=== PATIENT | female | born 1980 | race Two or more races ===

== ENCOUNTER 2020-06-24 15:45 | Outpatient (REF) | payer MEDICAID, SELFPAY | END 2020-06-24 15:46 | disposition home or self-care (01) | LOC: HO.LAB 15:45 | PROVIDERS: PCP Internal Medicine Geriatric Medicine; Visit Provider Internal Medicine | DX: Z20.828 Contact with and (suspected) exposure to other viral communicable diseases (principal) | CPT/HCPCS: 36415; C9803; U0003 ==

== ENCOUNTER 2020-10-06 12:19 | Outpatient (REF) | payer MEDICAID, SELFPAY ==
[2020-10-06 12:55] LABS: COVID-19 Test Negative (Negative)
== END 2020-10-06 12:20 | disposition home or self-care (01) ==
LOC: HO.LAB 12:19
PROVIDERS: Visit Provider Internal Medicine
DX: Z20.822 Contact with and (suspected) exposure to COVID-19 (principal)
CPT/HCPCS: 36415; 87635; C9803

== ENCOUNTER 2021-01-15 15:30 | Outpatient (REF) | payer MEDICAID, SELFPAY ==
--- NOTE | ~2021-01-15 | XR_ITS ---
EXAMINATION: XR KNEE, LEFT CLINICAL INFORMATION: Left knee pain. COMPARISON: None TECHNIQUE: Four views of the left knee. FINDINGS: Alignment is anatomic. Joint spaces are well maintained. No joint effusion. No abnormal soft tissue calcification. XR/XR knee LT 4V IMPRESSION: No acute abnormality.
== END 2021-01-15 15:31 | disposition home or self-care (01) ==
LOC: HO.XRAY 15:30
PROVIDERS: PCP Internal Medicine Geriatric Medicine; Referring Provider Internal Medicine Geriatric Medicine; Visit Provider Emergency Medicine
DX: M25.562 Pain in left knee (principal)
CPT/HCPCS: 73564

== ENCOUNTER 2021-03-17 11:13 | Outpatient (REF) | payer MEDICAID, SELFPAY ==
--- NOTE | ~2021-03-17 | XR_ITS ---
EXAMINATION: LEFT WRIST AND LEFT FOREARM X-RAY CLINICAL INFORMATION: Pain post injury COMPARISON: None TECHNIQUE: 4 views of the left wrist and 2 views of the left forearm FINDINGS: Left wrist: Bone alignment is normal. No fracture or dislocation is seen. The joint spaces are normal. Soft tissues are normal. Left forearm: Bone alignment is normal. No fracture or dislocation is seen. The joint spaces are normal. Soft tissues are normal. XR/XR wrist LT 2V IMPRESSION: Unremarkable exam.
--- NOTE | ~2021-03-17 | XR_ITS ---
EXAMINATION: LEFT WRIST AND LEFT FOREARM X-RAY CLINICAL INFORMATION: Pain post injury COMPARISON: None TECHNIQUE: 4 views of the left wrist and 2 views of the left forearm FINDINGS: Left wrist: Bone alignment is normal. No fracture or dislocation is seen. The joint spaces are normal. Soft tissues are normal. Left forearm: Bone alignment is normal. No fracture or dislocation is seen. The joint spaces are normal. Soft tissues are normal. XR/XR forearm LT 2V IMPRESSION: Unremarkable exam.
== END 2021-03-17 11:14 | disposition home or self-care (01) ==
LOC: HO.XRAY 11:13
PROVIDERS: Absent Provider Internal Medicine Geriatric Medicine; PCP Internal Medicine Geriatric Medicine; Visit Provider Emergency Medicine
DX: S59.912A Unspecified injury of left forearm, initial encounter (principal); S69.92XA Unspecified injury of left wrist, hand and finger(s), initial encounter; X58.XXXA Exposure to other specified factors, initial encounter; Y93.9 Activity, unspecified; Y92.9 Unspecified place or not applicable; Y99.9 Unspecified external cause status
CPT/HCPCS: 73090; 73100

== ENCOUNTER 2022-02-04 12:19 | Outpatient (REF) | payer MEDICAID, SELFPAY ==
--- NOTE | ~2022-02-04 | MM_ITS ---
EXAMINATION: MM SCREENING DIGITAL BREAST TOMOSYNTHESIS, BILATERAL CLINICAL INFORMATION: Screening. Asymptomatic. The lifetime risk of breast cancer based on the Tyrer-Cuzick Model is 6%. COMPARISON: Mammography: 02/06/2019, 01/31/2019, 01/20/2018 (baseline) TECHNIQUE: Digital breast tomosynthesis is performed in both the craniocaudal and mediolateral oblique views along with computer-aided detection (CAD). Synthesized 2D images are generated from the tomosynthesis. FINDINGS: The breasts are heterogeneously dense, which may obscure small masses (ACR BI-RADS breast composition Category c). Breast tissue composition borders on average fibroglandular. Right breast shows no significant changes. Neither breast shows abnormal calcifications. The bilateral axilla and skin contours are unremarkable. There are bilateral nipple piercings. Left breast has new smooth oval mass retroareolar 5:00 position measuring approximately 1.0 x 0.7 x 0.8 cm, likely a cyst. Patient will be recalled for additional targeted ultrasound. MM/MM tomosynthesis screening BI IMPRESSION: Left: -New smooth oval mass retroareolar 5:00 position, 1.0 cm, likely a cyst. Right: -No mammographic evidence of malignancy. ASSESSMENT: BI-RADS 0: Incomplete - Need Additional Imaging Evaluation RECOMMENDATION: 1. Targeted ultrasound left breast. 2. Radiology department staff will contact the patient for additional imaging. This patient's information was entered into a reminder system with a target due date for their next mammogram.
== END 2022-02-04 12:20 | disposition home or self-care (01) ==
LOC: HO.MAMMO 12:19
PROVIDERS: PCP Internal Medicine Geriatric Medicine; Visit Provider Internal Medicine Geriatric Medicine
DX: Z12.31 Encounter for screening mammogram for malignant neoplasm of breast (principal)
CPT/HCPCS: 77063; 77067

== ENCOUNTER 2022-02-12 14:43 | Outpatient (REF) | payer MEDICAID, SELFPAY ==
--- NOTE | ~2022-02-12 | US_ITS ---
EXAMINATION: US BREAST, DIAGNOSTIC, LEFT CLINICAL INFORMATION: Left breast circumscribed oval density retroareolar position.. COMPARISON: Mammography of 02/04/2022 as well as studies dating back to 01/20/2018. TECHNIQUE: Ultrasound of the breast is performed with real-time serra scale imaging and color Doppler. FINDINGS: In the retroareolar region of the left breast approximately 3 o'clock 1 cm from the nipple there is an isoechoic circumscribed density which is wider than it is tall and has some peripheral vascularity measuring approximately 8 x 4 x 7 mm in size with no significant distal sound shadowing or enhancement. The density on mammography was not appreciated on the previous mammograms. This may represent a fibroadenoma however ultrasound-guided core biopsy is recommended. Results are discussed with the patient at time of visit. Breast center natural resources instructor called referring provider's office with the above recommendation. US/US breast LT limited IMPRESSION: Retroareolar circumscribed left breast solid lesion for which ultrasound-guided core biopsy is recommended. ASSESSMENT: BI-RADS 4: Suspicious (subcategory 4A: Low suspicion for malignancy) RECOMMENDATION: Ultrasound-guided core biopsy left breast.
== END 2022-02-12 14:44 | disposition home or self-care (01) ==
LOC: HO.MAMMO 14:43
PROVIDERS: PCP Internal Medicine Geriatric Medicine; Visit Provider Internal Medicine Geriatric Medicine
DX: R92.2 Inconclusive mammogram (principal)
CPT/HCPCS: 76642

== ENCOUNTER 2022-02-17 09:24 | Outpatient (REF) | payer MEDICAID, SELFPAY ==
--- NOTE | ~2022-02-17 | MM_ITS ---
PROCEDURE: US GUIDED BREAST BIOPSY, LEFT CLINICAL INFORMATION: Indeterminate circumscribed hypoechoic lesion retroareolar location. COMPARISON: February 12, 2022 and studies dating back to January 20, 2018 PROCEDURAL DETAILS: The details of the procedure, as well as the risks, benefits, and alternatives to the procedure were explained to the patient in detail and all of her questions were answered, after which written informed consent was obtained. Site and side were confirmed. Prior to the procedure, sonography revealed a well-circumscribed hypoechoic lesion 3:00 position 1 cm from the nipple. A time-out was performed, the lesion intended for biopsy was targeted, and the skin of the left breast was then prepped and draped in the usual sterile fashion. Using sonographic guidance, sterile technique, and 1% lidocaine without epinephrine for local anesthesia, multiple automated core biopsies were obtained through the targeted area with a 14G spring loaded Achieve core biopsy device. There was real-time confirmation of appropriate needle passage. Sampling was documented. At the completion of tissue sampling, a single butterfly-shaped metallic clip was deposited at the biopsy site. There was no evidence of immediate complication. SPECIMEN: An appropriate sample was obtained. DIGITAL POST-PROCEDURE MAMMOGRAPHY: Breast density: The tissue is extremely dense, which lowers the sensitivity of mammography. BI-RADS version 5, category D. There are no new mammographic findings demonstrated. The postprocedure 2-view direct digital mammogram reveals satisfactory positioning of the biopsy clip. The patient tolerated the procedure well and, after assuring adequate hemostasis, was discharged in good condition after reviewing postbiopsy breast care instructions. Final pathology results are pending. MM/MM diagnostic mammo unilat LT IMPRESSION: 1. No immediate complication from ultrasound-guided percutaneous biopsy left breast. 2. Ultrasound was used to localize and guide marker clip placement. 3. The 2-view direct digital postprocedure mammogram reveals satisfactory positioning of the biopsy clip. 4. Final pathology results are pending. A separate report with final recommendations will be issued once these results are made available. .
== END 2022-02-17 09:25 | disposition home or self-care (01) ==
LOC: HO.MAMMO 09:24
PROVIDERS: PCP Internal Medicine Geriatric Medicine; Visit Provider Internal Medicine Geriatric Medicine
DX: R92.8 Other abnormal and inconclusive findings on diagnostic imaging of breast (principal); N63.25 Unspecified lump in the left breast, overlapping quadrants
CPT/HCPCS: 19083; 77062; 77065; 88305; 99202

== ENCOUNTER 2023-02-23 15:57 | Outpatient (REF) | payer MEDICAID, SELFPAY ==
--- NOTE | ~2023-02-23 | XR_ITS ---
EXAMINATION: XR KNEE, LEFT CLINICAL INFORMATION: Pain COMPARISON: None available. TECHNIQUE: Three views of the left knee. FINDINGS: No fracture or joint effusion. Alignment is anatomic. Joint spaces are maintained. No abnormal soft tissue calcification. XR/XR knee LT 3V IMPRESSION: Normal left knee.
== END 2023-02-23 15:58 | disposition home or self-care (01) ==
LOC: HO.HHCX 15:57
PROVIDERS: Visit Provider Family Medicine
DX: M25.562 Pain in left knee (principal)
CPT/HCPCS: 73562

== ENCOUNTER 2023-03-14 09:51 | Outpatient (REF) | payer MEDICAID, SELFPAY ==
[2023-03-16 19:38] LABS: TS Negative Control Passed; TS Panel A 0; TS Panel B 0; TS Positive Control Passed; TSpotTB Negative (Negative)
== END 2023-03-14 09:52 | disposition home or self-care (01) ==
LOC: HO.HHCL 09:51
PROVIDERS: Visit Provider Internal Medicine Geriatric Medicine
DX: Z11.1 Encounter for screening for respiratory tuberculosis (principal)
CPT/HCPCS: 36415; 86481

== ENCOUNTER 2023-04-06 10:37 | Outpatient (REF) | payer MEDICAID, SELFPAY ==
[2023-04-06 11:04] LABS: MANUAL DIFF FLAG NO
[2023-04-06 11:26] LABS: Basophils Percent Auto 0.5 % (0-2); Eosinophils Absolute Auto 0.2 X10*3/uL (0.0-0.4); Eosinophils Percent Auto 2.3 % (0-4); Hematocrit 36.6 % (37.0-47.0); Hemoglobin 11.7 g/dl (12.0-16.0); Imm Gran Abs Auto 0.02 X10*3/uL (0.00-0.03); Imm Gran Pct Auto 0.3 % (0.0-0.4); Lymphocytes Absolute Auto 2.2 X10*3/uL (1.2-4.9); Lymphocytes Percent Auto 28.6 % (20-40); Mean Corpuscular Hemoglobin 29.9 pg (27.0-33.0); Mean Corpuscular Volume 93.6 fL (80.0-98.0); Mean Platelet Volume 11.6 fL (9.4-12.3); Monocytes Absolute Auto 0.5 X10*3/uL (0.1-1.2); Monocytes Percent Auto 6.1 % (2-11); Neutrophils Absolute Auto 4.9 x10*3/uL (2.0-8.3); Neutrophils Percent Auto 62.2 % (45-73); Platelet Count 252 X10*3/uL (160-400); Red Blood Count 3.91 X10*6/uL (4.20-5.50); Red Cell Distribution Width 14.3 % (11.0-16.0); White Blood Count 7.8 X10*3/uL (4.8-10.8)
[2023-04-06 12:12] LABS: Alanine Aminotransferase 12 U/L (0-31); Albumin Level 3.6 g/dL (3.5-5.0); Alkaline Phosphatase 45 U/L (39-117); Anion Gap 11 (12-20); Aspartate Amino Transferase 16 U/L (5-31); Bilirubin Total 0.2 mg/dL (0.0-1.0); Blood Urea Nitrogen 12 mg/dL (9-16); Carbon Dioxide 21 mmol/L (22-29); Chloride 111 mmol/L (96-108); Cholesterol 154 mg/dL (<200); Estimated Glomerular Filt Rate > 60; Glucose Random 80 mg/dL (60-115); HDL Cholesterol 42 mg/dL (>40); LDL Cholesterol Calculated 97 mg/dL (<100); Potassium 4.5 mmol/L (3.3-5.1); Sodium 138 mmol/L (135-145); Total Protein 6.6 g/dL (6.5-8.0); Triglycerides 79 mg/dL (<150)
== END 2023-04-06 10:38 | disposition home or self-care (01) ==
LOC: HO.HHCL 10:37
PROVIDERS: Visit Provider Internal Medicine Geriatric Medicine
DX: Z00.00 Encounter for general adult medical examination without abnormal findings (principal); M54.2 Cervicalgia; G89.29 Other chronic pain; Z13.1 Encounter for screening for diabetes mellitus; Z13.220 Encounter for screening for lipoid disorders; Z12.11 Encounter for screening for malignant neoplasm of colon; Z12.4 Encounter for screening for malignant neoplasm of cervix; Z72.0 Tobacco use
CPT/HCPCS: 36415; 80053; 80061; 85025

== ENCOUNTER → 2023-04-14 14:15 | Outpatient (BNV) | payer MEDICAID, SELFPAY | PROVIDERS: PCP Internal Medicine Geriatric Medicine; Visit Provider Radiology Diagnostic Radiology | DX: Z12.31 Encounter for screening mammogram for malignant neoplasm of breast (principal) | CPT/HCPCS: 77063; 77067 ==

== ENCOUNTER 2023-04-14 14:35 | Outpatient (REF) | payer MEDICAID, SELFPAY ==
--- NOTE | ~2023-04-14 | MM_ITS ---
EXAMINATION: MM SCREENING DIGITAL BREAST TOMOSYNTHESIS, BILATERAL CLINICAL INFORMATION: Screening. Asymptomatic. COMPARISON: Mammography: This study is compared with prior exams dating back to 2019. TECHNIQUE: Digital breast tomosynthesis is performed in both the craniocaudal and mediolateral oblique views along with computer-aided detection (CAD). Synthesized 2D images are generated from the tomosynthesis. FINDINGS: The breasts are heterogeneously dense, which may obscure small masses (ACR BI-RADS breast composition Category c). The patient has bilateral nipple rings. Patient has had a biopsy of a benign retroareolar left breast mass. There are no significant masses, abnormal calcifications, or other abnormalities. MM/MM tomosynthesis screening BI IMPRESSION: No mammographic evidence of malignancy. ASSESSMENT: BI-RADS BI-RADS 2 - Benign Findings RECOMMENDATION: Routine annual mammography screening. 1 year F/U This examination should not preclude the clinical evaluation of a suspicious palpable abnormality. This patient's information was entered into a reminder system with a target due date for their next mammogram.
== END 2023-04-14 14:36 | disposition home or self-care (01) ==
LOC: HO.MAMMO 14:35
PROVIDERS: PCP Internal Medicine Geriatric Medicine; Visit Provider Internal Medicine Geriatric Medicine
DX: Z12.31 Encounter for screening mammogram for malignant neoplasm of breast (principal)
CPT/HCPCS: 77063; 77067

== ENCOUNTER 2023-06-09 16:05 | Outpatient (REF) | payer MEDICAID, SELFPAY ==
[2023-06-16 22:08] LABS: C. trachomatis RNA TMA NOT DETECTED (NOT DETECTED); N. gonorrhoeae RNA TMA NOT DETECTED (NOT DETECTED); Trichomonas (NAAT) NOT DETECTED (NOT DETECTED)
== END 2023-06-09 16:06 | disposition home or self-care (01) ==
LOC: HO.HHCLNP 16:05
PROVIDERS: Visit Provider Advanced Practice Midwife
DX: Z12.4 Encounter for screening for malignant neoplasm of cervix (principal); Z11.51 Encounter for screening for human papillomavirus (HPV); N93.0 Postcoital and contact bleeding
CPT/HCPCS: 36415; 87491; 87591; 87624; 87661; 88142

== ENCOUNTER 2023-07-01 10:52 | Outpatient (REF) | payer MEDICAID, SELFPAY ==
--- NOTE | ~2023-07-01 | XR_ITS ---
STUDY: Bilateral hands INDICATION: Bilateral hand/wrist pain, worse in the morning with swelling. History of right hand/forearm dog bite. COMPARISON: 03/17/2021 left forearm and wrist TECHNIQUE: 3 views each hand FINDINGS: Right: No fracture, dislocation or erosive bony changes. No significant joint space narrowings. Alignment and articulations maintained. Left: No fracture, dislocation or bony erosions. No significant joint space narrowings. Alignment and articulations are maintained. XR/XR hand RT min 3V IMPRESSION: No acute bony pathology bilateral hands.
--- NOTE | ~2023-07-01 | XR_ITS ---
STUDY: Bilateral hands INDICATION: Bilateral hand/wrist pain, worse in the morning with swelling. History of right hand/forearm dog bite. COMPARISON: 03/17/2021 left forearm and wrist TECHNIQUE: 3 views each hand FINDINGS: Right: No fracture, dislocation or erosive bony changes. No significant joint space narrowings. Alignment and articulations maintained. Left: No fracture, dislocation or bony erosions. No significant joint space narrowings. Alignment and articulations are maintained. XR/XR hand LT min 3V IMPRESSION: No acute bony pathology bilateral hands.
[2023-07-01 12:34] LABS: Rheumatoid Factor < 13.0 IU/mL (<15.0)
[2023-07-01 12:42] LABS: Erythrocyte Sedimentation Rate 7 MM/HR (0-20)
[2023-07-01 12:53] LABS: TSH reflex Free T4 0.95 uIU/mL (0.32-4.0)
== END 2023-07-01 10:53 | disposition home or self-care (01) ==
LOC: HO.HHCL 10:52
PROVIDERS: Referring Provider Advanced Practice Midwife; Visit Provider Internal Medicine Geriatric Medicine
DX: M79.641 Pain in right hand (principal); M79.642 Pain in left hand; M79.89 Other specified soft tissue disorders; N92.6 Irregular menstruation, unspecified
CPT/HCPCS: 36415; 73130; 84443; 85652; 86431

== ENCOUNTER 2023-07-22 14:36 | Outpatient (AMB) | payer MEDICAID, SELFPAY ==
[2023-07-22 14:45] VITALS: BP 139/72; PULSE 64; BMI 33.3
--- NOTE | 2023-07-22 14:45 | A.OFFVIS_ITS ---
Intake Vital Signs 07/22/23 14:45 Height 5 ft 1 in Weight 176 lb 5.917 oz BMI 33.3 BP 139/72 Blood Pressure Location Rt brachial Position Sitting Pulse 64 Intake Visit Reasons: Colonoscopy Screening Intake Note: Patient presents to in office visit today as a new patient for colonoscopy screening. CC: Patient c/o constipation, abd pain, and rectal bleeding. She states she suffers from gastritis . Denies other GI symptoms today. Work Environment Safety Inspector Required: Yes Accompanied by: Self / Same As Patient Allergies No Known Allergies [No Known Allergies*] Allergy (Verified 07/22/23 14:48) HPI Colonoscopy Screening HPI Details 43 year old? female here today for pre c olonoscopy screening.? Patient was sent to us by her PCP.? This is her first colonoscopy screening.? Patient reports postprandial abdominal bloating, occasional rectal bleeding after bowel movements. Constipation, not using anything to help her move her bowels. Patient reports that she was told that she has a gastritis in the past. Postprandial epigastric discomfort. Occasional acid reflux and dyspepsia without dysphagia or odynophagia. Patient denies any nausea or vomiting. No family history of colorectal cancer. FORMERLY [facility] Medical History Eroded bladder suspension mesh Left breast mass Family History Mother No problems noted. Mother No problems noted. Father No problems noted. Social History Alcohol intake: current Alcohol intake frequency: holidays/special occasions only Tobacco use type: Cigarette Cigarettes Per Day: 4 Years Smoked: 10 Review of Systems Const Denies weight gain and Denies weight loss ENT Reports no additional complaints, Denies dysphagia and Denies odynophagia Card Reports no additional complaints Resp Reports no additional complaints GI Reports abdominal pain (Epigastric), Reports belching, Denies melena, Reports bloating, Reports constipation, Denies dysphagia, Denies excessive flatus, Reports dyspepsia, Reports heartburn, Denies diarrhea, Denies loose stools, Denies nausea, Denies odynophagia and Denies vomiting Reports no additional complaints Musc Reports no additional complaints Neuro Reports no additional complaints Psych Reports no additional complaints Endo Reports no additional complaints Physical Exam Vital Signs: Last Vital Signs Pulse 64 07/22/23 14:45 BP 139/72 07/22/23 14:45 BMI result Body Mass Index 33.3 Const General: healthy appearing, no acute distress and well developed Nutritional Appearance: obese Orientation/consciousness: patient oriented x3 Resp Effort & Inspection: normal respiratory effort, able to speak in complete sentences, no tracheal deviation and symmetric chest movement Auscultation: clear to auscultation bilaterally Cardio Rate: regular rate GI Inspection: Yes normal to inspection, No distended and Yes obesity Palpation (GI): Soft to palpation, not firm, nontender and No hepatosplenomegaly present Auscultation: normal bowel sounds General: Yes no CVA tenderness Back/Spine/Pelvis Back: no CVA tenderness Skin General skin exam: elasticity normal, turgor normal and dry skin Neuro General: patient oriented x3 Psych Appearance: grossly normal Assessment & Plan Assessment & Plan (1) Screen for colon cancer: Code(s): Z12.11 - Encounter for screening for malignant neoplasm of colon (2) Constipation: Code(s): K59.00 - Constipation, unspecified Qualifiers: Constipation type: slow transit constipation Qualified Code(s): K59.01 - Slow transit constipation (3) Abdominal pain: Code(s): R10.9 - Unspecified abdominal pain Qualifiers: Abdominal location: generalized Qualified Code(s): R10.84 - Generalized abdominal pain Plan Patient denies any cardiac or respiratory symptoms.? Denies any issues with ane sthesia in the past.? Denies any history of sleep apnea.? No history infectious diseases in the past or present.? Not on any anticoagulation therapy.? No family or personal history of colon cancer or polyps.? Will do H pylori testing and start patient on pantoprazole. Patient was encouraged to take MiraLax every morning and senna at nighttime to help her move her bowels. Sitz baths with Epsom salt for comfort. I will see patient in 5 weeks to discuss colonoscopy and possible upper endoscopy, sooner on as needed basis. Patient is agreeable to this plan and verbalizes understanding of instructions. She was given the opportunity to ask questions and all questions answered. Thank you for allowing me to participate in her care Orders: Orders H Pylori Breath Test 07/22/23 Medications: New polyethylene glycol 3350 (Miralax) 17 grams PO DAILY 510 grams 2RF sennosides (Natural Senna Laxative) 17.2 mg (2 x 8.6 mg) PO BEDTIME 60 tabs 3RF constipation K59.00 - Constipation, unspecified pantoprazole take one tablet half an hour before breakfast 40 mg PO DAILY 30 tabs 2RF K21.9 - Gastro-esophageal reflux disease without esophagitis Coding Level of Care Code New Pt Level 4 (67248) Diagnoses Screen for colon cancer Z12.11 Slow transit constipation K59.01 Constipation type: slow transit constipation Generalized abdominal pain R10.84 Abdominal location: generalized Time Spent (min) 45 Comment 40 minutes spent with patient and additional 15 minutes spent reviewing her records
== END 2023-07-22 15:30 | disposition home or self-care (01) ==
PROVIDERS: PCP Internal Medicine Geriatric Medicine; Visit Provider Nurse Practitioner Family
DX: Z12.11 Encounter for screening for malignant neoplasm of colon (principal); K59.01 Slow transit constipation; R10.84 Generalized abdominal pain; Z01.818 Encounter for other preprocedural examination
CPT/HCPCS: 99204

== ENCOUNTER 2023-07-22 14:36 | Outpatient (REF) | payer MEDICAID, SELFPAY ==
[2023-07-23 13:31] LABS: H Pylori Breath Test Negative (Negative)
== END 2023-07-22 14:37 | disposition home or self-care (01) ==
LOC: HO.LNP 14:36
PROVIDERS: PCP Internal Medicine Geriatric Medicine; Visit Provider Nurse Practitioner Family
DX: Z01.818 Encounter for other preprocedural examination (principal); R10.84 Generalized abdominal pain; K59.01 Slow transit constipation
CPT/HCPCS: 83013; 99212

== ENCOUNTER 2024-02-01 15:46 | Outpatient (REF) | payer MEDICAID, SELFPAY ==
[2024-02-02 05:19] LABS: HBS Num1 72.38 mIU/mL (0-7.99); HBsAGNum1 0.36 S/CO (0.00-0.99); HIV AB/AG Nonreactive (Nonreactive); HIV Num 1 0.05 S/CO (0.00-0.99); Hepatitis B Surface Antigen Negative (Negative); ~HepC Num1 0.18 S/CO (0.00-0.79); ~Hepatitis B Surface Antibody REACTIVE (Nonreactive); ~Hepatitis C Antibody Nonreactive (Nonreactive)
[2024-02-02 17:38] LABS: RPR Rapid Plasma Reagin NON-REACTIVE (NON-REACTIVE)
== END 2024-02-01 15:47 | disposition home or self-care (01) ==
LOC: HO.HHCL 15:46
PROVIDERS: Visit Provider Internal Medicine Geriatric Medicine
DX: N94.9 Unspecified condition associated with female genital organs and menstrual cycle (principal)
CPT/HCPCS: 36415; 86592; 86706; 86803; 87255; 87340; 87389

== ENCOUNTER 2024-02-21 10:18 | Outpatient (REF) | payer OTHER, SELFPAY ==
--- NOTE | 2024-02-21 10:21 | EMG_ITS ---
Bilateral median and ulnar motor and sensory studies were performed. Bilateral radial and median and lateral antecubital brachial sensory studies were performed and needle examination was performed. IMPRESSION: Mild to moderate bilateral median neuropathy across carpal tunnel. MD JEISON Rizo/KATHY / [id number]
== END 2024-02-21 10:19 | disposition home or self-care (01) ==
LOC: HO.NEURO 10:18
PROVIDERS: PCP Internal Medicine Geriatric Medicine; Visit Provider Internal Medicine Geriatric Medicine
DX: M79.641 Pain in right hand (principal); M79.642 Pain in left hand
CPT/HCPCS: 95886; 95913

== ENCOUNTER 2024-03-15 18:39 | Inpatient (IN) | payer OTHER, SELFPAY ==
--- NOTE | ~2024-03-15 | US_ITS ---
EXAMINATION: US breast RT limited CLINICAL INFORMATION: abscess COMPARISON: None. TECHNIQUE: Real-time linear transducer grayscale and color Doppler ultrasound exam of the right breast. FINDINGS/ US/US breast RT limited IMPRESSION: Diffuse subcutaneous edema is seen involving the entire right breast, though predominantly affecting the upper outer quadrant. There are phlegmonous changes without organized or drainable fluid collection in the right upper outer quadrant. BI-RADS Category 2. Electronically signed by: Eri Kohler DO 03/17/2024 12:18 PM EDT
[2024-03-15 18:42] VITALS: BP 136/51; PULSE 80; RESP 16; TEMP 36.5; O2SAT 98; BMI 31.6
[2024-03-15 19:38] LABS: MANUAL DIFF FLAG NO
[2024-03-15 19:40] LABS: Basophils Percent Auto 0.3 % (0-2); Eosinophils Absolute Auto 0.2 X10*3/uL (0.0-0.4); Eosinophils Percent Auto 1.6 % (0-4); Hematocrit 33.8 % (37.0-47.0); Hemoglobin 11.2 g/dl (12.0-16.0); Imm Gran Abs Auto 0.06 X10*3/uL (0.00-0.03); Imm Gran Pct Auto 0.5 % (0.0-0.4); Lymphocytes Absolute Auto 2.5 X10*3/uL (1.2-4.9); Lymphocytes Percent Auto 20.3 % (20-40); Mean Corpuscular HGB Conc 33.1 g/dl (31.0-35.0); Mean Corpuscular Hemoglobin 30.9 pg (27.0-33.0); Mean Corpuscular Volume 93.4 fL (80.0-98.0); Mean Platelet Volume 11.7 fL (9.4-12.3); Monocytes Percent Auto 8.1 % (2-11); Neutrophils Absolute Auto 8.5 x10*3/uL (2.0-8.3); Neutrophils Percent Auto 69.2 % (45-73); Platelet Count 265 X10*3/uL (160-400); Red Blood Count 3.62 X10*6/uL (4.20-5.50); Red Cell Distribution Width 13.9 % (11.0-16.0); White Blood Count 12.2 X10*3/uL (4.8-10.8)
[2024-03-15 19:51] LABS: Anion Gap 12 (12-20); Blood Urea Nitrogen 11 mg/dL (9-16); Calcium 9.2 mg/dL (8.4-10.2); Carbon Dioxide 24 mmol/L (22-29); Chloride 109 mmol/L (96-108); Creatinine Clr Calc Pharmacy 80.8; Estimated Glomerular Filt Rate > 60; Glucose Random 119 mg/dL (60-115); Potassium 4.1 mmol/L (3.3-5.1); Sodium 141 mmol/L (135-145)
[2024-03-15 21:51] VITALS: BP 120/43; PULSE 69; RESP 16; TEMP 36.6; O2SAT 100
--- NOTE | 2024-03-16 00:08 | ED.SKABFB ---
HPI - Skin/Abscess/Foreign Bdy General Chief complaint: Skin/Abscess/Foreign Body Stated complaint: worsening inf R breast, antibiotics didnt work Time Seen by Provider: 03/16/24 00:07 Source: patient Mode of arrival: ambulatory Limitations: no limitations History of Present Illness ED Provider: sunitha KEBEDE narrative: Patient with no significant past medical history noticed small swelling of the right breast 4 days ago started on Augmentin on 03/13 comes here as the pain is getting worse and swelling has increased in size no fever no chills no recent trauma no open wound no breast-feeding no open wound Related Data Home Medications ?Medication ?Instructions ?Recorded ?Confirmed aripiprazole 5 mg tablet 5 mg PO DAILY 02/17/22 02/24/22 baclofen 10 mg tablet 10 mg PO BID PRN muscle spasm 02/17/22 02/24/22 budesonide-formoterol HFA 160 2 puff inhalation 02/17/22 02/24/22 mcg-4.5 mcg/actuation aerosol inhaler (Symbicort) clonazepam 1 mg tablet 1 mg PO BID 02/17/22 02/24/22 fluticasone propionate 110 1 puff inhalation BID 02/17/22 02/24/22 mcg/actuation HFA aerosol inhaler (Flovent HFA) ketotifen fumarate 0.025 % (0.035 1 drp ophthalmic (eye) BID itch 02/17/22 02/24/22 %) eye drops metoprolol succinate 25 mg 25 mg PO DAILY 02/17/22 02/24/22 tablet,extended release 24 hr montelukast 10 mg tablet 10 mg PO QPM 02/17/22 02/24/22 oxybutynin chloride 15 mg 15 mg PO DAILY 02/17/22 02/24/22 tablet,extended release 24 hr trazodone 100 mg tablet 100 mg PO BEDTIME 02/17/22 02/24/22 bupropion HCl 300 mg 24 hr tablet, 300 mg PO DAILY 07/22/23 extended release Previous Rx's ?Medication ?Instructions ?Recorded polyethylene glycol 3350 17 17 g PO DAILY #510 grams 07/22/23 gram/dose oral powder (Miralax) sennosides 8.6 mg tablet (Natural 17.2 mg (2 x 8.6 mg) PO BEDTIME 11/17/23 Senna Laxative) constipation #60 tabs pantoprazole 40 mg tablet,delayed 40 mg PO DAILY #30 tabs 01/16/24 release Allergies Allergy/AdvReac Type Severity Reaction Status Date / Time No Known Allergies Allergy Verified 03/15/24 18:49 [No Known Allergies*] Review of Systems Review of Systems: Yes all other systems are reviewed and are negative [facility] Past Medical History Medical History Eroded bladder suspension mesh Left breast mass Family History Family History Mother No problems noted. Mother No problems noted. Father No problems noted. Social History Social History Alcohol intake: current Alcohol intake frequency: holidays/special occasions only Tobacco use type: Cigarette Cigarettes Per Day: 4 Years Smoked: 10 Advance Directives: No Advance Directives Information Provided: No Do you have a plan to hurt others: No Plan Physical Exam Vital Signs: Vital Signs: Last Vital Signs Temp 98.2 F 03/16/24 01:27 Pulse 69 03/16/24 01:27 Resp 16 03/16/24 01:27 BP 151/64 H 03/16/24 01:27 Pulse Ox 98 03/16/24 01:27 O2 Del Method Room Air 03/16/24 01:27 BMI result Body Mass Index 31.6 Appearance: Alert. Oriented X3. No acute distress. ENT: Pharynx normal. Oral Mucosa moist Neck: Normal inspection. Neck supple. CVS: Normal heart rate and rhythm. Pulses normal. Respiratory: No respiratory distress. Equal air entry bilateral, no wheezing/rales/rhonchi Abdomen: Soft and nontender. Bowel sounds are present, no mass palpable, Skin: Skin warm and dry. Normal skin color. Normal skin turgor. Extremities: No lower extremity edema. No calf tenderness Neuro: Oriented X 3. Skin: Full body images: 1. 10 x 10 cm abscess with erythema freely mobile no skin induration needle aspiration showed thick pus Medications Administered Generic Name Dose Route Start Last Admin Trade Name Freq PRN Reason Stop Dose Admin Vancomycin HCl 1,500 mg/ 500 mls @ 333.333 mls/hr 03/16/24 00:39 03/16/24 01:39 Sodium Chloride IV 03/16/24 02:08 333.33 mls/hr ONCE ONE Administration Discontinued Medications Generic Name Dose Route Start Last Admin Trade Name Francesca PRN Reason Stop Dose Admin Piperacillin Sod/Tazobactam 50 mls @ 100 mls/hr 03/16/24 00:39 03/16/24 01:19 Sod 3.375 gm/ Sodium Chloride IV 03/16/24 01:08 100 mls/hr ONCE ONE Administration Ketorolac Tromethamine 30 mg 03/16/24 01:05 03/16/24 01:16 Ketorolac Tromethamine 30 Mg/Ml Vial IVPUSH 03/16/24 01:06 30 mg ONCE ONE Administration Lidocaine HCl 10 ml 03/16/24 00:40 03/16/24 01:16 Lidocaine Hcl 1 % 10 Ml Vial INFILTRATI 03/16/24 00:41 10 ml ONCE ONE Administration Medical Decision Making Medical Decision Making MDM Narrative: Patient's right breast abscess needle aspiration done about 20 cc of pus drained. Patient felt better after running pus will admit patient for IV antibiotics and surgical evaluation further management Lab Data [facility] Lab Attestation statement: I reviewed the patient's lab results. 03/15/24 19:32 03/15/24 19:32 Labs: Lab Results 03/15/24 03/16/24 Range/Units 19:32 01:04 WBC 12.2 H (4.8-10.8) X10*3/uL RBC 3.62 L (4.20-5.50) X10*6/uL Hgb 11.2 L (12.0-16.0) g/dl Hct 33.8 L (37.0-47.0) % MCV 93.4 (80.0-98.0) fL MCH 30.9 (27.0-33.0) pg MCHC 33.1 (31.0-35.0) g/dl RDW 13.9 (11.0-16.0) % Plt Count 265 (160-400) X10*3/uL MPV 11.7 (9.4-12.3) fL Immature Gran % (Auto) 0.5 H (0.0-0.4) % Neut % (Auto) 69.2 (45-73) % Lymph % (Auto) 20.3 (20-40) % Pike % (Auto) 8.1 (2-11) % Eos % (Auto) 1.6 (0-4) % Baso % (Auto) 0.3 (0-2) % Lymph # (Auto) 2.5 (1.2-4.9) X10*3/uL Pike # (Auto) 1.0 (0.1-1.2) X10*3/uL Eos # (Auto) 0.2 (0.0-0.4) X10*3/uL Baso # (Auto) 0.0 (0.0-0.2) X10*3/uL Abs Immat Gran (auto) 0.06 H (0.00-0.03) X10*3/uL Absolute Neuts (auto) 8.5 H (2.0-8.3) x10*3/uL Absolute Nucleated RBC 0.000 (0.0-0.012) X10*3/uL Nucleated RBC % (auto) 0.0 (0.0-0.2) /100WBC Sodium 141 (135-145) mmol/L Potassium 4.1 (3.3-5.1) mmol/L Chloride 109 H (96-108) mmol/L Carbon Dioxide 24 (22-29) mmol/L Anion Gap 12 (12-20) BUN 11 (9-16) mg/dL Creatinine 0.82 (0.5-1.4) mg/dL Estim Creat Clear Calc 80.8 Estimated GFR > 60 Random Glucose 119 H (60-115) mg/dL Lactic Acid 0.7 (0.5-2.0) mmol/L Calcium 9.2 (8.4-10.2) mg/dL Procedures Abscess I/D Site: chest (Right breast) Side (if applicable): right Local Anesthetic: lidocaine 1% Amount of anesthesia used (mL): 10 Technique: needle aspiration Amount of fluid expressed (mL): 20 Sent for culture/gram staining?: Yes Irrigation: No Packing used?: none Discharge Plan Discharge Clinical Impression: Abscess of breast, right Patient Disposition: Admitted As Inpatient Print Language: Luxem[place]ish
[2024-03-16] MEDS: Lidocaine HCl 1 % 10 ML VIAL INFILTRATI (01:16)
[2024-03-16] MEDS: Ketorolac Tromethamine 30 MG/ML VIAL IVPUSH (01:16)
[2024-03-16] MEDS: Piperacillin Sodium/Tazobactam 3.375 GM in 0.9 % Sodium Chloride 50 ML IV (01:19)
[2024-03-16 01:25] LABS: Lactic Acid 0.7 mmol/L (0.5-2.0)
[2024-03-16 01:27] VITALS: BP 151/64; PULSE 69; RESP 16; TEMP 36.8; O2SAT 98
[2024-03-16] MEDS: vancomycin HCL 1,500 MG in 0.9 % Sodium Chloride 500 ML 333.33 MG IV (01:39)
--- NOTE | 2024-03-16 01:49 | P.HPHOSP_ITS ---
History of Present Illness Date of Service: 03/16/24 Chief Complaint: Breast infection This is a 43-year-old female with pertinent history of mood disorder, gastroesophageal reflux disease, hypertension who presents to the emergency department for concerns of right breast infection. Patient states she noticed a small swelling over the right breast 4 days ago. Patient was started on Augmentin 3 days ago. Patient states the swelling has progressed despite the antibiotics and is associated with surrounding erythema, warmth and pain. No similar history in the past. No fever, chills, chest pain, palpitations, shortness of breath, abdominal pain, changes in urinary or bowel habits. In the emergency department, white cell count 12 and about 20 cc pus drained Review of Systems 2 Constitutional: Constitutional: Reports no additional constitutional complaints Cardiovascular: Cardiovascular: Reports no additional cardiovascular complaints Respiratory: Respiratory: Reports no additional respiratory complaints Gastrointestinal: Gastrointestinal: Reports no additional gastrointestinal complaints Genitourinary: Genitourinary: Reports no additional female genitourinary complaints [facility] Medical History Eroded bladder suspension mesh Left breast mass Family History Mother No problems noted. Mother No problems noted. Father No problems noted. Social History Alcohol intake: current Alcohol intake frequency: holidays/special occasions only Tobacco use type: Cigarette Cigarettes Per Day: 4 Years Smoked: 10 Advance Directives: No Advance Directives Information Provided: No Do you have a plan to hurt others: No Plan Meds Allergies Allergy/AdvReac Type Severity Reaction Status Date / Time No Known Allergies Allergy Verified 03/15/24 18:49 [No Known Allergies*] Active Medications: Current Medications Vancomycin HCl 1,500 mg/ (Sodium Chloride) 500 mls @ 333.333 mls/hr IV ONCE ONE Stop: 03/16/24 02:08 Last Admin: 03/16/24 01:39 Dose: 333.33 mls/hr Home Medications ?Medication ?Instructions ?Recorded ?Confirmed ?Last Taken ?Type aripiprazole 5 mg tablet 5 mg PO DAILY 02/17/22 02/24/22 Unknown History baclofen 10 mg tablet 10 mg PO BID PRN muscle spasm 02/17/22 02/24/22 Unknown History budesonide-formoterol HFA 160 2 puff inhalation 02/17/22 02/24/22 Unknown History mcg-4.5 mcg/actuation aerosol inhaler (Symbicort) clonazepam 1 mg tablet 1 mg PO BID 02/17/22 02/24/22 Unknown History fluticasone propionate 110 1 puff inhalation BID 02/17/22 02/24/22 Unknown History mcg/actuation HFA aerosol inhaler (Flovent HFA) ketotifen fumarate 0.025 % (0.035 1 drp ophthalmic (eye) BID itch 02/17/22 02/24/22 Unknown History %) eye drops metoprolol succinate 25 mg 25 mg PO DAILY 02/17/22 02/24/22 Unknown History tablet,extended release 24 hr montelukast 10 mg tablet 10 mg PO QPM 02/17/22 02/24/22 Unknown History oxybutynin chloride 15 mg 15 mg PO DAILY 02/17/22 02/24/22 Unknown History tablet,extended release 24 hr trazodone 100 mg tablet 100 mg PO BEDTIME 02/17/22 02/24/22 Unknown History bupropion HCl 300 mg 24 hr tablet, 300 mg PO DAILY 07/22/23 Unknown History extended release Physical Exam 2 Vital Signs and Narrative: Vital Signs: Last Vital Signs Temp 98.2 F 03/16/24 01:27 Pulse 69 03/16/24 01:27 Resp 16 03/16/24 01:27 BP 151/64 H 03/16/24 01:27 Pulse Ox 98 03/16/24 01:27 O2 Del Method Room Air 03/16/24 01:27 BMI result Body Mass Index 31.6 Middle-aged female lying in bed in no distress Neck supple, no JVD Regular rate and rhythm, S1-S2 heard Regular breath sounds bilaterally, no wheezing or crackles appreciated Abdomen soft nontender, no guarding, no rigidity Patient is awake, alert and oriented to self, place, time and person ; no focal motor deficit Psych: Normal mood No pedal edema Right breast with area of fluctuance, erythema, warmth and tenderness (examination performed with female quality assurance monitor chassis) Results Labs 03/15/24 19:32 03/15/24 19:32 Labs: Laboratory Results - last 24 hr 03/15/24 03/16/24 19:32 01:04 MCV 93.4 MCH 30.9 MCHC 33.1 RDW 13.9 Plt Count 265 MPV 11.7 Immature Gran % (Auto) 0.5 H Neut % (Auto) 69.2 Lymph % (Auto) 20.3 [place] % (Auto) 8.1 Eos % (Auto) 1.6 Baso % (Auto) 0.3 Lymph # (Auto) 2.5 [place] # (Auto) 1.0 Eos # (Auto) 0.2 Baso # (Auto) 0.0 Abs Immat Gran (auto) 0.06 H Absolute Neuts (auto) 8.5 H Absolute Nucleated RBC 0.000 Nucleated RBC % (auto) 0.0 Anion Gap 12 Estim Creat Clear Calc 80.8 Estimated GFR > 60 Random Glucose 119 H Lactic Acid 0.7 Calcium 9.2 Assessment and Plan (1) Abscess of breast, right: Status: Acute Plan This is a 43-year-old female with pertinent history of mood disorder, gastroesophageal reflux disease, hypertension who presents to the emergency department for concerns of right breast infection. #. Right breast cellulitis with abscess: Failed outpatient p.o. antibiotics. Will admit patient with IV vancomycin. 20 cc pus drained in the ER. Consulting general surgery, appreciate assistance. #. Mood disorder: Continue home mood stabilizers #. Hypertension: On beta-beto #. Gastroesophageal reflux disease: On PPI Med rec pending DVT prophylaxis: Lovenox Full code Admit as inpatient and will require two night minimum hospital stay for IV antibiotics (as above), which is not possible in a lesser acute setting. General surgery consult pending Quality Stroke Does the patient have a stroke diagnosis?: No VTE Prior VTE?: No VTE Risk Level:: Medical - moderate - high VTE Device Contraindication: Treatment Not Indicated VTE Drug Contraindication: N/A - Med Ordered
[2024-03-16] MEDS: Enoxaparin Sodium 40 MG/0.4 ML SYRINGE SUBCUT (03:01)
[2024-03-16 04:19] VITALS: BP 99/55; PULSE 70; RESP 16; TEMP 36.7; O2SAT 98
[2024-03-16 05:09] LABS: MANUAL DIFF FLAG NO
[2024-03-16 05:11] LABS: Basophils Percent Auto 0.3 % (0-2); Eosinophils Absolute Auto 0.2 X10*3/uL (0.0-0.4); Eosinophils Percent Auto 1.5 % (0-4); Hematocrit 31.5 % (37.0-47.0); Hemoglobin 10.4 g/dl (12.0-16.0); Imm Gran Abs Auto 0.04 X10*3/uL (0.00-0.03); Imm Gran Pct Auto 0.4 % (0.0-0.4); Lymphocytes Absolute Auto 2.4 X10*3/uL (1.2-4.9); Lymphocytes Percent Auto 21.5 % (20-40); Mean Corpuscular Hemoglobin 30.5 pg (27.0-33.0); Mean Corpuscular Volume 92.4 fL (80.0-98.0); Mean Platelet Volume 11.2 fL (9.4-12.3); Monocytes Absolute Auto 0.8 X10*3/uL (0.1-1.2); Monocytes Percent Auto 7.4 % (2-11); Neutrophils Absolute Auto 7.7 x10*3/uL (2.0-8.3); Neutrophils Percent Auto 68.9 % (45-73); Platelet Count 233 X10*3/uL (160-400); Red Blood Count 3.41 X10*6/uL (4.20-5.50); Red Cell Distribution Width 13.9 % (11.0-16.0); White Blood Count 11.1 X10*3/uL (4.8-10.8)
[2024-03-16 05:30] LABS: Anion Gap 10 (12-20); Blood Urea Nitrogen 10 mg/dL (9-16); Calcium 8.2 mg/dL (8.4-10.2); Carbon Dioxide 21 mmol/L (22-29); Chloride 114 mmol/L (96-108); Creatinine Clr Calc Pharmacy 81.7; Estimated Glomerular Filt Rate > 60; Glucose Random 99 mg/dL (60-115); Potassium 3.6 mmol/L (3.3-5.1); Sodium 141 mmol/L (135-145)
--- NOTE | 2024-03-16 06:43 | PHA.PROG ---
Admission Date/Time: March 16, 2024 01:47 Indication: skin Weight in k.9 kg Adjusted body weight in Kg: [place] body weight in Kg: Obesity Dosing Indication % IBW: Serum Creatinine - Last 168 Hours 03/15/24 03/16/24 19:32 05:02 Creatinine 0.82 0.81 Estimated CrCl and GFR - Last 168 Hours 03/15/24 03/16/24 19:32 05:02 Estim Creat Clear Calc 80.8 81.7 Estimated GFR > 60 > 60 Vancomycin Loading Dose: 1500mg x 1 Current Vancomycin Dosing Regimen: 1000mg Q12H Vancomycin Monitoring using AUC goal of 400 - 600 range with trough as surrogate marker: 492 mg/L Date and Time for next Vancomycin Level to be drawn: 03/17/24 @0900 Pharmacist Comments on Vancomycin Plan: Predicted trough of 15.2 mg/L Vancomycin dosing will take advantage of [employer] as a clinical decision support tool that uses Bayesian modeling to calculate individual patient's pharmacokinetic parameters and forecast the patient's drug concentration time course with the target goal AUC 24 range of 400 - 600 mg/L/hr.
--- NOTE | 2024-03-16 07:40 | PM.CNGS ---
History of Present Illness Consult details Consult date: 03/16/24 Requesting physician: Praneeth Wells Narrative: 43 year old female patient presenting with a four day history of right breast pain and progressive redness and swelling. She was started on oral antibiotics (Augmentin) for the last three days without any improvement of her symptoms. She presented to the ED for further management. In the ED she was noted to have a 10 x 10 cm abscess in the right breast. Labs revealed a WBC of 12.2, glucose of 119, and normal lactate. Needle aspiration performed by the ED physician produced 20 mls of thick pus. Patient reports feeling improved after the aspiration and is being admitted to the hospitalist service for IV antibiotics. She denies a previous history of breast abscess. She has a positive tobacco history. Menarche age 8; first child at 14, , negative family history for breast cancer. Review of Systems Review of Systems: Yes all other systems are reviewed and are negative Integumentary/Breasts: Skin/Breast: Reports breast swelling and Reports breast pain PMFSH Past Medical History Medical History Eroded bladder suspension mesh Left breast mass Family History Family History Mother No problems noted. Mother No problems noted. Father No problems noted. Social History Social History Alcohol intake: current Alcohol intake frequency: holidays/special occasions only Tobacco use type: Cigarette Cigarettes Per Day: 4 Years Smoked: 10 Advance Directives: No Advance Directives Information Provided: No Do you have a plan to hurt others: No Plan Meds Allergies Allergy/AdvReac Type Severity Reaction Status Date / Time No Known Allergies Allergy Verified 03/15/24 18:49 [No Known Allergies*] Active Medications: Current Medications Acetaminophen (Acetaminophen 325 Mg Tablet) 650 mg PO Q6H PRN PRN Reason: Pain, Mild (Pain Scale 1-3), fever or headache Calcium Carbonate (Calcium Carbonate 750 Mg Tab.Chew) 750 mg PO Q4H PRN PRN Reason: Heartburn Enoxaparin Sodium (Enoxaparin Sodium 40 Mg/0.4 Ml Syringe) 40 mg SUBCUT Q24H COUNT INCLUDES THE [facility] Last Admin: 03/16/24 03:01 Dose: 40 mg Vancomycin HCl 1,000 mg/ (Sodium Chloride) 270 mls @ 270 mls/hr IV Q12H COUNT INCLUDES THE [facility] Magnesium Hydroxide (Milk Of Magnesia 30 Ml Oral.Susp) 30 ml PO DAILY PRN PRN Reason: Constipation Melatonin (Melatonin 3 Mg Tablet) 6 mg PO BEDTIME PRN PRN Reason: Insomnia Ondansetron HCl (Ondansetron Hcl 4 Mg/2 Ml Vial) 4 mg IVPUSH Q8H PRN PRN Reason: Nausea and Vomiting Pharmacy Consult (Consult Rx Vancomycin Dosing) 1 each MISCELLANE DAILY PRN PRN Reason: Consult order Sodium Chloride (0.9 % Sodium Chloride Flush 3 Ml Syringe) 3 ml IVFLUSH QSHIFT COUNT INCLUDES THE [facility] Home Medications ?Medication ?Instructions ?Recorded ?Confirmed ?Last Taken ?Type budesonide-formoterol HFA 160 2 puff inhalation 02/17/22 02/24/22 Unknown History mcg-4.5 mcg/actuation aerosol inhaler (Symbicort) clonazepam 1 mg tablet 1 mg PO BID 02/17/22 02/24/22 Unknown History fluticasone propionate 110 1 puff inhalation BID 02/17/22 02/24/22 Unknown History mcg/actuation HFA aerosol inhaler (Flovent HFA) ketotifen fumarate 0.025 % (0.035 1 drp ophthalmic (eye) BID itch 02/17/22 02/24/22 Unknown History %) eye drops metoprolol succinate 25 mg 25 mg PO DAILY 02/17/22 02/24/22 Unknown History tablet,extended release 24 hr montelukast 10 mg tablet 10 mg PO QPM 02/17/22 02/24/22 Unknown History oxybutynin chloride 15 mg 15 mg PO DAILY 02/17/22 02/24/22 Unknown History tablet,extended release 24 hr trazodone 100 mg tablet 100 mg PO BEDTIME 02/17/22 02/24/22 Unknown History amoxicillin 875 mg-potassium 1 tab PO BID 03/16/24 03/16/24 Unknown History clavulanate 125 mg tablet aripiprazole 15 mg tablet 15 mg PO DAILY 03/16/24 Unknown History divalproex 500 mg tablet,delayed 500 mg PO 03/16/24 03/16/24 Unknown History release doxepin 25 mg capsule 25 mg PO BEDTIME 03/16/24 Unknown History escitalopram oxalate 10 mg tablet 10 mg PO DAILY 03/16/24 Unknown History multivitamin 1 tab PO DAILY 03/16/24 Unknown History Physical Exam Vital Signs: Vital Signs: Last Vital Signs Temp 98.1 F 03/16/24 04:19 Pulse 70 03/16/24 04:19 Resp 16 03/16/24 04:19 BP 99/55 L 03/16/24 04:19 Pulse Ox 98 03/16/24 04:19 O2 Del Method Room Air 03/16/24 04:19 BMI result Body Mass Index 31.6 Const: General: comfortable Nutritional Appearance: well nourished Chest: Other: Right breast with a large indurated area involving the upper outer quadrant. Bilateral nipple piercings noted. Mild erythema noted in the right upper quadrant skin. Site is tender to palpation. Chest/axillae images: 1. Area of induration upper outer quadrant right breast Resp: Effort & Inspection: normal respiratory effort, no audible wheezes, no cough and no respiratory distress Skin: Other: warm, dry Extrem: General: Yes normal to inspection Results Labs 03/16/24 05:02 03/16/24 05:02 Labs: Abnormal lab results 03/15/24 03/16/24 Range/Units 19:32 05:02 WBC 12.2 H 11.1 H (4.8-10.8) X10*3/uL RBC 3.62 L 3.41 L (4.20-5.50) X10*6/uL Hgb 11.2 L 10.4 L (12.0-16.0) g/dl Hct 33.8 L 31.5 L (37.0-47.0) % Immature Gran % (Auto) 0.5 H (0.0-0.4) % Abs Immat Gran (auto) 0.06 H 0.04 H (0.00-0.03) X10*3/uL Absolute Neuts (auto) 8.5 H (2.0-8.3) x10*3/uL Chloride 109 H 114 H (96-108) mmol/L Carbon Dioxide 21 L (22-29) mmol/L Anion Gap 10 L (12-20) Random Glucose 119 H (60-115) mg/dL Calcium 8.2 L D (8.4-10.2) mg/dL Short CBC 03/15/24 03/16/24 Range/Units 19:32 05:02 WBC 12.2 H 11.1 H (4.8-10.8) X10*3/uL Hgb 11.2 L 10.4 L (12.0-16.0) g/dl Hct 33.8 L 31.5 L (37.0-47.0) % Plt Count 265 233 (160-400) X10*3/uL BMP 03/15/24 03/16/24 19:32 05:02 Sodium 141 141 Potassium 4.1 3.6 Chloride 109 H 114 H Carbon Dioxide 24 21 L BUN 11 10 Creatinine 0.82 0.81 Calcium 9.2 8.2 L D All other labs normal. Assessment and Plan (1) Abscess of breast, right: Status: Acute Plan Agree with the current management of IV antibiotics following needle aspiration. Await the culture results. Recommend obtaining a baseline right breast ultrasound to assure complete aspiration of abscess and repeat in a week. Encouraged cessation to tobacco use which increases the risk of recurrent abscess. Will continue to monitor during this hospitalization and will follow up as outpatient. Will need bilateral mammogram once current infection resolves. Procedures Date of Service Date of Service: 03/16/24
--- NOTE | 2024-03-16 08:58 | P.EN_ITS ---
Event Note Date of Service: 03/16/24 Event Note: admitted this morning. Seen/examined with RN and head of loss prevention, comfortable. Vitals OK, BP on low side no symptoms exam: right breast mild erythema, no obvious abscess or drainage 43/F w/ mood disorder, HTN, GERD here with right breast cellulitis Right breast cellulitis, and abscess -seen by surgery, Dr. Lima advises US tor rule out drainable abscess, -continue Vanco and Zosyn - will need full rebecca mammogram on outpatient basis Mood disorder -resume meds when med rec done HTN, BP on low side -hold meds for now GERD -PPI per med rec DVT prophylaxis: Lovenox Full code time Time Spent With Patient Time: Total time managing care of this patient today _15___ minutes.
--- NOTE | 2024-03-16 09:16 | PHA.MEDREC ---
Addendum entered by Fer Quiles RPh 03/16/24 10:04: Reviewed by [facility] Original Note: Pharmacy Consult ? Medication Reconciliation Pharmacy has completed the medication reconciliation. Spoke to patient through spouter service (Christopher)to confirm med list. Patient was able to confirm med list. She no longer takes Ketotifen Fumarate 0.025% eye drops. She last too her medications yesterday.
[2024-03-16] MEDS: 0.9 % Sodium Chloride Flush 3 ML SYRINGE IVFLUSH ×3 (11:24→21:03)
[2024-03-16] MEDS: vancomycin HCL 1,000 MG in 0.9 % Sodium Chloride 250 ML 270 MG IV ×2 (11:24→23:15)
[2024-03-16 14:14] VITALS: BP 107/50; PULSE 71; RESP 18; TEMP 37.3; O2SAT 100
[2024-03-16] MEDS: Divalproex Sodium 500 MG TABLET.DR PO ×2 (14:40→21:01)
[2024-03-16] MEDS: Multivitamin TABLET 1 TAB PO (14:41)
[2024-03-16] MEDS: oxyBUTYnin chloride ER 5 MG TAB.ER.24 15 MG PO (14:41)
[2024-03-16] MEDS: Escitalopram Oxalate 10 MG TABLET PO (14:42)
--- NOTE | 2024-03-16 14:44 | PC.NURSE ---
medicated per aug, pharmacy to bring abilify to ED
--- NOTE | 2024-03-16 15:25 | PC.NURSE ---
Patient refusing to go upstairs until admitting provider comes to speak to her. Provider at bedside with sr. director product management explained to patient that ultrasound results are not yet back. Patient aware of risks of leaving ama, agreeable to go upstairs at this time
[2024-03-16 15:40] VITALS: BP 141/66; PULSE 61; RESP 14; TEMP 36.2; O2SAT 100
[2024-03-16] MEDS: ARIPiprazole 15 MG TABLET PO (17:02)
[2024-03-16] MEDS: oxyCODONE HCl Immed Release 5 MG TABLET PO (17:03)
[2024-03-16 19:34] VITALS: BP 166/79; PULSE 58; RESP 16; TEMP 36.4; O2SAT 98
[2024-03-16 19:45] VITALS: BMI 31.9
[2024-03-16] MEDS: traZODone HCL 100 MG TABLET PO (21:01)
[2024-03-16] MEDS: Montelukast Sodium 10 MG TABLET PO (21:01)
[2024-03-16] MEDS: Doxepin HCl 25 MG CAPSULE PO (21:01)
[2024-03-16] MEDS: Sennosides 8.6 MG TABLET 17.2 MG PO (21:01)
[2024-03-17 03:23] VITALS: BP 123/58; PULSE 60; RESP 16; TEMP 36.6; O2SAT 100
[2024-03-17] MEDS: oxyCODONE HCl Immed Release 5 MG TABLET PO (03:25)
[2024-03-17] MEDS: Pantoprazole Sodium 20 MG TABLET.DR 40 MG PO (05:48)
[2024-03-17 06:48] LABS: Vancomycin Random 14.5 mcg/mL (15-20)
[2024-03-17 06:58] LABS: Creatinine Clr Calc Pharmacy 96.8; Estimated Glomerular Filt Rate > 60
--- NOTE | 2024-03-17 07:02 | HE.PHANOTE ---
RE: VANCO DOSING Random came back as 14.5. Continue with dose of 1000 mg q12h. Next random is scheduled for 03/18/24 @0900.
[2024-03-17 07:59] VITALS: BP 108/53; PULSE 73; RESP 18; TEMP 36.9; O2SAT 98
--- NOTE | 2024-03-17 09:02 | P.PNGS_ITS ---
Subjective Subjective Date of Service: 03/17/24 Interval history: Hospital day 2 following drainage of right breast abscess with needle aspiration in the emergency department. Overall the patient feels much improved with decreased pain and swelling. Physical Exam 2 Vital Signs: Vital Signs: Last Vital Signs Temp 98.5 F 03/17/24 07:59 Pulse 73 03/17/24 07:59 Resp 18 03/17/24 07:59 BP 108/53 L 03/17/24 07:59 Pulse Ox 98 03/17/24 07:59 O2 Del Method Room Air 03/17/24 07:59 BMI result Body Mass Index 31.9 Const: General: comfortable Nutritional Appearance: well nourished O rientation/consciousness: patient oriented x3 Chest: Other: Minimal erythema and edema, much improved from yesterday. Skin: Other: Warm, dry, no rash Neuro: General: patient oriented x3 Objective Data Active Medications Acetaminophen (Acetaminophen 325 Mg Tablet) 650 mg PO Q6H PRN PRN Reason: Pain, Mild (Pain Scale 1-3), fever or headache Aripiprazole (Aripiprazole 15 Mg Tablet) 15 mg PO DAILY [facility] Last Admin: 03/16/24 17:02 Dose: 15 mg Documented By: MIKAYLA Comments: pt. was still in ED Calcium Carbonate (Calcium Carbonate 750 Mg Tab.Chew) 750 mg PO Q4H PRN PRN Reason: Heartburn Clonazepam (Clonazepam 1 Mg Tablet) 1 mg PO BID PRN PRN Reason: Anxiety Divalproex Sodium (Divalproex Sodium 500 Mg Tablet.Dr) 500 mg PO BID [facility] [place] Last Admin: 03/16/24 21:01 Dose: 500 mg Documented By: RICARDO Doxepin HCl (Doxepin Hcl 25 Mg Capsule) 25 mg PO BEDTIME [facility] Last Admin: 03/16/24 21:01 Dose: 25 mg Documented By: RICARDO Enoxaparin Sodium (Enoxaparin Sodium 40 Mg/0.4 Ml Syringe) 40 mg SUBCUT Q24H [facility] [place] Last Admin: 03/17/24 03:27 Dose: Not Given Documented By: RICARDO Non-Admin Reason: Pt refused, ambulates independently in room Escitalopram Oxalate (Escitalopram Oxalate 10 Mg Tablet) 10 mg PO DAILY [facility] Last Admin: 03/16/24 14:42 Dose: 10 mg Documented By: ANNALISE Fluticasone/Vilanterol (Fluticasone/Vilanterol 200/25 Blst.W.Dev) 1 puff INHALE RDAILY [facility] Vancomycin HCl 1,000 mg/ (Sodium Chloride) 270 mls @ 270 mls/hr IV Q12H [facility] [place] Last Infusion: 03/17/24 00:25 Dose: Infused Documented By: RICARDO Magnesium Hydroxide (Milk Of Magnesia 30 Ml Oral.Susp) 30 ml PO DAILY PRN PRN Reason: Constipation Melatonin (Melatonin 3 Mg Tablet) 6 mg PO BEDTIME PRN PRN Reason: Insomnia Metoprolol Succinate (Metoprolol Succinate Er 25 Mg Tab.Er.24h) 25 mg PO DAILY [facility]; Protocol Montelukast Sodium (Montelukast Sodium 10 Mg Tablet) 10 mg PO BEDTIME [facility] [place] Last Admin: 03/16/24 21:01 Dose: 10 mg Documented By: RICARDO Multivitamins/Vitamin C (Multivitamin Tablet) 1 tab PO DAILY [facility] [place] Last Admin: 03/16/24 14:41 Dose: 1 tab Documented By: ANNALISE Ondansetron HCl (Ondansetron Hcl 4 Mg/2 Ml Vial) 4 mg IVPUSH Q8H PRN PRN Reason: Nausea and Vomiting Oxybutynin Chloride (Oxybutynin Chloride Er 5 Mg Tab.Er.24) 15 mg PO DAILY [facility] [place] Last Admin: 03/16/24 14:41 Dose: 15 mg Documented By: ANNALISE Oxycodone HCl (Oxycodone Hcl Immed Release 5 Mg Tablet) 5 mg PO Q6H PRN PRN Reason: Pain, Severe (Pain Scale 7-10) Last Admin: 03/17/24 03:25 Dose: 5 mg Documented By: RICARDO Pantoprazole Sodium (Pantoprazole Sodium 20 Mg Tablet.Dr) 40 mg PO DAILY@0630 [facility] [place] Last Admin: 03/17/24 05:48 Dose: 40 mg Documented By: RICARDO Pharmacy Consult (Consult Rx Vancomycin Dosing) 1 each MISCELLANE DAILY PRN PRN Reason: Consult order Polyethylene Glycol (Polyethylene Glycol 3350 17 Gm Powd.Pack) 17 gm PO DAILY PRN PRN Reason: Constipation Senna (Sennosides 8.6 Mg Tablet) 17.2 mg PO BEDTIME [facility] [place] Last Admin: 03/16/24 21:01 Dose: 17.2 mg Documented By: RICARDO Sodium Chloride (0.9 % Sodium Chloride Flush 3 Ml Syringe) 3 ml IVFLUSH QSHIFT [facility] [place] Last Admin: 03/16/24 21:03 Dose: 3 ml Documented By: RICARDO Trazodone HCl (Trazodone Hcl 100 Mg Tablet) 100 mg PO BEDTIME [facility] [place] Last Admin: 03/16/24 21:01 Dose: 100 mg Documented By: RICARDO Labs 03/16/24 05:02 03/17/24 06:03 Labs: Laboratory Results - last 24 hr 03/17/24 06:03 Hold Purple Top SEE NOTE Estim Creat Clear Calc 96.8 Estimated GFR > 60 Hold Red Top See Note Random Vancomycin 14.5 L Microbiology Microbiology Results: Microbiology 03/16/24 01:19 Blood Culture - Preliminary Blood - Venous No growth after 24 hours. 03/16/24 01:04 Blood Culture - Preliminary Blood - Venous No growth after 24 hours. 03/16/24 00:44 Gram Stain - Final Breast Right Procedures Date of Service Date of Service: 03/17/24 Progress Note: A&P Assessment and plan (1) Abscess of breast, right: Status: Acute Plan 44-year-old female patient status post needle aspiration abscess of the right breast the emergency department yesterday. Overall the patient is improved and ultrasound revealed no residual abscess collection. No surgical intervention required at this time. Transitioned to oral antibiotics. Patient should follow up in the office in approximately 1 week after discharge. Recommend follow-up right breast ultrasound in 1 week. Time Spent With Patient Time: Total time managing care of this patient today ____ minutes. Quality Stroke Does the patient have a stroke diagnosis?: No VTE Prior VTE?: No VTE Risk Level:: Medical - moderate - high VTE Device Contraindication: Treatment Not Indicated VTE Drug Contraindication: N/A - Med Ordered
[2024-03-17] MEDS: Escitalopram Oxalate 10 MG TABLET PO (09:19)
[2024-03-17] MEDS: Multivitamin TABLET 1 TAB PO (09:19)
[2024-03-17] MEDS: Divalproex Sodium 500 MG TABLET.DR PO (09:20)
[2024-03-17] MEDS: oxyBUTYnin chloride ER 5 MG TAB.ER.24 15 MG PO (09:20)
[2024-03-17] MEDS: ARIPiprazole 15 MG TABLET PO (09:20)
[2024-03-17] MEDS: Metoprolol Succinate ER 25 MG TAB.ER.24H PO (09:20)
[2024-03-17] MEDS: 0.9 % Sodium Chloride Flush 3 ML SYRINGE IVFLUSH (09:22)
--- NOTE | 2024-03-17 09:41 | P.DS_ITS ---
DS: Providers Provider Date of Service: 03/17/24 Date of admission: 03/16/24 01:47 Primary care physician: Jose Baez MD Consults: 03/16/24 01:51 Consult to General Surgery Routine Consulting Provider: [facility] Surgeons Reason for consultation: right breast abscess 03/16/24 19:24 Consult to Wound Care Routine Reason for consultation: Right breast abscess DS: Diagnosis Discharge Diagnosis (1) Abscess of breast, right: Status: Acute DS: Summary Hospital Course Hospital Course: Admission hpi Chief Complaint: Breast infection This is a 43-year-old female with pertinent history of mood disorder, gastroesophageal reflux disease, hypertension who presents to the emergency department for concerns of right breast infection. Patient states she noticed a small swelling over the right breast 4 days ago. Patient was started on Augmentin 3 days ago. Patient states the swelling has progressed despite the antibiotics and is associated with surrounding erythema, warmth and pain. No similar history in the past. No fever, chills, chest pain, palpitations, shortness of breath, abdominal pain, changes in urinary or bowel habits. In the emergency department, white cell count 12 and about 20 cc pus drained Hospital course: The patient was admitted for IV antibiotics due to right breast cellulitis that was not improving. She received IV Vancomycin and Zosyn during her hospital stay. There was mild drainage, but both the gram stain and culture were negative. Surgery was consulted, and an ultrasound showed no abscess but did reveal soft tissue edema. Overall, the cellulitis is improving, and her pain has decreased. She will be transitioned to oral Doxycycline for one week and instructed to complete her previously prescribed Augmentin. Follow-up with Dr. Lima (Surgeon) is advised, and she has been instructed to ask her PCP to arrange for a bilateral mammogram on an outpatient basis. Final diagnoses: cellulitis of the right breast tobacco use disorder-- cessation advised Time Attestation Discharge Coordination Time (in mins): 35 Quality: Safe Use of Opioids Does Pt have an Active Cancer Diagnosis on the Problem List?: No Quality: Stroke Does the patient have a stroke diagnosis?: No Physical Exam Vital Signs: Vital Signs: Last Vital Signs Temp 98.5 F 03/17/24 07:59 Pulse 73 03/17/24 07:59 Resp 18 03/17/24 07:59 BP 108/53 L 03/17/24 07:59 Pulse Ox 98 09/28/24 07:59 O2 Del Method Room Air 03/17/24 07:59 BMI result Body Mass Index 31.9 DS: Data Data Completed and Pending Labs on day of discharge: Laboratory Results - last 24 hr 03/17/24 06:03 Hold Purple Top SEE NOTE Creatinine 0.68 Estim Creat Clear Calc 96.8 Estimated GFR > 60 Hold Red Top See Note Random Vancomycin 14.5 L Preliminary micro results at discharge 03/16/24 00:44 Routine Culture - Preliminary Breast Right No growth to date. 03/16/24 01:19 Blood Culture - Preliminary Blood - Venous No growth after 24 hours. 03/16/24 01:04 Blood Culture - Preliminary Blood - Venous No growth after 24 hours. Discharge Plan Discharge Anticipated Discharge Date/Time: 03/17/24 09:35 Patient Disposition: Home, Self-Care Discharge Diagnosis: Cellulititis of right breast Referrals: Neo Lima MD [Physician] - 1 Week Name,MD Jose [Primary Care Provider] - 1 Week Discharge Medications: New doxycycline monohydrate 100 mg Capsule 100 mg PO Q12H Qty: 14 0RF Continued sennosides [Natural Senna Laxative] 8.6 mg tablet 17.2 mg PO BEDTIME Qty: 60 3RF multivitamin Tablet 1 tab PO DAILY doxepin 25 mg capsule 25 mg PO BEDTIME divalproex 500 mg tablet,delayed release (DR/EC) 500 mg PO BID amoxicillin-pot clavulanate 875-125 mg tablet 1 tab PO BID Rx Instructions: End date 02/22/24 escitalopram oxalate 10 mg tablet 10 mg PO DAILY aripiprazole 15 mg tablet 15 mg PO DAILY pantoprazole 40 mg tablet,delayed release (DR/EC) 40 mg PO DAILY@0630 Rx Instructions: take one tablet half an hour before breakfast polyethylene glycol 3350 [Miralax] 17 gram/dose powder 17 g PO DAILY PRN (Reason: Constipation) budesonide-formoterol [Symbicort] 160-4.5 mcg/actuation HFA aerosol inhaler 2 puff inhalation BID metoprolol succinate 25 mg tablet extended release 24 hr 25 mg PO DAILY clonazepam 1 mg tablet 1 mg PO BID PRN (Reason: Anxiety) oxybutynin chloride 15 mg tablet extended release 24hr 15 mg PO DAILY trazodone 100 mg tablet 100 mg PO BEDTIME montelukast 10 mg tablet 10 mg PO BEDTIME Discharge Orders: Discharge Order (Routine); Ordered 03/17/24 Ordered By: Darwin Jorgensen Diet: Advance to usual diet Activity on Discharge: As tolerated Stand Alone Forms: Patient Portal Discharge page Print Language: Vincentian Care Plan Goals: recovery from right breast cellulitis Health Concerns: right breast cellulitis chronic tobacco use Plan of Treatment: finish the course of Augmentin previously prescribed take doxycycline as recommended follow-up with Dr. Lima in the office within 1 week follow-up with your primary care physician and asked to be arranged for an outpatient mammogram. Assessment: See above
--- NOTE | 2024-03-17 09:47 | MHC.CM.PN ---
pt dcd home self care
[2024-03-17] MEDS: Amoxicillin/Potassium Clav 875 MG TABLET PO (10:41)
[2024-03-17] MEDS: Doxycycline Monohydrate 100 MG CAPSULE PO (10:41)
== END 2024-03-17 10:48 | disposition home or self-care (01) | DRG 385 ==
LOC: HO.ED 03-16 01:13 → HO.EDOVER 03-16 01:51 → HO.S3 03-16 14:10
PROVIDERS: Emergency Medicine; Admitting Provider Student in an Organized Health Care Education/Training Program; Emergency Provider Internal Medicine; PCP Internal Medicine Geriatric Medicine; Visit Provider Internal Medicine
DX: N61.1 Abscess of the breast and nipple (principal); F17.210 Nicotine dependence, cigarettes, uncomplicated; Z71.6 Tobacco abuse counseling; I10 Essential (primary) hypertension; K21.9 Gastro-esophageal reflux disease without esophagitis; F39 Unspecified mood [affective] disorder; Z79.899 Other long term (current) drug therapy
CPT/HCPCS: 36415; 76642; 80048; 80202; 82565; 83605; 85025; 87040; 87070; 87205; 99221; 99285; J1650; J1885; J2543; J3370; J3371

== ENCOUNTER → 2024-03-16 01:47 | Outpatient (BNV) | payer OTHER, SELFPAY | PROVIDERS: Admitting Provider Student in an Organized Health Care Education/Training Program; Emergency Provider Internal Medicine; PCP Internal Medicine Geriatric Medicine; Visit Provider Student in an Organized Health Care Education/Training Program | DX: N61.1 Abscess of the breast and nipple (principal) | CPT/HCPCS: 99222; 99239; 99499 ==

== ENCOUNTER → 2024-03-16 01:47 | Outpatient (BNV) | payer OTHER, SELFPAY | PROVIDERS: Admitting Provider Student in an Organized Health Care Education/Training Program; Emergency Provider Internal Medicine; PCP Internal Medicine Geriatric Medicine; Visit Provider Surgery | DX: N61.1 Abscess of the breast and nipple (principal) | CPT/HCPCS: 99222; 99232 ==

== ENCOUNTER 2024-03-27 09:29 | Outpatient (AMB) | payer OTHER, SELFPAY ==
--- NOTE | 2024-03-27 09:49 | A.OFFVIS_ITS ---
Vital Signs 3 03/27/24 09:53 Height 5 ft 1 in Weight 165 lb 8 oz BMI 31.3 BP 142/65 H Blood Pressure Location Lt brachial Position Sitting Pulse 66 Intake Visit Reasons: breast infection, on antbx Intake Note: Patient is seen in office for ER follow up visit, following breast infection on antibiotics. Pt c/o: went to [facility] walk in due to breast pain, was send to ED and given antbx, admits to pain, redness, hot to the touch, no discharge, was I&D and pus came out, inpatient for 3 days ER:03/16/24 Small Offset Printer Required: Yes Small Offset Printer Language: Grain Operations Manager Services: Small Offset Printer Offered & Declined Small Offset Printer Name: Mattie FITZGERALD Forensic Toxicologist: Forensic Toxicologist Present Accompanied by: Self / Same As Patient Allergies No Known Allergies [No Known Allergies*] Allergy (Verified 03/27/24 09:51) Medication List - Last Reconciled 03/27/24 by Neo Lima MD aripiprazole 15 mg PO DAILY budesonide-formoterol 160-4.5 mcg/actuation (Symbicort) 2 puffs inhalation BID clonazepam 1 mg PO BID PRN divalproex 500 mg PO BID doxepin 25 mg PO BEDTIME escitalopram oxalate 10 mg PO DAILY metoprolol succinate ER 25 mg PO DAILY montelukast 10 mg PO BEDTIME multivitamin 1 tab PO DAILY oxybutynin chloride ER 15 mg PO DAILY pantoprazole 40 mg PO DAILY@0630 polyethylene glycol 3350 (Miralax) 17 grams PO DAILY PRN sennosides (Natural Senna Laxative) 17.2 mg (2 x 8.6 mg) PO BEDTIME trazodone 100 mg PO BEDTIME HPI Comments Details: 44-year-old female patient with a prior history of a right breast abscess status post needle aspiration in the emergency department. Patient was subsequently admitted to the hospital for several days for IV antibiotics. She returns now proximally 1 of the later feeling much improved with no further pain. She does feel some hardness in the right breast at the site of the previous infection but no pain associated with this hardness. She denies fever or chills. She completed the antibiotics as prescribed. [facility] Medical History Eroded bladder suspension mesh Left breast mass Family History Mother No problems noted. Mother No problems noted. Father No problems noted. Social History Household Members: Other Household Members Other:: self Housing: Apartment Do you presently have visiting nurse or other home services: No Alcohol intake: current Alcohol intake frequency: holidays/special occasions only Patient Tobacco Use Status: Current everyday Tobacco user Tobacco use type: Cigarette Cigarettes Per Day: 3 Years Smoked: 10 Second Hand Smoke Exposure: No Substance Use Type: Marijuana Review of Systems Const All systems reviewed & are unremarkable except as noted in HPI and below Physical Exam Vital Signs: Last Vital Signs Pulse 66 03/27/24 09:53 BP 142/65 H 03/27/24 09:53 BMI result Body Mass Index 31.3 Const General: comfortable and no acute distress Nutritional Appearance: well nourished Orientation/consciousness: patient oriented x3 Chest Other: Area of firmness in the upper inner quadrant right breast consistent with prior breast infection. No fluctuance is appreciated and no further discharge noted. Remainder of the breast is soft without suspicious changes. Chest/axillae images: 2 1. Area of inflammatory change Resp Effort & Inspection: normal respiratory effort Neuro General: patient oriented x3 Assessment & Plan Assessment & Plan (1) Abscess of breast, right: Code(s): N61.1 - Abscess of the breast and nipple Category: Medical Plan 44-year-old female patient with a recent breast infection of the right breast now resolving after a course of IV followed by oral antibiotics. Examination today reveals postinflammatory changes but no evidence of recurrent infection. I recommend the patient return approximately 2-3 months for repeat examination after which a diagnostic mammogram will be requested. She is welcome to call sooner for any new complaints. Coding Level of Care Code Est Pt Level 3 (91308) Diagnoses Abscess of breast, right N61.1
[2024-03-27 09:53] VITALS: BP 142/65; PULSE 66; BMI 31.3
== END 2024-03-27 10:10 | disposition home or self-care (01) ==
PROVIDERS: PCP Internal Medicine Geriatric Medicine; Visit Provider Surgery
DX: N61.1 Abscess of the breast and nipple (principal)
CPT/HCPCS: 99213

== ENCOUNTER → 2024-03-27 09:29 | Outpatient (BNVA) | payer OTHER, SELFPAY | PROVIDERS: PCP Internal Medicine Geriatric Medicine; Visit Provider Surgery | DX: T81.40XA Infection following a procedure, unspecified, initial encounter (principal); Z79.2 Long term (current) use of antibiotics | CPT/HCPCS: 99212 ==

== ENCOUNTER 2024-07-07 17:40 | Emergency (ER) | payer OTHER, SELFPAY ==
--- NOTE | ~2024-07-07 | US_ITS ---
CLINICAL HISTORY: redness, swelling concern for abscess - right breast Limited right breast ultrasound Indication abscess Comparison: 03/16/2024 Findings: At the 12 o'clock position, there is a complex fluid collection measuring 4.4 x 2.8 x 4.6 cm with septations and peripheral vascularity. Impression: Probable right breast abscess at 12:00 p.m.. Follow-up recommended to ensure resolution. This document has been electronically signed by: Alexy Kurtz MD on 07/07/2024 20:57:56
[2024-07-07 17:57] VITALS: BP 127/62; PULSE 78; RESP 19; TEMP 36.3; O2SAT 98; BMI 31.7
--- NOTE | 2024-07-07 18:01 | ED.SKABFB ---
HPI - Skin/Abscess/Foreign Bdy General Chief complaint: General Medical Stated complaint: Breast Pain Time Seen by Provider: 07/07/24 20:39 Source: patient Mode of arrival: ambulatory Limitations: no limitations History of Present Illness HPI narrative: 44 yo female with PMH of breast abscess on R side in past here today with c/o R sided breast swelling, redness, not feeling. She noticed just yesterday. No known trauma. She takes advil for pain. She notes no hx of breast cancer and normal mammogram. At this time basic labs, US of breast ordered. She came in quicker this time due to the pain. She notes she had aspiration last time and did well. MD complaint: abscess/boil Onset (ago): day(s) (1) Tetanus up to date: yes Location: chest Severity: moderate Quality: aching Pain Consistency: constant Relieving factors: none Exacerbating factors: palpation Context: other Associated symptoms: chills Treatments prior to arrival: none Related Data Home Medications ?Medication ?Instructions ?Recorded ?Confirmed budesonide-formoterol HFA 160 2 puff inhalation BID 02/17/22 03/27/24 mcg-4.5 mcg/actuation aerosol inhaler (Symbicort) clonazepam 1 mg tablet 1 mg PO BID PRN Anxiety 02/17/22 03/27/24 metoprolol succinate 25 mg 25 mg PO DAILY 02/17/22 03/27/24 tablet,extended release 24 hr montelukast 10 mg tablet 10 mg PO BEDTIME 02/17/22 03/27/24 oxybutynin chloride 15 mg 15 mg PO DAILY 02/17/22 03/27/24 tablet,extended release 24 hr trazodone 100 mg tablet 100 mg PO BEDTIME 02/17/22 03/27/24 aripiprazole 15 mg tablet 15 mg PO DAILY 03/16/24 03/27/24 divalproex 500 mg tablet,delayed 500 mg PO BID 03/16/24 03/27/24 release doxepin 25 mg capsule 25 mg PO BEDTIME 03/16/24 03/27/24 escitalopram oxalate 10 mg tablet 10 mg PO DAILY 03/16/24 03/27/24 multivitamin 1 tab PO DAILY 03/16/24 03/27/24 pantoprazole 40 mg tablet,delayed 40 mg PO DAILY@0630 03/16/24 03/27/24 release polyethylene glycol 3350 17 17 g PO DAILY PRN Constipation 03/16/24 03/27/24 gram/dose oral powder (Miralax) Previous Rx's ?Medication ?Instructions ?Recorded sennosides 8.6 mg tablet (Natural 17.2 mg (2 x 8.6 mg) PO BEDTIME 11/17/23 Senna Laxative) constipation #60 tabs doxycycline hyclate 100 mg capsule 100 mg PO BID #13 caps 07/07/24 Allergies Allergy/AdvReac Type Severity Reaction Status Date / Time No Known Allergies Allergy Verified 07/07/24 18:00 [No Known Allergies*] Review of Systems Review of Systems: Constitutional : No Fever, pos Chills ENT/Mouth : No sore throat, No Rhinorrhea Eyes: No Eye Pain, No Swelling, No Redness Cardiovascular : No Chest Pain, No SOB Respiratory : No Cough, No Sputum Gastrointestinal : No Nausea, No Vomiting, No Diarrhea, No abdominal Pain Genitourinary : No Dysuria, No Hematuria Musculoskeletal : No joint pain, No Myalgias, No Joint Swelling Skin : No Skin Lesions, positive skin rash Neuro : No Weakness, No Numbness, No Headache Psych : No Anxiety, No Depression Heme/Lymph: No Bruising, No Bleeding,No Lymphadenopathy Endocrine : No Polyuria, No Polydipsia All other systems reviewed and are negative [facility] Past Medical History Attestation statement: The following information was validated with the patient. Source: old records reviewed Medical History Eroded bladder suspension mesh Left breast mass Family History Family History Mother No problems noted. Mother No problems noted. Father No problems noted. Social History Social History Household Members: Other Household Members Other:: self Housing: Apartment Do you presently have visiting nurse or other home services: No Alcohol intake: current Alcohol intake frequency: holidays/special occasions only Patient Tobacco Use Status: Current everyday Tobacco user Tobacco use type: Cigarette Cigarettes Per Day: 3 Years Smoked: 10 Second Hand Smoke Exposure: No Substance Use Type: Marijuana Advance Directives: No Advance Directives Information Provided: Yes Do you have a plan to hurt others: No Plan Physical Exam Vital Signs: Vital Signs: Last Vital Signs Temp 97.8 F 07/07/24 23:13 Pulse 66 07/07/24 23:13 Resp 19 07/07/24 23:13 BP 128/74 07/07/24 23:13 Pulse Ox 98 07/07/24 23:13 O2 Del Method Room Air 07/07/24 23:13 BMI result Body Mass Index 31.7 Appearance: Alert. Oriented X3. No acute distress. Eyes: Pupils equal, round and reactive to light. ENT: Pharynx normal. Neck: Normal inspection. Neck supple. CVS: Normal heart rate and rhythm. Pulses normal. Breast: R breast large fluctuant area felt all around the areola with redness and warmth Respiratory: No respiratory distress. Breath sounds normal. Abdomen: Soft and nontender. Skin: Skin warm and dry. Normal skin color. Normal skin turgor. Extremities: No lower extremity edema. No calf ttp Neuro: Oriented X 3. No motor deficit. No sensory deficit. CN2-12 intact Course Course Course Narrative: 44 yo female with PMH of breast abscess on R side in past here today with c/o R sided breast swelling, redness, not feeling. She noticed just yesterday. No known trauma. She takes advil for pain. She notes no hx of breast cancer and normal mammogram. At this time basic labs, US of breast ordered this is a RAPID medical screening exam the rest of the history and physical exam is to be done by the main provider. Reevaluation(s) Reevaluation #1: Zoran Do PA-C have accepted care of the patient and signed out pending imaging and final disposition. Ultrasound breast:Findings: At the 12 o'clock position, there is a complex fluid collection measuring 4.4 x 2.8 x 4.6 cm with septations and peripheral vascularity. Impression: Probable right breast abscess at 12:00 p.m.. Follow-up recommended to ensure resolution. This document has been electronically signed by: Alexy Kurtz MD on 07/07/2024 20:57:56 will be reaching out to surgery for consult, she has been admitted before in the past.... Blood cultures and lactic acid already obtained, we will be starting antibiotics. I reviewed the Gram stain from the 1st time the patient had I and D of the breast, no organisms were identified, perhaps it is a cyst that becomes infected. We will just start doxycycline. Consultations Consultation #1: Dr. Alfaro ....... He recommends for me to I and D at bedside and the patient can follow up with Dr. Lima as an outpatient. Time: 21:37 Medications Administered Discontinued Medications Generic Name Dose Route Start Last Admin Trade Name Freq PRN Reason Stop Dose Admin Doxycycline Monohydrate 100 mg 07/07/24 21:45 07/07/24 22:36 Doxycycline Monohydrate 100 Mg Capsule PO 07/07/24 21:46 100 mg ONCE ONE Administration Vancomycin HCl 2,000 mg in 500 mls @ 250 mls/hr 07/07/24 22:00 07/07/24 22:38 Vancomycin/Ns IV 07/07/24 23:59 Infused ONCE ONE Infusion Lidocaine/Epinephrine 10 ml 07/07/24 21:45 07/07/24 22:36 Lidocaine Hcl 1%/Epi 1:100,000 10 Ml Vial INFILTRATI 07/07/24 21:46 10 ml ONCE ONE Administration Medical Decision Making Medical Decision Making [facility] Narrative: 44 yo female with PMH of breast abscess on R side in past here today with c/o R sided breast swelling, redness, not feeling well at this time will need labs, US and suspect aspiration of area vs I+D Differential Diagnosis Differential Diagnoses: The differential diagnosis associated with the presentation includes breast mass/fluid collection Admission/Observation Consideration of admission/observation: Escalation of care including admission/observation considered Lab Data [facility] Lab Attestation statement: I reviewed the patient's lab results. 07/07/24 18:23 07/07/24 18:23 Labs: Lab Results 07/07/24 Range/Units 18:23 WBC 8.8 (4.8-10.8) X10*3/uL RBC 4.23 D (4.20-5.50) X10*6/uL Hgb 12.9 D (12.0-16.0) g/dl Hct 39.1 D (37.0-47.0) % MCV 92.4 (80.0-98.0) fL MCH 30.5 (27.0-33.0) pg MCHC 33.0 (31.0-35.0) g/dl RDW 13.6 (11.0-16.0) % Plt Count 261 (160-400) X10*3/uL MPV 11.3 (9.4-12.3) fL Immature Gran % (Auto) 0.2 (0.0-0.4) % Neut % (Auto) 61.3 (45-73) % Lymph % (Auto) 31.9 (20-40) % [place] % (Auto) 4.9 (2-11) % Eos % (Auto) 1.4 (0-4) % Baso % (Auto) 0.3 (0-2) % Lymph # (Auto) 2.8 (1.2-4.9) X10*3/uL [place] # (Auto) 0.4 (0.1-1.2) X10*3/uL Eos # (Auto) 0.1 (0.0-0.4) X10*3/uL Baso # (Auto) 0.0 (0.0-0.2) X10*3/uL Abs Immat Gran (auto) 0.02 (0.00-0.03) X10*3/uL Absolute Neuts (auto) 5.4 (2.0-8.3) x10*3/uL Absolute Nucleated RBC 0.000 (0.0-0.012) X10*3/uL Nucleated RBC % (auto) 0.0 (0.0-0.2) /100WBC Sodium 140 (135-145) mmol/L Potassium 3.5 (3.3-5.1) mmol/L Chloride 109 H (96-108) mmol/L Carbon Dioxide 25 (22-29) mmol/L Anion Gap 10 L (12-20) BUN 5 L (9-16) mg/dL Creatinine 0.66 (0.5-1.4) mg/dL Estim Creat Clear Calc 99.5 Estimated GFR > 60 Random Glucose 67 (60-115) mg/dL Lactic Acid 1.0 (0.5-2.0) mmol/L Calcium 8.4 (8.4-10.2) mg/dL Magnesium 2.1 (1.6-2.6) mg/dL Total Bilirubin 0.2 (0.0-1.0) mg/dL Direct Bilirubin < 0.2 (0.0-0.5) mg/dL AST 23 (5-31) U/L ALT 14 (0-31) U/L Alkaline Phosphatase 53 (39-117) U/L Total Protein 7.3 (6.5-8.0) g/dL Albumin 3.7 (3.5-5.0) g/dL Independent Interpretation I performed an independent interpretation of an: Ultrasound External Record Review External record reviewed: Inpatient record and Outpatient record Procedures Abscess I/D Site: other (breast) Side (if applicable): right Sedation/analgesia: none Local Anesthetic: lidocaine 1% Amount of anesthesia used (mL): 5 Technique: needle aspiration Amount of fluid expressed (mL): 20 Sent for culture/gram staining?: No Irrigation: No Packing used?: none Discharge Plan Discharge Clinical Impression: Abscess of breast, right Patient Disposition: Home, Self-Care Additional Instructions: You had another abscess of the right breast. It was drained at bedside. Take the doxycycline as directed. Call Dr. Lima for a follow up appointment. Prescriptions: New doxycycline hyclate 100 mg capsule 100 mg PO BID Qty: 13 0RF No Action sennosides [Natural Senna Laxative] 8.6 mg tablet 17.2 mg PO BEDTIME Qty: 60 3RF multivitamin Tablet 1 tab PO DAILY doxepin 25 mg capsule 25 mg PO BEDTIME divalproex 500 mg tablet,delayed release (DR/EC) 500 mg PO BID escitalopram oxalate 10 mg tablet 10 mg PO DAILY aripiprazole 15 mg tablet 15 mg PO DAILY pantoprazole 40 mg tablet,delayed release (DR/EC) 40 mg PO DAILY@0630 Rx Instructions: take one tablet half an hour before breakfast polyethylene glycol 3350 [Miralax] 17 gram/dose powder 17 g PO DAILY PRN (Reason: Constipation) budesonide-formoterol [Symbicort] 160-4.5 mcg/actuation HFA aerosol inhaler 2 puff inhalation BID metoprolol succinate 25 mg tablet extended release 24 hr 25 mg PO DAILY clonazepam 1 mg tablet 1 mg PO BID PRN (Reason: Anxiety) oxybutynin chloride 15 mg tablet extended release 24hr 15 mg PO DAILY trazodone 100 mg tablet 100 mg PO BEDTIME montelukast 10 mg tablet 10 mg PO BEDTIME Referrals: Neo Lima MD [Physician] - (recurrence of right breast abscess) Stand Alone Forms: Work/School Release Print Language: [place]
[2024-07-07 18:30] LABS: MANUAL DIFF FLAG NO
[2024-07-07 18:42] LABS: Basophils Percent Auto 0.3 % (0-2); Eosinophils Absolute Auto 0.1 X10*3/uL (0.0-0.4); Eosinophils Percent Auto 1.4 % (0-4); Hematocrit 39.1 % (37.0-47.0); Hemoglobin 12.9 g/dl (12.0-16.0); Imm Gran Abs Auto 0.02 X10*3/uL (0.00-0.03); Imm Gran Pct Auto 0.2 % (0.0-0.4); Lymphocytes Absolute Auto 2.8 X10*3/uL (1.2-4.9); Lymphocytes Percent Auto 31.9 % (20-40); Mean Corpuscular Hemoglobin 30.5 pg (27.0-33.0); Mean Corpuscular Volume 92.4 fL (80.0-98.0); Mean Platelet Volume 11.3 fL (9.4-12.3); Monocytes Absolute Auto 0.4 X10*3/uL (0.1-1.2); Monocytes Percent Auto 4.9 % (2-11); Neutrophils Absolute Auto 5.4 x10*3/uL (2.0-8.3); Neutrophils Percent Auto 61.3 % (45-73); Platelet Count 261 X10*3/uL (160-400); Red Blood Count 4.23 X10*6/uL (4.20-5.50); Red Cell Distribution Width 13.6 % (11.0-16.0); White Blood Count 8.8 X10*3/uL (4.8-10.8)
[2024-07-07 18:46] LABS: Alanine Aminotransferase 14 U/L (0-31); Albumin Level 3.7 g/dL (3.5-5.0); Alkaline Phosphatase 53 U/L (39-117); Anion Gap 10 (12-20); Aspartate Amino Transferase 23 U/L (5-31); Bilirubin Direct < 0.2 mg/dL (0.0-0.5); Bilirubin Total 0.2 mg/dL (0.0-1.0); Blood Urea Nitrogen 5 mg/dL (9-16); Calcium 8.4 mg/dL (8.4-10.2); Carbon Dioxide 25 mmol/L (22-29); Chloride 109 mmol/L (96-108); Creatinine Clr Calc Pharmacy 99.5; Estimated Glomerular Filt Rate > 60; Glucose Random 67 mg/dL (60-115); Magnesium 2.1 mg/dL (1.6-2.6); Potassium 3.5 mmol/L (3.3-5.1); Sodium 140 mmol/L (135-145); Total Protein 7.3 g/dL (6.5-8.0)
[2024-07-07] MEDS: Lidocaine HCl 1%/Epi 1:100,000 10 ML VIAL INFILTRATI (22:36)
[2024-07-07] MEDS: vancomycin/NS 2,000 MG/500 ML PLAST..BAG 250 MG IV (22:36)
[2024-07-07] MEDS: Doxycycline Monohydrate 100 MG CAPSULE PO (22:36)
[2024-07-07 23:13] VITALS: BP 128/74; PULSE 66; RESP 19; TEMP 36.6; O2SAT 98
[2024-07-08] VITALS: BP 128/74; PULSE 66; RESP 19; TEMP 36.6; O2SAT 98
== END 2024-07-08 00:02 | disposition home or self-care (01) ==
PROVIDERS: Emergency Medicine; Emergency Provider Internal Medicine; PCP Internal Medicine Geriatric Medicine
DX: N61.1 Abscess of the breast and nipple (principal); N64.4 Mastodynia; F17.210 Nicotine dependence, cigarettes, uncomplicated; Z79.899 Other long term (current) drug therapy
CPT/HCPCS: 10060; 36415; 76642; 80048; 80076; 83605; 83735; 85025; 87040; 99283; 99284; J2004; J3370

== ENCOUNTER → 2024-07-07 18:03 | Outpatient (BNV) | payer OTHER, SELFPAY | PROVIDERS: Emergency Provider Internal Medicine; PCP Internal Medicine Geriatric Medicine; Visit Provider Radiology Vascular & Interventional Radiology | DX: N63.10 Unspecified lump in the right breast, unspecified quadrant (principal) | CPT/HCPCS: 76642 ==

== ENCOUNTER 2024-07-10 10:34 | Outpatient (REF) | payer OTHER, SELFPAY ==
--- OUTSIDE RECORDS SUMMARY | 2024-07-10 17:57 | XMS_ITS | Encounter Summary ---
Author Organization [employer] Address [address] 7[address] [place] [address] Care Team Providers Care Union Laborer Name Role Phone Name, Jose SAVAGE Primary Care Provider [phone] Nasir Buenrostro Unavailable Unavailable Encounter Details Date Type Department Care Team ([facility] st Contact Info) Description 07/10/2024 Telephone [facility] MEDICINE [address] [place], [place] [phone] Ingrid Lopez, GILBERT [address] [place], [place] [phone] Social History Tobacco Use Types Packs/Day Years [...] Description 09/12/2024 10:45 AM EDT Office Visit [facility] MEDICINE [address] [place] [address] Name, MD Jose [address] [place] [address] documented as of this encounter Visit Diagnoses Not on filedocumented in this encounter Additional Health Concerns Assessment Noted Time PHQ-9 Depression Total Score: 9 06/06/20 23 2:22 PM EST documented as of this encounter Care Teams Union Laborer Relationship Specialty Start Date End Date Name, MD Jose [address] [place] [address] PCP - General Family Medicine 11/11/15 Nasir Buenrostro FNP [address] [place] [address] Nurse Practitioner Family Medicine 05/24/23 [place] Thermal Cutter HelperLaydown Machine Operator 03/10/23 documented as of this encounter
--- OUTSIDE RECORDS SUMMARY | 2024-07-10 17:57 | XMS_ITS | Encounter Summary ---
Author Organization [employer] Address [address] [place] [address] Care Team Providers Care Field Evidence Technician Name Role Phone Name, Jose SAVAGE Primary Care Provider [phone] Nasir Buenrostro Unavailable Unavailable Encounter Details Date Type Department Care Team (Late st Contact Info) Description 07/03/2024 1:30 PM EST Office Visit [facility] [address] [place], [place] [phone] Jus, Nasrin, OD [address] [place] [address] Astigmatism of both eyes, unspecified type (Primary [...] Description 09/12/2024 10:45 AM EDT Office Visit [facility] MEDICINE [address] [place] [address] Name, MD Jose [address] [place] [address] documented as of this encounter Visit Diagnoses Diagnosis Astigmatism of both eyes, unspecified type- Primary Dry eyes, bilateral Dark area on retina Neoplasms of unspecified nature, retina and choroid documented in this encounter Additional Health Concerns Assessment Noted Time PHQ-9 Depression Total Score: 9 06/06/20 23 2:22 PM EST documented as of this encounter Care Teams Field Evidence Technician Relationship Specialty Start Date End Date Name, MD Jose [address] [place] [address] PCP - General Family Medicine 11/11/15 Nasir Buenrostro FNP [address] [place] [address] Nurse Practitioner Family Medicine 05/24/23 [place]ud[place] Beach Tank Car RepairerPhlebotomy Specialist 03/10/23 documented as of this encounter
--- OUTSIDE RECORDS SUMMARY | 2024-07-10 17:57 | XMS_ITS | Encounter Summary ---
Author Organization [facility] Address [address] [place] [address] 7t [place] [address] Care Team Providers Care Category Consultant Name Role Phone Name, Jose SAVAGE Primary Care Provider [phone] Nasir Buenrostro Unavailable Unavailable Reason for Referral * Imaging (Urgent) - Authorized Specialty Diagnoses / Procedures Referred By Contac t Referred To Contact Radiology Diagnoses Intermenstrual bleeding Procedures Us Pelvis complete Ingrid Lopez CNM [address] [place] [address] Phone: tel: fax: [address] Phone: tel: fax: Referral ID Status Reason Start Date Expiration Date V isits Requested Visits Authorized [id number] Authorized 07/10/2024 07/10/2025 1 1 * Imaging (Urgent) - Authorized Specialty Diagnoses / Procedures Referred By Contac t Referred To Contact Radiology Diagnoses Intermenstrual bleeding Procedures US Pelvis Transvaginal Ingrid Lopez CNM [address] [place] [address] Phone: tel: fax: [address] Phone: tel: fax: Referral ID Status Reason Start Date Expiration Date V isits Requested Visits Authorized [id number] Authorized 07/10/2024 07/10/2025 1 1 Reason for Visit * Reason Comments Gynecologic Exam Encounter Details Date Type Department Care Team (Latest Contact Info) Description 07/10/2024 10:15 AM EST Procedure Visit [facility] [address] [place] [address] Ingrid Lopez CNM [address] [place], [place] [phone] Screening examination for venereal disease (Primary Dx); Intermenstrual bleeding; Breast abscess Social History Tobacco Use Types Packs/Day Years [...] 10:19 AM EST documented in this encounter Progress Notes * Ingrid Lopez, JEREMI - 07/10/2024 10:15 AM EST Subjective Patient ID: Mi Harper is a 44 y.o. female who presents for [facility] visit Last visit with ca 05/2023. Pap NIL/HPV neg, Gonorrhea/Chlamydia/trichomonas neg from that visit. Referred to [facility] for further evaluation of bleeding after sex, but she doesn't think she ever had appointment. Right breast cellulitis 02/2024, admitted and given vancomycin and Zosyn. Seen again 07/07/2024 in ERfor recurrence, had I&D, started on doxycycline. Reports mass has decreased in size. She will followup with [facility]. Needs screening mammogram once resolved. Ultrasound showed 4.6 cm mass. Post coital bleeding resolved, never had appt with outside [facility]. No longer with previous partner, would like STI testing today. Notes spotting a few days before or after menses. Otherwise monthly menses. LMP 06/20 x 6 d. Has tubal ligation. Review of Systems Genitourinary: Positive for vaginal bleeding. Negative for dyspareunia, dysuria, frequency, genitalsores, hematuria, menstrual problem, pelvic pain, urgency, vaginal discharge and vaginal pain. No abnormal pap, no abnormal bleeding, no nipple discharge Objective BP (!) 143/84 (BP Location: Left arm, Patient Position: Sitting, BP Cuff Size: Large adult) Pulse64 Temp 97 ??F (36.1 ??C) (Temporal) Resp 20 Ht 5' 1 (1.549 m) Wt 166 lb (75.3 kg) LMP 06/20/2024 (Approximate) SpO2 98% BMI 31.37 kg/m?? Physical Exam Chest: Breasts: Right: Mass and tenderness present. No swelling, bleeding, inverted nipple, nipple discharge or skin change. Left: No swelling, bleeding, inverted nipple, mass, nipple discharge, skin change or tenderness. Comments: Bilateral nipple piercings 4cm fluctuant mass central right breast Genitourinary: General: Normal vulva. Labia: Right: No rash, tenderness, lesion or injury. Left: No rash, tenderness, lesion or injury. Vagina: Normal. No signs of injury and foreign body. No vaginal discharge, erythema, tenderness, bleeding, lesions or prolapsed vaginal marcelino. Cervix: Normal. No cervical motion tenderness, discharge, friability, lesion, erythema, cervical bleeding or eversion. Uterus: Normal. Not enlarged and not tender. Adnexa: Right adnexa normal and left adnexa normal. Right: No mass, tenderness or fullness. Left: No mass, tenderness or fullness. Lymphadenopathy: Upper Body: Right upper body: No supraclavicular or axillary adenopathy. Left upper body: No supraclavicular or axillary adenopathy. Assessment/Plan Diagnoses and all orders for this visit: Screening examination for venereal disease - Bacterial Vaginosis; Future - Chlamydia/N. Gonorrhoeae RNA, TMA, Vagina - HIV-1/2 Antigen and Antibodies, Fourth Generation, with Reflexes; Future - Syphilis Screen; Future Vaginal and serum STI tests ordered. Will contact with results. Intermenstrual bleeding - US Pelvis Transvaginal; Future - Us Pelvis complete; Future Vaginal STI and ultrasound ordered. Will contact with results. Will refer to [facility] if indicated by ultrasound or if all testing negative. Breast Abscess She plans to followup with [facility]. Continue antibiotics. Seek care urgently if symptoms worsen. documented in this encounter Plan of Treatment Upcoming Encounters Date Type Department Care Team (Late st Contact Info) Description 09/12/2024 10:45 AM EDT Office Visit [facility] [address] [place] [address] Name, MD Jose [address] [place] [address] Scheduled Orders Name Type Priority Associated Diagnoses Orde r Schedule Bacterial Vaginosis Microbiology Routine Screening examination for venereal disease Expected: 07/10/2024 (Approximate), Expires: 07/10/2025 US Pelvis Transvaginal Imaging Urgent Intermenstrual bleeding Expected: 07/10/2024, Expires: 07/10/2025 Us Pelvis complete Imaging Urgent Intermenstrual bleeding Expected: 07/10/2024, Expires: 07/10/2025 documented as of this encounter Procedures Procedure Name Priority Date/Time Associated Diagnosis Comments SYPHILIS SCREEN Routine 07/10/2024 10:51 AM EST Screening examination for venereal disease CHLAMYDIA/N. GONORRHOEAE RNA, TMA, UROGENITAL Routine 07/10/2024 10:51 AM EST Screening examination for venereal disease HIV 1/2 ANTIGEN/ANTIBODY, FOURTH GENERATION W/RFL Routine 07/10/2024 10:51 AM EST Screening examination for venereal disease documented in this encounter Results * Syphilis Screen (07/10/2024 10:51 AM EST) Syphilis Screen Nonreactive Nonreactive [facility] Blood Venous blood specimen / Unknown 07/10/2024 10:51 AM EST 07/10/2024 11:27 AM EST us Ingrid Lopez CNM LAB BLOOD ORDERABLES Zandra l Result [facility] [address] [place] [address] [phone] * HIV-1/2 Antigen and Antibodies, Fourth Generation, with Reflexes (07/10/2024 10:51 AM EST) HIV AB/AG Nonreactive Nonreactive [facility] Comment:HIV-1 p24 Ag and/or HIV-1/HIV-2 Ab not detected.A test result that is nonreactive does not exclude thepossibility of exposure to or infection with HIV-1 and/orHIV-2. Nonreactive results in this assay for individualswith prior exposure to HIV-1 and/or HIV-2 may be due toantigen and antibody levels that are below the limit ofdetection of this assay.The [employer] HIV Ag/Ab Combo assay result andsupplemental assay results should be interpreted inconjunction with the patient's clinical presentation,history and other laboratory results. If the results areinconsistent with clinical evidence, additional testing issuggested to confirm the result. Blood Venous blood specimen / Unknown 07/10/2024 10:51 AM EST 07/10/2024 11:17 AM EST Ingrid Lopez [facility] LAB BLOOD ORDERABLES Zandra l Result Performing Organization Address [facility] Co de Phone Number [facility] [address] [place] [address] [phone] * Chlamydia/N. Gonorrhoeae RNA, TMA, Vagina (07/10/2024 10:51 AM EST) CT PCR NOT DETECTED Not Detect. [facility] Comment:A not detected test result does not exclude the possibilityof infection because test results can be affected byimproper specimen collection, concurrent antibiotic therapy,or the number of organisms in the specimen which may bebelow the sensitivity of the test. As with many diagnostictests, results from the Xpert CT/NG assay should beinterpreted in conjunction with other laboratory andclinical data available to the clinician.Xpert CT/NG performance has not been evaluated in patientsless than 14 years of age. The assay should not be used forthe evaluationof suspected sexual abuse or for other medico-legalindications. Additional testing is recommended in anycircumstance when false positive or false negative resultscould lead to adverse medical, social or psychologicalconsequences. NG PCR NOT DETECTED Not Detect. [facility] Comment:A not detected test result does not exclude the possibilityof infection because test results can be affected byimproper specimen collection, concurrent antibiotic therapy,or the number of organisms in the specimen which may bebelow the sensitivity of the test. As with many diagnostictests, results from the Xpert CT/NG assay should beinterpreted in conjunction with other laboratory andclinical data available to the clinician.Xpert CT/NG performance has not been evaluated in patientsless than 14 years of age. The assay should not be used forthe evaluationof suspected sexual abuse or for other medico-legalindications. Additional testing is recommended in anycircumstance when false positive or false negative resultscould lead to adverse medical, social or psychologicalconsequences. Swab Vaginal structure / Unknown 07/10/2024 10:51 AM EST 07/10/2024 1:19 PM EST Narrative [facility] - 07/10/2024 2:58 PM EST Urine us Ingrid Lopez CNM LAB MICROBIOLOGY - GENERA L ORDERABLES Final Result [facility] [address] [place] [address] [phone] documented in this encounter Visit Diagnoses Diagnosis Screening examination for venereal disease- Primary Intermenstrual bleeding Metrorrhagia Breast abscess Inflammatory disease of breast documented in this encounter Additional Health Concerns Assessment Noted Time PHQ-9 Depression Total Score: 9 06/06/20 23 2:22 PM EST documented as of this encounter Care Teams Category Consultant Relationship Specialty Start Date End Date Name, MD Jose [address] [place] [address] PCP - General Family Medicine 11/11/15 Nasir Buenrostro FNP [address] [place] [address] Nurse Practitioner Family Medicine 05/24/23 [place] Software TesterSnowboard Instructor 03/10/23 documented as of this encounter
--- OUTSIDE RECORDS SUMMARY | 2024-07-10 17:57 | XMS_ITS | Encounter Summary ---
Author Organization [employer] Address [address] 7t [place] [address] Care Team Providers Care Volunteer Fire Fighter Name Role Phone Name, Jose SAVAGE Primary Care Provider [phone] Nasir Buenrostro Unavailable Unavailable Encounter Details Date [...] 10:45 AM EDT Office Visit [facility] [address] [place] [phone] Name, MD Jose [address] [place] [address] documented as of this encounter Visit Diagnoses Not on filedocumented in this encounter Additional Health Concerns Assessment Noted Time PHQ-9 Depression Total Score: 9 06/06/20 23 2:22 PM EST documented as of this encounter Care Teams Volunteer Fire Fighter Relationship Specialty Start Date End Date Name, MD Jose [address] [place] [address] PCP - General Family Medicine 11/11/15 Nasir Buenrostro FNP [address] [place] [address] Nurse Practitioner Family Medicine 05/24/23 Gudelia Beach Line AnalystSewage Treatment Plant Operator 03/10/23 documented as of this encounter
--- OUTSIDE RECORDS SUMMARY | 2024-07-10 17:57 | XMS_ITS | Encounter Summary ---
Author Organization [employer] [facility] Address [address] [place] [address] 7t [place] [address] Care Team Providers Care Central Supply Aide Name Role Phone Name, Jose SAVAGE Primary Care Provider [phone] Nasir Buenrostro Unavailable Unavailable Reason for Visit * Reason Comments Med Refill Encounter Details Date Type Department Care Team ([facility] st Contact Info) Description 03/14/2023 Refill [facility] [address] [place] [address] [phone] Nasir Buenrostro FNP Mood disorder (CMS/HCC) Social [...] Upcoming Encounters Date Type Department Care Team ([facility] Contact Info) Description 09/12/2024 10:45 AM EDT Office Visit [facility] [address] [place], [place] [phone] Name, MD Jose [address] [place] [address] documented as of this encounter Visit Diagnoses Diagnosis Mood disorder (CMS/HCC) Unspecified episodic mood disorder documented in this encounter Additional Health Concerns Assessment Noted Time PHQ-9 Depression Total Score: 7 02/09/20 23 1:43 PM EDT documented as of this encounter Care Teams Central Supply Aide Relationship Specialty Start Date End Date Name, MD Jose [address] [place] [address] PCP - General Family Medicine 11/11/15 Nasir Buenrostro FNP [address] [place] [address] Nurse Practitioner Family Medicine 05/24/23 Gudelia Beach Cash Surrender CalculatorCement Storage Worker 03/10/23 documented as of this encounter
--- OUTSIDE RECORDS SUMMARY | 2024-07-10 17:57 | XMS_ITS | Encounter Summary ---
Author Organization [employer] Address [address] [place] [address] Care Team Providers Care Needle Felt Making Machine Operator Name Role Phone Name, Jose SAVAGE Primary Care Provider [phone] Nasir Buenrostro Unavailable Unavailable Encounter Details Date Type Department Care Team ([facility] st Contact Info) Description 07/07/2024 Orders Only [...] Description 09/12/2024 10:45 AM EDT Office Visit [facility] [address] [place] [address] Name, MD Jose [address] [place] [address] Pending Results Name Type Priority Associated Diagnoses [...] EST Narrative 07/07/2024 8:59 PM EST ? [facility] ?[address] ?[place] [address] ? Ultrasound Report ? Signed ? Patient: Mi Neville ?MR#: M ?? [id number] ? : 1980 ?Acct:[id number] ? Age/Sex: 44 / F ?ADM Date: 07/07/24 ? Loc: HO.ED ? Attending Dr: ? Ordering Physician: June Esposito DO ?? Date of Service: 07/07/24 ?? Procedure(s): US breast RT limited ?? Accession Number(s): [id number] ? cc: June Esposito DO; NameJose MD [...] ? DD/ 56 ? TD/TT: 07/07/242056 ? Truck Engine Assembler: ? Procedure Note Donnathanter, Image - 07/07/2024 [place] [address] Ultrasound Report Signed Patient: Mi Neville BMR#: [id number] : 1980Acct:[id number] Age/Sex: 44 / FADM Date: 07/07/24 Loc: HO.ED Attending Dr: Ordering Physician: June Esposito DO Date of Service: 07/07/24 Procedure(s): US breast RT limited Accession Number(s): [id number] cc: June Esposito DO; Name,Jose SAVAGE CLINICAL [...] in OV> 07/07/242058 DD/ 56 TD/TT: 07/07/242056 Truck Engine Assembler: us [facility] External Provider IMG US PROCEDURES Edited Result - Final * CBC auto differential (07/07/2024 6:23 PM EST) White Blood Count 8.8 4.8 - 10.8 X10*3/uL [facility] Red Blood Count 4.23 4.20 - 5.50 X10*6/uL [facility] Hemoglobin 12.9 12.0 - 16.0 g/dl [facility] Hematocrit 39.1 37.0 - 47.0 % [facility] Mean Corpuscular Volume 92.4 80.0 - 98.0 fL [facility] Mean Corpuscular Hemoglobin 30.5 27.0 - 33.0 pg [facility] Mean Corpuscular HGB Conc 33.0 31.0 - 35.0 g/dl [facility] Red Cell Distribution Width 13.6 11.0 - 16.0 % [facility] Platelet Count 261 160 - 400 X10*3/uL [facility] Mean Platelet Volume 11.3 9.4 - 12.3 fL [facility] Neutrophils Percent Auto 61.3 45 - 73 % [facility] Imm Gran Pct Auto 0.2 0.0 - 0.4 % [facility] Lymphocytes Percent Auto 31.9 20 - 40 % [facility] Monocytes Percent Auto 4.9 2 - 11 % [facility] Eosinophils Percent Auto 1.4 0 - 4 % [facility] Basophils Percent Auto 0.3 0 - 2 % [facility] NRBC Pct Auto 0.0 0.0 - 0.2 /100WBC [facility] Neutrophils Absolute Auto 5.4 2.0 - 8.3 x10*3/uL [facility] Imm Gran Abs Auto 0.02 0.00 - 0.03 X10*3/uL [facility] Lymphocytes Absolute Auto 2.8 1.2 - 4.9 X10*3/uL [facility] Monocytes Absolute Auto 0.4 0.1 - 1.2 X10*3/uL [facility] Eosinophils Absolute Auto 0.1 0.0 - 0.4 X10*3/uL [facility] Basophils Absolute Auto 0.0 0.0 - 0.2 X10*3/uL [facility] NRBC Abs Auto 0.000 0.0 - 0.012 X10*3/uL [facility] 07/07/2024 6:23 PM EST 07/07/2024 6:28 PM EST us Generic External Data Provider LAB BLOOD ORDERAB LES Final Result Performing Organization [facility]/ZIP Co de Phone Number [facility] [address] [place] [address] [phone] * Lactic Acid (07/07/2024 6:23 PM EST) [facility] Lactic Acid 1.0 0.5 - 2.0 mmol/L [facility] 07/07/2024 6:23 PM EST 07/07/2024 6:28 PM EST Generic External Data Provider LAB BLOOD ORDERAB LES Final Result Performing Organization Address [facility]/ZIP Co de Phone Number [facility] [address] [place] [phone] * Magnesium (07/07/2024 6:23 PM EST) [facility] Magnesium 2.1 1.6 - 2.6 mg/dL [facility] 07/07/2024 6:23 PM EST 07/07/2024 6:28 PM EST Generic External Data Provider LAB BLOOD ORDERAB LES Final Result Performing Organization Address [facility] Co de Phone Number [facility] [address] [place] [phone] * (ABNORMAL) Basic Metabolic Panel (07/07/2024 6:23 PM EST) [facility] Sodium 140 135 - 145 mmol/L [facility] Potassium 3.5 3.3 - 5.1 mmol/L [facility] Chloride 109(H) 96 - 108 mmol/L [facility] Carbon Dioxide 25 22 - 29 mmol/L [facility] Anion Gap 10(L) 12 - 20 [facility] Urea Nitrogen (BUN) 5(L) 9 - 16 mg/dL [facility] Creatinine, Serum 0.66 0.5 - 1.4 mg/dL [facility] Creatinine Clr Calc Pharmacy 99.5 [facility] Comment:Provided height and weight: 154.94 cm,76.2 kg.eGFR (calculated from the MDRD study equation) and eCrCl(calculated from the Cockcroft-Gault equation) are based ondifferent parameters and may not yield comparable results.If eCrCl result is absurd, please check patient'sheight/weight. Estimated Glomerular Filt Rate >60 [facility] Comment:Chronic Kidney Disea se: Estimated GFR < 60 mL/min/1.83h8Medraj Kidney Disease: Estimated GFR < 15 mL/min/1.73m2 Glucose 67 60 - 115 mg/dL [facility] Calcium 8.4 8.4 - 10.2 mg/dL [facility] 07/07/2024 6:23 PM EST 07/07/2024 6:28 PM EST us Generic External Data Provider LAB BLOOD ORDERAB LES Final Result Performing Organization Address [facility]/ZIP Co de Phone Number [facility] [address] [place] [phone] * Hepatic Function Panel (07/07/2024 6:23 PM EST) Bilirubin, Total 0.2 0.0 - 1.0 mg/dL [facility] Bilirubin, Direct <0.2 0.0 - 0.5 mg/dL [facility] Aspartate Amino Transferase 23 5 - 31 U/L [facility] Alanine Aminotransferase 14 0 - 31 U/L [facility] Total Protein 7.3 6.5 - 8.0 g/dL [facility] Albumin Level 3.7 3.5 - 5.0 g/dL [facility] Alkaline Phosphatase 53 39 - 117 U/L [facility] 07/07/2024 6:23 PM EST 07/07/2024 6:28 PM EST us Generic External Data Provider LAB BLOOD ORDERAB LES Final Result Performing Organization Address [facility]/ZIP Co de Phone Number [facility] [address] [place] [phone] documented in this encounter Visit Diagnoses Not on filedocumented in this encounter Additional Health Concerns Assessment Noted Time PHQ-9 Depression Total Score: 9 06/06/20 23 2:22 PM EST documented as of this encounter Care Teams Needle Felt Making Machine Operator Relationship Specialty Start Date End Date Name, MD Jose [address] [place] [address] PCP - General Family Medicine 11/11/15 Nasir Buenrostro FNP [address] [place] [address] Nurse Practitioner Family Medicine 05/24/23 Gudelia Beach Strategic Marketing AssociateFurnace Firer 03/10/23 documented as of this encounter
--- OUTSIDE RECORDS SUMMARY | 2024-07-10 17:57 | XMS_ITS | Encounter Summary ---
Author Organization [employer] Address [address] [place] [address] Care Team Providers Care Heavy Equipment Service Manager Name Role Phone Name, Jose SAVAGE Primary Care Provider [phone] Nasir Buenrostro Unavailable Unavailable Reason for Visit * Reason Comments Med Refill Encounter Details Date Type Department Care Team ([facility] Contact Info) Description 11/02/[address] [facility] [address] [place] [address] Nasir Buenrostro FNP Mood disorder (CMS/HCC) Social [...] Description 09/12/2024 10:45 AM EDT Office Visit [facility] [address] [place] [address] Name, MD Jose [address] [place] [phone] documented as of this encounter Visit Diagnoses Diagnosis Mood disorder (CMS/HCC) Unspecified episodic mood disorder documented in this encounter Additional Health Concerns Assessment Noted Time PHQ-9 Depression Total Score: 9 06/06/20 23 2:22 PM EST documented as of this encounter Care Teams Heavy Equipment Service Manager Relationship Specialty Start Date End Date Name, MD Jose [address] [place] [phone] PCP - General Family Medicine 11/11/15 Nasir Buenrostro FNP [address] [place] [address] Nurse Practitioner Family Medicine 05/24/23 Gudelia Beach Machine Maintenance MechanicSupersonic Engineer 03/10/23 documented as of this encounter
--- OUTSIDE RECORDS SUMMARY | 2024-07-10 17:57 | XMS_ITS | Encounter Summary ---
Author Organization [employer] Address [address]t [place] [address] Care Team Providers Care Bindery Chief Name Role Phone Name, Jose SAVAGE Primary Care Provider [phone] Nasir Buenrostro Unavailable Unavailable Reason for Visit * Reason Comments Med Refill Encounter Details Date Type Department Care Team ([facility] Contact Info) Description 01/18/2024 Refill [facility] [address] [place], [place] [phone] Name, MD Jose [address] [place] [address] Asthma, unspecified asthma severity, unspecified whether complicated, [...] Description 09/12/2024 10:45 AM EDT Office Visit [facility] [address] [place] [address] Name, MD Jose [address] [place] [address] documented as of this encounter Visit Diagnoses Diagnosis Asthma, unspecified asthma severity, unspecified whether complicated, unspecified whether persistent documented in this encounter Additional Health Concerns Assessment Noted Time PHQ-9 Depression Total Score: 9 06/06/20 23 2:22 PM EST documented as of this encounter Care Teams Bindery Chief Relationship Specialty Start Date End Date Name, MD Jose [address] [place] [address] PCP - General Family Medicine 11/11/15 Nasir Buenrostro FNP [address] [place] [address] Nurse Practitioner Family Medicine 05/24/23 Gudelia Beach Trade AnalystEarly Childhood Specialist 03/10/23 documented as of this encounter
--- OUTSIDE RECORDS SUMMARY | 2024-07-10 17:57 | XMS_ITS | Encounter Summary ---
Author Organization [employer] Address [address] [facility] 7t [place] [address] Care Team Providers Care Remote Mortgage Underwriter Name Role Phone Name, Jose SAVAGE Primary Care Provider [phone] Nasir Buenrostro Unavailable Unavailable Reason for Visit * Reason Onset Date Comments Call Back Request 08/05/2023 Encounter Details Date Type Department Care Team ([facility] Contact Info) Description 08/05/2023 Telephone [facility] [address] [place], [place] [phone] Name, MD Jose [address] [place] [address] Call Back Request Social History Tobacco Use [...] - 08/15/2023 10:23 AM EST TC to [facility] where referral was originally faxed. Referral for [...] to do. Thanks! * Telephone Encounter - Ingrdi Lopez CNM - 08/13/2023 10:08 AM EST Could you please look into this? I referred patient to [facility] for postcoital bleeding, not to [facility]. Thanks! * Telephone Encounter - Aline Miller RN - 08/09/2023 11:37 AM EST T/c made to Yani at [facility]. Yani said that pt referral is incorrect and center is specifically for IVF treatment. Will reroute to provider for more info. * Telephone Encounter - Ingrid Lopez CNM - 08/05/2023 1:53 PM EST Referred to [facility] for postcoital bleeding. Please see my referral note. If unable to be seen at [facility], please coordinate with referrals to see where she can be seen. * Telephone Encounter - Ranjith Vasquez - 08/05/2023 11:37 AM EST Tc from Yani Brooke from [facility] requesting a call back for clarification on why the patient was referred to them and to notify the PCP that they do not accept Medicaid insurance please call Yani at [phone] documented in this encounter Plan of Treatment Upcoming Encounters Date Type Department Care Team (Late st Contact Info) Description 09/12/2024 10:45 AM EDT Office Visit [facility] [address] [place] [phone] Name, MD Jose [address] [place] [phone] documented as of this encounter Visit Diagnoses Not on filedocumented in this encounter Additional Health Concerns Assessment Noted Time PHQ-9 Depression Total Score: 9 06/06/20 23 2:22 PM EST documented as of this encounter Care Teams Remote Mortgage Underwriter Relationship Specialty Start Date End Date Name, MD Jose [address] [place] [phone] PCP - General Family Medicine 11/11/15 Nasir Buenrostro FNP [address] [place] [phone] Nurse Practitioner Family Medicine 05/24/23 [place]ud[place] Commercial InsulatorSeafood Harvester 03/10/23 documented as of this encounter
--- OUTSIDE RECORDS SUMMARY | 2024-07-10 17:57 | XMS_ITS | Clinical Summary ---
Author Organization [employer] Address [address] [facility] 7t [place] [address] Care Team Providers Care Journeyman Pipefitter Name Role Phone Name, Jose SAVAGE Primary Care Provider [phone] Nasir Buenrostro Unavailable Unavailable Allergies No known [...] as directed, since she does not read Kazakh (and has no one to help her [...] 10 mg. Rx's will be sent to [facility] for home delivery. F/U with me [...] feeling quite alone as family is in [place]. Has started with counseling. Today 06/06/2023 provider [...] Plan (02/23/2023 4:12 PM EDT): Pt repots [facility] for years. No evidence of infection or effusion. -PT referral done and Xray ordered 02/23/2023. Dog bite of arm, right, subsequent encounter 04/04/2023 Assessment & Plan (10/07/2022 1:39 PM EDT): Hospitalized at [facility] for 3 days for IV antibiotics, discharged on Augmentin and Bactrim for total of 21 days of abx therapy Counseled to finish abx as prescribed Letter given for work at [employer] for no heavy lifting x 14 days Edema of lower extremity 12/27/2016 Encounters Date Type Department Care Team Description 07/10/2024 10:15 AM EST Procedure Visit [facility] MEDICINE [address] [place] [address] Ingrid Lopez CNM Screening examination for venereal disease (Primary Dx); Intermenstrual bleeding; Breast abscess 07/10/[address] [facility] MEDICINE [address] [place] [address] Ingrid Lopez CNM 07/10/2024 Travel 07/07/2024 Orders Only GENERIC EXTERNAL DATA DEPARTMENT Provider, Generic External Data 07/03/2024 1:30 PM EST Office Visit [facility] OPTOMETRY [address] [place] [address] Jus, Nasrin, OD Astigmatism of both eyes, unspecified type (Primary Dx); Dry eyes, bilateral; Dark area on retina 07/03/2024 Travel 06/28/[address] [facility] MEDICINE [address] [place] [phone] Mikki Contreras MA feb recalls 05/29/[address] [facility] MEDICINE [address] [place] [phone] Jose Baez MD Durable Medical Equipment 05/08/2024 1:15 PM EST Office Visit [address] [address] Jose Baez MD Breast abscess (Primary Dx); Carpal tunnel syndrome, unspecified laterality; Vaccination refused by patient 05/03/[address] [facility] MEDICINE [address] [place] [phone] Rosa Dasilva MA Chartprep 04/18/[address] [facility] MEDICINE [address] [place] [phone] Mikki Contreras MA BHS Cancelled Appt 04/17/2024 Patient Outreach [facility] CHC MED & PEDS [address] [place], [place] [phone] Jose Baez MD Pre-visit Planning (SDOH was completed on 10/14/2023) 04/10/[address] [facility] MEDICINE [address] [place] [phone] Jose aBez MD from Last 3 Months Immunizations Name [...] AM EDT Office Visit [facility] MEDICINE [address] [place] [address] Name, MD Jose [address] [place] [address] Health Maintenance Due Date Last Done Comments CT Colonography 1980 Colonoscopy 1978 Colorectal Cancer Screening 1980 Dental Prophylaxis 1978 FIT DNA/Cologuard 1978 FIT 1978 FOBT 1978 Sigmoidoscopy 1980 Depression Monitoring (PHQ-9) 12/06/2023 06/06/2023, 06/06/2023 COVID-19 Vaccine ( season) 2024 01/25/2022, 02/09/2021, 11/22/2020 Influenza Vaccine (#1) 2024 , 05/08/2020, 03/21/2019, Additional history exists Depression Screening 06/06/2024 06/06/2023, 06/06/20 23 Dental Oral Exam 08/04/2024 02/01/2024 SDOH Screening 10/13/2024 10/14/2023 Alcohol/Substance Use Screening 01/31/2025 02/01/2024 Dental X-Ray: Bitewings 02/01/2025 02/01/2024 Mammogram 07/07/2025 07/07/2024, 02/19, 04/14/2023, Additional history exists Family Planning (PISQ) 07/10/2025 07/10/2024 Tobacco Screening 07/10/2025 07/10/2024 Dental X-Ray: Full [...] 03/22/2016 Hepatitis B Vaccines Completed 06/06/2023, 05/03/20 Hepatitis C Screening Completed 02/01/2024 HIV Screening Completed 07/10/2024, 02/01/2024 HIB Vaccines Aged Out No longer [...] AM EST Screening examination for venereal disease BI US BREAST LIMITED RIGHT Routine 07/07/2024 8:57 PM EST CBC WITH AUTO DIFFERENTIAL Routine 07/07/2024 6:23 PM EST LACTIC ACID Routine 07/07/2024 6:23 PM EST MAGNESIUM Routine 07/07/2024 6:23 PM EST BASIC METABOLIC PANEL Routine 07/07/2024 6:23 PM EST HEPATIC FUNCTION PANEL Routine 6:23 PM EST BLOOD CULTURE (FIRST) Routine [...] Recently Relevant to Health Maintenance Results * Syphilis Screen (07/10/2024 10:51 AM EST) Syphilis Screen Nonreactive Nonreactive [facility] Blood Venous blood specimen / Unknown 07/10/2024 10:51 AM EST 07/10/2024 11:27 AM EST Ingrid Lopez [facility] BLOOD ORDERABLES Zandra corona Result [facility] [address] [place] [phone] * Chlamydia/N. Gonorrhoeae RNA, TMA, Vagina (07/10/2024 10:51 AM EST) [facility] CT PCR NOT DETECTED Not Detect. [facility] Comment:A not detected test result [...] psychologicalconsequences. NG PCR NOT DETECTED Not Detect. [facility] Comment:A not detected test result [...] AM EST 07/10/2024 1:19 PM EST Narrative [facility] - 07/10/2024 2:[address] [facility]grid[facility] MICROBIOLOGY - GENERA L ORDERABLES Final Result Performing Organization Address City/[facility]/ZIP Co de Phone Number [facility] [address] [place] [phone] * HIV-1/2 Antigen and Antibodies, Fourth Generation, with Reflexes (07/10/2024 10:51 AM EST) HIV AB/AG Nonreactive Nonreactive [facility] Comment:HIV-1 p24 Ag and/or HIV-1/HIV-2 Ab not detected.A test result that is nonreactive does not exclude thepossibility of exposure to or infection with HIV-1 and/orHIV-2. Nonreactive results in this assay for individualswith prior exposure to HIV-1 and/or HIV-2 may be due toantigen and antibody levels that are below the limit ofdetection of this assay.The [employer] HIV Ag/Ab Combo assay result andsupplemental assay results should be interpreted inconjunction with the patient's clinical presentation,history and other laboratory results. If the results areinconsistent with clinical evidence, additional testing issuggested to confirm the result. Blood Venous blood specimen / Unknown 07/10/2024 10:51 AM EST 07/10/2024 11:17 AM EST Ingrid Lopez [facility] BLOOD ORDERABLES Zandra l Result Performing Organization Address City/[facility]/ZIP Co de Phone Number [facility] [address] [place] [phone] * BI US Breast Limited Right (07/07/2024 8:57 PM EST) Anatomical Region Laterality Modality Breast Right Ultrasound 07/07/2024 8:57 PM EST Narrative 07/07/2024 8:59 PM EST ? [facility] ?[address] ?[place] [address] ? Ultrasound Report ? Signed ? Patient: Gilda Langleyos,Mi B ?MR#: M ?? [id number] ? : 1980 ?Acct:[id number] ? Age/Sex: 44 / F ?ADM Date: 07/07/24 ? Loc: HO.ED ? Attending Dr: ? Ordering Physician: June Esposito DO ?? Date of Service: 07/07/24 ?? Procedure(s): US breast RT limited ?? Accession Number(s): [id number] ? cc: June Esposito DO; Name,Jose SAVAGE [...] ? DD/ 56 ? TD/TT: 07/07/242056 ? Sales Donor Recruitment Representative: ? Procedure Note Kayla Serna - 07/07/[address] [address] Ultrasound Report Signed Patient: Mi Neville BMR#: [id number] : 1980Acct:[id number] Age/Sex: 44 / FADM Date: 07/07/24 Loc: HO.ED Attending Dr: Ordering Physician: June Esposito DO Date of Service: 07/07/24 Procedure(s): US breast RT limited Accession Number(s): [id number] cc: June Esposito DO; Name,Jose SAVAGE CLINICAL [...] in OV> 07/07/242058 DD/ 56 TD/TT: 07/07/242056 Sales Donor Recruitment Representative: us [facility] External Provider IMG US PROCEDURES Edited Result - Final * CBC auto differential (07/07/2024 6:23 PM EST) White Blood Count 8.8 4.8 - 10.8 X10*3/uL [facility] Red Blood Count 4.23 4.20 - 5.50 X10*6/uL [facility] Hemoglobin 12.9 12.0 - 16.0 g/dl [facility] Hematocrit 39.1 37.0 - 47.0 % [facility] Mean Corpuscular Volume 92.4 80.0 - 98.0 fL [facility] Mean Corpuscular Hemoglobin 30.5 27.0 - 33.0 pg [facility] Mean Corpuscular HGB Conc 33.0 31.0 - 35.0 g/dl [facility] Red Cell Distribution Width 13.6 11.0 - 16.0 % [facility] Platelet Count 261 160 - 400 X10*3/uL [facility] Mean Platelet Volume 11.3 9.4 - 12.3 fL [facility] Neutrophils Percent Auto 61.3 45 - 73 % [facility] Imm Gran Pct Auto 0.2 0.0 - 0.4 % [facility] Lymphocytes Percent Auto 31.9 20 - 40 % [facility] Monocytes Percent Auto 4.9 2 - 11 % [facility] Eosinophils Percent Auto 1.4 0 - 4 % [facility] Basophils Percent Auto 0.3 0 - 2 % [facility] NRBC Pct Auto 0.0 0.0 - 0.2 /100WBC [facility] Neutrophils Absolute Auto 5.4 2.0 - 8.3 x10*3/uL [facility] Imm Gran Abs Auto 0.02 0.00 - 0.03 X10*3/uL [facility] Lymphocytes Absolute Auto 2.8 1.2 - 4.9 X10*3/uL [facility] Monocytes Absolute Auto 0.4 0.1 - 1.2 X10*3/uL [facility] Eosinophils Absolute Auto 0.1 0.0 - 0.4 X10*3/uL [facility] Basophils Absolute Auto 0.0 0.0 - 0.2 X10*3/uL [facility] NRBC Abs Auto 0.000 0.0 - 0.012 X10*3/uL [facility] 07/07/2024 6:23 PM EST 07/07/2024 6:28 PM EST us Generic External Data Provider LAB BLOOD ORDERAB LES Final Result Performing Organization Address [facility]/ZIP Co de Phone Number [facility] [address] [place] [address] [phone] * Magnesium (07/07/2024 6:23 PM EST) Magnesium 2.1 1.6 - 2.6 mg/dL [facility] 07/07/2024 6:23 PM EST 07/07/2024 6:28 PM EST Generic External Data Provider LAB BLOOD ORDERAB LES Final Result Performing Organization Address [facility]/ZIP Co de Phone Number [facility] [address] [place] [phone] [phone] * Lactic Acid (07/07/2024 6:23 PM EST) Pathologist [facility] Lactic Acid 1.0 0.5 - 2.0 mmol/L [facility] 07/07/2024 6:23 PM EST 07/07/2024 6:28 PM EST Generic External Data Provider LAB BLOOD ORDERAB LES Final Result Performing Organization Address [facility] Co de Phone Number [facility] [address] [place] [phone] * Hepatic Function Panel (07/07/2024 6:23 PM EST) [facility] Bilirubin, Total 0.2 0.0 - 1.0 mg/dL [facility] Bilirubin, Direct <0.2 0.0 - 0.5 mg/dL [facility] Aspartate Amino Transferase 23 5 - 31 U/L [facility] Alanine Aminotransferase 14 0 - 31 U/L [facility] Total Protein 7.3 6.5 - 8.0 g/dL [facility] Albumin Level 3.7 3.5 - 5.0 g/dL [facility] Alkaline Phosphatase 53 39 - 117 U/L [facility] 07/07/2024 6:23 PM EST 07/07/2024 6:28 PM EST Generic External Data Provider LAB BLOOD ORDERAB LES Final Result Performing Organization Address [facility] Co de Phone Number [facility] [address] [place] [phone] * (ABNORMAL) Basic Metabolic Panel (07/07/2024 6:23 PM EST) Pathologist [facility] Sodium 140 135 - 145 mmol/L [facility] Potassium 3.5 3.3 - 5.1 mmol/L [facility] Chloride 109(H) 96 - 108 mmol/L [facility] Carbon Dioxide 25 22 - 29 mmol/L [facility] Anion Gap 10(L) 12 - 20 [facility] Urea Nitrogen (BUN) 5(L) 9 - 16 mg/dL [facility] Creatinine, Serum 0.66 0.5 - 1.4 mg/dL [facility] Creatinine Clr Calc Pharmacy 99.5 [facility] Comment:Provided height and weight: 154.94 cm,76.2 kg.eGFR (calculated from the MDRD study equation) and eCrCl(calculated from the Cockcroft-Gault equation) are based ondifferent parameters and may not yield comparable results.If eCrCl result is absurd, please check patient'sheight/weight. Estimated Glomerular Filt Rate >60 [facility] Comment:Chronic Kidney Disea se: Estimated GFR < 60 mL/min/1.52m3Bysgrx Kidney Disease: Estimated GFR < 15 mL/min/1.73m2 Glucose 67 60 - 115 mg/dL [facility] Calcium 8.4 8.4 - 10.2 mg/dL [facility] 07/07/2024 6:23 PM EST 07/07/2024 6:28 PM EST us Generic External Data Provider LAB BLOOD ORDERAB LES Final Result Performing Organization Address [facility]/ZIP Co de Phone Number [facility] [address] [place] [phone] * Hepatitis C Antibody with Reflex to HCV, RNA, Quantitative, Real-Time PCR (02/01/2024 3:49 PM EDT) Hepatitis C Antibody Nonreactive Nonreactive [facility] Comment:Antibodies to HCV no t detected; does not exclude early acuteHCV infection. Blood Venous blood specimen / Unknown 02/01/2024 3:49 PM EDT 02/01/2024 4:09 PM EDT us Jose Baez MD LAB BLOOD ORDERABLES Final Resul t Performing Organization Address City/[facility]/ZIP Co de Phone Number [facility] [address] [place] [phone] * Image-Guided Pap with Age-Based Screening??with CT/NG,??Trichomonas (06/09/2023 2:00 PM EST) Pathologist [facility] Trichomonas (NAAT) NOT DETECTED NOT DETECTED [facility] Comment:The analytical perfo rmance characteristics of thisassay have been determined by [employer]. Themodifications have not been cleared or approved bythe FDA. This assay has been validated pursuant to theIA regulations and is used for clinical purposes.For additional information, please refer tohttp://education.[employer]/faq/Trichomonastma(This link is being provided for information/educational purposes only.)THIS TEST WAS PERFORMED AT:[employer] [place] [phone] CALIX MD CTNG Ref Lab NOT DETECTED NOT DETECTED [facility] NG Ref Lab NOT DETECTED NOT DETECTED [facility] Cervix 06/09/2023 2:00 PM EST 06/10/2023 8:30 AM EST us Ingrid Lopez [facility] CYTOLOGY ORDERABLES F inal Result [facility] [address] [place] [phone] * HPV mRNA E6/E7 w/Reflex to HPV Genotypes 16, 18/45 (06/09/2023 2:00 PM EST) [facility] HPV nRNA E6/E7 SEE NOTE [facility] Comment:HPV mRNA E6/E7: Not Detected Reference range: Not DetectedMethodology: Managed Care Liaison-Mediated AmplificationThis assay detects E6/E7 viral messenger RNA (mRNA) from 14high-risk HPV types(16,18,31,33,35,39,45,51,52,56,58,59,66,68).Cervical sources are required for HPV testing.If a vaginal source from a patient who has had atotal hysterectomy with removal of cervix wassubmitted, please contact the testing laboratoryfor alternative testing options.For additional information, please refer tohttp://education.[employer]/faq/GTD693g5(This link if provided for information/educational purposes only.)Site Information[facility]- [facility] [place] [phone] Laboratory Director: Aury Calix M.D. HPV mRNA E6/E7 TNP [facility] HPV 16 RNA TNP [facility] HPV 18/45 RNA TNP [facility] 06/09/2023 2:00 PM EST 06/10/2023 8:30 AM EST us Ingrid [place] LAB CYTOLOGY ORDERABLES F inal Result [facility] [address] [place] [phone] [phone] * Lipid Panel, Standard (04/06/2023 10:44 AM EDT) Triglycerides 79 <150 mg/dL [facility] Comment:Desirable Triglyceri de: less than 150 mg/dLBorderline High Triglyceride 150-199 mg/dLHigh Triglyceride: 200-499 mg/dLVery High Triglyceride: greater than or equal to 5OO mg/dL Cholesterol 154 <200 mg/dL [facility] Comment:Desirable Cholestero l: less than 200 mg/dLBorderline High Cholesterol: 200-239 mg/dLHigh Cholesterol: greater than 239 mg/dL LDL Cholesterol Calculated 97 <100 mg/dL [facility] Comment:Desirable LDL: less than 100 mg/dLNear Optimal/Above Optimal LDL: 110- 129 mg/dLBorderline High LDL: 130-159 mg/dLHigh LDL: 160-189 mg/dLVery High LDL: greater than or equal to 190 mg/dL HDL Cholesterol 42 >40 mg/dL [facility] Comment:Desirable HDL: great er than 40 mg/dL Note: This HDL assay may give artificially low results in patients with liver disease. Blood Venous blood specimen / Unknown 04/06/2023 10:44 AM EDT 04/06/2023 11:01 AM EDT us Jose Baez MD LAB BLOOD ORDERABLES Final Resul t [facility] [address] [place] [phone] from Last 3 Months or Most Recently Relevant to Health Maintenance Insurance HSN PARTIAL [facility] - HSN PARTIAL (MEDICAID) Care Teams Journeyman Pipefitter Relationship Specialty Start Date End Date Name, MD Jose [address] [place] [address] PCP - General Family Medicine 11/11/15 Nasir Buenrostro FNP [address] [place] [address] Nurse Practitioner Family Medicine 05/24/23 [place] Friction Paint Machine TenderSustainment Logistics Analyst 03/10/23
--- OUTSIDE RECORDS SUMMARY | 2024-07-10 17:57 | XMS_ITS | Encounter Summary ---
Author Organization [employer] Address [address] [place] [address] Care Team Providers Care Branch Services Manager Name Role Phone Name, Jose SAVAGE Primary Care Provider [phone] Nasir Buenrostro Unavailable Unavailable Reason for Visit * Reason Onset Date Comments jul recalls 06/28/2024 Encounter Details Date Type Department Care Team (Late st Contact Info) Description 06/28/2024 Telephone [facility] MEDICINE [address] [place] [address] Mikki Contreras [place] jul recalls Social History Tobacco Use Types [...] Description 09/12/2024 10:45 AM EDT Office Visit [facility] [address] [place] [phone] Name, MD Jose [address] [place] [phone] documented as of this encounter Visit Diagnoses Not on filedocumented in this encounter Additional Health Concerns Assessment Noted Time PHQ-9 Depression Total Score: 9 06/06/20 23 2:22 PM EST documented as of this encounter Care Teams Branch Services Manager Relationship Specialty Start Date End Date NameJose MD [address] [place] [phone] PCP - General Family Medicine 11/11/15 Nasir Buenrostro FNP [address] [place] [address] Nurse Practitioner Family Medicine 05/24/23 Gudelia [place] Patient Care AssistantHosiery Mater 03/10/23 documented as of this encounter
--- OUTSIDE RECORDS SUMMARY | 2024-07-10 17:57 | XMS_ITS | Encounter Summary ---
Author Organization [employer] Address [address] [facility] 7t [place] [address] Care Team Providers Care Roving Court Reporter Name Role Phone Name, Jose SAVAGE Primary Care Provider [phone] Nasir Buenrostro Unavailable Unavailable Reason for Visit * Reason Onset Date Comments Hospital Follow-up 03/22/2024 Encounter Details Date Type Department Care Team ([facility] st Contact Info) Description 03/22/[address] [facility] MEDICINE [address] [place], [place] [phone] Name, MD Jose [address] [place] [address] Hospital Follow-up Social History Tobacco Use Types [...] from pt requesting a HDF appt. Hospital: [facility] Date of admission: 03/13/24 Discharge date: 03/17/24 Diagnosed: Breast lump Contact pt at [phone] (khmer) documented in this encounter Plan of Treatment Upcoming Encounters Date Type Department Care Team (Late st Contact Info) Description 09/12/2024 10:45 AM EDT Office Visit [facility] MEDICINE [address] [place] [address] Name, MD Jose [address] [place] [address] documented as of this encounter Visit Diagnoses Not on filedocumented in this encounter Additional Health Concerns Assessment Noted Time PHQ-9 Depression Total Score: 9 06/06/20 23 2:22 PM EST documented as of this encounter Care Teams Roving Court Reporter Relationship Specialty Start Date End Date NameJose MD [address] [place] [address] PCP - General Family Medicine 11/11/15 Nasir Buenrostro FNP [address] [place] [address] Nurse Practitioner Family Medicine 05/24/23 [place] Prune WasherSecurity Checker 03/10/23 documented as of this encounter
--- OUTSIDE RECORDS SUMMARY | 2024-07-10 17:57 | XMS_ITS | Encounter Summary ---
Author Organization [employer] Address [address] 7t [place] [address] Care Team Providers Care Endoscopy Tech Name Role Phone Name, Jose SAVAGE Primary Care Provider [phone] Nasir Buenrostro Unavailable Unavailable Encounter Details Date [...] 09/12/2024 10:45 AM EDT Office Visit [facility] [address] [place] [address] Name, MD Jsoe [address] [place] [phone] documented as of this encounter Visit Diagnoses Not on filedocumented in this encounter Additional Health Concerns Assessment Noted Time PHQ-9 Depression Total Score: 9 06/06/20 23 2:22 PM EST documented as of this encounter Care Teams Endoscopy Tech Relationship Specialty Start Date End Date Name, MD Jose [address] [place] [address] PCP - General Family Medicine 11/11/15 Nasir Buenrostro FNP [address] [place] [address] Nurse Practitioner Family Medicine 05/24/23 [place] Hide BufferTitle Vehicle Service Attendant 03/10/23 documented as of this encounter
--- OUTSIDE RECORDS SUMMARY | 2024-07-10 17:57 | XMS_ITS | Encounter Summary ---
Author Organization [facility] [facility] Address [address] [place] [address] 7t [place] [address] Care Team Providers Care Balloon Dipper Name Role Phone Name, Jose SAVAGE Primary Care Provider [phone] Nasir Buenrostro Unavailable Unavailable Reason for Visit * Reason Comments Med Refill Encounter Details Date Type Department Care Team (Late st Contact Info) Description 01/04/2023 Refill [facility] [address] [place] [address] [phone] Nasir Buenrostro FNP Mood disorder (CMS/HCC) Social [...] Description 09/12/2024 10:45 AM EDT Office Visit [facility] [address] [place], [place] [phone] Name, MD Jose [address] [place] [address] documented as of this encounter Visit Diagnoses Diagnosis Mood disorder (CMS/HCC) Unspecified episodic mood disorder documented in this encounter Additional Health Concerns Assessment Noted Time PHQ-9 Depression Total Score: 8 12/28/19 23 2:59 PM EDT documented as of this encounter Care Teams Balloon Dipper Relationship Specialty Start Date End Date Name, MD Jose [address] [place] [address] PCP - General Family Medicine 11/11/15 Nasir Buenrostro FNP [address] [place] [address] Nurse Practitioner Family Medicine 05/24/23 [place] Design DrafterScrip Clerk 03/10/23 documented as of this encounter
--- OUTSIDE RECORDS SUMMARY | 2024-07-10 17:58 | XMS_ITS | Encounter Summary ---
Author Organization [facility] Address [address] [place] [address] 7t [place] [address] Care Team Providers Care Unit Controller Name Role Phone Name, Jose SAVAGE Primary Care Provider [phone] Nasir Buenrostro Unavailable Unavailable Encounter Details Date Type Department Care Team ([facility] Contact Info) Description 10/05/2022 Abstract [facility] [address] [place] [address] Name, MD Jose [address] [place] [address] [phone] Social History Tobacco Use Types Packs/Day Years [...] Upcoming Encounters Date Type Department Care Team ([facility] Contact Info) Description 09/12/2024 10:45 AM EDT Office Visit [facility] [address] [place] [address] Name, MD Jose [address] [place] [address] documented as of this encounter Procedures Procedure Name Priority Date/Time Associated Diagnosis Comments PAP SMEAR Routine 12/29/2017 12:00 AM EDT documented in this encounter Results * Pap Smear (12/29/2017 12:00 AM EDT) Swab us Historical Provider LAB CYTOLOGY ORDERABLES F inal Result [facility] [address], [place] [address] documented in this encounter Visit Diagnoses Not on filedocumented in this encounter Additional Health Concerns Assessment Noted Time PHQ-9 Depression Total Score: 5 08/24/19 23 2:37 PM EST documented as of this encounter Care Teams Unit Controller Relationship Specialty Start Date End Date Name, MD Jose [address] [place] [address] PCP - General Family Medicine 11/11/15 Nasir Buenrostro FNP [address] [place] [address] Nurse Practitioner Family Medicine 05/24/23 [place] Livestock Sales RepresentativeManager Diabetes 03/10/23 documented as of this encounter
--- OUTSIDE RECORDS SUMMARY | 2024-07-10 17:58 | XMS_ITS | Encounter Summary ---
Author Organization [employer] [facility] Address [address] [facility] 7t [place] [address] Care Team Providers Care Temporary Office Assistant Name Role Phone Name, Jose SAVAGE Primary Care Provider [phone] Nasir Buenrostro Unavailable Unavailable Encounter Details Date Type Department Care Team ([facility] Contact Info) Description 08/20/2022 Abstract [facility] [address] [place], [place] [phone] Elizabeth Condon DDS [address] [place] [address] Social History Tobacco Use Types Packs/Day Years [...] Upcoming Encounters Date Type Department Care Team ([facility] Contact Info) Description 09/12/2024 10:45 AM EDT Office Visit [facility] [address] [place] [address] Name, MD Jose [address] [place] [address] documented as of this encounter Visit Diagnoses Not on filedocumented in this encounter Care Teams Temporary Office Assistant Relationship Specialty Start Date End Date Name, MD Jose [address] [place] [id number] PCP - General Family Medicine 11/11/15 Nasir Buenrostro FNP [address] [place] [address] Nurse Practitioner Family Medicine 05/24/23 [place]ud[place] Rivet Hole Machine OperatorTelemarketing Fundraiser 03/10/23 documented as of this encounter
--- OUTSIDE RECORDS SUMMARY | 2024-07-10 17:58 | XMS_ITS | Encounter Summary ---
Author Organization [employer] [facility] Address [address] [place] [address] [address]t [address] Floor [address] Care Team Providers Care Tag Marker Name Role Phone Name, Jose SAVAGE Primary Care Provider [phone] Nasir Buenrostro Unavailable Unavailable Encounter Details Date Type Department Care Team (Latest Contact Info) Description 11/04/2020 Abstract [facility] CONVERSIONS Dental, Provider, DDS Social History Tobacco [...] 09/12/2024 10:45 AM EDT Office Visit [facility] [address] [place] [address] Jose Baez MD [address] [place] [address] documented as of this encounter Visit Diagnoses Not on filedocumented in this encounter Care Teams Tag Marker Relationship Specialty Start Date End Date Jose Baez MD [address] [place] [address] PCP - General Family Medicine 11/11/15 Nasir Buenrostro FNP [address] [place] [address] Nurse Practitioner Family Medicine 05/24/23 [place] Stress EngineerOptical Fabrication Technician 03/10/23 documented as of this encounter
--- OUTSIDE RECORDS SUMMARY | 2024-07-10 17:58 | XMS_ITS | Encounter Summary ---
Author Organization [employer] [facility] Address [address] [facility] 7t [place] [address] Care Team Providers Care Pharmacy Technician Inpatient Name Role Phone Name, Jose SAVAGE Primary Care Provider [phone] Nasir Buenrostro Unavailable Unavailable Reason for Visit * Reason Onset Date Comments shade/tryin or finish 09/10/2022 case not ready 09/10/2022 Encounter Details Date Type Department Care Team ([facility] st Contact Info) Description 09/10/2022 Telephone [facility] [address] [place] [address] Elizabeth Condon DDS [address] [place], [place] [phone] shade/tryin or finish; case not ready Social [...] Sheyla Choi - 09/13/2022 3:49 PM EDT Nelli called in stating that case for Mi [...] - 09/10/2022 2:17 PM EDT Nelli from [employer] called stating they need a shade and to find out if its a wax try in or to finish . documented in this encounter Plan of Treatment Upcoming Encounters Date Type Department Care Team (Late st Contact Info) Description 09/12/2024 10:45 AM EDT Office Visit [facility] [address] [place] [address] Name, MD Jose [address] [place] [address] documented as of this encounter Visit Diagnoses Not on filedocumented in this encounter Additional Health Concerns Assessment Noted Time PHQ-9 Depression Total Score: 5 08/24/19 23 2:37 PM EST documented as of this encounter Care Teams Pharmacy Technician Inpatient Relationship Specialty Start Date End Date Name, MD Jose [address] [place] [address] PCP - General Family Medicine 11/11/15 Nasir Buenrostro FNP [address] [place] [address] Nurse Practitioner Family Medicine 05/24/23 [place] Track Service PersonPlaner Chain Offbearer 03/10/23 documented as of this encounter
[2024-07-11 03:15] LABS: CT PCR NOT DETECTED (Not Detect.); NG PCR NOT DETECTED (Not Detect.)
[2024-07-11 13:45] LABS: Bacterial Vaginosis PCR POSITIVE (Negative); Candida Group PCR NOT DETECTED (Not Detect); Candida glab krusei PCR NOT DETECTED (Not Detect); Trichomonas vaginalis PCR NOT DETECTED (Not Detect)
== END 2024-07-10 10:35 | disposition home or self-care (01) ==
LOC: HO.LNP 10:34
PROVIDERS: Internal Medicine Geriatric Medicine; Visit Provider Advanced Practice Midwife
DX: N94.9 Unspecified condition associated with female genital organs and menstrual cycle (principal); Z11.3 Encounter for screening for infections with a predominantly sexual mode of transmission
CPT/HCPCS: 81515; 87491; 87591

== ENCOUNTER 2024-07-10 10:48 | Outpatient (REF) | payer OTHER, SELFPAY ==
--- OUTSIDE RECORDS SUMMARY | 2024-07-10 12:20 | XMS_ITS | Encounter Summary ---
Author Organization [employer] Address [address] [place] [address] Care Team Providers Care Work And Family Life Consultant Name Role Phone Name, Jose SAVAGE Primary Care Provider [phone] Nasir Buenrostro Unavailable Unavailable Encounter Details Date Type Department Care Team ([facility] st Contact Info) Description 07/07/2024 Orders Only GENERIC EXTERNAL DATA DEPARTMENT Provider, Generic External Data Social History Tobacco Use Types Packs/Day Years Used Date Smoking Tobacco: Every Day Cigarettes Passive Smoke Exposure: Never Smokeless Tobacco: Never Alcohol Use Standard Drinks/Week Comments Yes 0 (1 standard drink = 0.6 oz pur e alcohol) socially Alcohol Answer Date Recorded Frequency of Alcohol Consumption Not on file 02/01/2024 Average Number of Drinks Not on file 024 Frequency of Binge Drinking Not on file 01/18 Score 0 02/01/2024 Depression Answer Date Recorded Patient Health Questionnaire-9 Score 9 06/06/2023 Patient Health Questionnaire-9 Score 9 06/06/2023 Last PHQ-9: Questionnaire Data Not on file 1 08/07/2022 Housing Stability Answer Date Recorded What is your housing situation today? I have dominga lebron 10/14/[address] you li ve. Do you have problems with any of the following? None of the above 10/14/2023 Food Insecurity Answer Date Recorded Within the past 12 months, y ou worried that your food would run out before you got money to buy more: Never True 10/14/2023 Within the past 12 months,th e food you bought just didn't last and you didn't have enough money to get more: Never True Transportation Answer Date Recorded In the past 12 months, has l ack of transportation kept you from medical appts, meetings, work or from getting things needed for daily living? No 10/14/2023 Utilities Answer Date Recorded In the past 12 months, has t he electric, gas, oil or water company threatened to shut off services in your home? No 10/14/2023 Depression Answer Date Recorded Patient Health Questionnaire-2 Score 2 06/06/2023 Comments No Sex and Gender Information Value Date Recorded Sex Assigned at Female 04/19/2022 10:29 AM EDT Legal Sex Female 10:29 AM EDT Gender Identity Female 04/19/2022 10:29 AM EDT Sexual Orientation Straight 04/19/2022 10 :29 AM EDT documented as of this encounter Progress Notes * Olinda Traore RN - 07/07/2024 6:46 PM EST Obtained last ER visit note from 07/07/24. ER document scanned into pt chart and paper copy placed in provider folder for review. documented in this encounter Plan of Treatment Upcoming Encounters Date Type Department Care Team (Late st Contact Info) Description 09/12/2024 10:45 AM EDT Office Visit [facility] MEDICINE [address] [place] [phone] Name, MD Jose [address] [place] [address] Pending Results Name Type Priority Associated Diagnoses Date /Time Blood Culture (Second) Microbiology Routine 07/07/2024 6:23 PM EST Blood Culture (First) Microbiology Routine 07/07/2024 6:23 PM EST documented as of this encounter Procedures Procedure Name Priority Date/Time Associated Diagnosis Comments BI US BREAST LIMITED RIGHT Routine 07/07/2024 8:57 PM EST BLOOD CULTURE (FIRST) Routine 07/07/2024 6:23 PM EST BLOOD CULTURE (SECOND) Routine 07/07/2024 6:23 PM EST CBC WITH AUTO DIFFERENTIAL Routine 07/07/2024 6:23 PM EST MAGNESIUM Routine 07/07/2024 6:23 PM EST LACTIC ACID Routine 07/07/2024 6:23 PM EST HEPATIC FUNCTION PANEL Routine 07/07/2024 6:23 PM EST BASIC METABOLIC PANEL Routine 07/07/2024 6:23 PM EST documented in this encounter Results * BI US Breast Limited Right (07/07/2024 8:57 PM EST) Anatomical Region Laterality Modality Breast Right Ultrasound 07/07/2024 8:57 PM EST Narrative 07/07/2024 8:59 PM EST ? [facility] ?[address] ?[place] [address] ? Ultrasound Report ? Signed ? Patient: Mi Neville ?MR#: M ?? [id number] ? : 1980 ?Acct:[id number] ? Age/Sex: 44 / F ?ADM Date: 07/07/24 ? Loc: HO.ED ? Attending Dr: ? Ordering Physician: June Esposito DO ?? Date of Service: 07/07/24 ?? Procedure(s): US breast RT limited ?? Accession Number(s): [id number] ? cc: June Esposito DO; NameJose MD ? CLINICAL HISTORY: redness, swelling concern for abscess - right breast ? Limited right breast ultrasound ? Indication abscess ? Comparison: 03/16/2024 ? Findings: ? At the 12 o'clock position, there is a complex fluid collection measuring ?? 4.4 x 2.8 x 4.6 cm with septations and peripheral vascularity. ? Impression: ? Probable right breast abscess at 12:00 p.m.. Follow-up recommended to ?? ensure resolution. ? This document has been electronically signed by: Alexy Kurtz MD on ?? 07/07/2024 20:57:56 ? Dictated By: ?Alexy Kurtz MD ? Signed By: ?<Electronically signed by Alexy Kurtz MD in OV> ? 07/07/242058 ? DD/ 56 ? TD/TT: 07/07/242056 ? Account Director: ? Procedure Note Donnathanter, Image - 07/07/2024 [place] [address] Ultrasound Report Signed Patient: Mi Neville BMR#: M [id number] : 1980Acct:[id number] Age/Sex: 44 / FADM Date: 07/07/24 Loc: HO.ED Attending Dr: Ordering Physician: June Esposito DO Date of Service: 07/07/24 Procedure(s): US breast RT limited Accession Number(s): [id number] cc: June Esposito DO; Name,Jose SAVAGE CLINICAL HISTORY: redness, swelling concern for abscess - right breast Limited right breast ultrasound Indication abscess Comparison: 03/16/2024 Findings: At the 12 o'clock position, there is a complex fluid collection measuring 4.4 x 2.8 x 4.6 cm with septations and peripheral vascularity. Impression: Probable right breast abscess at 12:00 p.m.. Follow-up recommended to ensure resolution. This document has been electronically signed by: Alexy Kurtz MD on 07/07/2024 20:57:56 Dictated By: Alexy Kurtz MD Signed By: <Electronically signed by Alexy Kurtz MD in OV> 07/07/242058 DD/ 56 TD/TT: 07/07/242056 Account Director: us [facility] External Provider IMG US PROCEDURES Edited Result - Final * CBC auto differential (07/07/2024 6:23 PM EST) White Blood Count 8.8 4.8 - 10.8 X10*3/uL [facility] Red Blood Count 4.23 4.20 - 5.50 X10*6/uL [facility] Hemoglobin 12.9 12.0 - 16.0 g/dl [facility] Hematocrit 39.1 37.0 - 47.0 % [facility] Mean Corpuscular Volume 92.4 80.0 - 98.0 fL [facility] Mean Corpuscular Hemoglobin 30.5 27.0 - 33.0 pg [facility] Mean Corpuscular HGB Conc 33.0 31.0 - 35.0 g/dl [facility] Red Cell Distribution Width 13.6 11.0 - 16.0 % [facility] Platelet Count 261 160 - 400 X10*3/uL [facility] Mean Platelet Volume 11.3 9.4 - 12.3 fL [facility] Neutrophils Percent Auto 61.3 45 - 73 % [facility] Imm Gran Pct Auto 0.2 0.0 - 0.4 % [facility] Lymphocytes Percent Auto 31.9 20 - 40 % [facility] Monocytes Percent Auto 4.9 2 - 11 % [facility] Eosinophils Percent Auto 1.4 0 - 4 % [facility] Basophils Percent Auto 0.3 0 - 2 % [facility] NRBC Pct Auto 0.0 0.0 - 0.2 /100WBC [facility] Neutrophils Absolute Auto 5.4 2.0 - 8.3 x10*3/uL [facility] Imm Gran Abs Auto 0.02 0.00 - 0.03 X10*3/uL [facility] Lymphocytes Absolute Auto 2.8 1.2 - 4.9 X10*3/uL [facility] Monocytes Absolute Auto 0.4 0.1 - 1.2 X10*3/uL [facility] Eosinophils Absolute Auto 0.1 0.0 - 0.4 X10*3/uL [facility] Basophils Absolute Auto 0.0 0.0 - 0.2 X10*3/uL [facility] NRBC Abs Auto 0.000 0.0 - 0.012 X10*3/uL [facility] 07/07/2024 6:23 PM EST 07/07/2024 6:28 PM EST us Generic External Data Provider LAB BLOOD ORDERAB LES Final Result Performing Organization [facility]/ZIP Co de Phone Number [facility] [address] [place] [phone] * Lactic Acid (07/07/2024 6:23 PM EST) [facility] Lactic Acid 1.0 0.5 - 2.0 mmol/L [facility] 07/07/2024 6:23 PM EST 07/07/2024 6:28 PM EST Generic External Data Provider LAB BLOOD ORDERAB LES Final Result Performing Organization Address [facility]/ZIP Co de Phone Number [facility] [address] [place] [phone] * Magnesium (07/07/2024 6:23 PM EST) [facility] Magnesium 2.1 1.6 - 2.6 mg/dL [facility] 07/07/2024 6:23 PM EST 07/07/2024 6:28 PM EST Generic External Data Provider LAB BLOOD ORDERAB LES Final Result Performing Organization Address [facility] Co de Phone Number [facility] [address] [place] [phone] * (ABNORMAL) Basic Metabolic Panel (07/07/2024 6:23 PM EST) [facility] Sodium 140 135 - 145 mmol/L [facility] Potassium 3.5 3.3 - 5.1 mmol/L [facility] Chloride 109(H) 96 - 108 mmol/L [facility] Carbon Dioxide 25 22 - 29 mmol/L [facility] Anion Gap 10(L) 12 - 20 [facility] Urea Nitrogen (BUN) 5(L) 9 - 16 mg/dL [facility] Creatinine, Serum 0.66 0.5 - 1.4 mg/dL [facility] Creatinine Clr Calc Pharmacy 99.5 [facility] Comment:Provided height and weight: 154.94 cm,76.2 kg.eGFR (calculated from the MDRD study equation) and eCrCl(calculated from the Cockcroft-Gault equation) are based ondifferent parameters and may not yield comparable results.If eCrCl result is absurd, please check patient'sheight/weight. Estimated Glomerular Filt Rate >60 [facility] Comment:Chronic Kidney Disea se: Estimated GFR < 60 mL/min/1.33w2Qudgae Kidney Disease: Estimated GFR < 15 mL/min/1.73m2 Glucose 67 60 - 115 mg/dL [facility] Calcium 8.4 8.4 - 10.2 mg/dL [facility] 07/07/2024 6:23 PM EST 07/07/2024 6:28 PM EST us Generic External Data Provider LAB BLOOD ORDERAB LES Final Result Performing Organization Address [facility]/ZIP Co de Phone Number [facility] [address] [place] [phone] * Hepatic Function Panel (07/07/2024 6:23 PM EST) Bilirubin, Total 0.2 0.0 - 1.0 mg/dL [facility] Bilirubin, Direct <0.2 0.0 - 0.5 mg/dL [facility] Aspartate Amino Transferase 23 5 - 31 U/L [facility] Alanine Aminotransferase 14 0 - 31 U/L [facility] Total Protein 7.3 6.5 - 8.0 g/dL [facility] Albumin Level 3.7 3.5 - 5.0 g/dL [facility] Alkaline Phosphatase 53 39 - 117 U/L [facility] 07/07/2024 6:23 PM EST 07/07/2024 6:28 PM EST us Generic External Data Provider LAB BLOOD ORDERAB LES Final Result Performing Organization Address [facility]/ZIP Co de Phone Number [facility] [address] [place] [phone] documented in this encounter Visit Diagnoses Not on filedocumented in this encounter Additional Health Concerns Assessment Noted Time PHQ-9 Depression Total Score: 9 06/06/20 23 2:22 PM EST documented as of this encounter Care Teams Work And Family Life Consultant Relationship Specialty Start Date End Date Name, MD Jose [address] [place] [phone] PCP - General Family Medicine 11/11/15 Nasir Buenrostro FNP [address] [place] [address] Nurse Practitioner Family Medicine 05/24/23 [place] Pen TesterSatellite Project Site Monitor 03/10/23 documented as of this encounter
--- OUTSIDE RECORDS SUMMARY | 2024-07-10 12:20 | XMS_ITS | Encounter Summary ---
Author Organization [employer] Address [address] [place] [address] Care Team Providers Care Short Order Fry Cook Name Role Phone Name, Jose SAVAGE Primary Care Provider [phone] Nasir Buenrostro Unavailable Unavailable Encounter Details Date Type Department Care Team (Latest Contact Info) Description 07/10/2024 Travel Social History Tobacco Use Types Packs/Day Years Used Date Smoking Tobacco: Every Day Cigarettes Passive Smoke Exposure: Never Smokeless Tobacco: Never Alcohol Use Standard Drinks/Week Comments Not Currently 0 (1 standard drink = 0.6 oz [...] AM EDT documented as of this encounter Plan of Treatment Upcoming Encounters Date Type Department Care Team (Late st Contact Info) Description 09/12/2024 10:45 AM EDT Office Visit [facility] MEDICINE [address] [place] [phone] Name, MD Jose [address] [place] [phone] documented as of this encounter Visit Diagnoses Not on filedocumented in this encounter Additional Health Concerns Assessment Noted Time PHQ-9 Depression Total Score: 9 06/06/20 23 2:22 PM EST documented as of this encounter Care Teams Short Order Fry Cook Relationship Specialty Start Date End Date Name, MD Jose [address] [place] [phone] PCP - General Family Medicine 11/11/15 Nasir Buenrostro FNP [address] [place] [phone] Nurse Practitioner Family Medicine 05/24/23 Gudelia [place] Overlock OperatorButter Fat Tester 03/10/23 documented as of this encounter
--- OUTSIDE RECORDS SUMMARY | 2024-07-10 12:20 | XMS_ITS | Clinical Summary ---
Author Organization [employer] Address [address] [place] [address] Care Team Providers Care Software Support Engineer Name Role Phone Name, Jose SAVAGE Primary Care Provider [phone] Nasir Buenrostro Unavailable Unavailable Allergies No known active allergies Medications albuterol (ProAir HFA) 108 (90 Base) MCG/ACT inhaler inhale 2 puff by inhalation route every 4 - 6 hours as needed 2 Active ibuprofen 600 MG tablet Take 1 tab po daily q8 hours prn pain 30 tablet 3 Active divalproex (Depakote) 500 MG EC tabletIndicatio ns:Mood disorder (CMS/HCC) Take 1 tablet (500 mg) by mouth 2 times daily. 180 tablet 1 3 Active melatonin 5 MG tabletIndicatio ns:Mood disorder (CMS/HCC) Take 1-2 tablets (5-10 mg) by mouth if needed at bedtime (sleep). 180 tablet 1 3 Active traZODone (Desyrel) 100 MG tabletIndicatio ns:Mood disorder (CMS/HCC) Take 1 tablet (100 mg) by mouth at bedtime. 90 tablet 1 3 Active Blood Pressure kit Use once a day 1 kit 3 Active Diclofenac Sodium 1 % gel Apply once a day to the hands 100 g 1 3 Active Multiple Vitamin (Multivitamin) tablet TAKE 1 TABLET BY MOUTH EVERY MORNING 90 tablet 3 4 Active albuterol (2.5 MG/3ML) 0.083% nebulizer solution Take 3 mL (2.5 mg) by nebulization every 6 (six) hours if needed for wheezing. 75 mL 11 4 10/14/19 25 Active Fluticasone-Melchor meterol (Advair Diskus) 250-50 MCG/ACT aerosol powder Inhale 1 Inhalation 2 times daily. 60 each 11 4 01/11/20 25 Active ARIPiprazole (Abilify) 15 MG tablet Take 1 tablet (15 mg) by mouth at bedtime. 30 tablet 2 4 Active oxybutynin XL (Ditropan-XL) 15 MG 24 hr tablet Take 1 tablet (15 mg) by mouth in the evening. 30 tablet 3 4 Active clonazePAM (KlonoPIN) 1 MG tabletIndicatio ns:Mood disorder (CMS/HCC) TAKE 1 TABLET BY MOUTH EVERY TWELVE HOURS NEEDED FOR ANXIETY 30 tablet 4 Active metoprolol succinate XL (Toprol-XL) 25 MG 24 hr tablet TAKE 1 TABLET BY MOUTH EVERY EVENING 90 tablet 1 4 Active doxepin (SINEquan) 25 MG capsule Take 1 capsule by mouth at bedtime. 4 Active escitalopram (Lexapro) 10 MG tablet Take 1 tablet by mouth in the morning. 4 Active pantoprazole (ProtoNix) 40 MG EC tablet Take 1 tablet by mouth before breakfast. 4 Active senna (Senokot) 8.6 MG tablet Take 2 tablets by mouth 2 times daily. For constipation 4 Active Active Problems Problem Noted Date Diagnosed Date Mass overlapping multiple quadrants of right jaime ast 03/12/2024 Assessment & Plan (03/12/2024 12:23 PM EDT): Ro abscess vs malignancy? It could be benign like previous one on left side Rx Augmentin and tylenol x 7d, apply Ice compresses Order right dx mammo and breast US FU with PCP in 2-3w Advised to quit smoking Abnormal uterine bleeding 02/01/2024 Perimenopause 02/01/2024 Periodontal disease 11/16/2023 History of tubal ligation 04/04/2023 Class 1 obesity 04/01/2023 04/01/2023 Constipation 04/01/2023 04/01/2023 Low back pain 04/01/2023 04/01/2023 Incontinence 10/05/2022 Migraine headache 10/05/2022 Seasonal allergies 11/28/2018 04/01/2023 Ear pain 10/24/2018 Decreased hearing 10/24/2018 04/01/2023 Depressive disorder 10/20/2017 Assessment & Plan (03/22/2023 1:57 PM EDT): Mood swings, anxiety, auditory and visual hallucinations. Not taking medications as directed, since she does not read Armenian (and has no one to help her translate). Although we did review all meds previously, she once again has a pile of pill bottles and is confused. I called the pharmacy and requested expedited intake to [facility], and will have a F/U televisit soon with patient to again review instructions. No change at this time. Continue resume Abilify 10 mg, daily, Trazodone 100 mg at bedtime, Depakote ER 500 mg BID, Clonazepam 1 mg BID, Melatonin 10 mg. She has also been referred for counseling. She agrees with the plan. Assessment & Plan (02/08/2023 3:27 PM EDT): Improved, but still not at goal, with mood swings, auditory and visual hallucinations. Has multiple medications and frequently misses doses. Will be referred to [facility] program. Reviewed all meds with the patient today and clarified instructions. No change at this time. Continue resume Abilify 10 mg, daily, Trazodone 100 mg at bedtime, Depakote ER 500 mg BID, Clonazepam 1 mg BID, Melatonin 10 mg. F/U with me in 6 weeks. Also referring for counseling. She agrees with the plan. Assessment & Plan (12/27/2022 4:28 PM EDT): Not doing well, with mood swings, anxiety, disturbed sleep. Has been off her medications. Will resume Abilify 10 mg, daily, Trazodone 100 mg at bedtime, Depakote ER 500 mg but at lower dose of 1 tab BID, Clonazepam 1 mg BID, Melatonin 10 mg. Rx's will be sent to [facility] for home delivery. F/U with me in Approx. 1 month. She agrees with the plan. Assessment & Plan (08/23/2022 3:18 PM EST): Not doing as well, with increased depression, crying, but no real mood swings. At this time will increase to Abilify 10 mg. Continue Trazodone 100 mg at bedtime, Depakote ER 500 mg 2 tabs BID, Clonazepam 1 mg BID, Melatonin 10 mg. Urged to call to schedule F/U with therapist. F/U with me in 1 month. She agrees with the plan. Recurrent major depressive episodes, moderate Assessment & Plan (06/06/2023 2:58 PM EST): Presented with mood swings, anxiety, auditory and visual hallucinations, which had been controlled but are now occasionally bothering again. Appears to be a seasonal affective component, also feeling quite alone as family is in [place]. Has started with counseling. Today 06/06/2023 provider informed the patient that I would be retiring in approx 1/2 year and suggest she speak with therapist about possibility of referral to agency psychiatrist. At this time will increase to Abilify 15 mg, daily. Continue Trazodone 100 mg at bedtime, Depakote ER 500 mg BID, Clonazepam 1 mg BID prn anxiety, Melatonin 10 mg. F/U with me in 2 months. She agrees with the plan. Assessment & Plan (04/11/2023 2:18 PM EDT): Presented with mood swings, anxiety, auditory and visual hallucinations. Now doing muc better, taking medications as directed packaged in [facility]. Will continue Abilify 10 mg, daily, Trazodone 100 mg at bedtime, Depakote ER 500 mg BID, Clonazepam 1 mg BID prn anxiety, Melatonin 10 mg. She has also been referred for counseling. F/U with me in 2 months. She agrees with the plan. Assessment & Plan (10/07/2022 1:39 PM EDT): Continue Abilify and Depakote Reassurance provided that she can take this with her antibiotics Insomnia 03/24/2017 04/01/2023 Hypertension 12/27/2016 Assessment & Plan (10/07/2022 1:37 PM EDT): Take Metoprolol 25mg daily Reviewed med list with pt and assurance provided that she can take this with antibiotics Asthma 07/14/2015 04/01/2023 Resolved Problems Problem Noted Date Diagnosed Date Resolved Date Left knee pain 02/23/2023 04/04/2023 Assessment & Plan (02/23/2023 4:12 PM EDT): Pt repots [facility] for years. No evidence of infection or effusion. -PT referral done and Xray ordered 02/23/2023. Dog bite of arm, right, subsequent encounter 04/04/2023 Assessment & Plan (10/07/2022 1:39 PM EDT): Hospitalized at [facility] for 3 days for IV antibiotics, discharged on Augmentin and Bactrim for total of 21 days of abx therapy Counseled to finish abx as prescribed Letter given for work at [employer] for no heavy lifting x 14 days Edema of lower extremity 12/27/2016 Encounters Date Type Department Care Team Description 07/10/2024 10:15 AM EST Procedure Visit [facility] [address] [place] [address] Ingrid Lopez CNM Screening examination for venereal disease (Primary Dx); Intermenstrual bleeding 07/10/2024 Telephone [facility] [address] [place] [address] Ingrid Lopez CNM 07/10/2024 Travel 07/07/2024 Orders Only GENERIC EXTERNAL DATA DEPARTMENT Provider, Generic External Data 07/03/2024 1:30 PM EST Office Visit [facility] [address] [place] [address] Jus, Nasrin, OD Astigmatism of both eyes, unspecified type (Primary Dx); Dry eyes, bilateral; Dark area on retina 07/03/2024 Travel 06/28/2024 Telephone [facility] [address] [place] [address] Mikki Contreras MA feb recalls 05/29/2024 Telephone [facility] [address] [place] [phone] Jose Baez MD Durable Medical Equipment 05/08/2024 1:15 PM EST Office Visit [address] [address] Jose Baez MD Breast abscess (Primary Dx); Carpal tunnel syndrome, unspecified laterality; Vaccination refused by patient 05/03/2024 Telephone [facility] [address] [place] [phone] Rosa Dasilva MA [employer] 04/18/[address] [address] Mikki Contreras MA BHS Cancelled Appt 04/17/2024 Patient Outreach [facility] [address] [place], [place] [phone] Jose Baez MD Pre-visit Planning (SDOH was completed on 10/14/2023) 04/10/[address] [address] Jose Baez MD from Last 3 Months Immunizations Name Administration Dates Next Due HepB-CpG 06/06/2023,05/03/2023 Influenza injectable quadriv alent IIV4 with preservative 03/22/2016,07/14/2015 Influenza injectable quadriv alent preservative free 04/04/2023,05/08/2020,03/21/2019,08/29,03/24/2017 Pfizer Covid-19 Vaccine 12+ 02/09/2021, Pneumococcal Conjugate PCV 20 04/05/2023 Pneumococcal Polysaccharide PPSV23 03/22/2016 Td (adult), 5 Lf tetanus tox oid, preservative free, adsorbed 12/27/2015 Tdap 12/02/2021,09/21/2016 Family History Medical History Relation Name Comments Kidney disease Son Relation Name Status Comments Son Social History Tobacco Use Types Packs/Day Years [...] Orientation Straight 04/19/2022 10 :29 AM EDT Last Filed Vital Signs Vital Sign Reading Time Taken Comments Blood Pressure 143/84 07/10/2024 10:19 AM EST Pulse 64 07/10/2024 10:19 AM EST Temperature 36.1 ??C (97 ??F) 07/10/2024 10:19 AM EST Respiratory Rate 20 07/10/2024 10:19 AM EST Oxygen Saturation 98% 07/10/2024 10:19 AM EST Inhaled Oxygen Concentration - - Weight 75.3 kg (166 lb) 07/10/2024 10:19 AM EST Height 154.9 cm (5' 1 ) 07/10/2024 10:19 AM EST Body Mass Index 31.37 07/10/2024 10:19 AM EST Plan of Treatment Upcoming Encounters Date Type Department Care Team (Late st Contact Info) Description 09/12/2024 10:45 AM EDT Office Visit [facility] [address] [place] [address] Name, MD Jose [address] [place] [address] Health Maintenance Due Date Last Done Comments CT Colonography 1980 Colonoscopy 1978 Colorectal Cancer Screening 1980 Dental Prophylaxis 1978 FIT DNA/Cologuard 1978 FIT 1980 FOBT 1980 Sigmoidoscopy 1980 Family Planning (PISQ) 1993 Depression Monitoring (PHQ-9) 12/06/2023 06/06/2023, 06/06/2023 COVID-19 Vaccine ( season) 2024 01/25/2022, 02/09/2021, 11/22/2020 Influenza Vaccine (#1) 2024 , 05/08/2020, 03/21/2019, Additional history exists Depression Screening 06/06/2024 06/06/2023, 06/06/20 23 Dental Oral Exam 08/04/2024 02/01/2024 SDOH Screening 10/13/2024 10/14/2023 Alcohol/Substance Use Screening 01/31/2025 02/01/2024 Dental X-Ray: Bitewings 02/01/2025 02/01/2024 Mammogram 07/07/2025 07/07/2024, 02/19, 04/14/2023, Additional history exists Tobacco Screening 07/10/2025 07/10/2024 Dental X-Ray: Full Mouth 02/01/2027 02/01/2024 Zoster Vaccines (1 of 2) 2028 Lipid Panel 04/06/2028 04/06/2023, 12/19, 05/08/2020 Cervical Cancer Screening 06/09/2028 HPV/Cotest 06/09/2028 06/09/2023, 12/29/2017 Pap Smear 06/09/2028 06/09/2023, 05/21, 12/29/2017 DTaP/Tdap/Td Vaccines (3 - Td or Tdap) 12/03/2031 12/02/2021, 09/21/2016, 12/27/2015 RSV Patients and Patients Aged 60 years or older (1 - 1-dose 75+ series) 2053 Pneumococcal Vaccine: Pediatrics (0 to 5 Years) and At-Risk Patients (6 to 64 Years) Completed 04/05/2023, 03/22/2016 Hepatitis B Vaccines Completed 06/06/2023, 05/03/20 HIV Screening Completed 02/01/2024 Hepatitis C Screening Completed 02/01/2024 HIB Vaccines Aged Out No longer eligi ble based on patient's age to complete this topic HPV Vaccines Aged Out No longer eligi ble based on patient's age to complete this topic Hepatitis A Vaccines Aged Out No long er eligible based on patient's age to complete this topic IPV Vaccines Aged Out No longer eligi ble based on patient's age to complete this topic Meningococcal Vaccine Aged Out No isabel mona eligible based on patient's age to complete this topic RSV under 20 months Aged Out No longe r eligible based on patient's age to complete this topic Rotavirus Vaccines Aged Out No longer eligible based on patient's age to complete this topic Procedures Procedure Name Priority Date/Time Associated Diagnosis Comments BI US BREAST LIMITED RIGHT Routine 07/07/2024 8:57 PM EST CBC WITH AUTO DIFFERENTIAL Routine 07/07/2024 6:23 PM EST LACTIC ACID Routine 07/07/2024 6:23 PM EST MAGNESIUM Routine 07/07/2024 6:23 PM EST BASIC METABOLIC PANEL Routine 07/07/2024 6:23 PM EST HEPATIC FUNCTION PANEL Routine 5 6:23 PM EST BLOOD CULTURE (FIRST) Routine 07/07/2024 6:23 PM EST BLOOD CULTURE (SECOND) Routine 6:23 PM EST HEPATITIS C AB W/REFL TO HCV RNA, QN, PCR Routine 02/01/2024 3:49 PM EDT Genital lesion, female HIV 1/2 ANTIGEN/ANTIBODY, FOURTH GENERATION W/RFL Routine 02/01/2024 3:49 PM EDT Genital lesion, female DIAGNOSTIC - DIAGNOSTIC IMAGING - INTRAORAL - COMPREHENSIVE SERIES OF RADIOGRAPHIC IMAGES Routine 02/01/2024 1:30 PM EDT Encounter for dental examination Periodontal disease Dental calculus PERIODIC ORAL EVALUATION - ESTABLISHED PATIENT Routine 02/01/2024 1:30 PM EDT Encounter for dental examination Periodontal disease Dental calculus HPV MRNA E6/E7 REFLEX TO HPV 16, 18/45 Routine 06/09/2023 2:00 PM EST IMAGE-GUIDED PAP W/AGE BASED SCR,W/CT/NG/TRICH Routine 06/09/2023 2:00 PM EST Cervical cancer screening PCB (post coital bleeding) LIPID PANEL, STANDARD Routine 04/06/2023 10:44 AM EDT PE (physical exam), annual Tobacco use Chronic neck pain Screening for diabetes mellitus Screening for cholesterol level Screen for colon cancer Screening for cervical cancer from Last 3 Months or Most Recently Relevant to Health Maintenance Results * BI US Breast Limited Right (07/07/2024 8:57 PM EST) Anatomical Region Laterality Modality Breast Right Ultrasound 07/07/2024 8:57 PM EST Narrative 07/07/2024 8:59 PM EST ? [facility] ?[address] ?[place] [address] ? Ultrasound Report ? Signed ? Patient: Gilda Harper,Mi B ?MR#: M ?? [id number] ? : 1980 ?Acct:[id number] ? Age/Sex: 44 / F ?ADM Date: 01/18/25 ? Loc: HO.ED ? Attending Dr: ? Ordering Physician: June Esposito DO ?? Date of Service: 07/07/24 ?? Procedure(s): US breast RT limited ?? Accession Number(s): [id number] ? cc: June Esposito DO; Name,Jose SAVAGE ? CLINICAL HISTORY: redness, swelling concern for [...] ? DD/ 56 ? TD/TT: 07/07/242056 ? Rolled Ham Lacer: ? Procedure Note Kayla Serna - 07/07/2024 [place] [address] Ultrasound Report Signed Patient: Mi Neville BMR#: M [id number] : 1980Acct:[id number] Age/Sex: 44 / FADM Date: 07/07/24 Loc: HO.ED Attending Dr: Ordering Physician: June Esposito DO Date of Service: 07/07/24 Procedure(s): US breast RT limited Accession Number(s): [id number] cc: June Esposito DO; Name,Jose SAVAGE CLINICAL [...] in OV> 07/07/242058 DD/ 56 TD/TT: 07/07/242056 Rolled Ham Lacer: us [facility] External Provider IMG US PROCEDURES Edited Result - Final * CBC auto differential (07/07/2024 6:23 PM EST) White Blood Count 8.8 4.8 - 10.8 X10*3/uL [facility] Red Blood Count 4.23 4.20 - 5.50 X10*6/uL [facility] Hemoglobin 12.9 12.0 - 16.0 g/dl [facility] Hematocrit 39.1 37.0 - 47.0 % [facility] Mean Corpuscular Volume 92.4 80.0 - 98.0 fL [facility] Mean Corpuscular Hemoglobin 30.5 27.0 - 33.0 pg [facility] Mean Corpuscular HGB Conc 33.0 31.0 - 35.0 g/dl [facility] Red Cell Distribution Width 13.6 11.0 - 16.0 % [facility] Platelet Count 261 160 - 400 X10*3/uL [facility] Mean Platelet Volume 11.3 9.4 - 12.3 fL [facility] Neutrophils Percent Auto 61.3 45 - 73 % [facility] Imm Gran Pct Auto 0.2 0.0 - 0.4 % [facility] Lymphocytes Percent Auto 31.9 20 - 40 % [facility] Monocytes Percent Auto 4.9 2 - 11 % [facility] Eosinophils Percent Auto 1.4 0 - 4 % [facility] Basophils Percent Auto 0.3 0 - 2 % [facility] NRBC Pct Auto 0.0 0.0 - 0.2 /100WBC [facility] Neutrophils Absolute Auto 5.4 2.0 - 8.3 x10*3/uL [facility] Imm Gran Abs Auto 0.02 0.00 - 0.03 X10*3/uL [facility] Lymphocytes Absolute Auto 2.8 1.2 - 4.9 X10*3/uL [facility] Monocytes Absolute Auto 0.4 0.1 - 1.2 X10*3/uL [facility] Eosinophils Absolute Auto 0.1 0.0 - 0.4 X10*3/uL [facility] Basophils Absolute Auto 0.0 0.0 - 0.2 X10*3/uL [facility] NRBC Abs Auto 0.000 0.0 - 0.012 X10*3/uL [facility] 07/07/2024 6:23 PM EST 07/07/2024 6:28 PM EST Generic External Data Provider LAB BLOOD ORDERAB LES Final Result Performing Organization Address City/[facility]/ZIP Co de Phone Number [facility] [address] [place] [phone] * Magnesium (07/07/2024 6:23 PM EST) Magnesium 2.1 1.6 - 2.6 mg/dL [facility] 07/07/2024 6:23 PM EST 07/07/2024 6:28 PM EST Generic External Data Provider LAB BLOOD ORDERAB LES Final Result Performing Organization Address City/[facility]/ZIP Co de Phone Number [facility] [address] [place] [phone] * Lactic Acid (07/07/2024 6:23 PM EST) Lactic Acid 1.0 0.5 - 2.0 mmol/L [facility] 07/07/2024 6:23 PM EST 07/07/2024 6:28 PM EST Generic External Data Provider LAB BLOOD ORDERAB LES Final Result Performing Organization Address [facility] Co de Phone Number [facility] [address] [place] [phone] * Hepatic Function Panel (07/07/2024 6:23 PM EST) Bilirubin, Total 0.2 0.0 - 1.0 mg/dL [facility] Bilirubin, Direct <0.2 0.0 - 0.5 mg/dL [facility] Aspartate Amino Transferase 23 5 - 31 U/L [facility] Alanine Aminotransferase 14 0 - 31 U/L [facility] Total Protein 7.3 6.5 - 8.0 g/dL [facility] Albumin Level 3.7 3.5 - 5.0 g/dL [facility] Alkaline Phosphatase 53 39 - 117 U/L [facility] 07/07/2024 6:23 PM EST 07/07/2024 6:28 PM EST Generic External Data Provider LAB BLOOD ORDERAB LES Final Result Performing Organization Address [facility] de Phone Number [facility] [address] [place] [phone] * (ABNORMAL) Basic Metabolic Panel (07/07/2024 6:23 PM EST) Sodium 140 135 - 145 mmol/L [facility] Potassium 3.5 3.3 - 5.1 mmol/L [facility] Chloride 109(H) 96 - 108 mmol/L [facility] Carbon Dioxide 25 22 - 29 mmol/L [facility] Anion Gap 10(L) 12 - 20 [facility] Urea Nitrogen (BUN) 5(L) 9 - 16 mg/dL [facility] Creatinine, Serum 0.66 0.5 - 1.4 mg/dL [facility] Creatinine Clr Calc Pharmacy 99.5 [facility] Comment:Provided height and weight: 154.94 cm,76.2 kg.eGFR (calculated from the MDRD study equation) and eCrCl(calculated from the Cockcroft-Gault equation) are based ondifferent parameters and may not yield comparable results.If eCrCl result is absurd, please check patient'sheight/weight. Estimated Glomerular Filt Rate >60 [facility] Comment:Chronic Kidney Disea se: Estimated GFR < 60 mL/min/1.19s5Kxabap Kidney Disease: Estimated GFR < 15 mL/min/1.73m2 Glucose 67 60 - 115 mg/dL [facility] Calcium 8.4 8.4 - 10.2 mg/dL [facility] 07/07/2024 6:23 PM EST 07/07/2024 6:28 PM EST us Generic External Data Provider LAB BLOOD ORDERAB LES Final Result Performing Organization Address [facility]/ZIP Co de Phone Number [facility] [address] [place] [phone] * Hepatitis C Antibody with Reflex to HCV, RNA, Quantitative, Real-Time PCR (02/01/2024 3:49 PM EDT) Hepatitis C Antibody Nonreactive Nonreactive [facility] Comment:Antibodies to HCV no t detected; does not exclude early acuteHCV infection. Blood Venous blood specimen / Unknown 02/01/2024 3:49 PM EDT 02/01/2024 4:09 PM EDT us Jose Baez MD LAB BLOOD ORDERABLES Final Resul t Performing Organization Address [facility]/ZIP Co de Phone Number [facility] [address] [place] [phone] * HIV-1/2 Antigen and Antibodies, Fourth Generation, with Reflexes (02/01/2024 3:49 PM EDT) HIV AB/AG Nonreactive Nonreactive [facility] Comment:HIV-1 p24 Ag and/or HIV-1/HIV-2 Ab not detected.A test result that is nonreactive does not exclude thepossibility of exposure to or infection with HIV-1 and/orHIV-2. Nonreactive results in this assay for individualswith prior exposure to HIV-1 and/or HIV-2 may be due toantigen and antibody levels that are below the limit ofdetection of this assay.The [employer] HIV Ag/Ab Combo assay result andsupplemental assay results should be interpreted inconjunction with the patient's clinical presentation,history and other laboratory results. If the results areinconsistent with clinical evidence, additional testing issuggested to confirm the result. Blood Venous blood specimen / Unknown 02/01/2024 3:49 PM EDT 02/01/2024 4:09 PM EDT us Jose Baez MD LAB BLOOD ORDERABLES Final Resul t [facility] [address] [place] [phone] * Image-Guided Pap with Age-Based Screening??with CT/NG,??Trichomonas (06/09/2023 2:00 PM EST) Pathologist Michael Trichomonas (NAAT) NOT DETECTED NOT DETECTED [facility] Comment:The analytical perfo rmance characteristics of thisassay have been determined by [employer] Themodifications have not been cleared or approved bythe FDA. This assay has been validated pursuant to theIA regulations and is used for clinical purposes.For additional information, please refer tohttp://education.[employer]/faq/Trichomonastma(This link is being provided for information/educational purposes only.)THIS TEST WAS PERFORMED AT:[facility] [place] [phone] CALIX MD CTNG Ref Lab NOT DETECTED NOT DETECTED [facility] NG Ref Lab NOT DETECTED NOT DETECTED [facility] Cervix 06/09/2023 2:00 PM EST 06/10/2023 8:30 AM EST Inrgid Lopez [facility] CYTOLOGY ORDERABLES F inal Result Performing Organization Address City/[facility]/ZIP Co de Phone Number [facility] [address] [place] [address] [phone] * HPV mRNA E6/E7 w/Reflex to HPV Genotypes 16, 18/45 (06/09/2023 2:00 PM EST) Pathologist [facility] HPV nRNA E6/E7 SEE NOTE [facility] Comment:HPV mRNA E6/E7: Not Detected Reference range: Not DetectedMethodology: Relaster-Mediated AmplificationThis assay detects E6/E7 viral messenger RNA (mRNA) from 14high-risk HPV types(16,18,31,33,35,39,45,51,52,56,58,59,66,68).Cervical sources are required for HPV testing.If a vaginal source from a patient who has had atotal hysterectomy with removal of cervix wassubmitted, please contact the testing laboratoryfor alternative testing options.For additional information, please refer tohttp://education.[employer]/faq/MNI425t1(This link if provided for information/educational purposes only.)Site [email or web address]- [employer] [address] [phone] Laboratory Director: Aury Calix M.D. HPV mRNA E6/E7 [facility] HPV 16 RNA [facility] HPV 18/45 RNA [facility] 06/09/2023 2:00 PM EST 06/10/2023 8:30 AM EST Ingrid John [facility] CYTOLOGY ORDERABLES F inal Result Performing Organization Address [facility]/ZIP Co de Phone Number [facility] [address] [place] [phone] * Lipid Panel, Standard (04/06/2023 10:44 AM EDT) Pathologist [facility] Triglycerides 79 <150 mg/dL [facility] Comment:Desirable Triglyceri de: less than 150 mg/dLBorderline High Triglyceride 150-199 mg/dLHigh Triglyceride: 200-499 mg/dLVery High Triglyceride: greater than or equal to 5OO mg/dL Cholesterol 154 <200 mg/dL [facility] Comment:Desirable Cholestero l: less than 200 mg/dLBorderline High Cholesterol: 200-239 mg/dLHigh Cholesterol: greater than 239 mg/dL LDL Cholesterol Calculated 97 <100 mg/dL [facility] Comment:Desirable LDL: less than 100 mg/dLNear Optimal/Above Optimal LDL: 110- 129 mg/dLBorderline High LDL: 130-159 mg/dLHigh LDL: 160-189 mg/dLVery High LDL: greater than or equal to 190 mg/dL HDL Cholesterol 42 >40 mg/dL [facility] Comment:Desirable HDL: great er than 40 mg/dL Note: This HDL assay may give artificially low results in patients with liver disease. Blood Venous blood specimen / Unknown 04/06/2023 10:44 AM EDT 04/06/2023 11:01 AM EDT us Jose Name LAB BLOOD ORDERABLES Final Resul t [facility] [address] [place] [address] [phone] from Last 3 Months or Most Recently Relevant to Health Maintenance Insurance HSN PARTIAL [facility] PLAN DENTAL - HSN PARTIAL (MEDICAID) Care Teams Software Support Engineer Relationship Specialty Start Date End Date Name, MD Jose [address] [place] [address] PCP - General Family Medicine 11/11/15 Nasir Buenrostro FNP [address] [place] [address] Nurse Practitioner Family Medicine 05/24/23 Gudelia Beach Ex Assistant/Program DirectorSide Panel Hanger 03/10/23
--- OUTSIDE RECORDS SUMMARY | 2024-07-10 12:20 | XMS_ITS | Encounter Summary ---
Author Organization [employer] Address [address] [facility] [address] 7t [place] [address] Care Team Providers Care Commander Internal Affairs Name Role Phone Name, Jose SAVAGE Primary Care Provider [phone] Nasir Buenrostro Unavailable Unavailable Encounter Details Date Type Department Care Team (Latest Contact Info) Description 07/03/2024 Travel Social History Tobacco Use Types Packs/Day [...] Description 09/12/2024 10:45 AM EDT Office Visit [facility] [address] [place] [address] Name, MD Jose [address] [place] [address] documented as of this encounter Visit Diagnoses Not on filedocumented in this encounter Additional Health Concerns Assessment Noted Time PHQ-9 Depression Total Score: 9 06/06/20 23 2:22 PM EST documented as of this encounter Care Teams Commander Internal Affairs Relationship Specialty Start Date End Date Name, MD Jose [address] [place] [address] PCP - General Family Medicine 11/11/15 Nasir Buenrostro FNP [address] [place] [address] Nurse Practitioner Family Medicine 05/24/23 Gudelia Beach Crane Ladle PersonGarden Center Manager 03/10/23 documented as of this encounter
--- OUTSIDE RECORDS SUMMARY | 2024-07-10 12:20 | XMS_ITS | Encounter Summary ---
Author Organization [employer] Address [address] [facility] [address] 7t [place] [address] Care Team Providers Care Canal Boat Captain Name Role Phone Name, Jose SAVAGE Primary Care Provider [phone] Nasir Buenrostro Unavailable Unavailable Encounter Details Date Type Department Care Team (Late st Contact Info) Description 07/03/2024 1:30 PM EST Office Visit [facility] [address] [place], [place] [phone] Jus, Nasrin, OD [address] [place] [address] Astigmatism of both eyes, unspecified type (Primary Dx); Dry eyes, bilateral; Dark area on retina Social History Tobacco Use Types Packs/Day Years [...] Description 09/12/2024 10:45 AM EDT Office Visit [facility] [address] [place] [address] Name, MD Jose [address] [place] [address] documented as of this encounter Visit Diagnoses Diagnosis Astigmatism of both eyes, unspecified type- Primary Dry eyes, bilateral Dark area on retina Neoplasms of unspecified nature, retina and choroid documented in this encounter Additional Health Concerns Assessment Noted Time PHQ-9 Depression Total Score: 9 06/06/20 23 2:22 PM EST documented as of this encounter Care Teams Canal Boat Captain Relationship Specialty Start Date End Date Name, MD Jose [address] [place] [address] PCP - General Family Medicine 11/11/15 Nasir Buenrostro FNP [address] [place] [address] Nurse Practitioner Family Medicine 05/24/23 Gudelia Beach Clean Rice Grader And Reel TenderSignwriter 03/10/23 documented as of this encounter
--- OUTSIDE RECORDS SUMMARY | 2024-07-10 12:20 | XMS_ITS | Encounter Summary ---
Author Organization [employer] Address [address] [facility] 7[address] [place] [address] Care Team Providers Care Duplex Trimmer Name Role Phone Name, Jose SAVAGE Primary Care Provider [phone] Nasir Buenrostro Unavailable Unavailable Encounter Details Date Type Department Care Team ([facility] st Contact Info) Description 07/10/2024 Telephone [facility] [address] [place], [place] [phone] Ingrid Lopez, GILBERT [address] [place], [place] [phone] Social History Tobacco Use Types Packs/Day Years [...] Description 09/12/2024 10:45 AM EDT Office Visit [facility] [address] [place] [address] Name, MD Jose [address] [place] [address] documented as of this encounter Visit Diagnoses Not on filedocumented in this encounter Additional Health Concerns Assessment Noted Time PHQ-9 Depression Total Score: 9 06/06/20 23 2:22 PM EST documented as of this encounter Care Teams Duplex Trimmer Relationship Specialty Start Date End Date Name, MD Jose [address] [place] [address] PCP - General Family Medicine 11/11/15 Nasir Buenrostro FNP [address] [place] [address] Nurse Practitioner Family Medicine 05/24/23 Gudelia Beach Truck Driver TeamsterGuitar Instructor 03/10/23 documented as of this encounter
--- OUTSIDE RECORDS SUMMARY | 2024-07-10 12:20 | XMS_ITS | Encounter Summary ---
Author Organization Info [facility] Address [address] [place] [address] 7t [place] [address] Care Team Providers Care Freelance Photographer Name Role Phone Name, Jose SAVAGE Primary Care Provider [phone] Nasir Buenrostro Unavailable Unavailable Reason for Referral * Imaging (Urgent) - Authorized Specialty Diagnoses / Procedures Referred By Contac t Referred To Contact Radiology Diagnoses Intermenstrual bleeding Procedures Us Pelvis complete Ingrid Lopez CNM [address] [place] [address] Phone: tel: fax: [address] Phone: tel: fax: Referral ID Status Reason Start Date Expiration Date V isits Requested Visits Authorized [id number] Authorized 07/10/2024 07/10/2025 1 1 * Imaging (Urgent) - Authorized Specialty Diagnoses / Procedures Referred By Contac t Referred To Contact Radiology Diagnoses Intermenstrual bleeding Procedures US Pelvis Transvaginal Ingrid Lopez CNM [address] [place] [address] Phone: tel: fax: [address] Phone: tel: fax: Referral ID Status Reason Start Date Expiration Date V isits Requested Visits Authorized [id number] Authorized 07/10/2024 07/10/2025 1 1 Reason for Visit * Reason Comments Gynecologic Exam Encounter Details Date Type Department Care Team (Latest Contact Info) Description 07/10/2024 10:15 AM EST Procedure Visit [facility] [address] [place] [address] Ingrid Lopez CNM [address] [place], [place] [phone] Screening examination for venereal disease (Primary Dx); Intermenstrual bleeding Social History Tobacco Use Types Packs/Day Years [...] AM EDT documented as of this encounter Last Filed Vital Signs Vital Sign Reading [...] Mass Index 31.37 07/10/2024 10:19 AM EST documented in this encounter Plan of Treatment Upcoming Encounters Date Type Department Care Team (Late st Contact Info) Description 09/12/2024 10:45 AM EDT Office Visit [facility] [address] [place] [address] Name, MD Jose [address] [place] [address] Scheduled Orders Name Type Priority Associated Diagnoses Orde r Schedule Bacterial Vaginosis Microbiology Routine Screening examination for venereal disease Expected: 07/10/2024 (Approximate), Expires: 07/10/2025 Chlamydia/N. Gonorrhoeae RNA, TMA, Vagina Microbiology Routine Screening examination for venereal disease Ordered: 07/10/2024 HIV-1/2 Antigen and Antibodies, Fourth Generation, with Reflexes Lab Routine Screening examination for venereal disease Expected: 07/10/2024 (Approximate), Expires: 07/10/2025 Syphilis Screen Lab Routine Screening examination for venereal disease Expected: 07/10/2024 (Approximate), Expires: 07/10/2025 US Pelvis Transvaginal Imaging Urgent Intermenstrual bleeding Expected: 07/10/2024, Expires: 07/10/2025 Us Pelvis complete Imaging Urgent Intermenstrual bleeding Expected: 07/10/2024, Expires: 07/10/2025 documented as of this encounter Visit Diagnoses Diagnosis Screening examination for venereal disease- Primary Intermenstrual bleeding Metrorrhagia documented in this encounter Additional Health Concerns Assessment Noted Time PHQ-9 Depression Total Score: 9 06/06/20 23 2:22 PM EST documented as of this encounter Care Teams Freelance Photographer Relationship Specialty Start Date End Date Name, MD Jose [address] [place] [address] PCP - General Family Medicine 11/11/15 Nasir Buenrostro FNP [address] [place] [address] Nurse Practitioner Family Medicine 05/24/23 Gudelia Beach Fire Alarm DispatcherField Hockey And Lacrosse Coach 03/10/23 documented as of this encounter
--- OUTSIDE RECORDS SUMMARY | 2024-07-10 12:21 | XMS_ITS | Encounter Summary ---
Author Organization [employer] Address [address] [facility] 7t [place] [address] Care Team Providers Care Pharmacy Services Representative Name Role Phone Name, Jose SAVAGE Primary Care Provider [phone] Nasir Buenrostro Unavailable Unavailable Reason for Visit * Reason Onset Date Comments Hospital Follow-up 03/22/2024 Encounter Details Date Type Department Care Team ([facility] st Contact Info) Description 03/22/2024 Telephone [facility] [address] [place], [place] [phone] Name, MD Jose [address] [place] [address] Hospital Follow-up Social History Tobacco Use Types Packs/Day Years [...] AM EDT documented as of this encounter Miscellaneous Notes * Telephone Encounter - Gwen Zhang - 03/22/2024 11:23 AM EDT Tc from pt requesting a HDF appt. Hospital: [facility] Date of admission: 03/13/24 Discharge date: 03/17/24 Diagnosed: Breast lump Contact pt at [phone] (pashto) documented in this encounter Plan of Treatment Upcoming Encounters Date Type Department Care Team (Late st Contact Info) Description 09/12/2024 10:45 AM EDT Office Visit [facility] [address] [place] [address] Name, MD Jose [address] [place] [address] documented as of this encounter Visit Diagnoses Not on filedocumented in this encounter Additional Health Concerns Assessment Noted Time PHQ-9 Depression Total Score: 9 06/06/20 23 2:22 PM EST documented as of this encounter Care Teams Pharmacy Services Representative Relationship Specialty Start Date End Date NameJose MD [address] [place] [address] PCP - General Family Medicine 11/11/15 Nasir Buenrostro FNP [address] [place] [address] Nurse Practitioner Family Medicine 05/24/23 Gudelia Beach Sports Team ManagerAttorney Lawyer 03/10/23 documented as of this encounter
--- OUTSIDE RECORDS SUMMARY | 2024-07-10 12:21 | XMS_ITS | Encounter Summary ---
Author Organization [employer] Address [address] [facility] [address] 7t [place] [address] Care Team Providers Care Washing Machine Loader And Puller Name Role Phone Name, Jose SAVAGE Primary Care Provider [phone] Nasir Buenrostro Unavailable Unavailable Reason for Visit * Reason Comments Med Refill Encounter Details Date Type Department Care Team ([facility] Contact Info) Description 11/02/2023 Refill [facility] [address] [place] [address] Nasir Buenrostro FNP Mood disorder (CMS/HCC) Social History Tobacco Use Types Packs/Day Years Used Date Smoking Tobacco: Every Day Cigarettes Passive Smoke Exposure: Never Smokeless Tobacco: Never Alcohol Use Standard Drinks/Week Comments Yes 0 (1 standard drink = 0.6 oz pur e alcohol) socially Depression Answer Date Recorded Patient Health Questionnaire-9 [...] Patient Health Questionnaire-2 Score 2 06/06/2023 Comments Unknown Sex and Gender Information Value Date Recorded Sex Assigned at Female 04/19/2022 10:29 AM EDT Legal Sex Female 10:29 AM EDT Gender Identity Female 04/19/2022 10:29 AM EDT Sexual Orientation Straight 04/19/2022 10 :29 AM EDT documented as of this encounter Plan of Treatment Upcoming Encounters Date Type Department Care Team (Late st Contact Info) Description 09/12/2024 10:45 AM EDT Office Visit [facility] [address] [place] [address] Name, MD Jose [address] [place] [address] documented as of this encounter Visit Diagnoses Diagnosis Mood disorder (CMS/HCC) Unspecified episodic mood disorder documented in this encounter Additional Health Concerns Assessment Noted Time PHQ-9 Depression Total Score: 9 06/06/20 23 2:22 PM EST documented as of this encounter Care Teams Washing Machine Loader And Puller Relationship Specialty Start Date End Date Name, MD Jose [address] [place] [address] PCP - General Family Medicine 11/11/15 Nasir Buenrostro FNP [address] [place] [address] Nurse Practitioner Family Medicine 05/24/23 Gudelia Beach Water Softener InstallerOverhead Crane Operator 03/10/23 documented as of this encounter
--- OUTSIDE RECORDS SUMMARY | 2024-07-10 12:21 | XMS_ITS | Encounter Summary ---
Author Organization [facility] Address [address] [place] [address] 7t [place] [address] Care Team Providers Care Gripper Attacher Name Role Phone Name, Jose SAVAGE Primary Care Provider [phone] Nasir Buenrostro Unavailable Unavailable Encounter Details Date Type Department Care Team (Latest Contact Info) Description 11/04/2020 Abstract [facility] CONVERSIONS Dental, Provider, DDS Social History Tobacco Use Types Packs/Day Years Used Date Smoking Tobacco: Never Assessed Comments Unknown Sex and Gender Information Value [...] Description 09/12/2024 10:45 AM EDT Office Visit [facility] MED[facility] [address] [place] [address] Jose Baez MD [address] [place] [address] documented as of this encounter Visit Diagnoses Not on filedocumented in this encounter Care Teams Gripper Attacher Relationship Specialty Start Date End Date Jose Baez MD [address] [place] [address] PCP - General Family Medicine 11/11/15 Nasir Buenrostro FNP [address] [place] [address] Nurse Practitioner Family Medicine 05/24/23 Gudelia Beach Director SalesLint Cleaner 03/10/23 documented as of this encounter
--- OUTSIDE RECORDS SUMMARY | 2024-07-10 12:21 | XMS_ITS | Encounter Summary ---
Author Organization [email or web address] Address [address] [facility] 7t [place] [address] Care Team Providers Care Clinical Research Tech Name Role Phone Name, Jose SAVAGE Primary Care Provider [phone] Nasir Buenrostro Unavailable Unavailable Reason for Visit * Reason Onset Date Comments Call Back Request 08/05/2023 Encounter Details Date Type Department Care Team ([facility] Contact Info) Description 08/05/2023 Telephone [facility] [address] [place], [place] [phone] Name, MD Jose [address] [place] [address] Call Back Request Social History Tobacco Use Types Packs/Day Years [...] housing situation today? I have dominga lebron 04/04/[address] you li ve. Do you have problems with any of the following? None of the above 04/04/2023 Food Insecurity Answer Date Recorded Within the past 12 months, y ou worried that your food would run out before you got money to buy more: Never True 04/04/2023 Within the past 12 months,th e food you bought just didn't last and you didn't have enough money to get more: Never True Transportation Answer Date Recorded In the past 12 months, has l ack of transportation kept you from medical appts, meetings, work or from getting things needed for daily living? Yes, it has kept me from medical appointments or getting medications. 03/29/2023 Utilities Answer Date Recorded In the past 12 months, has t he electric, gas, oil or water company threatened to shut off services in your home? No 04/04/2023 Depression Answer Date Recorded Patient Health Questionnaire-2 Score 2 06/06/2023 Comments Unknown Sex and Gender Information Value Date Recorded Sex Assigned at Female 04/19/2022 10:29 AM EDT Legal Sex Female 10:29 AM EDT Gender Identity Female 04/19/2022 10:29 AM EDT Sexual Orientation Straight 04/19/2022 10 :29 AM EDT documented as of this encounter Miscellaneous Notes * Telephone Encounter - Betsey Acosta - 08/15/2023 10:23 AM EST TC to [facility] where referral was originally faxed. Referral for patient not in file, was asked to fax referral Attn: Ana Maria. * Telephone Encounter - Ingrid Lopez CNM - 08/13/2023 10:09 AM EST This sounds like a referrals issue. I didn't refer patient for IVF. I will route to referrals to take care of. Let me know if there is anything else I need to do. Thanks! * Telephone Encounter - Ingrid Lopez CNM - 08/13/2023 10:08 AM EST Could you please look into this? I referred patient to [facility] for postcoital bleeding, not to [facility]center. Thanks! * Telephone Encounter - Aline Miller RN - 08/09/2023 11:37 AM EST T/c made to Yani at [facility]. Yani said that pt referral is incorrect and center is specifically for IVF treatment. Will reroute to provider for more info. * Telephone Encounter - Ingrid Lopez CNM - 08/05/2023 1:53 PM EST Referred to [facility] for postcoital bleeding. Please see my referral note. If unable to be seen at [facility], please coordinate with referrals to see where she can be seen. * Telephone Encounter - Ranjith Vasquez - 08/05/2023 11:37 AM EST Tc from Yani Brooke from [facility] requesting a call back for clarification on why the patient was referred to them and to notify the PCP that they do not accept Medicaid insurance please call Yani at [phone] documented in this encounter Plan of Treatment Upcoming Encounters Date Type Department Care Team (Late st Contact Info) Description 09/12/2024 10:45 AM EDT Office Visit [facility] [address] [place] [address] Name, MD Jose [address] [place] [address] documented as of this encounter Visit Diagnoses Not on filedocumented in this encounter Additional Health Concerns Assessment Noted Time PHQ-9 Depression Total Score: 9 06/06/20 23 2:22 PM EST documented as of this encounter Care Teams Clinical Research Tech Relationship Specialty Start Date End Date Name, MD Jose [address] [place] [address] PCP - General Family Medicine 11/11/15 Nasir Buenrostro FNP [address] [place] [address] Nurse Practitioner Family Medicine 05/24/23 Gudelia Beach Straw BossSupervisor Drying And Winding 03/10/23 documented as of this encounter
--- OUTSIDE RECORDS SUMMARY | 2024-07-10 12:21 | XMS_ITS | Encounter Summary ---
Author Organization [employer] Address [address] [facility] 7t [place] [address] Care Team Providers Care Vegetables Cook Name Role Phone Name, Jose SAVAGE Primary Care Provider Nasir Buenrostro Unavailable Unavailable Reason for Visit * Reason Comments Med Refill Encounter Details Date Type Department Care Team ([facility] Contact Info) Description 01/18/2024 Refill [facility] MED[facility]INE [address] [place], [place] [phone] Name, MD Jose [address] [place] [address] Asthma, unspecified asthma severity, unspecified whether complicated, unspecified whether persistent Social History Tobacco Use Types Packs/Day Years [...] Description 09/12/2024 10:45 AM EDT Office Visit [facility] MEDICINE [address] [place] [address] Name, MD Jose [address] [place] [address] documented as of this encounter Visit Diagnoses Diagnosis Asthma, unspecified asthma severity, unspecified whether complicated, unspecified whether persistent documented in this encounter Additional Health Concerns Assessment Noted Time PHQ-9 Depression Total Score: 9 06/06/20 23 2:22 PM EST documented as of this encounter Care Teams Vegetables Cook Relationship Specialty Start Date End Date Name, MD Jose [address] [place] [address] PCP - General Family Medicine 11/11/15 Nasir Buenrostro FNP [address] [place] [address] Nurse Practitioner Family Medicine 05/24/23 Gudelia Beach Nutrition Services AideRabbit Fancier 03/10/23 documented as of this encounter
--- OUTSIDE RECORDS SUMMARY | 2024-07-10 12:21 | XMS_ITS | Encounter Summary ---
Author Organization [employer] Address [address] [facility] [address] 7t [place] [address] Care Team Providers Care Beater Boss Name Role Phone Name, Jose SAVAGE Primary Care Provider [phone] Nasir Buenrostro Unavailable Unavailable Reason for Visit * Reason Onset Date Comments jul recalls 06/28/2024 Encounter Details Date Type Department Care Team (Late st Contact Info) Description 06/28/2024 Telephone [facility] [address] [place] [address] Mikki Contreras [place] jul recalls Social History Tobacco Use Types Packs/Day Years [...] encounter Miscellaneous Notes * Telephone Encounter - Mikki Contreras MA - 06/28/2024 3:43 PM EST T/C placed to pt. Scheduled recall. Pt agrees with plan. Reminder letter sent . documented in this encounter Plan of Treatment Upcoming Encounters Date Type Department Care Team (Late st Contact Info) Description 09/12/2024 10:45 AM EDT Office Visit [facility] [address] [place] [phone] Name, MD Jose [address] [place] [address] documented as of this encounter Visit Diagnoses Not on filedocumented in this encounter Additional Health Concerns Assessment Noted Time PHQ-9 Depression Total Score: 9 06/06/20 23 2:22 PM EST documented as of this encounter Care Teams Beater Boss Relationship Specialty Start Date End Date NameJose MD [address] [place] [address] PCP - General Family Medicine 11/11/15 Nasir Buenrostro FNP [address] [place] [address] Nurse Practitioner Family Medicine 05/24/23 Gudelia Beach Count Room ClerkSubstation Technician 03/10/23 documented as of this encounter
--- OUTSIDE RECORDS SUMMARY | 2024-07-10 12:21 | XMS_ITS | Encounter Summary ---
Author Organization [employer] [facility] Address [address] 7t [place] [address] Care Team Providers Care Elementary Ell Teacher Name Role Phone Name, Jose SAVAGE Primary Care Provider [phone] Nasir Buenrostro Unavailable Unavailable Encounter Details Date Type Department Care Team ([facility] Contact Info) Description 08/20/2022 Abstract [facility] ADULT DENTAL [address] [place], [place] [phone] Elizabeth Condon DDS [address] [place] [address] Social History Tobacco Use Types Packs/Day Years Used Date Smoking Tobacco: Every Day Cigarettes Smokeless Tobacco: Never PHQ-2 Answer Date Recorded Patient Health Questionnaire-2 Score 2 08/23/2022 Comments Unknown Sex and Gender Information Value Date Recorded Sex Assigned at Female 04/19/2022 10:29 AM EDT Legal Sex Female 10:29 AM EDT Gender Identity Female 04/19/2022 10:29 AM EDT Sexual Orientation Straight 04/19/2022 10 :29 AM EDT COVID-19 Exposure Response Date Recorded In the last 10 days, have yo u been in contact with someone who was confirmed or suspected to have Coronavirus/COVID-19? No / Unsure 08/13/2022 1:51 PM EST documented as of this encounter Plan of Treatment Upcoming Encounters Date Type Department Care Team ([facility] Contact Info) Description 09/12/2024 10:45 AM EDT Office Visit [facility] MEDICINE [address] [place] [address] Name, MD Jose [address] [place] [address] documented as of this encounter Visit Diagnoses Not on filedocumented in this encounter Care Teams Elementary Ell Teacher Relationship Specialty Start Date End Date Name, MD Jose [address] [place] [phone] PCP - General Family Medicine 11/11/15 Nasir Buenrostro FNP [address] [place] [address] Nurse Practitioner Family Medicine 05/24/23 [place] Java Sql DeveloperAnimal Cruelty Investigator 03/10/23 documented as of this encounter
--- OUTSIDE RECORDS SUMMARY | 2024-07-10 12:21 | XMS_ITS | Encounter Summary ---
Author Organization [employer] [facility] Address [address] 7t [place] [address] Care Team Providers Care Architectural Designer Name Role Phone Name, Jose SAVAGE Primary Care Provider [phone] Nasir Buenrostro Unavailable Unavailable Reason for Visit * Reason Onset Date Comments shade/tryin or finish 09/10/2022 case not ready 09/10/2022 Encounter Details Date Type Department Care Team ([facility] st Contact Info) Description 09/10/2022 Telephone [facility] ADULT DENTAL [address] [place] [address] Elizabeth Condon DDS [address] [place], [place] [phone] shade/tryin or finish; case not ready Social History Tobacco Use Types Packs/Day Years [...] suspected to have Coronavirus/COVID-19? No / Unsure 09/07/2022 3:24 PM EDT documented as of this encounter Miscellaneous Notes * Telephone Encounter - Elizabeth Condon DDS - 09/14/2022 8:52 AM EDT Thank you, Alysha notified the pt and she has been re-scheduled. * Telephone Encounter - Sheyla Choi - 09/13/2022 3:49 PM EDT eNlli called in stating that case for Mi Gutierrez will not be ready for tomorrow. They are thinking it will be here for Tuesday. * Telephone Encounter - Elizabeth Condon DDS - 09/10/2022 3:01 PM EDT Adalberto Carrion, Please inform Nelli that the color is A2 and is a finished [employer] for immediate insertion Thanks, Dr. Rainey * Telephone Encounter - Sheyla Choi - 09/10/2022 2:17 PM EDT Nelli from [employer] called stating they need a shade and to find out if its a wax try in or to finish . documented in this encounter Plan of Treatment Upcoming Encounters Date Type Department Care Team (Late st Contact Info) Description 09/12/2024 10:45 AM EDT Office Visit [facility] MEDICINE [address] [place] [address] Name, MD Jose [address] [place] [address] documented as of this encounter Visit Diagnoses Not on filedocumented in this encounter Additional Health Concerns Assessment Noted Time PHQ-9 Depression Total Score: 5 08/24/19 23 2:37 PM EST documented as of this encounter Care Teams Architectural Designer Relationship Specialty Start Date End Date Name, MD Jose [address] [place] [address] PCP - General Family Medicine 11/11/15 Nasir Buenrostro FNP [address] [place] [address] Nurse Practitioner Family Medicine 05/24/23 [place] Functional AnalystMeat Counter Worker 03/10/23 documented as of this encounter
--- OUTSIDE RECORDS SUMMARY | 2024-07-10 12:21 | XMS_ITS | Encounter Summary ---
Author Organization [employer] [facility] Address [address] [place] [address] 7t [place] [address] Care Team Providers Care Chief Design Drafter Name Role Phone Name, Jose SAVAGE Primary Care Provider [phone] Nasir Buenrostro Unavailable Unavailable Encounter Details Date Type Department Care Team ([facility] Contact Info) Description 10/05/[address] [facility] MEDICINE [address] [place] [address] Name, MD Jose [address] [place] [address] [phone] Social History Tobacco Use Types Packs/Day Years Used Date Smoking Tobacco: Every Day Cigarettes Passive Smoke Exposure: Never Smokeless Tobacco: Never PHQ-2 Answer Date Recorded Patient Health Questionnaire-2 Score 2 10/07/2022 Comments Unknown Sex and Gender Information Value [...] suspected to have Coronavirus/COVID-19? No / Unsure 10/07/2022 12:59 PM EDT documented as of this encounter Plan of Treatment Upcoming Encounters Date Type Department Care Team ([facility] Contact Info) Description 09/12/2024 10:45 AM EDT Office Visit [facility] MEDICINE [address] [place] [address] Name, MD Jose [address] [place] [address] documented as of this encounter Procedures Procedure Name Priority Date/Time Associated Diagnosis Comments PAP SMEAR Routine 12/29/2017 12:00 AM EDT documented in this encounter Results * Pap Smear (12/29/2017 12:00 AM EDT) Swab us Historical Provider LAB CYTOLOGY ORDERABLES F inal Result [facility] [address], [place] [address] documented in this encounter Visit Diagnoses Not on filedocumented in this encounter Additional Health Concerns Assessment Noted Time PHQ-9 Depression Total Score: 5 08/24/19 23 2:37 PM EST documented as of this encounter Care Teams Chief Design Drafter Relationship Specialty Start Date End Date Name, MD Jose [address] [place] [address] PCP - General Family Medicine 11/11/15 Nasir Buenrostro FNP [address] [place] [address] Nurse Practitioner Family Medicine 05/24/23 [place]ud[place] Storage Brine WorkerClinical Therapist 03/10/23 documented as of this encounter
--- OUTSIDE RECORDS SUMMARY | 2024-07-10 12:21 | XMS_ITS | Encounter Summary ---
Author Organization [employer] [facility] Address [address] [place] [address] 7t [place] [address] Care Team Providers Care Digital Ad Trafficker Name Role Phone Name, Jose SAVAGE Primary Care Provider [phone] Nasir Buenrostro Unavailable Unavailable Reason for Visit * Reason Comments Med Refill Encounter Details Date Type Department Care Team (Late st Contact Info) Description 01/04/2023 Refill [facility] MEDICINE [address] [place] [address] [phone] Nasir Buenrostro FNP Mood disorder (CMS/HCC) Social History Tobacco Use Types Packs/Day Years Used Date Smoking Tobacco: Every Day Cigarettes Passive Smoke Exposure: Never Smokeless Tobacco: Never Alcohol Use Standard Drinks/Week Comments Yes 0 (1 standard drink = 0.6 oz pur e alcohol) PHQ-2 Answer Date Recorded Patient Health Questionnaire-2 Score 2 12/27/2022 Comments Unknown Sex and Gender Information Value Date Recorded Sex Assigned at Female 04/19/2022 10:29 AM EDT Legal Sex Female 10:29 AM EDT Gender Identity Female 04/19/2022 10:29 AM EDT Sexual Orientation Straight 04/19/2022 10 :29 AM EDT documented as of this encounter Plan of Treatment Upcoming Encounters Date Type Department Care Team (Late Contact Info) Description 09/12/2024 10:45 AM EDT Office Visit [facility] MEDICINE [address] [place], [place] [phone] Name, MD Jose [address] [place] [address] documented as of this encounter Visit Diagnoses Diagnosis Mood disorder (CMS/HCC) Unspecified episodic mood disorder documented in this encounter Additional Health Concerns Assessment Noted Time PHQ-9 Depression Total Score: 8 12/28/19 23 2:59 PM EDT documented as of this encounter Care Teams Digital Ad Trafficker Relationship Specialty Start Date End Date Name, MD Jose [address] [place] [address] PCP - General Family Medicine 11/11/15 Nasir Buenrostro FNP [address] [place] [address] Nurse Practitioner Family Medicine 05/24/23 [place] Tank Car InspectorTherapeutic Specialist 03/10/23 documented as of this encounter
--- OUTSIDE RECORDS SUMMARY | 2024-07-10 12:21 | XMS_ITS | Encounter Summary ---
Author Organization [employer] [facility] Address [address] [place] [address] 7t [place] [address] Care Team Providers Care Supervisor Specialty Plant Name Role Phone Name, Jose SAVAGE Primary Care Provider [phone] Nasir Buenrostro Unavailable Unavailable Reason for Visit * Reason Comments Med Refill Encounter Details Date Type Department Care Team ([facility] st Contact Info) Description 03/14/2023 Refill [facility] MEDICINE [address] [place] [address] [phone] Nasir Buenrostro FNP Mood disorder (CMS/HCC) Social History Tobacco Use Types Packs/Day Years Used Date Smoking Tobacco: Every Day Cigarettes Passive Smoke Exposure: Never Smokeless Tobacco: Never Alcohol Use Standard Drinks/Week Comments Yes 0 (1 standard drink = 0.6 oz pur e alcohol) PHQ-2 Answer Date Recorded Patient Health Questionnaire-2 Score 2 02/08/2023 Comments Unknown Sex and Gender Information Value Date Recorded Sex Assigned at Female 04/19/2022 10:29 AM EDT Legal Sex Female 10:29 AM EDT Gender Identity Female 04/19/2022 10:29 AM EDT Sexual Orientation Straight 04/19/2022 10 :29 AM EDT documented as of this encounter Plan of Treatment Upcoming Encounters Date Type Department Care Team ([facility] Contact Info) Description 09/12/2024 10:45 AM EDT Office Visit [facility] MEDICINE [address] [place], [place] [phone] Name, MD Jose [address] [place] [address] documented as of this encounter Visit Diagnoses Diagnosis Mood disorder (CMS/HCC) Unspecified episodic mood disorder documented in this encounter Additional Health Concerns Assessment Noted Time PHQ-9 Depression Total Score: 7 02/09/20 23 1:43 PM EDT documented as of this encounter Care Teams Supervisor Specialty Plant Relationship Specialty Start Date End Date Name, MD Jose [address] [place] [address] PCP - General Family Medicine 11/11/15 Nasir Buenrostro FNP [address] [place] [address] Nurse Practitioner Family Medicine 05/24/23 [place] Collection Card ClerkSolutions Operator 03/10/23 documented as of this encounter
[2024-07-10 12:40] LABS: HIV AB/AG Nonreactive (Nonreactive); HIV Num 1 0.05 S/CO (0.00-0.99)
[2024-07-10 12:41] LABS: Syphilis Screen Nonreactive (Nonreactive)
[2024-07-10 14:57] LABS: CT PCR NOT DETECTED (Not Detect.); NG PCR NOT DETECTED (Not Detect.)
== END 2024-07-10 10:49 | disposition home or self-care (01) ==
LOC: HO.HHCL 10:48
PROVIDERS: Visit Provider Advanced Practice Midwife
DX: Z11.3 Encounter for screening for infections with a predominantly sexual mode of transmission (principal)
CPT/HCPCS: 86780; 87389; 87491; 87591

== ENCOUNTER 2024-07-20 08:54 | Outpatient (AMB) | payer OTHER, SELFPAY ==
--- NOTE | 2024-07-20 09:02 | A.OFFVIS_ITS ---
Vital Signs 3 07/20/24 09:07 Height 5 ft 1 in Weight 168 lb BMI 31.7 Intake Visit Reasons: right breast abscess Intake Note: Pt is seen in office for ER follow up visit, following right breast abscess. Pt c/o: completed course of doxycycline, reports no discharge or draining, reports no redness or hot to the touch sensation. B US/ED: 07/07/24 Gluing Crew Leader Required: Yes Gluing Crew Leader Language: Parts Coordinator Services: Gluing Crew Leader Present (Lissette) Accompanied by: Self / Same As Patient Allergies No Known Allergies [No Known Allergies*] Allergy (Verified 07/20/24 09:09) Medication List - Last Reconciled 07/20/24 by Neo Lima MD aripiprazole 15 mg PO DAILY budesonide-formoterol 160-4.5 mcg/actuation (Symbicort) 2 puffs inhalation BID clonazepam 1 mg PO BID PRN divalproex 500 mg PO BID doxepin 25 mg PO BEDTIME doxycycline hyclate 100 mg PO BID escitalopram oxalate 10 mg PO DAILY metoprolol succinate ER 25 mg PO DAILY montelukast 10 mg PO BEDTIME multivitamin 1 tab PO DAILY oxybutynin chloride ER 15 mg PO DAILY pantoprazole 40 mg PO DAILY@0630 polyethylene glycol 3350 (Miralax) 17 grams PO DAILY PRN sennosides (Natural Senna Laxative) 17.2 mg (2 x 8.6 mg) PO BEDTIME trazodone 100 mg PO BEDTIME HPI Comments Details: 44-year-old female patient returning to the office after recent recurrence of her right breast abscess. She was seen in the emergency department on 07/07/2024. An ultrasound of the right breast was performed which confirmed a multi-septated fluid collection in the right breast. Needle aspiration was performed and approximately 20 mL of fluid expressed. She was started on doxycycline and this morning reports improvement in her pain and in the breast redness. She continues to feel some swelling below the nipple but this is much improved. She continues to smoke approximately 3 cigarettes per day for the past 10 years. [facility] Medical History Eroded bladder suspension mesh Left breast mass Family History Mother No problems noted. Mother No problems noted. Father No problems noted. Social History Household Members: Other Household Members Other:: self Housing: Apartment Do you presently have visiting nurse or other home services: No Alcohol intake: current Alcohol intake frequency: holidays/special occasions only Patient Tobacco Use Status: Current everyday Tobacco user Tobacco use type: Cigarette Cigarettes Per Day: 3 Years Smoked: 10 Second Hand Smoke Exposure: No Substance Use Type: Marijuana Review of Systems Const All systems reviewed & are unremarkable except as noted in HPI and below Physical Exam Vital Signs: BMI result Body Mass Index 31.7 Const General: well developed Nutritional Appearance: well nourished Orientation/consciousness: patient oriented x3 Limitations: no limitations HEENT Head: Yes normocephalic and Yes atraumatic Chest Other: Right breast: Area of fullness noted below the nipple suggestive of an underlying phlegmon. No fluctuance is palpable at this time. No overlying cellulitis is appreciated. Nipple discharge could not be expressed. No other palpable mass appreciated. Left breast exam deferred Chest/axillae images: 2 1. Area of fullness below nipple areola Resp Effort & Inspection: normal respiratory effort GI Inspection: Yes normal to inspection Skin Other: Warm, dry, no rashes Neuro General: patient oriented x3 Extrem Other: No peripheral edema Assessment & Plan Assessment & Plan (1) Abscess of breast, right: Code(s): N61.1 - Abscess of the breast and nipple Category: Medical Plan Overall patient is improved following needle aspiration performed in the emergency department. Recommend continuing the antibiotics for another 2 weeks with follow-up in approximately 2 weeks for reassessment. Also recommended stopping tobacco use which may aggravate the infection. Patient expressed understanding and agrees with the plan. Medications: Refilled 2 doxycycline hyclate 100 mg PO BID 28 caps 0RF N61.1 - Abscess of the breast and nipple Coding Level of Care Code Est Pt Level 3 (12233) Diagnoses Abscess of breast, right N61.1
[2024-07-20 09:07] VITALS: BMI 31.7
== END 2024-07-20 09:19 | disposition home or self-care (01) ==
PROVIDERS: PCP Internal Medicine Geriatric Medicine; Visit Provider Surgery
DX: N61.1 Abscess of the breast and nipple (principal)
CPT/HCPCS: 99213

== ENCOUNTER → 2024-07-20 08:54 | Outpatient (BNVA) | payer OTHER, SELFPAY | PROVIDERS: PCP Internal Medicine Geriatric Medicine; Visit Provider Surgery | DX: N61.1 Abscess of the breast and nipple (principal) | CPT/HCPCS: 99212 ==

== ENCOUNTER 2024-08-14 13:50 | Outpatient (REF) | payer OTHER, SELFPAY ==
--- NOTE | ~2024-08-14 | US_ITS ---
EXAMINATION: US PELVIS TRANSABDOMINAL AND TRANSVAGINAL HISTORY: intermenstrual bleeding COMPARISON: Comparison is made with the prior examination dated 04/02/2019. TECHNIQUE: Transabdominal and endovaginal real-time 2D serra-scale ultrasound was performed. FINDINGS: Uterus: The uterus is normal in size, measuring 7.5 x 3.9 x 4.9 cm. Myometrium has a normal echotexture. No fibroids are identified. Endometrium: The endometrial stripe measures 6 mm in thickness. Right ovary: The right ovary measures 2.9 x 1.8 x 2.5 cm. The right ovary is normal in size and echotexture. Left ovary: The left ovary measures 4.1 x 2.1 x 2.3 cm. There is a 1.4 x 1.1 x 1.7 cm cyst containing a complex echogenic area measuring 1.5 x 1.1 x 1.3 cm which could represent hemorrhage or mass. Pelvic fluid: none. US/US pelvic and transvaginal IMPRESSION: Complex left ovarian cyst containing a 1.5 x 1.1 x 1.3 cm echogenic area which could represent hemorrhage or mass. A follow-up examination in 6 weeks, at a different time in the patient's initial cycle, is recommended to document resolution. Electronically signed by: Ryan Cason MD 08/14/2024 02:49 PM [facility]
--- OUTSIDE RECORDS SUMMARY | 2024-08-14 17:14 | XMS_ITS | Encounter Summary ---
Author Organization [facility] Address [address] [place] [address] 7t [place] [address] Care Team Providers Care Licensing Specialist Name Role Phone Name, Jose SAVAGE Primary Care Provider [phone] Nasir Buenrostro Unavailable Unavailable Encounter Details Date Type Department Care Team ([facility] Contact Info) Description 10/05/2022 Abstract [facility] [address] [place] [address] Name, MD Jose [address] [place] [address] [phone] Social History Tobacco Use Types Packs/Day Years [...] Upcoming Encounters Date Type Department Care Team ([facility] Contact Info) Description 09/12/2024 10:45 AM EDT Office Visit [facility] [address] [place] [address] Name, MD Jsoe [address] [place] [address] documented as of this encounter Procedures Procedure Name Priority Date/Time Associated Diagnosis Comments PAP SMEAR Routine 12/29/2017 12:00 AM EDT documented in this encounter Results * Pap Smear (12/29/2017 12:00 AM EDT) Swab us Historical Provider LAB CYTOLOGY ORDERABLES F inal Result [facility] [address] [place] [address] documented in this encounter Visit Diagnoses Not on filedocumented in this encounter Additional Health Concerns Assessment Noted Time PHQ-9 Depression Total Score: 5 08/24/19 23 2:37 PM EST documented as of this encounter Care Teams Licensing Specialist Relationship Specialty Start Date End Date Name, MD Jose [address] [place] [address] PCP - General Family Medicine 11/11/15 Nasir Buenrostro FNP [address] [place] [address] Nurse Practitioner Family Medicine 05/24/23 [place] Human IntelligencePattern Grader Supervisor 03/10/23 documented as of this encounter
--- OUTSIDE RECORDS SUMMARY | 2024-08-14 17:14 | XMS_ITS | Clinical Summary ---
Author Organization [employer] Address [address] [place] [address] Care Team Providers Care Aircraft Line Assembler Name Role Phone Name, Jose SAVAGE Primary Care Provider [phone] Nasir Buenrostro Unavailable Unavailable Allergies No known [...] as directed, since she does not read Japanese (and has no one to help her [...] 10 mg. Rx's will be sent to [facility] for home delivery. F/U with [...] quite alone as family is in [place]. Has started with counseling. Today 06/06/2023 provider [...] Plan (02/23/2023 4:12 PM EDT): Pt repots [facility] for years. No evidence of infection or effusion. -PT referral done and Xray ordered 02/23/2023. Dog bite of arm, right, subsequent encounter 04/04/2023 Assessment & Plan (10/07/2022 1:39 PM EDT): Hospitalized at [facility] for 3 days for IV antibiotics, discharged on Augmentin and Bactrim for total of 21 days of abx therapy Counseled to finish abx as prescribed Letter given for work at [employer] for no heavy lifting x 14 days Edema of lower extremity 12/27/2016 Encounters Date Type Department Care Team Description 08/14/2024 Telephone [facility] [place] [address] Shaista Sommers, RN Results 08/14/2024 Orders Only [facility] [address] Mai Metzger CNM Left ovarian cyst (Primary Dx) 07/11/2024 Telephone [facility] [address] [place] [address] Rubina Naqvi, JOEL 07/10/2024 10:15 AM EST Procedure Visit [facility] [address] Mai Metzger CNM Screening examination for venereal disease (Primary Dx); Intermenstrual bleeding; Breast abscess 07/10/2024 Orders Only [facility] [place] [address] Jose Baez MD 07/10/2024 Telephone [facility] [address] [place] [address] Mai Metzger CNM 07/10/2024 Travel 07/07/2024 Orders Only GENERIC EXTERNAL DATA DEPARTMENT Provider, Generic External Data 07/03/2024 1:30 PM EST Office Visit [facility] OPTOMETRY [address] [place] [address] Jus, Nasrin, OD Dry eyes, bilateral (Primary Dx); Early cataracts, bilateral; Subjective vision disturbance; Presbyopia of both eyes 07/03/2024 Travel 06/28/2024 Telephone [facility] [address] [place] [address] Mikki Contreras [place] feb recalls 05/29/2024 Telephone [facility] [address] [place] [address] Jose Baez MD Durable Medical Equipment from Last 3 Months Immunizations Name Administration [...] Description 09/12/2024 10:45 AM EDT Office Visit [facility] [address] [place] [address] Name, MD Jose [address] [facility] [place] [address] Health Maintenance Due Date Last Done Comments [...] Family Planning (PISQ) 07/10/2025 07/10/2024 Tobacco Screening 07/20/2025 07/20/2024 Dental X-Ray: Full Mouth 02/01/2027 02/01/2024 Zoster Vaccines (1 of 2) 2028 Lipid Panel 04/06/2028 04/06/2023, 12/19, 05/08/2020 Cervical Cancer Screening 06/09/2028 HPV/Cotest 06/09/2028 06/09/2023, 12/29/2017 Pap Smear 06/09/2028 06/09/2023, 12/06/2022, 12/29/2017 DTaP/Tdap/Td Vaccines (3 - Td or Tdap) 12/03/2031 12/02/2021, 09/21/2016, 12/27/2015 RSV Patients and Patients Aged 60 years or older (1 - 1-dose 75+ series) 2053 Pneumococcal Vaccine: Pediatrics (0 to 5 Years) and At-Risk Patients (6 to 49) Years) Completed 04/05/2023, 03/22/2016 Hepatitis B Vaccines [...] Procedure Name Priority Date/Time Associated Diagnosis Comments US PELVIS TRANSVAGINAL Urgent 08/14/2024 2:00 PM EST Intermenstrual bleeding SYPHILIS SCREEN Routine 07/10/2024 10:51 AM EST Screening examination for venereal disease HIV 1/2 ANTIGEN/ANTIBODY, FOURTH GENERATION W/RFL Routine 07/10/2024 10:51 AM EST Screening examination for venereal disease CHLAMYDIA/N. GONORRHOEAE RNA, TMA, UROGENITAL Routine 07/10/2024 10:51 AM EST Screening examination for venereal disease BACTERIAL VAGINOSIS PANEL Routine 07/10/2024 10:34 AM EST CHLAMYDIA/N. GONORRHOEAE RNA, TMA, UROGENITAL Routine 07/10/2024 10:34 AM EST Genital lesion, female BI US BREAST LIMITED RIGHT Routine 07/07/2024 8:57 PM EST CBC WITH AUTO DIFFERENTIAL Routine 07/07/2024 6:23 PM EST LACTIC ACID Routine 07/07/2024 6:23 PM EST MAGNESIUM Routine 07/07/2024 6:23 PM EST BASIC METABOLIC PANEL Routine 07/07/2024 6:23 PM EST HEPATIC FUNCTION PANEL Routine 07/07/2024 6:23 PM EST BLOOD CULTURE (FIRST) Routine 07/07/2024 6:23 PM EST BLOOD CULTURE (SECOND) Routine 07/07/2024 6:23 PM EST HEPATITIS C AB W/REFL TO HCV RNA, QN, PCR Routine 02/01/2024 3:49 PM EDT Genital lesion, female INTRAORAL - COMPLETE SERIES OF RADIOGRAPHIC IMAGES Routine 02/01/2024 1:30 [...] Recently Relevant to Health Maintenance Results * US Pelvis Transvaginal (08/14/2024 2:00 PM EST) Anatomical Region Laterality Modality Pelvis Ultrasound 08/14/2024 2:00 PM EST Narrative 08/14/2024 2:52 PM EST ? [facility] ?[address] ?[place] [address] ? Ultrasound Report ? Signed ? Patient: Mi Neville ?MR#: M ?? [id number] ? : 1980 ?Acct:[id number] ? Age/Sex: 44 / F ?ADM Date: 08/14/24 ? Loc: HO.US ? Attending Dr: Mia Metzger CNM ? Ordering Physician: MAI METZGER CNM ?? Date of Service: 08/14/24 ?? Procedure(s): US pelvic and transvaginal ?? Accession Number(s): [id number] ? cc: Jose Baez MD; MAI METZGER CNM ? EXAMINATION: ??US PELVIS TRANSABDOMINAL AND TRANSVAGINAL ? HISTORY: intermenstrual bleeding ? COMPARISON: Comparison is made with the prior examination dated ?? 04/02/2019. ? TECHNIQUE: ? Transabdominal and endovaginal real-time 2D serra-scale ultrasound was ?? performed. ? FINDINGS: ? Uterus: ??The uterus is normal in size, measuring 7.5 x 3.9 x 4.9 cm. ? Myometrium has a normal echotexture. ??No fibroids are identified. ? Endometrium: ??The endometrial stripe measures 6 mm in thickness. ? Right ovary: ??The right ovary measures 2.9 x 1.8 x 2.5 cm. ??The right ?? ovary is normal in size and echotexture. ? Left ovary: ?? The left ovary measures 4.1 x 2.1 x 2.3 cm. ??There is a ?? 1.4 x 1.1 x 1.7 cm cyst containing a complex echogenic area measuring ?? 1.5 x 1.1 x 1.3 cm which could represent hemorrhage or mass. ? Pelvic fluid: none. ? US/ pelvic and transvaginal ?? IMPRESSION: ?? Complex left ovarian cyst containing a 1.5 x 1.1 x 1.3 cm echogenic ?? area which could represent hemorrhage or mass. A follow-up examination ?? in 6 weeks, at a different time in the patient's initial cycle, is ?? recommended to document resolution. ? Electronically signed by: ??Ryan Cason MD ??08/14/2024 02:49 PM EST ? Dictated By: ?Ryan Cason MD ? Signed By: ?<Electronically signed by Ryan Cason MD in OV> ?08/14/24 1449 ? DD/ 1400 ? TD/TT: 08/14/24 1430 ? [employer]: ? Procedure Note Daphne, Image - 08/14/2024 [place] [address] Ultrasound Report Signed Patient: Mi Neville BMR#: M [id number] : 1980Acct:[id number] Age/Sex: 44 / FADM Date: 08/14/24 Loc: HO.US Attending Dr: Mai Metzger CNM Ordering Physician: MAI METZGER CNM Date of Service: 08/14/24 Procedure(s): US pelvic and transvaginal Accession Number(s): [id number] cc: Jose Baez MD; MAI METZGER CNM EXAMINATION: US PELVIS TRANSABDOMINAL AND TRANSVAGINAL HISTORY: intermenstrual bleeding COMPARISON: Comparison is made with the prior examination dated 04/02/2019. TECHNIQUE: Transabdominal and endovaginal real-time 2D serra-scale ultrasound was performed. FINDINGS: Uterus: The uterus is normal in size, measuring 7.5 x 3.9 x 4.9 cm. Myometrium has a normal echotexture. No fibroids are identified. Endometrium: The endometrial stripe measures 6 mm in thickness. Right ovary: The right ovary measures 2.9 x 1.8 x 2.5 cm. The right ovary is normal in size and echotexture. Left ovary: The left ovary measures 4.1 x 2.1 x 2.3 cm. There is a 1.4 x 1.1 x 1.7 cm cyst containing a complex echogenic area measuring 1.5 x 1.1 x 1.3 cm which could represent hemorrhage or mass. Pelvic fluid: none. US/US pelvic and transvaginal IMPRESSION: Complex left ovarian cyst containing a 1.5 x 1.1 x 1.3 cm echogenic area which could represent hemorrhage or mass. A follow-up examination in 6 weeks, at a different time in the patient's initial cycle, is recommended to document resolution. Electronically signed by: Ryan Cason MD 08/14/2024 02:49 PM EST Dictated By: Ryan Cason MD Signed By: <Electronically signed by Ryan Cason MD in OV> 08/14/24 1449 DD/ 1400 TD/TT: 08/14/24 1430 [employer]: Mai Metzger CNM IMG US PROCEDURES Final R esult * Syphilis Screen (07/10/2024 10:51 AM EST) Syphilis Screen Nonreactive Nonreactive [facility] Blood Venous blood specimen / Unknown 07/10/2024 10:51 AM EST 07/10/2024 11:27 AM EST Mai Metzger CNM LAB BLOOD ORDERABLES Zandra l Result [facility] [address] [place] [phone] * Chlamydia/N. Gonorrhoeae RNA, TMA, Vagina (07/10/2024 10:51 AM EST) Only the most recent of2 resultswithin the time period is included. CT PCR NOT DETECTED Not Detect. [facility] Comment:A not detected test result [...] psychologicalconsequences. NG PCR NOT DETECTED Not Detect. [facility] Comment:A not detected test result [...] AM EST 07/10/2024 1:19 PM EST Narrative [facility] - 07/10/2024 2:58 PM EST Urine us Mai HUNT LAB MICROBIOLOGY - GENERA L ORDERABLES Final Result [facility] [address] [place], [place] [phone] * HIV-1/2 Antigen and Antibodies, Fourth Generation, with Reflexes (07/10/2024 10:51 AM EST) HIV AB/AG Nonreactive Nonreactive [facility] Comment:HIV-1 p24 Ag and/or HIV-1/HIV-2 Ab not detected.A test result that is nonreactive does not exclude thepossibility of exposure to or infection with HIV-1 and/orHIV-2. Nonreactive results in this assay for individualswith prior exposure to HIV-1 and/or HIV-2 may be due toantigen and antibody levels that are below the limit ofdetection of this assay.The [employer] HIV Ag/Ab Combo assay result andsupplemental assay results should be interpreted inconjunction with the patient's clinical presentation,history and other laboratory results. If the results areinconsistent with clinical evidence, additional testing issuggested to confirm the result. Blood Venous blood specimen / Unknown 07/10/2024 10:51 AM EST 07/10/2024 11:17 AM EST us Mai Metzger [facility] LAB BLOOD ORDERABLES Zandra corona Result [facility] [address] [place] [phone] * (ABNORMAL) Bacterial Vaginosis (07/10/2024 10:34 AM EST) TRICHOMONAS VAGINALIS DETECTION BY PCR NOT DETECTED Not Detect [facility] BACTERIAL VAGINOSIS DETECTION BY PCR POSITIVE(A) Negative [facility] Comment:The BV organism targ ets of the Xpert Xpress MVP test can becommensal in women; Xpert Xpress MVP positive results forbacterial vaginosis should be considered in conjunction withother clinical and patient information to determine thedisease status. Organisms that are not detected by the XpertXpress MVP test have also been reported to be associatedwith BV and aerobic vaginitis.The Xpert Xpress MVP test performance has not been evaluatedin patients under the age of 14. [employer] DETECTION BY PCR NOT DETECTED Not Detect [facility] Aleta glab krusei PCR NOT DETECTED Not Detect [facility] 07/10/2024 10:3 4 AM EST 07/10/2024 4:38 PM EST us Jose Name MD LAB MICROBIOLOGY - GENERAL ORDER REG Final Result [facility] [address] [place] [address] [phone] * BI US Breast Limited Right (07/07/2024 8:57 PM EST) Anatomical Region Laterality Modality Breast Right Ultrasound 07/07/2024 8:57 PM EST Narrative 07/07/2024 8:59 PM EST ? [facility] ?[address] ?[place] [address] ? Ultrasound Report ? Signed ? Patient: Mi Neville ?MR#: M ?? [id number] ? : 1980 ?Acct:[id number] ? Age/Sex: 44 / F ?ADM Date: 07/07/24 ? Loc: HO.ED ? Attending Dr: ? Ordering Physician: June Esposito DO ?? Date of Service: 07/07/24 ?? Procedure(s): US breast RT limited ?? Accession Number(s): [id number] ? cc: June Esposito DO; Jose Baez MD ? CLINICAL HISTORY: redness, swelling concern [...] ? DD/ 56 ? TD/TT: 07/07/242056 ? [employer]: ? Procedure Note Donotuseinterpreter, Image - 07/07/[address] [address] Ultrasound Report Signed Patient: Mi Neville BMR#: M [id number] : 1980Acct:[id number] Age/Sex: 44 / FADM Date: 07/07/24 Loc: HO.ED Attending Dr: Ordering Physician: June Esposito DO Date of Service: 07/07/24 Procedure(s): US breast RT limited Accession Number(s): [id number] cc: June Esposito DO; Name,Jose SAVAGE CLINICAL [...] in OV> 07/07/242058 DD/ 56 TD/TT: 07/07/242056 [employer]: [employer] External Provider IMG US PROCEDURES Edited Result - Final * Blood Culture (First) (07/07/2024 6:23 PM EST) Blood Venous blood specimen / Unknown 07/07/2024 6:23 PM EST 07/07/2024 6:28 PM EST Comment:Blood Narrative [facility] - 07/12/2024 8:28 PM EST Blood Culture (First) No growth after 5 days. Specimen Source: Blood Generic External Data Provider LAB MICROBIOLOGY - GENERAL ORDERABLES Final Result [facility] [address] [place] [phone] [phone] * Blood Culture (Second) (07/07/2024 6:23 PM EST) Blood Venous blood specimen / Unknown 07/07/2024 6:23 PM EST 07/07/2024 6:28 PM EST Comment:Blood Narrative [facility] - 07/12/2024 8:28 PM EST Blood Culture (Second) No growth after 5 days. Specimen Source: Blood us Generic External Data Provider LAB MICROBIOLOGY - GENERAL ORDERABLES Final Result [facility] [address] [place] [address] [phone] * CBC auto differential (07/07/2024 6:23 PM EST) White Blood Count 8.8 4.8 - 10.8 X10*3/uL [facility] Red Blood Count 4.23 4.20 - 5.50 X10*6/uL [facility] Hemoglobin 12.9 12.0 - 16.0 g/dl [facility] Hematocrit 39.1 37.0 - 47.0 % [facility] Mean Corpuscular Volume 92.4 80.0 - 98.0 fL [facility] Mean Corpuscular Hemoglobin 30.5 27.0 - 33.0 pg [facility] Mean Corpuscular HGB Conc 33.0 31.0 - 35.0 g/dl [facility] Red Cell Distribution Width 13.6 11.0 - 16.0 % [facility] Platelet Count 261 160 - 400 X10*3/uL [facility] Mean Platelet Volume 11.3 9.4 - 12.3 fL [facility] Neutrophils Percent Auto 61.3 45 - 73 % [facility] Imm Gran Pct Auto 0.2 0.0 - 0.4 % [facility] Lymphocytes Percent Auto 31.9 20 - 40 % [facility] Monocytes Percent Auto 4.9 2 - 11 % [facility] Eosinophils Percent Auto 1.4 0 - 4 % [facility] Basophils Percent Auto 0.3 0 - 2 % [facility] NRBC Pct Auto 0.0 0.0 - 0.2 /100WBC [facility] Neutrophils Absolute Auto 5.4 2.0 - 8.3 x10*3/uL [facility] Imm Gran Abs Auto 0.02 0.00 - 0.03 X10*3/uL [facility] Lymphocytes Absolute Auto 2.8 1.2 - 4.9 X10*3/uL [facility] Monocytes Absolute Auto 0.4 0.1 - 1.2 X10*3/uL [facility] Eosinophils Absolute Auto 0.1 0.0 - 0.4 X10*3/uL [facility] Basophils Absolute Auto 0.0 0.0 - 0.2 X10*3/uL [facility] NRBC Abs Auto 0.000 0.0 - 0.012 X10*3/uL [facility] 07/07/2024 6:23 PM EST 07/07/2024 6:28 PM EST Generic External Data Provider LAB BLOOD ORDERAB LES Final Result Performing Organization Address City/[facility]/ZIP Co de Phone Number [facility] [address] [place] [phone] * Magnesium (07/07/2024 6:23 PM EST) Pathologist [facility] Magnesium 2.1 1.6 - 2.6 mg/dL [facility] 07/07/2024 6:23 PM EST 07/07/2024 6:28 PM EST Generic External Data Provider LAB BLOOD ORDERAB LES Final Result Performing Organization Address [facility] de Phone Number [facility] [address] [place] [phone] * Lactic Acid (07/07/2024 6:23 PM EST) Pathologist [facility] Lactic Acid 1.0 0.5 - 2.0 mmol/L [facility] 07/07/2024 6:23 PM EST 07/07/2024 6:28 PM EST Generic External Data Provider LAB BLOOD ORDERAB LES Final Result Performing Organization Address [facility] Co de Phone Number [facility] [address] [place] [phone] * Hepatic Function Panel (07/07/2024 6:23 PM EST) [facility] Bilirubin, Total 0.2 0.0 - 1.0 mg/dL [facility] Bilirubin, Direct <0.2 0.0 - 0.5 mg/dL [facility] Aspartate Amino Transferase 23 5 - 31 U/L [facility] Alanine Aminotransferase 14 0 - 31 U/L [facility] Total Protein 7.3 6.5 - 8.0 g/dL [facility] Albumin Level 3.7 3.5 - 5.0 g/dL [facility] Alkaline Phosphatase 53 39 - 117 U/L [facility] 07/07/2024 6:23 PM EST 07/07/2024 6:28 PM EST [employer] External Data Provider LAB BLOOD ORDERAB LES Final Result Performing Organization Address [facility] de Phone Number [facility] [address] [place] [phone] * (ABNORMAL) Basic Metabolic Panel (07/07/2024 6:23 PM EST) Pathologist [facility] Sodium 140 135 - 145 mmol/L [facility] Potassium 3.5 3.3 - 5.1 mmol/L [facility] Chloride 109(H) 96 - 108 mmol/L [facility] Carbon Dioxide 25 22 - 29 mmol/L [facility] Anion Gap 10(L) 12 - 20 [facility] Urea Nitrogen (BUN) 5(L) 9 - 16 mg/dL [facility] Creatinine, Serum 0.66 0.5 - 1.4 mg/dL [facility] Creatinine Clr Calc Pharmacy 99.5 [facility] Comment:Provided height and weight: 154.94 cm,76.2 kg.eGFR (calculated from the MDRD study equation) and eCrCl(calculated from the Cockcroft-Gault equation) are based ondifferent parameters and may not yield comparable results.If eCrCl result is absurd, please check patient'sheight/weight. Estimated Glomerular Filt Rate >60 [facility] Comment:Chronic Kidney Disea se: Estimated GFR < 60 mL/min/1.06b1Zgnrtz Kidney Disease: Estimated GFR < 15 mL/min/1.73m2 Glucose 67 60 - 115 mg/dL [facility] Calcium 8.4 8.4 - 10.2 mg/dL [facility] 07/07/2024 6:23 PM EST 07/07/2024 6:28 PM EST us Generic External Data Provider LAB BLOOD ORDERAB LES Final Result Performing Organization Address City/[facility]/ZIP Co de Phone Number [facility] [address] [place] [phone] * Hepatitis C Antibody with Reflex to HCV, RNA, Quantitative, Real-Time PCR (02/01/2024 3:49 PM EDT) Hepatitis C Antibody Nonreactive Nonreactive [facility] Comment:Antibodies to HCV no t detected; does not exclude early acuteHCV infection. Blood Venous blood specimen / Unknown 02/01/2024 3:49 PM EDT 02/01/2024 4:09 PM EDT Jose Baez MD LAB BLOOD ORDERABLES Final Resul t Performing Organization Address City/[facility]/ZIP Co de Phone Number [facility] [address] [place] [phone] * Image-Guided Pap with Age-Based Screening??with CT/NG,??Trichomonas (06/09/2023 2:00 PM EST) Trichomonas (NAAT) NOT DETECTED NOT DETECTED [facility] Comment:The analytical perfo rmance characteristics of thisassay have been determined by [employer]. Themodifications have not been cleared or approved bythe FDA. This assay has been validated pursuant to theCLIA regulations and is used for clinical purposes.For additional information, please refer tohttp://[employer].StatSheet/faq/Trichomonastma(This link is being provided for information/educational purposes only.)THIS TEST WAS PERFORMED AT:[employer] [place] [phone] CALIX MD CTNG Ref Lab NOT DETECTED NOT DETECTED [facility] NG Ref Lab NOT DETECTED NOT DETECTED [facility] Cervix 06/09/2023 2:00 PM EST 06/10/2023 8:30 AM EST us Mai Metzger [facility] LAB CYTOLOGY ORDERABLES F inal Result [facility] [address] [place] [phone] * HPV mRNA E6/E7 w/Reflex to HPV Genotypes 16, 18/45 (06/09/2023 2:00 PM EST) HPV nRNA E6/E7 SEE NOTE [facility] Comment:HPV mRNA E6/E7: Not Detected Reference range: Not DetectedMethodology: Wheelchair Van Driver-Mediated AmplificationThis assay detects E6/E7 viral messenger RNA (mRNA) from 14high-risk HPV types(16,18,31,33,35,39,45,51,52,56,58,59,66,68).Cervical sources are required for HPV testing.If a vaginal source from a patient who has had atotal hysterectomy with removal of cervix wassubmitted, please contact the testing laboratoryfor alternative testing options.For additional information, please refer tohttp://education.StatSheet/faq/CGS398d9(This link if provided for information/educational purposes only.)Site [employer] [address] [phone] Laboratory Director: Aury Calix M.D. HPV mRNA E6/E7 [facility] HPV 16 RNA [facility] HPV 18/45 RNA [facility] 06/09/2023 2:00 PM EST 06/10/2023 8:30 AM EST us Mai Metzger [facility] LAB CYTOLOGY ORDERABLES F inal Result [facility] [address] [place] [phone] * Lipid Panel, Standard (04/06/2023 10:44 AM EDT) Triglycerides 79 <150 mg/dL [facility] Comment:Desirable Triglyceri de: less than 150 mg/dLBorderline High Triglyceride 150-199 mg/dLHigh Triglyceride: 200-499 mg/dLVery High Triglyceride: greater than or equal to 5OO mg/dL Cholesterol 154 <200 mg/dL [facility] Comment:Desirable Cholestero l: less than 200 mg/dLBorderline High Cholesterol: 200-239 mg/dLHigh Cholesterol: greater than 239 mg/dL LDL Cholesterol Calculated 97 <100 mg/dL [facility] Comment:Desirable LDL: less than 100 mg/dLNear Optimal/Above Optimal LDL: 110- 129 mg/dLBorderline High LDL: 130-159 mg/dLHigh LDL: 160-189 mg/dLVery High LDL: greater than or equal to 190 mg/dL HDL Cholesterol 42 >40 mg/dL [facility] Comment:Desirable HDL: great er than 40 mg/dL Note: This HDL assay may give artificially low results in patients with liver disease. Blood Venous blood specimen / Unknown 04/06/2023 10:44 AM EDT 04/06/2023 11:01 AM EDT us Jose Baez MD LAB BLOOD ORDERABLES Final Resul t [facility] [address] [place] [phone] from Last 3 Months or Most Recently Relevant to Health Maintenance Insurance [facility] - [facility] PARTIAL (MEDICAID) Care Teams Aircraft Line Assembler Relationship Specialty Start Date End Date Name, MD Jose [address] [place] [address] PCP - General Family Medicine 11/11/15 Nasir Buenrostro FNP [address] [place] [address] Nurse Practitioner Family Medicine 05/24/23 [place] Hoist WorkerHead Wood Grinder 03/10/23
--- OUTSIDE RECORDS SUMMARY | 2024-08-14 17:14 | XMS_ITS | Encounter Summary ---
Author Organization [employer] Address [address] [facility] 7t [place] [address] Care Team Providers Care Insulation Helper Name Role Phone Name, Jose [place] Primary Care Provider [phone] Nasir Buenrostro Unavailable Unavailable Reason for Visit * Reason Onset Date Comments Hospital Follow-up 03/22/2024 Encounter Details Date Type Department Care Team ([facility] st Contact Info) Description 03/22/2024 Telephone [facility] MEDICINE [address] [place], [place] [phone] Name, MD Jose [address] [place] [address] Hospital Follow-up Social History Tobacco Use Types [...] from pt requesting a HDF appt. Hospital: [facility] Date of admission: 03/13/24 Discharge date: 03/17/24 Diagnosed: Breast lump Contact pt at [phone] (comoran) documented in this encounter Plan of Treatment Upcoming Encounters Date Type Department Care Team (Late st Contact Info) Description 09/12/2024 10:45 AM EDT Office Visit [facility] MEDICINE [address] [place] [address] Name, MD Jose [address] [place] [address] documented as of this encounter Visit Diagnoses Not on filedocumented in this encounter Additional Health Concerns Assessment Noted Time PHQ-9 Depression Total Score: 9 06/06/20 23 2:22 PM EST documented as of this encounter Care Teams Insulation Helper Relationship Specialty Start Date End Date NameJose MD [address] [place] [address] PCP - General Family Medicine 11/11/15 Nasir Buenrostro FNP [address] [place] [address] Nurse Practitioner Family Medicine 05/24/23 Gudelia Beach Paste Up WorkerCommunity Relations Manager 03/10/23 documented as of this encounter
--- OUTSIDE RECORDS SUMMARY | 2024-08-14 17:14 | XMS_ITS | Encounter Summary ---
Author Organization [employer] Address [address] [facility] 7t [place] [address] Care Team Providers Care Rigger Helper Name Role Phone Name, Jose S[place] Primary Care Provider [phone] Nasir Buenrostro Unavailable Unavailable Reason for Visit * Reason Comments Med Refill Encounter Details Date Type Department Care Team ([facility] Contact Info) Description 01/18/2024 Refill [facility] MEDICINE 230 [place], [place] [phone] Name, MD Jose 230 [place] [address] Asthma, unspecified asthma severity, unspecified whether complicated, [...] 09/12/2024 10:45 AM EDT Office Visit [facility] MEDICINE [address] [place] [address] Name, MD Jose [address] [place] [address] documented as of this encounter Visit Diagnoses Diagnosis Asthma, unspecified asthma severity, unspecified whether complicated, unspecified whether persistent documented in this encounter Additional Health Concerns Assessment Noted Time PHQ-9 Depression Total Score: 9 06/06/20 23 2:22 PM EST documented as of this encounter Care Teams Rigger Helper Relationship Specialty Start Date End Date Name, MD Jose [address] [place] [address] PCP - General Family Medicine 11/11/15 Nasir Buenrostro FNP [address] [place] [address] Nurse Practitioner Family Medicine 05/24/[address] SuperintendentQuebracho Tanner 03/10/23 documented as of this encounter
--- OUTSIDE RECORDS SUMMARY | 2024-08-14 17:14 | XMS_ITS | Encounter Summary ---
Author Organization [employer] Address [address] [facility] [address] 7t [place] [address] Care Team Providers Care Demand Equipment Repairer Name Role Phone Name, Jose [place] Primary Care Provider [phone] Nasir Buenrostro Unavailable Unavailable Reason for Visit * Reason Onset Date Comments Results 08/14/2024 Encounter Details Date Type Department Care Team ([facility] st Contact Info) Description 08/14/2024 Telephone [facility] MEDICINE [address] [place] [address] Shaista Sommers RN Results Social History Tobacco Use Types Packs/Day Years [...] your housing situation today? I have dominga bernardino 10/14/[address] you li [...] encounter Miscellaneous Notes * Telephone Encounter - Ingrid Lopez CNM - 08/14/2024 3:24 PM EST Perfect, thanks. * Telephone Encounter - Shaista Sommers RN - 08/14/2024 2:59 PM EST TC placed to pt with S riveter helper Stuart #[id number] to inform of the results message below from Ingrid Lopez regarding pt pelvic US results. Pt informed of the findings showing a small left ovarian cyst and that a repeat US has been ordered to be done in six weeks time to check on the status of the cyst. Pt denies having any bleeding or spotting noted in between periods. Pt informed that Ingrid will be sent this message to inform of this information. ----- Message from Ingrid Lopez sent at 08/14/2024 2:59 PM EST ----- Please let Mi know her pelvic ultrasound showed a small cyst in her left ovary. These are commonand usually go away on their own. I would like to repeat ultrasound in 6 wks to make sure this is the case. Is she still having bleeding in between periods? If so, I will refer her to [facility] to make sure we aren't missing anything. Thanks! documented in this encounter Plan of Treatment Upcoming Encounters Date Type Department Care Team (Late st Contact Info) Description 09/12/2024 10:45 AM EDT Office Visit [facility] MEDICINE [address] [place] [address] Name, MD Jose [address] [place] [address] documented as of this encounter Visit Diagnoses Not on filedocumented in this encounter Additional Health Concerns Assessment Noted Time PHQ-9 Depression Total Score: 9 06/06/20 23 2:22 PM EST documented as of this encounter Care Teams Demand Equipment Repairer Relationship Specialty Start Date End Date Name, MD Jose [address] [place] [address] PCP - General Family Medicine 11/11/15 Nasir Buenrostro FNP [address] [place] [address] Nurse Practitioner Family Medicine 05/24/23 Gudelia Beach Ict Help Desk OfficerMechanical Oxidizer 03/10/23 documented as of this encounter
--- OUTSIDE RECORDS SUMMARY | 2024-08-14 17:14 | XMS_ITS | Encounter Summary ---
Author Organization [facility] Address [address] [place] [address] 7t [place] [address] Care Team Providers Care Screwhead Polisher Name Role Phone Name, Jose [place] Primary Care Provider [phone] Nasir Buenrostro Unavailable Unavailable Reason for Visit * Reason Comments Med Refill Encounter Details Date Type Department Care Team (Late st Contact Info) Description 01/04/2023 Refill [facility] MEDICINE [address] [place] [address] [phone] Nasir Buenrostro FNP Mood disorder (CMS/HCC) Social [...] Visit [facility] MEDICINE [address] [place], [place] [phone] Name, MD Jose 230 [place] [address] documented as of this encounter Visit Diagnoses Diagnosis Mood disorder (CMS/HCC) Unspecified episodic mood disorder documented in this encounter Additional Health Concerns Assessment Noted Time PHQ-9 Depression Total Score: 8 12/28/19 23 2:59 PM EDT documented as of this encounter Care Teams Screwhead Polisher Relationship Specialty Start Date End Date Name, MD Jose [address] [place] [address] PCP - General Family Medicine 11/11/15 Nasir Buenrostro FNP [address] [place] [address] Nurse Practitioner Family Medicine 05/24/23 Gudelia Beach Chief Of Pediatric UrologyLockstitch Coat Joiner 03/10/23 documented as of this encounter
--- OUTSIDE RECORDS SUMMARY | 2024-08-14 17:14 | XMS_ITS | Encounter Summary ---
Author Organization [employer] [facility] Address [address] [facility] 7t [place] [address] Care Team Providers Care Steward/Stewardess Bath Name Role Phone Name, Jose [place] Primary Care Provider [phone] Nasir Buenrostro Unavailable Unavailable Reason for Visit * Reason Onset Date Comments shade/tryin or finish 09/10/2022 case not ready 09/10/2022 Encounter Details Date Type Department Care Team ([facility] st Contact Info) Description 09/10/2022 Telephone [facility]ULT DENTAL [address] [place] [address] Elizabeth Condon DDS [address] [place], [place] [phone] shade/tryin or finish; case not ready Social [...] - 09/10/2022 2:17 PM EDT Nelli from [employer] called stating they need a shade and to find out if its a wax try in or to finish . documented in this encounter Plan of Treatment Upcoming Encounters Date Type Department Care Team (Late st Contact Info) Description 09/12/2024 10:45 AM EDT Office Visit [facility] MEDICINE [address] [place] [address] Name, MD Jose [address] [place] [address] documented as of this encounter Visit Diagnoses Not on filedocumented in this encounter Additional Health Concerns Assessment Noted Time PHQ-9 Depression Total Score: 5 08/24/19 23 2:37 PM EST documented as of this encounter Care Teams Steward/Stewardess Bath Relationship Specialty Start Date End Date Name, MD Jose [address] [place] [address] PCP - General Family Medicine 11/11/15 Nasir Buenrostro FNP [address] [place] [address] Nurse Practitioner Family Medicine 05/24/23 Gudelia Beach Labor Law ProfessorSeam Sewer 03/10/23 documented as of this encounter
--- OUTSIDE RECORDS SUMMARY | 2024-08-14 17:14 | XMS_ITS | Encounter Summary ---
Author Organization [employer] [facility] Address [address] [facility] 7t [place] [address] Care Team Providers Care Contact Officer Name Role Phone Name, Jose [place] Primary Care Provider [phone] Nasir Buenrostro Unavailable Unavailable Encounter Details Date Type Department [facility] Description 08/20/2022 Abstract [facility] [address] [place], [place] [phone] Elizabeth Condon DDS [address] [place] [address] Social History Tobacco Use Types Packs/Day Years [...] Upcoming Encounters Date Type Department [facility] Description 09/12/2024 10:45 AM EDT [facility] [address] [place] [address] Name, MD Jose 230 [place] [address] documented as of this encounter Visit Diagnoses Not on filedocumented in this encounter Care Teams Contact Officer Relationship Specialty Start Date End Date Name, MD Jose [address] [place] [address] PCP - General Family Medicine 11/11/15 Nasir Buenrostro FNP [address] [place] [address] Nurse Practitioner Family Medicine 05/24/23 Gudelia Beach Lead Sharepoint DeveloperContract Administrator 03/10/23 documented as of this encounter
--- OUTSIDE RECORDS SUMMARY | 2024-08-14 17:14 | XMS_ITS | Encounter Summary ---
Author Organization [employer] Address [address] [facility] 7t [place] [address] Care Team Providers Care Internet Marketing Executive Name Role Phone Name, Jose [place] Primary Care Provider Nasir Buenrostro Unavailable Unavailable Reason for Visit * Reason Onset Date Comments Call Back Request 08/05/2023 Encounter Details Date Type Department Care Team ([facility] Contact Info) Description 08/05/2023 Telephone [facility] MEDICINE 230 [place], [place] [phone] Name, MD Jose 230 [place] [address] Call Back Request Social History Tobacco Use [...] - 08/15/2023 10:23 AM EST TC to [facility] where referral was originally faxed. Referral [...] look into this? I referred patient to [facility] for postcoital bleeding, not to [facility]. Thanks! * Telephone Encounter - Aline Miller RN - 08/09/2023 11:37 AM EST T/c made to Yani at [facility]. Yani said that pt referral is incorrect and center is specifically for IVF treatment. Will reroute to provider for more info. * Telephone Encounter - Ingrid Lopez CNM - 08/05/2023 1:53 PM EST Referred to [facility] for postcoital bleeding. Please see my referral note. If unable to be seen at [facility], please coordinate with referrals to see where she can be seen. * Telephone Encounter - Ranjith Vasquez - 08/05/2023 11:37 AM EST Tc from Yani Brooke from [facility] requesting a call back for clarification on why the patient was referred to them and to notify the PCP that they do not accept Medicaid insurance please call Yani at [phone] documented in this encounter Plan of Treatment Upcoming Encounters Date Type Department Care Team (Late st Contact Info) Description 09/12/2024 10:45 AM EDT Office Visit [facility] MEDICINE [address] [place] [address] Name, MD Jose [address] [place] [address] documented as of this encounter Visit Diagnoses Not on filedocumented in this encounter Additional Health Concerns Assessment Noted Time PHQ-9 Depression Total Score: 9 06/06/20 23 2:22 PM EST documented as of this encounter Care Teams Internet Marketing Executive Relationship Specialty Start Date End Date Name, MD Jose [address] [place] [address] PCP - General Family Medicine 11/11/15 Nasir Buenrostro FNP [address] [place] [address] Nurse Practitioner Family Medicine 05/24/23 Gudelia Beach Speeder WorkerExpressive Art Therapist 03/10/23 documented as of this encounter
--- OUTSIDE RECORDS SUMMARY | 2024-08-14 17:14 | XMS_ITS | Encounter Summary ---
Author Organization [facility] Address [address] [place] [address] 7 [place] [address] Care Team Providers Care Sample Prep Technician Name Role Phone Name, Jose [place] Primary Care Provider [phone] Nasir Buenrostro Unavailable Unavailable Reason for Referral * Imaging (Routine) - Authorized Specialty Diagnoses / Procedures Referred By Contac t Referred To Contact Radiology Diagnoses Left ovarian cyst Procedures Us Pelvis complete Ingrid Lopez CNM [address] [place] [address] Phone: tel: fax: [address] Phone: tel: fax: Referral ID Status Reason Start Date Expiration Date V isits Requested Visits Authorized [id number] Authorized 08/14/2024 08/14/2025 1 1 * Imaging (Routine) - Authorized Specialty Diagnoses / Procedures Referred By Contac t Referred To Contact Radiology Diagnoses Left ovarian cyst Procedures US Pelvis Transvaginal Ingrid Lopez CNM [address] [place] [address] Phone: tel: fax: [address] Phone: tel: fax: Referral ID Status Reason Start Date Expiration Date V isits Requested Visits Authorized [id number] Authorized 08/14/2024 08/14/2025 1 1 Encounter Details Date Type Department Care Team (Late st Contact Info) Description 08/14/[address] [facility] MEDICINE [address] [place] [address] Ingrid Lopez CNM [address] [place] [address] Left ovarian cyst (Primary Dx) Social History Tobacco Use Types Packs/Day Years [...] Visit [facility] MEDICINE [address] [place] [address] Name, MD Jose [address] [place] [address] Scheduled Orders Name Type Priority Associated Diagnoses Orde r Schedule US Pelvis Transvaginal Imaging Routine Left ovarian cyst Expected: 08/14/2024, Expires: 08/14/2025 Us Pelvis complete Imaging Routine Left ovarian cyst Expected: 08/14/2024, Expires: 08/14/2025 documented as of this encounter Visit Diagnoses Diagnosis Left ovarian cyst- Primary Other and unspecified ovarian cyst documented in this encounter Additional Health Concerns Assessment Noted Time PHQ-9 Depression Total Score: 9 06/06/20 23 2:22 PM EST documented as of this encounter Care Teams Sample Prep Technician Relationship Specialty Start Date End Date NameJose MD [address] [place] [address] PCP - General Family Medicine 11/11/15 Nasir Buenrostro FNP [address] [place] [address] Nurse Practitioner Family Medicine 05/24/23 Gudelia Beach Chief Controller TowerVehicle Care Specialist 03/10/23 documented as of this encounter
--- OUTSIDE RECORDS SUMMARY | 2024-08-14 17:14 | XMS_ITS | Encounter Summary ---
Author Organization [facility] Address [address] [place] [address] 7t [place] [address] Care Team Providers Care Blade Aligner Name Role Phone Name, Jose [place] Primary Care Provider [phone] Nasir Buenrostro Unavailable Unavailable Reason for Visit * Reason Comments Med Refill Encounter Details Date Type Department Care Team ([facility] st Contact Info) Description 03/14/2023 Refill [facility] MEDICINE [address] [place] [address] [phone] Nasir Buenrostro FNP Mood disorder (CMS/HCC) Social [...] Upcoming Encounters Date Type Department Care Team ([facility] Contact Info) Description 09/12/2024 10:45 AM EDT Office Visit [facility] MEDICINE [address] [place], [place] [phone] Name, MD Jose [address] [place] [address] documented as of this encounter Visit Diagnoses Diagnosis Mood disorder (CMS/HCC) Unspecified episodic mood disorder documented in this encounter Additional Health Concerns Assessment Noted Time PHQ-9 Depression Total Score: 7 02/09/20 23 1:43 PM EDT documented as of this encounter Care Teams Blade Aligner Relationship Specialty Start Date End Date Name, MD Jose [address] [place] [address] PCP - General Family Medicine 11/11/15 Nasir Buenrostro FNP [address] [place] [address] Nurse Practitioner Family Medicine 05/24/23 Gudelia Beach Fisher WeirSenior Compliance Officer 03/10/23 documented as of this encounter
--- OUTSIDE RECORDS SUMMARY | 2024-08-14 17:14 | XMS_ITS | Encounter Summary ---
Author Organization [employer] Address [address] [facility] [address] 7t [place] [address] Care Team Providers Care Center Specialists Name Role Phone Name, Jose [place] Primary Care Provider [phone] Nasir Buenrostro Unavailable Unavailable Reason for Visit * Reason Comments Med Refill Encounter Details Date Type Department Care Team ([facility] Contact Info) Description 11/02/[address] [facility] MEDICINE [address] [place] [address] Nasir Buenrostro FNP Mood disorder (CMS/HCC) Social [...] 09/12/2024 10:45 AM EDT Office Visit [facility] MEDICINE [address] [place] [address] Name, MD Jose [address] [place] [address] documented as of this encounter Visit Diagnoses Diagnosis Mood disorder (CMS/HCC) Unspecified episodic mood disorder documented in this encounter Additional Health Concerns Assessment Noted Time PHQ-9 Depression Total Score: 9 06/06/20 23 2:22 PM EST documented as of this encounter Care Teams Center Specialists Relationship Specialty Start Date End Date Name, MD Jose [address] [place] [address] PCP - General Family Medicine 11/11/15 Nasir Buenrostro FNP [address] [place] [address] Nurse Practitioner Family Medicine 05/24/23 Gudelia Beach Profile GrinderLoan Associate 03/10/23 documented as of this encounter
--- OUTSIDE RECORDS SUMMARY | 2024-08-14 17:14 | XMS_ITS | Encounter Summary ---
Author Organization [employer] [facility] Address [address] [place] [address] 7t [place] [address] Care Team Providers Care Casing Flusher Name Role Phone Name, Jose [place] Primary Care Provider [phone] Nasir Buenrostro Unavailable Unavailable Encounter Details Date Type Department Care Team (Latest Contact Info) Description 11/04/2020 Abstract [facility] CONVERSIONS Dental, Provider, DDS Social History [...] Description 09/12/2024 10:45 AM EDT Office Visit [facility] MEDICINE [address] [place] [address] Jose Baez MD [address] [place] [address] documented as of this encounter Visit Diagnoses Not on filedocumented in this encounter Care Teams Casing Flusher Relationship Specialty Start Date End Date Jose Baez MD [address] [place] [address] PCP - General Family Medicine 11/11/15 Nasir Buenrostro FNP [address] [place] [address] Nurse Practitioner Family Medicine 05/24/23 Gudelia Beach Tile Mechanic HelperElection Supervisor 03/10/23 documented as of this encounter
== END 2024-08-14 13:51 | disposition home or self-care (01) ==
LOC: HO.US 13:50
PROVIDERS: PCP Internal Medicine Geriatric Medicine; Visit Provider Advanced Practice Midwife
DX: N92.3 Ovulation bleeding (principal)
CPT/HCPCS: 76830; 76856

== ENCOUNTER → 2024-08-14 13:51 | Outpatient (BNV) | payer OTHER, SELFPAY | PROVIDERS: PCP Internal Medicine Geriatric Medicine; Visit Provider Radiology Diagnostic Radiology | DX: N83.202 Unspecified ovarian cyst, left side (principal) | CPT/HCPCS: 76830; 76856 ==

== ENCOUNTER 2024-08-23 13:50 | Outpatient (AMB) | payer OTHER, SELFPAY ==
--- NOTE | 2024-08-23 13:50 | MHC.OFFVIS ---
Vital Signs 08/23/24 13:56 Height 5 ft 1 in Weight 171 lb 4 oz BMI 32.4 BP 130/60 Blood Pressure Location Lt brachial Position Sitting Pulse 69 Intake Visit Reasons: 3 wks f/up, right breast abscess Intake Note: Patient is seen in office for 3 weeks follow up visit, following right breast abscess. Pt c/o: states breast is feeling better, denies discharge, redness, all done with antbx Diesel Powerplant Mechanic Helper Required: Yes Diesel Powerplant Mechanic Helper Language: High School Art Teacher Services: Diesel Powerplant Mechanic Helper Present Diesel Powerplant Mechanic Helper Name: Mattie FITZGERALD Information Interpreted: non-clinical only Set Up Mold Technician: Set Up Mold Technician Present Accompanied by: Self / Same As Patient Allergies No Known Allergies [No Known Allergies*] Allergy (Verified 08/23/24 13:50) Medication List - Last Reconciled 08/23/24 by Neo Lima MD aripiprazole 15 mg PO DAILY budesonide-formoterol 160-4.5 mcg/actuation (Symbicort) 2 puffs inhalation BID clonazepam 1 mg PO BID PRN divalproex 500 mg PO BID doxepin 25 mg PO BEDTIME escitalopram oxalate 10 mg PO DAILY metoprolol succinate ER 25 mg PO DAILY montelukast 10 mg PO BEDTIME multivitamin 1 tab PO DAILY oxybutynin chloride ER 15 mg PO DAILY pantoprazole 40 mg PO DAILY@0630 polyethylene glycol 3350 (Miralax) 17 grams PO DAILY PRN sennosides (Natural Senna Laxative) 17.2 mg (2 x 8.6 mg) PO BEDTIME trazodone 100 mg PO BEDTIME HPI Comments Details: 44-year-old female patient returning for a follow-up exam after right breast abscess. She was seen in the emergency department on 07/07/2024 and an a multi septated fluid collection found in the right breast. Needle aspiration produce approximately 20 mL of fluid. She was subsequently started on doxycycline. She completed the antibiotics and reports feeling much improved with no further pain, redness or discharge. [facility] Medical History Eroded bladder suspension mesh Left breast mass Family History Mother No problems noted. Mother No problems noted. Father No problems noted. Social History Household Members: Other Household Members Other:: self Housing: Apartment Do you presently have visiting nurse or other home services: No Alcohol intake: current Alcohol intake frequency: holidays/special occasions only Patient Tobacco Use Status: Current everyday Tobacco user Tobacco use type: Cigarette Cigarettes Per Day: 3 Years Smoked: 10 Second Hand Smoke Exposure: No Substance Use Type: Marijuana Physical Exam Vital Signs: Last Vital Signs Pulse 69 08/23/24 13:56 BP 130/60 08/23/24 13:56 BMI result Body Mass Index 32.4 Const General: well developed Nutritional Appearance: well nourished Orientation/consciousness: patient oriented x3 Limitations: no limitations HEENT Head: Yes normocephalic and Yes atraumatic Chest Other: Right breast: No further redness, fullness or other change indicate ongoing infection. No tenderness to palpation. Nipple piercing in place Resp Effort & Inspection: normal respiratory effort GI Inspection: Yes normal to inspection Skin Other: Warm, dry, no rashes Neuro General: patient oriented x3 Extrem Other: No peripheral edema Assessment & Plan Assessment & Plan (1) Abscess of breast, right: Code(s): N61.1 - Abscess of the breast and nipple Category: Medical Plan Patient feels much improved with no further abscess noted on examination. She has completed the antibiotics. She should follow up as needed. Coding Level of Care Code Est Pt Level 3 (81214) Diagnoses Abscess of breast, right N61.1
[2024-08-23 13:56] VITALS: BP 130/60; PULSE 69; BMI 32.4
--- OUTSIDE RECORDS SUMMARY | 2024-08-23 16:52 | XMS_ITS | Encounter Summary ---
Author Organization [employer] Address [address] [facility] 7t [place] [address] Care Team Providers Care Supervisor Type Bar And Segment Name Role Phone Name, Jose SAVAGE Primary Care Provider [phone] Nasir Buenrostro Unavailable Unavailable Reason for Visit * Reason Onset Date Comments Hospital Follow-up 03/22/2024 Encounter Details Date Type Department Care Team ([facility] st Contact Info) Description 03/22/2024 Telephone [facility] [address] [place], [place] [phone] Name, MD Jose [address] [place] [address] Hospital Follow-up Social History Tobacco Use Types [...] from pt requesting a HDF appt. [place] [facility] Date of admission: 03/13/24 Discharge date: 03/17/24 Diagnosed: Breast lump Contact pt at [phone] (mauritanian) documented in this encounter Plan of Treatment Upcoming Encounters Date Type Department Care Team (Late st Contact Info) Description 09/12/2024 10:45 AM EDT Office Visit [facility] [address] [place] [address] Name, MD Jose [address] [place] [address] 02/27/2025 1:00 PM EDT Office Visit [facility]ULT [facility] [address] [place] [address] Gwen Zamudio [address] [place] [address] documented as of this encounter Visit Diagnoses Not on filedocumented in this encounter Additional Health Concerns Assessment Noted Time PHQ-9 Depression Total Score: 9 06/06/20 23 2:22 PM EST documented as of this encounter Care Teams Supervisor Type Bar And Segment Relationship Specialty Start Date End Date Name, MD Jose [address] [place] [address] PCP - General Family Medicine 11/11/15 Nasir Buenrostro FNP [address] [place] [address] Nurse Practitioner Family Medicine 05/24/23 Gudelia Beach Floor Covering InstallerSpring Repairer Helper Hand 03/10/23 documented as of this encounter
--- OUTSIDE RECORDS SUMMARY | 2024-08-23 16:53 | XMS_ITS | Encounter Summary ---
Author Organization [employer] [facility] Address [address] [facility] 7t [place] [address] Care Team Providers Care Supervisor Phosphoric Acid Name Role Phone Name, Jose SAVAGE Primary Care Provider [phone] Nasir Buenrostro Unavailable Unavailable Reason for Visit * Reason Onset Date Comments shade/tryin or finish 09/10/2022 case not ready 09/10/2022 Encounter Details Date Type Department Care Team ([facility] st Contact Info) Description 09/10/2022 Telephone [facility] [address] [place] [address] Elizabeth Condon DDS [address] [place], [place] [phone] shade/tryin or finish; case not ready Social [...] - 09/10/2022 2:17 PM EDT Nelli from [email or web address] called stating they need a shade and to find out if its a wax try in or to finish . documented in this encounter Plan of Treatment Upcoming Encounters Date Type Department Care Team (Late st Contact Info) Description 09/12/2024 10:45 AM EDT Office Visit [facility] [address] [place], [place] [phone] Name, MD Jose [address] [place] [address] 02/27/2025 1:00 PM EDT Office Visit [facility] [address] [place], [place] [phone] Gwen Zamudio [address] [place] [address] documented as of this encounter Visit Diagnoses Not on filedocumented in this encounter Additional Health Concerns Assessment Noted Time PHQ-9 Depression Total Score: 5 08/24/19 23 2:37 PM EST documented as of this encounter Care Teams Supervisor Phosphoric Acid Relationship Specialty Start Date End Date Name, MD Jose [address] [place] [address] PCP - General Family Medicine 11/11/15 Nasir Buenrostro FNP [address] [place] [address] Nurse Practitioner Family Medicine 05/24/23 Gudelia Beach Photonics TechnicianMagazine Worker 03/10/23 documented as of this encounter
--- OUTSIDE RECORDS SUMMARY | 2024-08-23 16:53 | XMS_ITS | Encounter Summary ---
Author Organization [employer] Address [address] [facility] [address] [facility] [address] [address] 7[address] [place] [address] Care Team Providers Care Customer Resolution Specialist Name Role Phone Name, Jose SAVAGE Primary Care Provider [phone] Nasir Buenrostro Unavailable Unavailable Reason for Visit * Reason Onset Date Comments Results 08/14/2024 Encounter Details Date Type Department Care Team ([facility] st Contact Info) Description 08/14/2024 Telephone [facility] [address] [place] [address] Shaista Sommers RN Results Social History Tobacco [...] EST TC placed to pt with S stone gluer Stuart #[id number] to inform of the results message below [...] If so, I will refer her to WHEEL MOLDER to make sure we aren't missing anything. Thanks! documented in this encounter Plan of Treatment Upcoming Encounters Date Type Department Care Team (Late st Contact Info) Description 09/12/2024 10:45 AM EDT Office Visit [facility] [address] [place] [address] Name, MD Jose [address] [place] [address] 02/27/2025 1:00 PM EDT Office Visit [facility] ADULT [facility] [address] [place], [place] [phone] LizzGwen [address] [place] [address] documented as of this encounter Visit Diagnoses Not on filedocumented in this encounter Additional Health Concerns Assessment Noted Time PHQ-9 Depression Total Score: 9 06/06/20 23 2:22 PM EST documented as of this encounter Care Teams Customer Resolution Specialist Relationship Specialty Start Date End Date Name, MD Jose [address] [place] [address] PCP - General Family Medicine 11/11/15 Nasir Buenrostro FNP [address] [place] [address] Nurse Practitioner Family Medicine 05/24/23 Gudelia Beach ApnPatient Service Specialist 03/10/23 documented as of this encounter
--- OUTSIDE RECORDS SUMMARY | 2024-08-23 16:53 | XMS_ITS | Encounter Summary ---
Author Organization [employer] [facility] Address [address] [place] [address] 7t [place] [address] Care Team Providers Care Endoscopic Technician Name Role Phone Name, Jose SAVAGE Primary Care Provider [phone] Nasir Buenrostro Unavailable Unavailable Reason for Visit * Reason Comments Med Refill Encounter Details Date Type Department Care Team (Late st Contact Info) Description 01/04/[address] [facility] [address] [place] [phone] Nasir Buenrostro FNP Mood disorder (CMS/HCC) Social [...] [facility] [address] [place] [address] Name, MD Jose [address] [place] [address] 02/27/2025 1:00 PM EDT Office Visit [facility] ADULT DENT[facility] [address] [place] [address] Gwen Zamudio [address] [place], [place] [phone] documented as of this encounter Visit Diagnoses Diagnosis Mood disorder (CMS/HCC) Unspecified episodic mood disorder documented in this encounter Additional Health Concerns Assessment Noted Time PHQ-9 Depression Total Score: 8 12/28/19 23 2:59 PM EDT documented as of this encounter Care Teams Endoscopic Technician Relationship Specialty Start Date End Date Name, MD Jose [address] [place] [address] PCP - General Family Medicine 11/11/15 Nasir Buenrostro FNP [address] [place] [address] Nurse Practitioner Family Medicine 05/24/23 Gudelia Beach Irrigation Equipment MechanicRamp And Cargo Supervisor 03/10/23 documented as of this encounter
--- OUTSIDE RECORDS SUMMARY | 2024-08-23 16:53 | XMS_ITS | Encounter Summary ---
Author Organization [facility] Address [address] [place] [address] 7t [place] [address] Care Team Providers Care Implementation Lead Name Role Phone Name, Jose SAVAGE Primary Care Provider [phone] Nasir Buenrostro Unavailable Unavailable Encounter Details Date Type Department Care Team ([facility] Contact Info) Description 10/05/2022 Abstract [facility] [address] [place] [address] Name, MD Jose [address] [place] [address] [phone] Social History Tobacco Use Types Packs/Day Years [...] Upcoming Encounters Date Type Department Care Team ([facility] Contact Info) Description 09/12/2024 10:45 AM EDT Office Visit [facility] [address] [place] [address] Name, MD Jose [address] [place] [address] 02/27/2025 1:00 PM EDT Office Visit [facility]ULT D[facility] [address] [place] [address] Gwen Zamudio [address] [place] [address] documented as of this encounter Procedures Procedure Name Priority Date/Time Associated Diagnosis Comments PAP SMEAR Routine 12/29/2017 12:00 AM EDT documented in this encounter Results * Pap Smear (12/29/2017 12:00 AM EDT) Swab us Historical Provider LAB CYTOLOGY ORDERABLES F inal Result [facility] [address] [facility], [place] [address] documented in this encounter Visit Diagnoses Not on filedocumented in this encounter Additional Health Concerns Assessment Noted Time PHQ-9 Depression Total Score: 5 08/24/19 23 2:37 PM EST documented as of this encounter Care Teams Implementation Lead Relationship Specialty Start Date End Date Name, [place] [address] PCP - General Family Medicine 11/11/15 Nasir Buenrostro FNP [address] [place] [address] Nurse Practitioner Family Medicine 05/24/23 Gudelia Beach Blind TeacherMolded Parts Inspector 03/10/23 documented as of this encounter
--- OUTSIDE RECORDS SUMMARY | 2024-08-23 16:53 | XMS_ITS | Encounter Summary ---
Author Organization [employer] Address [address] [facility] 7t [place] [address] Care Team Providers Care Recruiter Account Manager Name Role Phone Name, Jose SAVAGE Primary Care Provider [phone] Nasir Buenrostro Unavailable Unavailable Reason for Visit * Reason Onset Date Comments Call Back Request 08/05/2023 Encounter Details Date Type Department Care Team ([facility] Contact Info) Description 08/05/[address] [facility] [address] [place], [place] [phone] Name, MD Jose [address] [place] [address] Call Back Request Social History Tobacco Use [...] - 08/15/2023 10:23 AM EST TC to [facility] where referral was originally faxed. [...] look into this? I referred patient to [facility] for postcoital bleeding, not to [facility]. Thanks! * Telephone Encounter - Aline Miller RN - 08/09/2023 11:37 AM EST T/c made to Yani at [facility]. Yani said that pt referral is incorrect and center is specifically for IVF treatment. Will reroute to provider for more info. * Telephone Encounter - Ingrid Lopez CNM - 08/05/2023 1:53 PM EST Referred to [facility] for postcoital bleeding. Please see my referral note. If unable to be seen at [facility], please coordinate with referrals to see where she can be seen. * Telephone Encounter - Ranjith Vasquez - 08/05/2023 11:37 AM EST Tc from Yani Brooke from [facility] requesting a call back for clarification on why the patient was referred to them and to notify the PCP that they do not accept Medicaid insurance please call Yani at [phone] documented in this encounter Plan of Treatment Upcoming Encounters Date Type Department Care Team (Late st Contact Info) Description 09/12/2024 10:45 AM EDT Office Visit [facility] [address] [place] [address] Name, MD Jose [address] [place] [address] 02/27/2025 1:00 PM EDT Office Visit [facility] ADULT DENTAL [address] [place] [address] Gwen Zamudio [address] [place] [address] documented as of this encounter Visit Diagnoses Not on filedocumented in this encounter Additional Health Concerns Assessment Noted Time PHQ-9 Depression Total Score: 9 06/06/20 23 2:22 PM EST documented as of this encounter Care Teams Recruiter Account Manager Relationship Specialty Start Date End Date Name, MD Jose [address] [place] [address] PCP - General Family Medicine 11/11/15 Nasir Buenrostro FNP [address] [place] [address] Nurse Practitioner Family Medicine 05/24/23 Gudelia Beach Manager Critical Care UnitCell Tower Climber 03/10/23 documented as of this encounter
--- OUTSIDE RECORDS SUMMARY | 2024-08-23 16:53 | XMS_ITS | Encounter Summary ---
Author Organization [employer] [facility] Address [address] [place] [address] 7 [place] [address] Care Team Providers Care Engineering Project Designer Name Role Phone Name, Jose SAVAGE Primary Care Provider [phone] Nasir Buenrostro Unavailable Unavailable Reason for Referral * Imaging (Routine) - Authorized Specialty Diagnoses / Procedures Referred By Contac t Referred To Contact Radiology Diagnoses Left ovarian cyst Procedures Us Pelvis complete Ingrid Lopez CNM [address] [place] [address] Phone: tel: fax: [address] Phone: tel: fax: Referral ID Status Reason Start Date Expiration Date V isits Requested Visits Authorized [id number] Authorized 08/14/2024 08/14/2025 1 1 * Imaging (Routine) - Authorized Specialty Diagnoses / Procedures Referred By Contac t Referred To Contact Radiology Diagnoses Left ovarian cyst Procedures US Pelvis Transvaginal Ingrid Lopez CNM [address] [place] [address] Phone: tel: fax: [address] Phone: tel: fax: Referral ID Status Reason Start Date Expiration Date V isits Requested Visits Authorized [id number] Authorized 08/14/2024 08/14/2025 1 1 Encounter Details Date Type Department Care Team (Late st Contact Info) Description 08/14/2024 Orders Only [facility] [address] [place] [address] Ingrid Lopez CNM [address] [place] [address] Left ovarian cyst (Primary Dx) Social History [...] Description 09/12/2024 10:45 AM EDT Office Visit [facility] [address] [place] [address] Jose Baez MD [address] [place] [address] 02/27/2025 1:00 PM EDT Office Visit [facility] ADULT DENT[facility] [address] [place] [address] Gwen Zamudio [address] [place] [address] Scheduled Orders Name Type Priority Associated Diagnoses [...] documented as of this encounter Care Teams Engineering Project Designer Relationship Specialty Start Date End Date NameJose MD [address] [place] [address] PCP - General Family Medicine 11/11/15 Nasir Buenrostro FNP [address] [place] [address] Nurse Practitioner Family Medicine 05/24/23 Gudelia Beach Spice Room WorkerSenior Packaging Engineer 03/10/23 documented as of this encounter
--- OUTSIDE RECORDS SUMMARY | 2024-08-23 16:53 | XMS_ITS | Clinical Summary ---
Author Organization [employer] Address [address] [facility] 7t [place] [address] Care Team Providers Care Corporate Coordinator Name Role Phone Name, Jose SAVAGE Primary Care Provider Nasir Buenrostro Unavailable Unavailable Allergies No known [...] as directed, since she does not read Ugandan (and has no one to help her [...] 10 mg. Rx's will be sent to [facility] for home delivery. F/U with [...] feeling quite alone as family is in [place]. Has started with counseling. Today 06/06/2023 provider [...] Plan (02/23/2023 4:12 PM EDT): Pt repots [facility] for years. No evidence of infection or effusion. -PT referral done and Xray ordered 02/23/2023. Dog bite of arm, right, subsequent encounter 04/04/2023 Assessment & Plan (10/07/2022 1:39 PM EDT): Hospitalized at [facility] for 3 days for IV antibiotics, discharged on Augmentin and Bactrim for total of 21 days of abx therapy Counseled to finish abx as prescribed Letter given for work at [employer] for no heavy lifting x 14 days Edema of lower extremity 12/27/2016 Encounters Date Type Department Care Team Description 08/14/2024 Telephone [facility] [address] Shaista Sommers, RN Results 08/14/2024 Orders Only [facility] [address] Mai Metzger CNM Left ovarian cyst (Primary Dx) 07/11/2024 Telephone [facility] [address] [place] [address] Rubina Naqvi, JOEL 07/10/2024 10:15 AM EST Procedure Visit [facility] [place] [address] Mai Metzger CNM Screening examination for venereal disease (Primary Dx); Intermenstrual bleeding; Breast abscess 07/10/2024 Orders Only [facility] [address] Jose Baez MD 07/10/2024 Telephone [facility] [address] [place] [address] Mai Metzger CNM 07/10/2024 Travel 07/07/2024 Orders Only GENERIC EXTERNAL DATA DEPARTMENT Provider, Generic External Data 07/03/2024 1:30 PM EST Office Visit [facility] [address] [place] [address] Jus, Nasrin, OD Dry eyes, bilateral (Primary Dx); Early cataracts, bilateral; Subjective vision disturbance; Presbyopia of both eyes 07/03/2024 Travel 06/28/2024 Telephone [facility] [address] [place] [address] Mikki Contreras MA feb recalls 05/29/2024 Telephone [facility] [address] [place] [address] Jose Baez MD Durable Medical Equipment from [...] Description 09/12/2024 10:45 AM EDT Office Visit [facility] [address] [place], [place] [phone] Name, MD Jose [address] [place] [address] 02/27/2025 1:00 PM EDT Office Visit [facility] ADULT DENTAL [address] [place] [address] Luciano Zamudioaris [address] [place], [place] [phone] Health Maintenance Due Date Last Done Comments [...] 03/22/2016 Hepatitis B Vaccines Completed 06/06/2023, 05/03/20 23 Hepatitis C Screening Completed 02/01/2024 HIV Screening [...] EST Narrative 08/14/2024 2:52 PM EST ? [facility] ?[address] ?[place] [address] ? Ultrasound Report ? Signed ? Patient: Mi Neville ?MR#: M ?? [id number] ? : 1980 ?Acct:[id number] ? Age/Sex: 44 / F ?ADM Date: 08/14/24 ? Loc: HO.US ? Attending Dr: Mai Metzger CNM ? Ordering Physician: MAI METZGER CNM ?? Date of Service: 08/14/24 ?? Procedure(s): US pelvic and transvaginal ?? Accession Number(s): [id number] ? cc: Name,Jose SAVAGE; MAI METZGER CNM ? EXAMINATION: ??US PELVIS [...] or mass. ? Pelvic fluid: none. ? US/US pelvic and transvaginal ?? IMPRESSION: ?? Complex [...] DD/ 1400 ? TD/TT: 08/14/24 1430 ? [facility] Consultant: ? Procedure Note Daphne, Kayla - 08/14/2024 [place] [address] Ultrasound Report Signed Patient: Mi Neville BMR#: M [id number] : 1980Acct:[id number] Age/Sex: 44 / FADM Date: 08/14/24 Loc: HO.US Attending Dr: Mai Metzger CNM Ordering Physician: MAI METZGER CNM Date of Service: 08/14/24 Procedure(s): US pelvic and transvaginal Accession Number(s): [id number] cc: Jose Baez MD; MAI METZGER CNM [...] 08/14/24 1449 DD/ 1400 TD/TT: 08/14/24 1430 Wound Care Center Consultant: Mai Metzger CNM IMG US PROCEDURES Final R esult * Syphilis Screen (07/10/2024 10:51 AM EST) Syphilis Screen Nonreactive Nonreactive [facility] Blood Venous blood specimen / Unknown 07/10/2024 10:51 AM EST 07/10/2024 11:27 AM EST Mai Metzger CNM LAB BLOOD ORDERABLES Zandra l Result [facility] [address] [place] [address] [phone] * Chlamydia/N. Gonorrhoeae RNA, TMA, Vagina (07/10/2024 10:51 AM EST) Only the most recent of2 resultswithin the time period is included. CT PCR NOT DETECTED Not Detect. [facility] Comment:A not detected test result [...] psychologicalconsequences. NG PCR NOT DETECTED Not Detect. [facility] Comment:A not detected test result [...] AM EST 07/10/2024 1:19 PM EST Narrative [facility] - 07/10/2024 2:58 PM EST Urine us Mai HUNT LAB MICROBIOLOGY - GENERA L ORDERABLES Final Result Performing Organization Address [facility]/ZIP Co de Phone Number [facility] [address] [place] [address] [phone] * HIV-1/2 Antigen and Antibodies, Fourth Generation, with Reflexes (07/10/2024 10:51 AM EST) HIV AB/AG Nonreactive Nonreactive [facility] Comment:HIV-1 p24 Ag and/or HIV-1/HIV-2 Ab not detected.A test result that is nonreactive does not exclude thepossibility of exposure to or infection with HIV-1 and/orHIV-2. Nonreactive results in this assay for individualswith prior exposure to HIV-1 and/or HIV-2 may be due toantigen and antibody levels that are below the limit ofdetection of this assay.The [employer] HIV Ag/Ab Combo assay result andsupplemental assay results should be interpreted inconjunction with the patient's clinical presentation,history and other laboratory results. If the results areinconsistent with clinical evidence, additional testing issuggested to confirm the result. Blood Venous blood specimen / Unknown 07/10/2024 10:51 AM EST 07/10/2024 11:17 AM EST us Mai Metzger [facility] BLOOD ORDERABLES Zandra l Result Performing Organization Address [facility] Co de Phone Number [facility] [address] [place] [phone] * (ABNORMAL) Bacterial Vaginosis (07/10/2024 10:34 AM EST) TRICHOMONAS VAGINALIS DETECTION BY PCR NOT DETECTED Not Detect [facility] BACTERIAL VAGINOSIS DETECTION BY PCR POSITIVE(A) Negative [facility] Comment:The BV organism targ ets [...] DETECTION BY PCR NOT DETECTED Not Detect [facility] Aleta glab krusei PCR NOT DETECTED Not Detect [facility] 07/10/2024 10:3 4 AM EST 07/10/2024 4:38 PM EST us Jose Name MD LAB MICROBIOLOGY - GENERAL ORDER REG Final Result [facility] [address] [place] [address] [phone] * BI US Breast Limited Right (07/07/2024 8:57 PM EST) Anatomical Region Laterality Modality Breast Right Ultrasound 07/07/2024 8:57 PM EST Narrative 07/07/2024 8:59 PM EST ? [facility] ?[address] ?[place] [address] ? Ultrasound Report ? Signed ? Patient: Mi Neville ?MR#: M ?? [id number] ? : 1980 ?Acct:[id number] ? Age/Sex: 44 / F ?ADM Date: 07/07/24 ? Loc: HO.ED ? Attending Dr: ? Ordering Physician: June Esposito DO ?? Date of Service: 07/07/24 ?? Procedure(s): US breast RT limited ?? Accession Number(s): [id number] ? cc: June Esposito DO; NameJose MD [...] ? DD/ 56 ? TD/TT: 07/07/242056 ? Wound Care Center Consultant: ? Procedure Note Donotuseinterpreter, Image - 07/07/[address] [address] Ultrasound Report Signed Patient: Mi Neville BMR#: M [id number] : 1980Acct:[id number] Age/Sex: 44 / FADM Date: 07/07/24 Loc: HO.ED Attending Dr: Ordering Physician: June Esposito DO Date of Service: 07/07/24 Procedure(s): US breast RT limited Accession Number(s): [id number] cc: June Esposito DO; Name,Jose SAVAGE CLINICAL [...] in OV> 07/07/242058 DD/ 56 TD/TT: 07/07/242056 Wound Care Center Consultant: [facility] External Provider IMG US PROCEDURES Edited Result - Final * Blood Culture (First) (07/07/2024 6:23 PM EST) Blood Venous blood specimen / Unknown 07/07/2024 6:23 PM EST 07/07/2024 6:28 PM EST Comment:Blood Narrative [facility] - 07/12/2024 8:28 PM EST Blood Culture (First) No growth after 5 days. Specimen Source: Blood us Generic External Data Provider LAB MICROBIOLOGY - GENERAL ORDERABLES Final Result Performing Organization Address City/[facility]/ZIP Co de Phone Number [facility] [address] [place] [phone] * Blood Culture (Second) (07/07/2024 6:23 PM EST) Blood Venous blood specimen / Unknown 07/07/2024 6:23 PM EST 07/07/2024 6:28 PM EST Comment:Blood Narrative [facility] - 07/12/2024 8:28 PM EST Blood Culture (Second) No growth after 5 days. Specimen Source: Blood us Generic External Data Provider LAB MICROBIOLOGY - GENERAL ORDERABLES Final Result Performing Organization Address [facility] Co de Phone Number [facility] [address] [place] [phone] * CBC auto differential (07/07/2024 6:23 [...] ORDERAB LES Final Result Performing Organization Address [facility] Co de Phone Number [facility] [address] [place] [phone] * Magnesium (07/07/2024 6:23 PM EST) Magnesium 2.1 1.6 - 2.6 mg/dL [facility] 07/07/2024 6:23 PM EST 07/07/2024 6:28 PM EST us Generic External Data Provider LAB BLOOD ORDERAB LES Final Result Performing Organization Address City/[facility]/ZIP Co de Phone Number [facility] [address] [place] [phone] * Lactic Acid (07/07/2024 6:23 PM EST) Pathologist [facility] Lactic Acid 1.0 0.5 - 2.0 mmol/L [facility] 07/07/2024 6:23 PM EST 07/07/2024 6:28 PM EST Generic External Data Provider LAB BLOOD ORDERAB LES Final Result Performing Organization Address [facility] Co de Phone Number [facility] [address] [place] [phone] * Hepatic Function Panel (07/07/2024 6:23 PM EST) Pathologist [facility] Bilirubin, Total 0.2 0.0 - 1.0 mg/dL [...] ORDERAB LES Final Result Performing Organization Address [facility] Co de Phone Number [facility] [address] [place] [phone] * (ABNORMAL) Basic Metabolic Panel (07/07/2024 6:23 PM EST) Pathologist [facility] Sodium 140 135 - 145 mmol/L [facility] [...] Kidney Disea se: Estimated GFR < 60 mL/min/1.37j0Tfwiyg Kidney Disease: Estimated GFR < 15 mL/min/1.73m2 Glucose 67 60 - 115 mg/dL [facility] Calcium 8.4 8.4 - 10.2 mg/dL [facility] 07/07/2024 6:23 PM EST 07/07/2024 6:28 PM EST us Generic External Data Provider LAB BLOOD ORDERAB LES Final Result [facility] [address] [place] [phone] * Hepatitis C Antibody with Reflex to HCV, RNA, Quantitative, Real-Time PCR (02/01/2024 3:49 PM EDT) Hepatitis C Antibody Nonreactive Nonreactive [facility] Comment:Antibodies to HCV no t detected; does not exclude early acuteHCV infection. Blood Venous blood specimen / Unknown 02/01/2024 3:49 PM EDT 02/01/2024 4:09 PM EDT Jose Baez MD LAB BLOOD ORDERABLES Final Resul t Performing Organization Address [facility] Co de Phone Number [facility] [address] [place] [phone] * Image-Guided Pap with Age-Based Screening??with CT/NG,??Trichomonas (06/09/2023 2:00 PM EST) Trichomonas (NAAT) NOT DETECTED NOT DETECTED [facility] Comment:The analytical perfo rmance characteristics of thisassay have been determined by [employer]. Themodifications have not been cleared or approved bythe FDA. This assay has been validated pursuant to theCLIA regulations and is used for clinical purposes.For additional information, please refer tohttp://education.Kanjoy[employer]/faq/Trichomonastma(This link is being provided for information/educational purposes only.)THIS TEST WAS PERFORMED AT:[employer] [place] [phone] CALIX MD CTNG Ref Lab NOT DETECTED NOT DETECTED [facility] NG Ref Lab NOT DETECTED NOT DETECTED [facility] Cervix 06/09/2023 2:00 PM EST 06/10/2023 8:30 AM EST Mai HUNT LAB CYTOLOGY ORDERABLES F inal Result Performing Organization Address [facility] Co de Phone Number [facility] [address] [place] [phone] * HPV mRNA E6/E7 w/Reflex to HPV Genotypes 16, 18/45 (06/09/2023 2:00 PM EST) HPV nRNA E6/E7 SEE NOTE [facility] Comment:HPV mRNA E6/E7: Not Detected Reference range: Not DetectedMethodology: Motor Vehicle Clerk-Mediated AmplificationThis assay detects E6/E7 viral messenger RNA (mRNA) from 14high-risk HPV types(16,18,31,33,35,39,45,51,52,56,58,59,66,68).Cervical sources are required for HPV testing.If a vaginal source from a patient who has had atotal hysterectomy with removal of cervix wassubmitted, please contact the testing laboratoryfor alternative testing options.For additional information, please refer tohttp://education.Kanjoya/faq/PMF062x7(This link if provided for information/educational purposes only.)Site Information[employer]- [employer] [address] [phone] Laboratory Director: Aury Calix M.D. HPV mRNA E6/E7 [facility] HPV 16 RNA [facility] HPV 18/45 RNA [facility] 06/09/2023 2:00 PM EST 06/10/2023 8:30 AM EST us Mai HUNT LAB CYTOLOGY ORDERABLES F inal Result [facility] [address] [place] [phone] [phone] * Lipid Panel, Standard (04/06/2023 10:44 AM EDT) Triglycerides 79 <150 mg/dL [facility] Comment:Desirable Triglyceri de: less than 150 mg/dLBorderline High Triglyceride 150-199 mg/dLHigh Triglyceride: 200-499 mg/dLVery High Triglyceride: greater than or equal to 5OO mg/dL Cholesterol 154 <200 mg/dL [facility] Comment:Desirable Cholestero l: less than 200 mg/dLBorderline High Cholesterol: 200-239 mg/dLHigh Cholesterol: greater than 239 mg/dL LDL Cholesterol Calculated 97 <100 mg/dL [facility] Comment:Desirable LDL: less than 100 mg/dLNear Optimal/Above Optimal LDL: 110- 129 mg/dLBorderline High LDL: 130-159 mg/dLHigh LDL: 160-189 mg/dLVery High LDL: greater than or equal to 190 mg/dL HDL Cholesterol 42 >40 mg/dL [facility] Comment:Desirable HDL: great er than 40 mg/dL Note: This HDL assay may give artificially low results in patients with liver disease. Blood Venous blood specimen / Unknown 04/06/2023 10:44 AM EDT 04/06/2023 11:01 AM EDT us Jose Baez MD LAB BLOOD ORDERABLES Final Resul t [facility] [address] [place] [phone] from Last 3 Months or Most Recently Relevant to Health Maintenance [place] [facility] [place]: [address] [phone] DENTAL - HSN PARTIAL (MEDICAID) Care Teams Corporate Coordinator Relationship Specialty Start Date End Date Name, MD Jose [address] [place] [address] PCP - General Family Medicine 11/11/15 Nasir Buenrostro FNP [address] [place] [address] Nurse Practitioner Family Medicine 05/24/23 [place] Slitter HelperPortfolio Analyst 03/10/23
--- OUTSIDE RECORDS SUMMARY | 2024-08-23 16:53 | XMS_ITS | Encounter Summary ---
Author Organization [employer] [facility] Address [address] [place] [address] 7t [place] [address] Care Team Providers Care Rod Puller And Coiler Name Role Phone Name, Jose SAVAGE Primary Care Provider [phone] Nasir Buenrostro Unavailable Unavailable Reason for Visit * Reason Comments Med Refill Encounter Details Date Type Department Care Team (Late st Contact Info) Description 03/14/2023 Refill [facility] MEDICINE [address] [place] [phone] Nasir Buenrostro FNP Mood disorder (CMS/HCC) Social [...] 09/12/2024 10:45 AM EDT Office Visit [facility] MEDICINE [address] [place] [address] Name, MD Jose [address] [place] [address] 02/27/2025 1:00 PM EDT Office Visit [facility] ADULT DENTAL [address] [place] [address] Gwen Zmaudio [address] [place], [place] [phone] documented as of this encounter Visit Diagnoses Diagnosis Mood disorder (CMS/HCC) Unspecified episodic mood disorder documented in this encounter Additional Health Concerns Assessment Noted Time PHQ-9 Depression Total Score: 7 02/09/20 23 1:43 PM EDT documented as of this encounter Care Teams Rod Puller And Coiler Relationship Specialty Start Date End Date Name, MD Jose [address] [place] [phone] PCP - General Family Medicine 11/11/15 Nasir Buenrostro FNP [address] [place] [address] Nurse Practitioner Family Medicine 05/24/23 [place] Oil Rig DrillerBeekeeper 03/10/23 documented as of this encounter
--- OUTSIDE RECORDS SUMMARY | 2024-08-23 16:53 | XMS_ITS | Encounter Summary ---
Author Organization [employer] Address [address] [facility] [address] [place] [address] Care Team Providers Care Secondary Market Manager Name Role Phone Name, Jose SAVAGE Primary Care Provider [phone] Nasir Buenrostro Unavailable Unavailable Reason for Visit * Reason Comments Med Refill Encounter Details Date Type Department Care Team ([facility] Contact Info) Description 11/02/2023 Refill [facility] MED[facility]INE [address] [place] [address] Nasir Buenrostro FNP Mood disorder (CMS/HCC) Social [...] Description 09/12/2024 10:45 AM EDT Office Visit [facility] MED[facility] [address] [place] [address] Name, MD Jose [address] [place] [address] 02/27/2025 1:00 PM EDT Office Visit [facility] ADULT DENTAL [address] [place] [address] Lizz, Gwen [address] [place] [address] documented as of this encounter Visit Diagnoses Diagnosis Mood disorder (CMS/HCC) Unspecified episodic mood disorder documented in this encounter Additional Health Concerns Assessment Noted Time PHQ-9 Depression Total Score: 9 06/06/20 23 2:22 PM EST documented as of this encounter Care Teams Secondary Market Manager Relationship Specialty Start Date End Date Name, MD Jose [address] [place] [address] PCP - General Family Medicine 11/11/15 Nasir Buenrostro FNP [address] [place] [address] Nurse Practitioner Family Medicine 05/24/23 [place]ud[place] Register In ChanceryJig And Fixture Repairer 03/10/23 documented as of this encounter
--- OUTSIDE RECORDS SUMMARY | 2024-08-23 16:53 | XMS_ITS | Encounter Summary ---
Author Organization [employer] Address [address] [facility] [address]t [place] [address] Care Team Providers Care Visiting Teacher Name Role Phone Name, Jose SAVAGE Primary Care Provider [phone] Nasir Buenrostro Unavailable Unavailable Reason for Visit * Reason Comments Med Refill Encounter Details Date Type Department Care Team ([facility] Contact Info) Description 01/18/[address] [facility] MEDICINE [address] [place], [place] [phone] Name, MD Jose [address] [place] [address] Asthma, unspecified asthma severity, unspecified whether complicated, [...] Office Visit [facility] MEDICINE [address] [place] [address] Name, MD Jose [address] [place] [address] 02/27/2025 1:00 PM EDT Office Visit [facility] ADULT DENTAL [address] [place] [address] Gwen Zamudio [address] [place] [address] documented as of this encounter Visit Diagnoses Diagnosis Asthma, unspecified asthma severity, unspecified whether complicated, unspecified whether persistent documented in this encounter Additional Health Concerns Assessment Noted Time PHQ-9 Depression Total Score: 9 06/06/20 23 2:22 PM EST documented as of this encounter Care Teams Visiting Teacher Relationship Specialty Start Date End Date Jose Baez MD [address] [place] [phone] PCP - General Family Medicine 11/11/15 Nasir Buenrostro FNP [address] [place] [address] Nurse Practitioner Family Medicine 05/24/23 [place] Metal MoulderAdult Education Teacher 9/21/23 documented as of this encounter
--- OUTSIDE RECORDS SUMMARY | 2024-08-23 16:53 | XMS_ITS | Encounter Summary ---
Author Organization [employer] [facility] Address [address] [facility] 7t [place] [address] Care Team Providers Care Locum [employer] Hospitalist Name Role Phone Name, Jose SAVAGE Primary Care Provider [phone] Nasir Buenrostro Unavailable Unavailable Encounter Details Date Type Department Care Team (Latest Contact Info) Description 11/04/2020 Abstract [facility] CONVERSIONS Dental, Provider, DDS Social History Tobacco [...] Upcoming Encounters Date Type Department Care Team ( st Contact Info) Description 09/12/2024 10:45 AM EDT Office Visit [facility] MEDICINE [address] [place] [address] Jose Baez MD [address] [place] [address] 02/27/2025 1:00 PM EDT Office Visit [facility] ADULT DENTAL [address] [place] [address] Luciano Zamudioaris [address] [place] [address] documented as of this encounter Visit Diagnoses Not on filedocumented in this encounter Care Teams [employer] Hospitalist Relationship Specialty Start Date End Date Jose Baez MD [address] [place] [address] PCP - General Family Medicine 11/11/15 Nasir Buenrostro FNP [address] [place], [place] [address] [address] Nurse Practitioner Family Medicine 05/24/23 [place] Rail Transportation TabelerInformation Management Manager 03/10/23 documented as of this encounter
--- OUTSIDE RECORDS SUMMARY | 2024-08-23 16:53 | XMS_ITS | Encounter Summary ---
Author Organization [facility] Address [address] [place] [address] Care Team Providers Care Loading Dock Hand Name Role Phone Name, Jose SAVAGE Primary Care Provider [phone] Nasir Buenrostro Unavailable Unavailable Encounter Details Date Type Department Care Team ([facility] Contact Info) Description 08/20/2022 Abstract [facility] [address] [place], [place] [phone] Elizabeth Condon DDS [address] [place] [address] Social History Tobacco Use Types Packs/Day Years [...] Upcoming Encounters Date Type Department Care Team ([facility] Contact Info) Description 09/12/2024 10:45 AM EDT Office Visit [facility] [address] [place] [address] Name, MD Jose [address] [place] [address] 02/27/2025 1:00 PM EDT Office Visit [facility] [address] [place], [place] [phone] Gwen Zamudio [address] [place], [place] [phone] documented as of this encounter Visit Diagnoses Not on filedocumented in this encounter Care Teams Loading Dock Hand Relationship Specialty Start Date End Date Name, MD Jose [address] [place] [id number] PCP - General Family Medicine 11/11/15 Nasir Buenrostro FNP [address] [place] [id number] Nurse Practitioner Family Medicine 05/24/23 [place] Knockout WorkerPlisse Machine Operator 03/10/23 documented as of this encounter
== END 2024-08-23 14:09 | disposition home or self-care (01) ==
PROVIDERS: PCP Internal Medicine Geriatric Medicine; Visit Provider Surgery
DX: N61.1 Abscess of the breast and nipple (principal)
CPT/HCPCS: 99213

== ENCOUNTER → 2024-08-23 13:50 | Outpatient (BNVA) | payer OTHER, SELFPAY | PROVIDERS: PCP Internal Medicine Geriatric Medicine; Visit Provider Surgery | DX: Z87.2 Personal history of diseases of the skin and subcutaneous tissue (principal); Z98.890 Other specified postprocedural states | CPT/HCPCS: 99212 ==

== ENCOUNTER 2024-09-09 22:45 | Emergency (ER) | payer OTHER, SELFPAY ==
--- NOTE | ~2024-09-09 | CT_ITS ---
CLINICAL HISTORY: pain, R breast abcess, size depth CT chest with contrast Comparison: None Findings: The heart is normal size. The visualized thyroid and mediastinum are unremarkable. No consolidation or effusion. There is right breast skin thickening with a questionable ill-defined hypodense mass. There are prominent right axillary lymph nodes. The upper abdomen is unremarkable. No acute fractures. IMPRESSION: 1. Nonspecific right breast changes with axillary adenopathy. Recommend further evaluation beginning with diagnostic mammography and ultrasound. This document has been electronically signed by: Gurvinder Alex MD on 09/10/2024 06:57:37
[2024-09-09 23:06] VITALS: BP 135/71; PULSE 84; RESP 16; TEMP 37.1; O2SAT 100; BMI 31.7
--- NOTE | 2024-09-10 03:05 | ED_ITS ---
HPI - Skin/Abscess/Foreign Bdy General Chief complaint: Skin/Abscess/Foreign Body Stated complaint: right breast filled w/ ?puss Time Seen by Provider: 09/10/24 02:48 Source: patient Mode of arrival: ambulatory Limitations: no limitations History of Present Illness ED Provider: Dr. Marybel Allan HPI narrative: patient comes to the emergency room complaining of a recurrent breast abscess. Patient states that she has had at least 3 times an abscess in the same place. Patient states that it has been several days since she noted that the breast is red again. Painful to touch, redness. Patient states that the proximally 2-1/2 weeks ago she was seen by surgery in the office. Related Data Home Medications ?Medication ?Instructions ?Recorded ?Confirmed budesonide-formoterol HFA 160 2 puff inhalation BID 02/17/22 07/20/24 mcg-4.5 mcg/actuation aerosol inhaler (Symbicort) clonazepam 1 mg tablet 1 mg PO BID PRN Anxiety 02/17/22 07/20/24 metoprolol succinate 25 mg 25 mg PO DAILY 02/17/22 07/20/24 tablet,extended release 24 hr montelukast 10 mg tablet 10 mg PO BEDTIME 02/17/22 07/20/24 oxybutynin chloride 15 mg 15 mg PO DAILY 02/17/22 07/20/24 tablet,extended release 24 hr trazodone 100 mg tablet 100 mg PO BEDTIME 02/17/22 07/20/24 aripiprazole 15 mg tablet 15 mg PO DAILY 03/16/24 08/23/24 divalproex 500 mg tablet,delayed 500 mg PO BID 03/16/24 07/20/24 release doxepin 25 mg capsule 25 mg PO BEDTIME 03/16/24 07/20/24 escitalopram oxalate 10 mg tablet 10 mg PO DAILY 03/16/24 07/20/24 multivitamin 1 tab PO DAILY 03/16/24 07/20/24 pantoprazole 40 mg tablet,delayed 40 mg PO DAILY@0630 03/16/24 07/20/24 release polyethylene glycol 3350 17 17 g PO DAILY PRN Constipation 03/16/24 07/20/24 gram/dose oral powder (Miralax) Previous Rx's ?Medication ?Instructions ?Recorded sennosides 8.6 mg tablet (Natural 17.2 mg (2 x 8.6 mg) PO BEDTIME 11/17/23 Senna Laxative) constipation #60 tabs cephalexin 500 mg capsule 500 mg PO BID #20 caps 09/10/24 doxycycline hyclate 100 mg tablet 100 mg PO BID #20 tabs 09/10/24 Allergies Allergy/AdvReac Type Severity Reaction Status Date / Time No Known Allergies Allergy Verified 09/09/24 23:08 [No Known Allergies*] Review of Systems 2 Review of Systems: Constitutional : No Weight loss, No Fever, No Chills, No Night Sweats, No Fatigue, No Malaise ENT/Mouth : No Hearing loss, No Ear Pain, No Nasal Congestion, No Sinus Pain, No Hoarseness, No sore throat, No Rhinorrhea, No Swallowing Difficulty Eyes: No Eye Pain, No Swelling, No Redness, No Foreign Body, No Discharge, No Vision Changes Cardiovascular : No Chest Pain, No SOB, No Dyspnea on Exertion, No Orthopnea, No Edema, No Palpitations Respiratory : No Cough, No Sputum, No Wheezing, No Smoke Exposure, No Dyspnea Gastrointestinal : No Nausea, No Vomiting, No Diarrhea, No Constipation, No abdominal Pain, No Hematochezia, No Melena Genitourinary : no irregular bleeding, No Dysuria, No Urinary Frequency, No Hematuria, No Urinary Incontinence, No Urgency, No Flank Pain, No Urinary Flow Changes, No Hesitancy Musculoskeletal : No joint pain, No Myalgias, No Joint Swelling Skin : Complaining of a breast abscess Neuro : No Weakness, No Numbness, No Paresthesias, No Loss of Consciousness, No Dizziness, No Headache Psych : No Anxiety/Panic, No Depression, No SI/HI/AH/VH, No Social Issues, Heme/Lymph: No Bruising, No Bleeding,No Lymphadenopathy Endocrine : No Polyuria, No Polydipsia, No Temperature Intolerance [facility] Past Medical History Medical History Eroded bladder suspension mesh Left breast mass Family History Family History Mother No problems noted. Mother No problems noted. Father No problems noted. Social History Social History Household Members: Other Household Members Other:: self Housing: Apartment Do you presently have visiting nurse or other home services: No Alcohol intake: current Alcohol intake frequency: holidays/special occasions only Patient Tobacco Use Status: Current everyday Tobacco user Tobacco use type: Cigarette Cigarettes Per Day: 3 Years Smoked: 10 Second Hand Smoke Exposure: No Substance Use Type: Marijuana Advance Directives: No Advance Directives Information Provided: Yes Do you have a plan to hurt others: No Plan Patient : No Physical Exam 2 Vital Signs: Vital Signs: Last Vital Signs Temp 98.7 F 09/10/24 05:28 Pulse 67 09/10/24 05:28 Resp 16 09/10/24 05:28 BP 147/83 H 09/10/24 05:28 Pulse Ox 98 09/10/24 05:28 O2 Del Method Room Air 09/10/24 05:28 BMI result Body Mass Index 31.7 Const: Other: Appearance: Alert. Oriented X3. No acute distress. Eyes: Pupils equal, round and reactive to light. ENT: Pharynx normal. Neck: Normal inspection. Neck supple. No lymph nodes noted. No crepitus CVS: Normal heart rate and rhythm. Pulses normal. Normal S1 and S2 Respiratory: No respiratory distress. Breath sounds normal. No Wheezing. No rales chest wall: On the left breast, there is erythema, tenderness to palpation, there is a large induration on the patient's breast. No inverted nipple, there is a piercing present. Abdomen: Soft and nontender. No rigidity. No distention. Skin: Skin warm and dry. Normal skin color. Normal skin turgor. Extremities: No lower extremity edema. No Lacerations. No Rash Neuro: Oriented X 3. No motor deficit. No sensory deficit. Moving all extremities. No slurred speech. CN 2 through 12 grossly intact Psych: calm, cooperative, normal affect Course Course Course Narrative: Patient has had recurrent breast abscesses in the same side. There is a piercing present. I discussed with the patient that it would be best to consider removing the piercing since this may be a source of infection. Patient absolutely refuses to have her piercing removed I discussed with our radiologist the best way of imaging the patient's breast. Patient has had recurrent abscess. We could get a CT scan with contrast versus an ultrasound. For various reasons, we decided it would be best to go ahead with a CT scan with contrast. All of patient's labs are pending Medications Administered Discontinued Medications Generic Name Dose Route Start Last Admin Trade Name Francesca PRN Reason Stop Dose Admin Iohexol 65 ml 09/10/24 06:03 09/10/24 06:04 Iohexol 350 Mg/Ml 100 Ml Infus..Btl IV 09/10/24 06:04 65 ml ONCE ONE Administration Ketorolac Tromethamine 30 mg 09/10/24 03:59 09/10/24 05:32 Ketorolac Tromethamine 30 Mg/Ml Vial IVPUSH 09/10/24 04:00 30 mg ONCE ONE Administration Medical Decision Making Medical Decision Making [facility] Narrative: my interpretation of labs: Patient's white blood cell count 13.8. No other significant abnormality in patient's hematology or chemistry. Patient was given p.o. Keflex and doxycycline CT scan of the chest shows on the right breast skin thickening with a questionably ill-defined hypodense mass. They are prominent right axillary lymph nodes I discussed the CT scan findings with Dr. Lima from General surgery. at this time, there is abscess to be drained. However, patient will need an ultrasound and a mammogram I filled out the outpatient form for the breast ultrasound and mammogram for the patient. I gave the form to our charge nurse Joann who will help facilitate sending the patient's information / demographics to outpatient radiology, to schedule an appointment for the patient. Patient instructed to follow-up with Dr. Lima in his office patient agrees with plan Differential Diagnosis Differential Diagnoses: The differential diagnosis associated with the presentation includes ( breast abscess, cellulitis, ill-defined mass) Admission/Observation Consideration of admission/observation: Escalation of care including admission/observation considered Consult Healthcare Provider Management of the patient was discussed with: Wan Support Specialist Lab Data [facility] Lab Attestation statement: I reviewed the patient's lab results. 09/10/24 05:26 09/10/24 05:26 Labs: Lab Results 09/10/24 Range/Units 05:26 WBC 13.8 H (4.8-10.8) X10*3/uL RBC 3.93 L (4.20-5.50) X10*6/uL Hgb 12.1 (12.0-16.0) g/dl Hct 35.5 L (37.0-47.0) % MCV 90.3 (80.0-98.0) fL MCH 30.8 (27.0-33.0) pg MCHC 34.1 (31.0-35.0) g/dl RDW 14.3 (11.0-16.0) % Plt Count 268 (160-400) X10*3/uL MPV 11.6 (9.4-12.3) fL Immature Gran % (Auto) 0.4 (0.0-0.4) % Neut % (Auto) 68.0 (45-73) % Lymph % (Auto) 23.7 (20-40) % [place] % (Auto) 6.2 (2-11) % Eos % (Auto) 1.3 (0-4) % Baso % (Auto) 0.4 (0-2) % Lymph # (Auto) 3.3 (1.2-4.9) X10*3/uL [place] # (Auto) 0.9 (0.1-1.2) X10*3/uL Eos # (Auto) 0.2 (0.0-0.4) X10*3/uL Baso # (Auto) 0.1 (0.0-0.2) X10*3/uL Abs Immat Gran (auto) 0.06 H (0.00-0.03) X10*3/uL Absolute Neuts (auto) 9.4 H (2.0-8.3) x10*3/uL Absolute Nucleated RBC 0.000 (0.0-0.012) X10*3/uL Nucleated RBC % (auto) 0.0 (0.0-0.2) /100WBC Sodium 139 (135-145) mmol/L Potassium 3.9 (3.3-5.1) mmol/L Chloride 114 H (96-108) mmol/L Carbon Dioxide 19 L (22-29) mmol/L Anion Gap 10 L (12-20) BUN 10 (9-16) mg/dL Creatinine 0.63 (0.5-1.4) mg/dL Estim Creat Clear Calc 104.0 Estimated GFR > 60 Random Glucose 96 (60-115) mg/dL Calcium 8.5 (8.4-10.2) mg/dL Independent Interpretation I performed an independent interpretation of an: CT Scan Radiology Impression Discussion of test interpretation with radiology: I have reviewed the radiologist's reading. Radiologist Impression: The heart is normal size. The visualized thyroid and mediastinum are unremarkable. No consolidation or effusion. There is right breast skin thickening with a questionable ill-defined hypodense mass. There are prominent right axillary lymph nodes. The upper abdomen is unremarkable. No acute fractures. IMPRESSION: 1. Nonspecific right breast changes with axillary adenopathy. Recommend further evaluation beginning with diagnostic mammography and ultrasound. Critical Care Time Critical Care Time Critical Care Time: Yes Total Critical Care Time: 60 Attestation: I have personally provided critical care time. Time includes review of lab data, radiology results, discussion with consultants, and monitoring for potential decompensation. Intervention performed as documented. Discharge Plan Discharge Clinical Impression: Cellulitis of breast, Abnormal finding on breast imaging Patient Disposition: Home, Self-Care Instructions: Mastitis (ED) Additional Instructions: please make sure that you follow-up with Dr. Lima. Also, you need an ultrasound of your breast and a mammogram as soon as possible. Please follow-up with your primary care physician tomorrow. If you have any worsening or new symptoms, please return to the emergency room or call 911 Prescriptions: New cephalexin 500 mg capsule 500 mg PO BID Qty: 20 0RF doxycycline hyclate 100 mg tablet 100 mg PO BID Qty: 20 0RF No Action sennosides [Natural Senna Laxative] 8.6 mg tablet 17.2 mg PO BEDTIME Qty: 60 3RF multivitamin Tablet 1 tab PO DAILY doxepin 25 mg capsule 25 mg PO BEDTIME divalproex 500 mg tablet,delayed release (DR/EC) 500 mg PO BID escitalopram oxalate 10 mg tablet 10 mg PO DAILY aripiprazole 15 mg tablet 15 mg PO DAILY pantoprazole 40 mg tablet,delayed release (DR/EC) 40 mg PO DAILY@0630 Rx Instructions: take one tablet half an hour before breakfast polyethylene glycol 3350 [Miralax] 17 gram/dose powder 17 g PO DAILY PRN (Reason: Constipation) budesonide-formoterol [Symbicort] 160-4.5 mcg/actuation HFA aerosol inhaler 2 puff inhalation BID metoprolol succinate 25 mg tablet extended release 24 hr 25 mg PO DAILY clonazepam 1 mg tablet 1 mg PO BID PRN (Reason: Anxiety) oxybutynin chloride 15 mg tablet extended release 24hr 15 mg PO DAILY trazodone 100 mg tablet 100 mg PO BEDTIME montelukast 10 mg tablet 10 mg PO BEDTIME Referrals: Neo Lima MD [Physician] - 09/11/24 Print Language: Hungarian
[2024-09-10 05:28] VITALS: BP 147/83; PULSE 67; RESP 16; TEMP 37.1; O2SAT 98
[2024-09-10 05:32] LABS: MANUAL DIFF FLAG NO
[2024-09-10] MEDS: Ketorolac Tromethamine 30 MG/ML VIAL IVPUSH (05:32)
[2024-09-10 05:33] LABS: Basophils Absolute Auto 0.1 X10*3/uL (0.0-0.2); Basophils Percent Auto 0.4 % (0-2); Eosinophils Absolute Auto 0.2 X10*3/uL (0.0-0.4); Eosinophils Percent Auto 1.3 % (0-4); Hematocrit 35.5 % (37.0-47.0); Hemoglobin 12.1 g/dl (12.0-16.0); Imm Gran Abs Auto 0.06 X10*3/uL (0.00-0.03); Imm Gran Pct Auto 0.4 % (0.0-0.4); Lymphocytes Absolute Auto 3.3 X10*3/uL (1.2-4.9); Lymphocytes Percent Auto 23.7 % (20-40); Mean Corpuscular HGB Conc 34.1 g/dl (31.0-35.0); Mean Corpuscular Hemoglobin 30.8 pg (27.0-33.0); Mean Corpuscular Volume 90.3 fL (80.0-98.0); Mean Platelet Volume 11.6 fL (9.4-12.3); Monocytes Absolute Auto 0.9 X10*3/uL (0.1-1.2); Monocytes Percent Auto 6.2 % (2-11); Neutrophils Absolute Auto 9.4 x10*3/uL (2.0-8.3); Platelet Count 268 X10*3/uL (160-400); Red Blood Count 3.93 X10*6/uL (4.20-5.50); Red Cell Distribution Width 14.3 % (11.0-16.0); White Blood Count 13.8 X10*3/uL (4.8-10.8)
[2024-09-10 05:47] LABS: Anion Gap 10 (12-20); Blood Urea Nitrogen 10 mg/dL (9-16); Calcium 8.5 mg/dL (8.4-10.2); Carbon Dioxide 19 mmol/L (22-29); Chloride 114 mmol/L (96-108); Estimated Glomerular Filt Rate > 60; Glucose Random 96 mg/dL (60-115); Potassium 3.9 mmol/L (3.3-5.1); Sodium 139 mmol/L (135-145)
[2024-09-10] MEDS: iohexoL 350 MG/ML 100 ML INFUS..BTL 65 ML IV (06:04)
[2024-09-10] MEDS: Doxycycline Monohydrate 100 MG CAPSULE PO (09:09)
[2024-09-10] MEDS: cephALEXin 500 MG CAPSULE PO (09:09)
[2024-09-10 11:46] VITALS: BP 147/83; PULSE 67; RESP 16; TEMP 37.1; O2SAT 98
== END 2024-09-10 11:49 | disposition home or self-care (01) ==
PROVIDERS: Emergency Provider Emergency Medicine; PCP Internal Medicine Geriatric Medicine
DX: N61.0 Mastitis without abscess (principal); R92.8 Other abnormal and inconclusive findings on diagnostic imaging of breast; N64.4 Mastodynia; Z79.899 Other long term (current) drug therapy
CPT/HCPCS: 36415; 71260; 80048; 85025; 96374; 99284; J1885; Q9967

== ENCOUNTER → 2024-09-10 03:04 | Outpatient (BNV) | payer OTHER, SELFPAY | PROVIDERS: Emergency Provider Emergency Medicine; PCP Internal Medicine Geriatric Medicine; Visit Provider Specialist | DX: N61.1 Abscess of the breast and nipple (principal); N64.4 Mastodynia | CPT/HCPCS: 71260 ==

== ENCOUNTER 2024-09-11 08:36 | Outpatient (AMB) | payer OTHER, SELFPAY ==
--- NOTE | 2024-09-11 08:47 | A.OFFVIS_ITS ---
Vital Signs 3 09/11/24 08:50 Height 5 ft 1 in Weight 168 lb 10.458 oz BMI 31.9 BP 128/64 Blood Pressure Location Lt brachial Position Sitting Pulse 77 Intake Visit Reasons: right breast abscess Intake Note: Patient is seen in office for recurrent abscess of the right breast. Pt c/o: went to ED yesterday 09/10/[address] scan done, on antbx, states right breast abscess started on Tuesday redness, discharge and pain ED/CT:09/10/24 Front Load Trash Truck Driver Required: Yes Front Load Trash Truck Driver Language: Television Engineer Services: Front Load Trash Truck Driver Present Information Interpreted: non-clinical & clinical Job Developer For Deaf Adults: Job Developer For Deaf Adults Present Accompanied by: Self / Same As Patient Allergies No Known Allergies [No Known Allergies*] Allergy (Verified 09/11/24 08:49) Medication List - Last Reconciled 09/11/24 by Neo Lima MD aripiprazole 15 mg PO DAILY budesonide-formoterol 160-4.5 mcg/actuation (Symbicort) 2 puffs inhalation BID cephalexin 500 mg PO BID clonazepam 1 mg PO BID PRN divalproex 500 mg PO BID doxepin 25 mg PO BEDTIME doxycycline hyclate 100 mg PO BID escitalopram oxalate 10 mg PO DAILY metoprolol succinate ER 25 mg PO DAILY montelukast 10 mg PO BEDTIME multivitamin 1 tab PO DAILY oxybutynin chloride ER 15 mg PO DAILY pantoprazole 40 mg PO DAILY@0630 polyethylene glycol 3350 (Miralax) 17 grams PO DAILY PRN sennosides (Natural Senna Laxative) 17.2 mg (2 x 8.6 mg) PO BEDTIME trazodone 100 mg PO BEDTIME HPI Comments Details: Patient returns with a new abscess of the right breast since last Tuesday (8 days ago). The pain is increased in severity and she subsequently was evaluated on Tuesday in the emergency department. A CT of the breast was obtained which confirmed a area of possible abscess in the right breast below the nipple. She was started on antibiotics which she started yesterday. She denies fever, chills or discharge. Previous abscess was drained with needle aspiration. [facility] Medical History Eroded bladder suspension mesh Left breast mass Family History Mother No problems noted. Mother No problems noted. Father No problems noted. Social History Household Members: Other Household Members Other:: self Housing: Apartment Do you presently have visiting nurse or other home services: No Alcohol intake: current Alcohol intake frequency: holidays/special occasions only Patient Tobacco Use Status: Current everyday Tobacco user Tobacco use type: Cigarette Cigarettes Per Day: 3 Years Smoked: 10 Second Hand Smoke Exposure: No Substance Use Type: Marijuana Review of Systems Const All systems reviewed & are unremarkable except as noted in HPI and below Physical Exam Vital Signs: Last Vital Signs Pulse 77 09/11/24 08:50 BP 128/64 09/11/24 08:50 BMI result Body Mass Index 31.9 Const General: no acute distress Nutritional Appearance: well nourished Orientation/consciousness: patient oriented x3 Chest Other: Right breast: Area of erythema, warmth, edema and tenderness with a fluctuant area below the nipple. A nipple piercing is noted bilaterally. Findings are consistent with a right breast abscess Chest/axillae images: 2 1. Area of abscess right breast Skin Other: Abscess right breast as noted above otherwise normal Neuro General: patient oriented x3 Office Procedures I&D Drain Details: Preoperative diagnosis: Right breast abscess Postoperative diagnosis: Same Procedure: Incision and drainage right breast abscess Surgeon: Neo Lima MD Customs Entry Clerk: None Anesthesia: Lidocaine 1% with epinephrine Indications for procedure: 1.5 cm abscess right breast subareolar Operative findings: Large abscess with white purulence discharge Specimen: Wound culture Estimated blood loss: None Complications: None Procedure details: After assuring informed consent the patient's right breast was prepped with Betadine and draped in a sterile fashion. Local anesthesia was infiltrated in his periareolar location at approximately 03:00. An incision was then made with a 11 blade carried down into the subcutaneous tissue. A large purulence collection was identified and drained. Wound cultures were obtained. Wounds were irrigated with saline solution. Wounds were then packed with quarter-inch Nu Gauze. Dry sterile dressings were then applied. The patient tolerated the procedure well and was discharged to home in stable condition. 31927-Gopdvlct of Skin Abscess, simple All charges added?: Procedure code (CPT) selection complete Assessment & Plan Assessment & Plan (1) Left breast mass: Code(s): N63.20 - Unspecified lump in the left breast, unspecified quadrant Category: Medical Qualifiers: Breast mass location: subareolar Qualified Code(s): N63.42 - Unspecified lump in left breast, subareolar (2) Abscess of breast, right: Code(s): N61.1 - Abscess of the breast and nipple Category: Medical Plan 44-year-old female patient with a recurrent breast abscess of the right breast which by CT appears to be located below the nipple. I recommended incision and drainage today under local anesthesia. After discussion of the procedure, risks, and alternatives, she consents to the procedure. This was performed and a large abscess drained. The wounds were irrigated and packed. She tolerated the procedure well. She was instructed on local wound care and will return in 1 week for wound examination. Orders: Orders 2 Routine Culture w Gram Stain Today N61.1 - Abscess of the breast and nipple, N63.20 - Unspecified lump in the left breast, unspecified quadrant Coding Level of Care Code Est Pt Level 3 (78313) Diagnoses Subareolar mass of left breast N63.42 Breast mass location: subareolar Abscess of breast, right N61.1 CPT Codes I&D Drain - Drain 1: 49730-Hfrszvjx of Skin Abscess, simple ([id number])
[2024-09-11 08:50] VITALS: BP 128/64; PULSE 77; BMI 31.9
== END 2024-09-11 09:20 | disposition home or self-care (01) ==
LOC: HO.HGS 08:37
PROVIDERS: PCP Internal Medicine Geriatric Medicine; Visit Provider Surgery
DX: N61.1 Abscess of the breast and nipple (principal); N63.42 Unspecified lump in left breast, subareolar
CPT/HCPCS: 10060; 99213

== ENCOUNTER 2024-09-11 08:36 | Outpatient (REF) | payer OTHER, SELFPAY | END 2024-09-11 08:37 | disposition home or self-care (01) | LOC: HO.LNP 08:36 | PROVIDERS: PCP Internal Medicine Geriatric Medicine; Visit Provider Surgery | DX: N61.1 Abscess of the breast and nipple (principal); N63.20 Unspecified lump in the left breast, unspecified quadrant | CPT/HCPCS: 10060; 87070; 87147; 87205; 99212 ==

== ENCOUNTER 2024-09-18 10:54 | Outpatient (AMB) | payer OTHER, SELFPAY ==
--- NOTE | 2024-09-18 10:55 | A.OFFVIS_ITS ---
Vital Signs 3 09/18/24 10:59 Height 5 ft 1 in Weight 168 lb 10.458 oz BMI 31.9 Respiration 16 Pulse 72 Intake Visit Reasons: 1 week follow up right breast abscess Intake Note: Patient is seen in office for one week follow up visit, post I&D right breast abscess. Pt c/o: admits to continued discharge Extender Required: Yes Extender Language: Offset Lithographic Press Operator Services: Extender Present Extender Name: Mattie FITZGERALD Information Interpreted: non-clinical & clinical Stripping Cutter And Winder: Stripping Cutter And Winder Present Accompanied by: Self / Same As Patient Allergies No Known Allergies [No Known Allergies*] Allergy (Verified 09/18/24 10:57) HPI Comments Details: 44-year-old female patient returning 1 week following incision and drainage of a right breast abscess. She continues to have pain in the right breast with discharge noted on a daily basis. The packing remains in place as well. She denies any fever or chills. She continues to take the antibiotics as prescribed. [facility] Medical History Eroded bladder suspension mesh Left breast mass Family History Mother No problems noted. Mother No problems noted. Father No problems noted. Social History Household Members: Other Household Members Other:: self Housing: Apartment Do you presently have visiting nurse or other home services: No Alcohol intake: current Alcohol intake frequency: holidays/special occasions only Patient Tobacco Use Status: Current everyday Tobacco user Tobacco use type: Cigarette Cigarettes Per Day: 3 Years Smoked: 10 Second Hand Smoke Exposure: No Substance Use Type: Marijuana Review of Systems Const All systems reviewed & are unremarkable except as noted in HPI and below Physical Exam Vital Signs: Last Vital Signs Pulse 72 09/18/24 10:59 Resp 16 09/18/24 10:59 BMI result Body Mass Index 31.9 Const General: no acute distress Nutritional Appearance: well nourished Orientation/consciousness: patient oriented x3 Chest Other: Right breast: Overall the swelling is much improved and both ends of the nipple piercing are able to be visualized now. Packing remains in place. This was removed and a small amount of purulence discharge noted following removal. The remains a palpable inflammatory change but no fluctuance is noted. Dry sterile dressings were applied. Chest/axillae images: 2 1. Site of previous abscess with incision and drainage site open and draining. Skin Other: Abscess right breast as noted above otherwise normal Neuro General: patient oriented x3 Assessment & Plan Assessment & Plan (1) Abscess of breast, right: Code(s): N61.1 - Abscess of the breast and nipple Category: Medical Plan Overall patient is much improved with evidence of resolution of her initial abscess. She should continue with her daily dressing changes and antibiotics. I recommended she return in approximately 2 weeks for follow-up examination. Coding Level of Care Code Global (08204) Diagnoses Abscess of breast, right N61.1
[2024-09-18 10:59] VITALS: PULSE 72; RESP 16; BMI 31.9
--- OUTSIDE RECORDS SUMMARY | 2024-09-18 13:08 | XMS_ITS | Clinical Summary ---
Author Organization [employer] Address [address] [place] [address] Care Team Providers Care Agent Broker Name Role Phone Name, Jose SAVAGE Primary [...] as directed, since she does not read [place] (and has no one to help her [...] Rx's will be sent to [facility] for home delivery. F/U with [...] feeling quite alone as family is in [place]. Has started with counseling. Today 06/06/2023 provider [...] Plan (02/23/2023 4:12 PM EDT): Pt repots [facility] for years. No evidence of infection or effusion. -PT referral done and Xray ordered 02/23/2023. Dog bite of arm, right, subsequent encounter 04/04/2023 Assessment & Plan (10/07/2022 1:39 PM EDT): Hospitalized at [facility] for 3 days for IV antibiotics, discharged on Augmentin and Bactrim for total of 21 days of abx therapy Counseled to finish abx as prescribed Letter given for work at [employer] for no heavy lifting x 14 days Edema of lower extremity 12/27/2016 Encounters Date Type Department Care Team Description 09/11/2024 Orders Only GENERIC EXTERNAL DATA DEPARTMENT Provider, Generic External Data 09/11/[address] [address] Mikki Contreras [place] appt change provider out 09/10/2024 Orders Only GENERIC EXTERNAL DATA DEPARTMENT Provider, Generic External Data 08/14/[address] [address] Shaista Sommers, RN Results 08/14/2024 Orders Only [address] [address] Mai Metzger CNM Left ovarian cyst (Primary Dx) 07/11/[address] [address] Rubina Naqvi, JOEL 07/10/2024 10:15 AM EST Procedure Visit [address] [place] [address] Mai Metzger CNM Screening examination for venereal disease (Primary Dx); Intermenstrual bleeding; Breast abscess 07/10/2024 Orders Only [facility] [address] [place] [address] Jose Baez MD 07/10/2024 Telephone [facility] MEDICINE [address] [place] [address] Mai Metzger CNM 07/10/2024 Travel 07/07/2024 Orders Only GENERIC EXTERNAL DATA DEPARTMENT Provider, Generic External Data 07/03/2024 1:30 PM EST Office Visit [facility] OPTOMETRY [address] [place] [address] Jus, Nasrin, OD Dry eyes, bilateral (Primary Dx); Early cataracts, bilateral; Subjective vision disturbance; Presbyopia of both eyes 07/03/2024 Travel 06/28/2024 Telephone [facility] [address] [place] [address] Mikki Contreras [place] feb recalls from Last 3 Months Immunizations Name Administration [...] Care Team (Late st Contact Info) Description 12/18/2024 10:45 AM EDT Office Visit [facility] MEDICINE [address] [place] [address] Name, MD Jose [address] [place] [address] 02/27/2025 1:00 PM EDT Office Visit [facility] ADULT DENTAL [address] [place] [address] Lizz, Gwen [address] [place] [address] Health Maintenance Due Date Last Done Comments [...] X-Ray: Bitewings 02/01/2025 02/01/2024 Mammogram 07/07/2025 07/07/2024, 09/2 12/2023, 04/14/2023, Additional history exists Family Planning (PISQ) [...] Procedure Name Priority Date/Time Associated Diagnosis Comments GRAM STAIN Routine 09/11/2024 8:[address] CHEST W CONTRAST Routine 09/10/2024 6 :57 AM EDT BASIC METABOLIC PANEL Routine 09/10/2024 5:26 AM EDT CBC WITH AUTO DIFFERENTIAL Routine 09/10/2024 5:26 AM EDT US PELVIS TRANSVAGINAL Urgent 08/14/2024 2:00 PM [...] Recently Relevant to Health Maintenance Results * Gram stain (09/11/2024 8:36 AM EDT) 09/11/2024 8:36 AM EDT 09/11/2024 12:02 PM EDT Comment:Breast Rt Narrative [facility] - 09/13/2024 9:11 AM EDT Gram stain results: 2+ polys 1+ epithelial cells 2+ red blood cells 2+ Gram-negative rods Coag negative Staphylococcus CBLD STANEG comment Unlikely pathogen; call Micro if full workup indicated. Quant Org ID 1+ Specimen Source: Breast Right us Generic External Data Provider LAB MICROBIOLOGY - GENERAL ORDERABLES Final Result [facility] [address] [place] [phone] * CT Chest w/ Contrast (09/10/2024 6:57 AM EDT) Anatomical Region Laterality Modality Body, Chest Computed Tomogra phy 09/10/2024 6:57 AM EDT Narrative 09/10/2024 6:59 AM EDT ? [facility] ?[address] ?[place] [address] ? CT Scan Report ? Signed with Addenda ? Patient: iGlda Harper,Mi Parish ?MR#: M ?? [id number] ? : 1980 ?Acct:[id number] ? Age/Sex: 44 / F ?ADM Date: 09/10/24 ? Loc: HO.ED ? Attending Dr: ? Ordering Physician: Marybel Allan MD ?? Date of Service: 09/10/24 ?? Procedure(s): CT chest w IV con ?? Accession Number(s): [id number] ? cc: Jose Baez MD; Marybel Allan MD ? Report Number: ?? [id number]: Total DLP = ??252.00 mGy-cm ?ADDENDUM ?? This document has been electronically signed by: Gurvinder Alex MD on ?? 09/10/2024 06:57:37 ? ADDENDUM: ?? Receipt of this report by the clinical staff was confirmed with Norm ?? OLIVER Pratt on Sep 10, 2024 07:29:00 EDT. ? This document has been electronically signed by: Chula Selby on ?? 09/10/2024 07:29:25 ? Addendum Dictated By: ?Gurvinder Alex MD ? Addendum Signed By: ? <Electronically signed by Gurvinder lAex MD in OV> ?09/10/24729 ?? Addendum Cosigned By: ? DD/ ? TD/TT: 09/10/24 ? CLINICAL HISTORY: pain, R breast abcess, size depth ? CT chest with contrast ? Comparison: None ? Findings: ?? The heart is normal size. ?? The visualized thyroid and mediastinum are unremarkable. ? No consolidation or effusion. ? There is right breast skin thickening with a questionable ill-defined ?? hypodense mass. ?? There are prominent right axillary lymph nodes. ? The upper abdomen is unremarkable. ?? No acute fractures. ? IMPRESSION: ?? 1. Nonspecific right breast changes with axillary adenopathy. Recommend ?? further evaluation beginning with diagnostic mammography and ultrasound. ? This document has been electronically signed by: Gurvinder Alex MD on ?? 09/10/2024 06:57:37 ? Dictated By: ?Gurvinder Alex MD ? Signed By: ?<Electronically signed by Gurvinder Alex MD in OV> ?09/10/24 0658 ? DD/ 0657 ? TD/TT: 09/10/24 0657 ? Diesel Tractor Engine Mechanic: ? Procedure Note Daphne, Image - 09/10/[address] [address] [address] Scan Report Signed with Addenda Patient: Mi Neville BMR#: M [id number] : 1980Acct:[id number] Age/Sex: 44 / FADM Date: 09/10/24 Loc: HO.ED Attending Dr: Ordering Physician: Marybel Allan MD Date of Service: 09/10/24 Procedure(s): CT chest w IV con Accession Number(s): [id number] cc: Name,Jose SAVAGE; Marybel Allan MD Report Number: [id number]: Total DLP = 252.00 mGy-cm ADDENDUM This document has been electronically signed by: Gurvinder Alex MD on 09/10/2024 06:57:37 ADDENDUM: Receipt of this report by the clinical staff was confirmed with OLIVER Rueda on Sep 10, 2024 07:29:00 EDT. This document has been electronically signed by: Chula Selby on 09/10/2024 07:29:25 Addendum Dictated By: Gurvinder Alex MD Addendum Signed By: <Electronically signed by Gurvinder Alex MD in OV> 09/10/24729 Addendum Cosigned By: DD/ TD/TT: 09/10/24 CLINICAL HISTORY: pain, R breast abcess, size depth CT chest with contrast Comparison: None Findings: The heart is normal size. The visualized thyroid and mediastinum are unremarkable. No consolidation or effusion. There is right breast skin thickening with a questionable ill-defined hypodense mass. There are prominent right axillary lymph nodes. The upper abdomen is unremarkable. No acute fractures. IMPRESSION: 1. Nonspecific right breast changes with axillary adenopathy. Recommend further evaluation beginning with diagnostic mammography and ultrasound. This document has been electronically signed by: Gurvinder Alex MD on 09/10/2024 06:57:37 Dictated By: Gurvinder Alex MD Signed By: <Electronically signed by Gurvinder Alex MD in OV> 09/10/24657 DD/ 6 TD/TT: 09/10/24656 Diesel Tractor Engine Mechanic: us [facility] External Provider IMG CT PROCEDURES Edited Result - Final * (ABNORMAL) CBC auto differential (09/10/2024 5:26 AM EDT) Only the most recent of2 resultswithin the time period is included. White Blood Count 13.8(H) 4.8 - 10.8 X10*3/uL [facility] Red Blood Count 3.93(L) 4.20 - 5.50 X10*6/uL [facility] Hemoglobin 12.1 12.0 - 16.0 g/dl [facility] Hematocrit 35.5(L) 37.0 - 47.0 % [facility] Mean Corpuscular Volume 90.3 80.0 - 98.0 fL [facility] Mean Corpuscular Hemoglobin 30.8 27.0 - 33.0 pg [facility] Mean Corpuscular HGB Conc 34.1 31.0 - 35.0 g/dl [facility] Red Cell Distribution Width 14.3 11.0 - 16.0 % [facility] Platelet Count 268 160 - 400 X10*3/uL [facility] Mean Platelet Volume 11.6 9.4 - 12.3 fL [facility] Neutrophils Percent Auto 68.0 45 - 73 % [facility] Imm Gran Pct Auto 0.4 0.0 - 0.4 % [facility] Lymphocytes Percent Auto 23.7 20 - 40 % [facility] Monocytes Percent Auto 6.2 2 - 11 % [facility] Eosinophils Percent Auto 1.3 0 - 4 % [facility] Basophils Percent Auto 0.4 0 - 2 % [facility] NRBC Pct Auto 0.0 0.0 - 0.2 /100WBC [facility] Neutrophils Absolute Auto 9.4(H) 2.0 - 8.3 x10*3/uL [facility] Imm Gran Abs Auto 0.06(H) 0.00 - 0.03 X10*3/uL [facility] Lymphocytes Absolute Auto 3.3 1.2 - 4.9 X10*3/uL [facility] Monocytes Absolute Auto 0.9 0.1 - 1.2 X10*3/uL [facility] Eosinophils Absolute Auto 0.2 0.0 - 0.4 X10*3/uL [facility] Basophils Absolute Auto 0.1 0.0 - 0.2 X10*3/uL [facility] NRBC Abs Auto 0.000 0.0 - 0.012 X10*3/uL [facility] 09/10/2024 5:26 AM EDT 09/10/2024 5:31 AM EDT us Generic External Data Provider LAB BLOOD ORDERAB LES Final Result [facility] [address] [place] [address] [phone] * (ABNORMAL) Basic Metabolic Panel (09/10/2024 5:26 AM EDT) Only the most recent of2 resultswithin the time period is included. Sodium 139 135 - 145 mmol/L [facility] Potassium 3.9 3.3 - 5.1 mmol/L [facility] Comment:Slight Hemolysis.Int erpret result with caution. Chloride 114(H) 96 - 108 mmol/L [facility] Carbon Dioxide 19(L) 22 - 29 mmol/L [facility] Anion Gap 10(L) 12 - 20 [facility] Urea Nitrogen (BUN) 10 9 - 16 mg/dL [facility] Creatinine, Serum 0.63 0.5 - 1.4 mg/dL [facility] Creatinine Clr Calc Pharmacy 104.0 [facility] Comment:Provided height and weight: 154.94 cm,76 kg.eGFR (calculated from the MDRD study equation) and eCrCl(calculated from the Cockcroft-Gault equation) are based ondifferent parameters and may not yield comparable results.If eCrCl result is absurd, please check patient'sheight/weight. Estimated Glomerular Filt Rate >60 [facility] Comment:Chronic Kidney Disea se: Estimated GFR < 60 mL/min/1.16n1Dopeea Kidney Disease: Estimated GFR < 15 mL/min/1.73m2 Glucose 96 60 - 115 mg/dL [facility] Calcium 8.5 8.4 - 10.2 mg/dL [facility] 09/10/2024 5:26 AM EDT 09/10/2024 5:31 AM EDT us Generic External Data Provider LAB BLOOD ORDERAB LES Final Result [facility] [address] [place] [address] [phone] * US Pelvis Transvaginal (08/14/2024 2:00 PM EST) Anatomical Region Laterality Modality Pelvis Ultrasound 08/14/2024 2:00 PM EST Narrative 08/14/2024 2:52 PM EST ? [facility] ?[address] ?[place] [address] ? Ultrasound Report ? Signed ? Patient: Mi Neville ?MR#: M ?? [id number] ? : 1980 ?Acct:[id number] ? Age/Sex: 44 / F ?ADM Date: 08/14/24 ? Loc: HO.US ? Attending Dr: Mai Metzger CNM ? Ordering Physician: MAI METZGER CNM ?? Date of Service: 08/14/24 ?? Procedure(s): US pelvic and transvaginal ?? Accession Number(s): [id number] ? cc: Jose Baez MD; MAI METZGER [...] DD/ 1400 ? TD/TT: 08/14/24 1430 ? Diesel Tractor Engine Mechanic: ? Procedure Note Kayla Serna - 08/14/[address] [address] Ultrasound Report Signed Patient: Mi Neville BMR#: M [id number] : 1980Acct:[id number] Age/Sex: 44 / FADM Date: 08/14/24 Loc: HO.US Attending Dr: Mai Metzger CNM Ordering Physician: MAI METZGER CNM Date of Service: 08/14/24 Procedure(s): US pelvic and transvaginal Accession Number(s): [id number] cc: Nestor,Jose SAVAGE; MAI METZGER CNM EXAMINATION: US PELVIS TRANSABDOMINAL [...] Ryan Cason MD 08/14/2024 02:49 PM EST RP Dictated By: Ryan Cason MD Signed By: <Electronically signed by Ryan Cason MD in OV> 08/14/24 1449 DD/ 1400 TD/TT: 08/14/24 1430 [employer] Tractor Engine Mechanic: Mai Metzger CNM IMG US PROCEDURES Final R esult * Syphilis Screen (07/10/2024 10:51 AM EST) Syphilis Screen Nonreactive Nonreactive [facility] Blood Venous blood specimen / Unknown 07/10/2024 10:51 AM EST 07/10/2024 11:27 AM EST Mai John [facility] LAB BLOOD ORDERABLES Zandra corona Result [facility] [address] [place] [address] [phone] * Chlamydia/N. Gonorrhoeae RNA, TMA, Vagina (07/10/2024 10:51 AM EST) Only the most recent of2 resultswithin the time period is included. CT PCR NOT DETECTED Not Detect. [facility] Comment:A not detected test result [...] psychologicalconsequences. NG PCR NOT DETECTED Not Detect. [facility] Comment:A not detected test result [...] AM EST 07/10/2024 1:19 PM EST Narrative [facility] - 07/10/2024 2:[address] [facility] MICROBIOLOGY - GENERA L ORDERABLES Final Result Performing Organization Address City/[facility]/ZIP Co de Phone Number [facility] [address] [place] [phone] * HIV-1/2 Antigen and Antibodies, Fourth Generation, with Reflexes (07/10/2024 10:51 AM EST) HIV AB/AG Nonreactive Nonreactive [facility] Comment:HIV-1 p24 Ag and/or HIV-1/HIV-2 Ab not detected.A test result that is nonreactive does not exclude thepossibility of exposure to or infection with HIV-1 and/orHIV-2. Nonreactive results in this assay for individualswith prior exposure to HIV-1 and/or HIV-2 may be due toantigen and antibody levels that are below the limit ofdetection of this assay.[employer] HIV Ag/Ab Combo assay result andsupplemental assay results should be interpreted inconjunction with the patient's clinical presentation,history and other laboratory results. If the results areinconsistent with clinical evidence, additional testing issuggested to confirm the result. Blood Venous blood specimen / Unknown 07/10/2024 10:51 AM EST 07/10/2024 11:17 AM EST [facility] LAB BLOOD ORDERABLES Zandra l Result Performing Organization Address [facility]/ZIP Co de Phone Number [facility] [address] [place] [phone] * (ABNORMAL) Bacterial Vaginosis (07/10/2024 10:34 AM EST) TRICHOMONAS VAGINALIS DETECTION BY PCR NOT DETECTED Not Detect [facility] BACTERIAL VAGINOSIS DETECTION BY PCR POSITIVE(A) Negative [facility] Comment:The BV organism targ ets [...] DETECTION BY PCR NOT DETECTED Not Detect [facility] Aleta glab krusei PCR NOT DETECTED Not Detect [facility] 07/10/2024 10:3 4 AM EST 07/10/2024 4:38 PM EST us Jose Name MD LAB MICROBIOLOGY - GENERAL ORDER REG Final Result [facility] [address] [place] [address] [phone] * BI US Breast Limited Right (07/07/2024 8:57 PM EST) Anatomical Region Laterality Modality Breast Right Ultrasound 07/07/2024 8:57 PM EST Narrative 07/07/2024 8:59 PM EST ? [facility] ?[address] ?[place] [address] ? Ultrasound Report ? Signed ? Patient: Gilda Harper,Mi B ?MR#: M ?? [id number] ? : 1980 ?Acct:[id number] ? Age/Sex: 44 / F ?ADM Date: 01/18/25 ? Loc: HO.ED ? Attending Dr: ? Ordering Physician: Cate,June DO ?? Date of Service: 07/07/24 ?? Procedure(s): US breast RT limited ?? Accession Number(s): [id number] ? cc: June Esposito DO; Name,Jose SAVAGE [...] ? DD/ 56 ? TD/TT: 07/07/242056 ? Diesel Tractor Engine Mechanic: ? Procedure Note Donestela, Image - 07/07/2024 [place] [address] Ultrasound Report Signed Patient: Mi Neville BMR#: M [id number] : 1980Acct:[id number] Age/Sex: 44 / FADM Date: 07/07/24 Loc: .ED Attending Dr: Ordering Physician: June Esposito DO Date of Service: 07/07/24 Procedure(s): US breast RT limited Accession Number(s): [id number] cc: June Esposito DO; Name,Jose SAVAGE CLINICAL [...] document has been electronically signed by: Alexy Kurzt MD on 07/07/2024 20:57:56 Dictated By: Alexy Kurtz MD Signed By: <Electronically signed by Alexy Kurtz MD in OV> 07/07/242058 DD/ 56 TD/TT: 07/07/242056 Diesel Tractor Engine Mechanic: us [facility] External Provider IMG US PROCEDURES Edited Result - Final * Blood Culture (First) (07/07/2024 6:23 PM EST) Blood Venous blood specimen / Unknown 07/07/2024 6:23 PM EST 07/07/2024 6:28 PM EST Comment:Blood Narrative [facility] - 07/12/2024 8:28 PM EST Blood Culture (First) No growth after 5 days. Specimen Source: Blood Generic External Data Provider LAB MICROBIOLOGY - GENERAL ORDERABLES Final Result Performing Organization Address [facility]/ZIP Co de Phone Number [facility] [address] [place] [phone] * Blood Culture (Second) (07/07/2024 6:23 PM EST) Blood Venous blood specimen / Unknown 07/07/2024 6:23 PM EST 07/07/2024 6:28 PM EST Comment:Blood Narrative [facility] - 07/12/2024 8:28 PM EST Blood Culture (Second) No growth after 5 days. Specimen Source: Blood Generic External Data Provider LAB MICROBIOLOGY - GENERAL ORDERABLES Final Result Performing Organization Address [facility] Co de Phone Number [facility] [address] [place] [phone] * Magnesium (07/07/2024 6:23 PM EST) Magnesium 2.1 1.6 - 2.6 mg/dL [facility] 07/07/2024 6:23 PM EST 07/07/2024 6:28 PM EST Generic External Data Provider LAB BLOOD ORDERAB LES Final Result Performing Organization Address [facility] Co de Phone Number [facility] [address] [place] [phone] * Lactic Acid (07/07/2024 6:23 PM EST) Lactic Acid 1.0 0.5 - 2.0 mmol/L [facility] 07/07/2024 6:23 PM EST 07/07/2024 6:28 PM EST Generic External Data Provider LAB BLOOD ORDERAB LES Final Result Performing Organization Address [facility] de Phone Number [facility] [address] [place] [phone] * Hepatic Function Panel (07/07/2024 6:23 PM EST) Bilirubin, Total 0.2 0.0 - 1.0 mg/dL [facility] Bilirubin, Direct <0.2 0.0 - 0.5 mg/dL [facility] Aspartate Amino Transferase 23 5 - 31 U/L [facility] Alanine Aminotransferase 14 0 - 31 U/L [facility] Total Protein 7.3 6.5 - 8.0 g/dL [facility] Albumin Level 3.7 3.5 - 5.0 g/dL [facility] Alkaline Phosphatase 53 39 - 117 U/L [facility] 07/07/2024 6:23 PM EST 07/07/2024 6:28 PM EST [employer] External Data Provider LAB BLOOD ORDERAB LES Final Result Performing Organization Address [facility] de Phone Number [facility] [address] [place] [phone] * Hepatitis C Antibody with Reflex to HCV, RNA, Quantitative, Real-Time PCR (02/01/2024 3:49 PM EDT) Hepatitis C Antibody Nonreactive Nonreactive [facility] Comment:Antibodies to HCV no t detected; does not exclude early acuteHCV infection. Blood Venous blood specimen / Unknown 02/01/2024 3:49 PM EDT 02/01/2024 4:09 PM EDT us Jose Name MD LAB BLOOD ORDERABLES Final Resul t Performing Organization Address [facility] Co de Phone Number [facility] [address] [place] [phone] * Image-Guided Pap with Age-Based Screening??with CT/NG,??Trichomonas (06/09/2023 2:00 PM EST) Trichomonas (NAAT) NOT DETECTED NOT DETECTED [facility] Comment:The analytical perfo rmance characteristics of thisassay have been determined by [employer]. Themodifications have not been cleared or approved bythe FDA. This assay has been validated pursuant to theCLIA regulations and is used for clinical purposes.For additional information, please refer tohttp://education.[employer].com/faq/Trichomonastma(This link is being provided for information/educational purposes only.)THIS TEST WAS PERFORMED AT:[facility] [place] [phone] CALIX MD CTNG Ref Lab NOT DETECTED NOT DETECTED [facility] NG Ref Lab NOT DETECTED NOT DETECTED [facility] Cervix 06/09/2023 2:00 PM EST 06/10/2023 8:30 AM EST Mai HUNT LAB CYTOLOGY ORDERABLES F inal Result Performing Organization Address [facility] Co de Phone Number [facility] [address] [place] [phone] * HPV mRNA E6/E7 w/Reflex to HPV Genotypes 16, 18/45 (06/09/2023 2:00 PM EST) HPV nRNA E6/E7 SEE NOTE [facility] Comment:HPV mRNA E6/E7: Not Detected Reference range: Not DetectedMethodology: [employer] Culler-Mediated AmplificationThis assay detects E6/E7 viral messenger RNA (mRNA) from 14high-risk HPV types(16,18,31,33,35,39,45,51,52,56,58,59,66,68).Cervical sources are required for HPV testing.If a vaginal source from a patient who has had atotal hysterectomy with removal of cervix wassubmitted, please contact the testing laboratoryfor alternative testing options.For additional information, please refer tohttp://education.[employer].com/faq/APH420u5(This link if provided for information/educational purposes only.)Site InformationHCDC- HCDC[address] [place] [phone] Laboratory Director: Aury Calix M.D. HPV mRNA E6/E7 [facility] HPV 16 RNA [facility] HPV 18/45 RNA [facility] 06/09/2023 2:00 PM EST 06/10/2023 8:30 AM EST us Mai Metzger CN LAB CYTOLOGY ORDERABLES F inal Result [facility] [address] [place] [phone] [phone] * Lipid Panel, Standard (04/06/2023 10:44 AM EDT) Triglycerides 79 <150 mg/dL [facility] Comment:Desirable Triglyceri de: less than 150 mg/dLBorderline High Triglyceride 150-199 mg/dLHigh Triglyceride: 200-499 mg/dLVery High Triglyceride: greater than or equal to 5OO mg/dL Cholesterol 154 <200 mg/dL [facility] Comment:Desirable Cholestero l: less than 200 mg/dLBorderline High Cholesterol: 200-239 mg/dLHigh Cholesterol: greater than 239 mg/dL LDL Cholesterol Calculated 97 <100 mg/dL [facility] Comment:Desirable LDL: less than 100 mg/dLNear Optimal/Above Optimal LDL: 110- 129 mg/dLBorderline High LDL: 130-159 mg/dLHigh LDL: 160-189 mg/dLVery High LDL: greater than or equal to 190 mg/dL HDL Cholesterol 42 >40 mg/dL [facility] Comment:Desirable HDL: great er than 40 mg/dL Note: This HDL assay may give artificially low results in patients with liver disease. Blood Venous blood specimen / Unknown 04/06/2023 10:44 AM EDT 04/06/2023 11:01 AM EDT us Jose Baez MD LAB BLOOD ORDERABLES Final Resul t [facility] [address] [place] [phone] from Last 3 Months or Most Recently Relevant to Health Maintenance Insurance [facility] [facility]IAL [facility] - HSN PARTIAL (MEDICAID) Care Teams Agent Broker Relationship Specialty Start Date End Date Name, MD Jose [address] [place] [address] PCP - General Family Medicine 11/11/15 Nasir Buenrostro FNP [address] [place] [address] Nurse Practitioner Family Medicine 05/24/23 [place] Wedding PhotographerEnvironmental Studies Program Director 03/10/23
--- OUTSIDE RECORDS SUMMARY | 2024-09-18 13:08 | XMS_ITS | Encounter Summary ---
Author Organization [employer] Address [address] [facility] 7t [place] [address] Care Team Providers Care Mercerizing Range Feeder Name Role Phone Name, Jose SAVAGE Primary Care Provider [phone] Nasir Buenrostro Unavailable Unavailable Reason for Visit * Reason Onset Date Comments Call Back Request 08/05/2023 Encounter Details Date Type Department Care Team ([facility] Contact Info) Description 08/05/2023 Telephone [facility] MEDICINE [address] [place], [place] [phone] Name, MD Jose [address] [place] [address] Call Back Request Social History Tobacco Use [...] - 08/15/2023 10:23 AM EST TC to [facility] where referral was originally faxed. Referral [...] look into this? I referred patient to [facility] for postcoital bleeding, not to [facility]. Thanks! * Telephone Encounter - Aline Miller RN - 08/09/2023 11:37 AM EST T/c made to Yani at [facility]. Yani said that pt referral is incorrect and center is specifically for IVF treatment. Will reroute to provider for more info. * Telephone Encounter - Ingrid Lopez CNM - 08/05/2023 1:53 PM EST Referred to [facility] for postcoital bleeding. Please see my referral note. If unable to be seen at [facility], please coordinate with referrals to see where she can be seen. * Telephone Encounter - Ranjith Vasquez - 08/05/2023 11:37 AM EST Tc from Yani Brooke from [facility] requesting a call back for clarification on why the patient was referred to them and to notify the PCP that they do not accept Medicaid insurance please call Yani at [phone] documented in this encounter Plan of Treatment Upcoming Encounters Date Type Department Care Team (Late st Contact Info) Description 12/18/2024 10:45 AM EDT Office Visit [facility] MEDICINE [address] [place] [address] Name, MD Jose [address] [place] [address] 02/27/2025 1:00 PM EDT Office Visit [facility] ADULT DENTAL [address] [place] [address] Gwen Zamudio [address] [place] [address] documented as of this encounter Visit Diagnoses Not on filedocumented in this encounter Additional Health Concerns Assessment Noted Time PHQ-9 Depression Total Score: 9 06/06/20 23 2:22 PM EST documented as of this encounter Care Teams Mercerizing Range Feeder Relationship Specialty Start Date End Date Name, MD Jose [address] [place] [address] PCP - General Family Medicine 11/11/15 Nasir Buenrostro FNP [address] [place] [address] Nurse Practitioner Family Medicine 05/24/23 Gudelia Beach Digital Printer OperatorTypewriter Tester 03/10/23 documented as of this encounter
--- OUTSIDE RECORDS SUMMARY | 2024-09-18 13:08 | XMS_ITS | Encounter Summary ---
Author Organization [employer] [facility] Address [address] [place] [address] 7t [place] [address] Care Team Providers Care Lathe Spotter Name Role Phone Name, Jose SAVAGE Primary Care Provider [phone] Nasir Buenrostro Unavailable Unavailable Reason for Visit * Reason Comments Med Refill Encounter Details Date Type Department Care Team (Late st Contact Info) Description 01/04/2023 Refill [facility] MEDICINE [address] [place] [address] Nasir Buenrostro FNP Mood disorder (CMS/HCC) Social [...] Department Care Team (Late Contact Info) Description 12/18/2024 10:45 AM EDT Office Visit [facility] MEDICINE [address] [place] [address] Name, MD Jose [address] [place] [address] 02/27/2025 1:00 PM EDT Office Visit [facility] ADULT DENTAL [address] [place] [address] Gwen Zamudio [address] [place], [place] [phone] documented as of this encounter Visit Diagnoses Diagnosis Mood disorder (CMS/HCC) Unspecified episodic mood disorder documented in this encounter Additional Health Concerns Assessment Noted Time PHQ-9 Depression Total Score: 8 12/28/19 23 2:59 PM EDT documented as of this encounter Care Teams Lathe Spotter Relationship Specialty Start Date End Date Name, MD Jose [address] [place] [address] PCP - General Family Medicine 11/11/15 Nasir Buenrostro FNP [address] [place] [address] Nurse Practitioner Family Medicine 05/24/23 Gudelia Beach Electrician Substation SupervisorEnd User Support Specialist 03/10/23 documented as of this encounter
--- OUTSIDE RECORDS SUMMARY | 2024-09-18 13:08 | XMS_ITS | Encounter Summary ---
Author Organization [employer] Address [address] [facility] 7t [place] [address] Care Team Providers Care Lace Paper Machine Operator Name Role Phone Name, Jose SAVAGE Primary Care Provider [phone] Nasir Buenrostro Unavailable Unavailable Reason for Visit * Reason Onset Date Comments Hospital Follow-up 03/22/2024 Encounter Details Date Type Department Care Team ([facility] st Contact Info) Description 03/22/2024 Telephone [facility] MEDICINE 230 [place], [place] [phone] Name, MD Jose 230 [place] [address] Hospital Follow-up Social History Tobacco Use Types [...] pt requesting a HDF appt. Hospital: [facility] Date of admission: 03/13/24 Discharge date: 03/17/24 Diagnosed: Breast lump Contact pt at [phone] (qatari) documented in this encounter Plan of Treatment Upcoming Encounters Date Type Department Care Team (Late st Contact Info) Description 12/18/2024 10:45 AM EDT Office Visit [facility] MEDICINE [address] [place] [address] Name, MD Jose [address] [place] [address] 02/27/2025 1:00 PM EDT Office Visit [facility] ADULT DENTAL [address] [place] [address] Gwen Zamudio [address] [place] [address] documented as of this encounter Visit Diagnoses Not on filedocumented in this encounter Additional Health Concerns Assessment Noted Time PHQ-9 Depression Total Score: 9 06/06/20 23 2:22 PM EST documented as of this encounter Care Teams Lace Paper Machine Operator Relationship Specialty Start Date End Date Name, MD Jose 230 [place] [address] PCP - General Family Medicine 11/11/15 Nasir Buenrostro FNP 230 [place] [address] Nurse Practitioner Family Medicine 05/24/23 Gudelia Beach Director Of Marketing Google Performance AdsBreak And Load Operator 03/10/23 documented as of this encounter
--- OUTSIDE RECORDS SUMMARY | 2024-09-18 13:08 | XMS_ITS | Encounter Summary ---
Author Organization [employer] [facility] Address [address] [facility] 7t [place] [address] Care Team Providers Care Supervisor Refining Name Role Phone Name, Jose SAVAGE Primary Care Provider [phone] Nasir Buenrostro Unavailable Unavailable Encounter Details Date Type Department Care Team ([facility] Contact Info) Description 08/20/2022 Abstract [facility] ADULT DENTAL 230 [place], [place] [phone] Elizabeth Condon DDS [address] [place] [address] Social History Tobacco Use Types Packs/Day Years [...] Upcoming Encounters Date Type Department Care Team ([facility] Contact Info) Description 12/18/2024 10:45 AM EDT Office Visit [facility] MED[facility] [address] [place] [address] Name, MD Jose [address] [place] [address] 02/27/2025 1:00 PM EDT Office Visit [facility] ADULT [facility]AL [address] [place], [place] [phone] Gwen Zamudio [address] [place], [place] [phone] documented as of this encounter Visit Diagnoses Not on filedocumented in this encounter Care Teams Supervisor Refining Relationship Specialty Start Date End Date Name, MD Jose [address] [place] [address] PCP - General Family Medicine 11/11/15 Nasir Buenrostro FNP [address] [place] [address] Nurse Practitioner Family Medicine 05/24/23 Gudelia Beach Straw BalerFood Broker 03/10/23 documented as of this encounter
--- OUTSIDE RECORDS SUMMARY | 2024-09-18 13:08 | XMS_ITS | Encounter Summary ---
Author Organization [employer] Address [address] [facility] 7t [place] [address] Care Team Providers Care Sales Recruitment Specialist Name Role Phone Name, Jose SAVAGE Primary Care Provider [phone] Nasir Buenrostro Unavailable Unavailable Reason for Visit * Reason Comments Med Refill Encounter Details Date Type Department Care Team ([facility] Contact Info) Description 01/18/2024 Refill [facility] MEDICINE 230 [place], [place] [phone] Name, MD Jose 230 [place] [address] Asthma, unspecified asthma severity, unspecified whether complicated, [...] Description 12/18/2024 10:45 AM EDT Office Visit [facility] MEDICINE [address] [place] [address] Name, MD Jose [address] [place] [address] 02/27/2025 1:00 PM EDT Office Visit [facility] ADULT DENTAL [address] [place] [address] Gwen Zamudio [address] [place] [address] documented as of this encounter Visit Diagnoses Diagnosis Asthma, unspecified asthma severity, unspecified whether complicated, unspecified whether persistent documented in this encounter Additional Health Concerns Assessment Noted Time PHQ-9 Depression Total Score: 9 06/06/20 23 2:22 PM EST documented as of this encounter Care Teams Sales Recruitment Specialist Relationship Specialty Start Date End Date Jose Baez MD [address] [place] [address] PCP - General Family Medicine 11/11/15 Nasir Buenrostro FNP [address] [place] [address] Nurse Practitioner Family Medicine 05/24/23 Gudelia Beach Field Service TechnicianCantilever Crane Operator 9/21/23 documented as of this encounter
--- OUTSIDE RECORDS SUMMARY | 2024-09-18 13:08 | XMS_ITS | Encounter Summary ---
Author Organization [employer] Address [address] [facility] [address] 7t [place] [address] Care Team Providers Care Box Coverer Hand Name Role Phone Name, Jose SAVAGE Primary Care Provider [phone] Nasir Buenrostro Unavailable Unavailable Reason for Visit * Reason Comments Med Refill Encounter Details Date Type Department Care Team ([facility] Contact Info) Description 11/02/2023 Refill [facility] MEDICINE 230 [place] [address] Nasir Buenrostro FNP Mood disorder (CMS/HCC) Social [...] Description 12/18/2024 10:45 AM EDT Office Visit [facility] MEDICINE 230 [place] [address] Name, MD Jose [address] [place] [address] 02/27/2025 1:00 PM EDT Office Visit [facility] ADULT DENTAL 230 [place] [address] Lizz, Gwen [address] [place] [address] documented as of this encounter Visit Diagnoses Diagnosis Mood disorder (CMS/HCC) Unspecified episodic mood disorder documented in this encounter Additional Health Concerns Assessment Noted Time PHQ-9 Depression Total Score: 9 06/06/20 23 2:22 PM EST documented as of this encounter Care Teams Box Coverer Hand Relationship Specialty Start Date End Date Name, MD Jose [address] [place] [address] PCP - General Family Medicine 11/11/15 Nasir Buenrostro FNP [address] [place] [address] Nurse Practitioner Family Medicine 05/24/23 Gudelia Beach Auto DetailerCollar Baster Jumpbasting 03/10/23 documented as of this encounter
--- OUTSIDE RECORDS SUMMARY | 2024-09-18 13:08 | XMS_ITS | Encounter Summary ---
Author Organization [employer] [facility] Address [address] [place] [address] 7t [place] [address] Care Team Providers Care Skidder Name Role Phone Name, Jose SAVAGE Primary Care Provider [phone] Nasir Buenrostro Unavailable Unavailable Encounter Details Date Type Department Care Team ([facility] Contact Info) Description 10/05/2022 Abstract [facility] MEDICINE [address] [place] [address] Name, MD Jose [address] [place] [address] [phone] Social History Tobacco Use Types Packs/Day Years [...] Upcoming Encounters Date Type Department Care Team ([facility] Contact Info) Description 12/18/2024 10:45 AM EDT Office Visit [facility] MEDICINE [address] [place] [address] Name, MD Jose [address] [place] [address] 02/27/2025 1:00 PM EDT Office Visit [facility] ADULT DENTAL 230 [place] [address] Gwen Zamudio 230 [place] [address] documented as of this encounter Procedures Procedure Name Priority Date/Time Associated Diagnosis Comments PAP SMEAR Routine 12/29/2017 12:00 AM EDT documented in this encounter Results * Pap Smear (12/29/2017 12:00 AM EDT) Swab us Historical Provider LAB CYTOLOGY ORDERABLES F inal Result [facility] [address] [facility], [facility], [place] [address] documented in this encounter Visit Diagnoses Not on filedocumented in this encounter Additional Health Concerns Assessment Noted Time PHQ-9 Depression Total Score: 5 08/24/19 23 2:37 PM EST documented as of this encounter Care Teams Skidder Relationship Specialty Start Date End Date Name, [place] [address] PCP - General Family Medicine 11/11/15 Nasir Buenrostro FNP [address] [place] [address] Nurse Practitioner Family Medicine 05/24/23 Gudelia Beach Screen Printing PasterGas Reverser 03/10/23 documented as of this encounter
--- OUTSIDE RECORDS SUMMARY | 2024-09-18 13:08 | XMS_ITS | Encounter Summary ---
Author Organization [employer] [facility] Address [address] [place] [address] 7t [place] [address] Care Team Providers Care Printing Machine Operator Tape Rules Name Role Phone Name, Jose SAVAGE Primary Care Provider [phone] Nasir Buenrostro Unavailable Unavailable Reason for Visit * Reason Comments Med Refill Encounter Details Date Type Department Care Team (Late st Contact Info) Description 03/14/2023 Refill [facility] MEDICINE [address] [place] [address] Nasir Buenrostro FNP Mood disorder (CMS/HCC) Social [...] Description 12/18/2024 10:45 AM EDT Office Visit [facility] MEDICINE 230 [place] [address] Name, MD Jose [address] [place] [address] 02/27/2025 1:00 PM EDT Office Visit [facility] ADULT DENTAL 230 [place] [address] Gwen Zamudio 230 [place], [place] [phone] documented as of this encounter Visit Diagnoses Diagnosis Mood disorder (CMS/HCC) Unspecified episodic mood disorder documented in this encounter Additional Health Concerns Assessment Noted Time PHQ-9 Depression Total Score: 7 02/09/20 23 1:43 PM EDT documented as of this encounter Care Teams Printing Machine Operator Tape Rules Relationship Specialty Start Date End Date Name, MD Jose [address] [place] [address] PCP - General Family Medicine 11/11/15 Nasir Buenrostro FNP [address] [place] [address] Nurse Practitioner Family Medicine 05/24/23 Gudelia Beach Ingredient ScalerRotary Drill Operator Helper 03/10/23 documented as of this encounter
--- OUTSIDE RECORDS SUMMARY | 2024-09-18 13:08 | XMS_ITS | Encounter Summary ---
Author Organization [employer] [facility] Address [address] [facility] 7t [place] [address] Care Team Providers Care Tech Intern Name Role Phone Name, Jose SAVAGE Primary Care Provider [phone] Nasir Buenrostro Unavailable Unavailable Encounter Details Date Type Department Care Team (Latest Contact Info) Description 11/04/2020 Abstract [facility] CONVERSION[facility] Dental, Provider, DDS Social History [...] Care Team ( st Contact Info) Description 12/18/2024 10:45 AM EDT Office Visit [facility] MEDICINE 230 [place] [address] oJse Baez MD [address] [place] [address] 02/27/2025 1:00 PM EDT Office Visit [facility] ADULT DENTAL [address] [place] [address] Luciano Zamudioaris [address] [place] [address] documented as of this encounter Visit Diagnoses Not on filedocumented in this encounter Care Teams Tech Intern Relationship Specialty Start Date End Date Jose Baez MD [address] [place] [address] PCP - General Family Medicine 11/11/15 Nasir Buenrostro FNP [address] [place], [place] [address] [address] Nurse Practitioner Family Medicine 05/24/23 Gudelia Beach Practice Or Student TeacherVinyl Welder And Fabricator 03/10/23 documented as of this encounter
--- OUTSIDE RECORDS SUMMARY | 2024-09-18 13:08 | XMS_ITS | Encounter Summary ---
Author Organization [employer] [facility] Address [address] [facility] 7t [place] [address] Care Team Providers Care Continuous Wave Operator Name Role Phone Name, Jose SAVAGE Primary Care Provider [phone] Nasir Buenrostro Unavailable Unavailable Reason for Visit * Reason Onset Date Comments shade/tryin or finish 09/10/2022 case not ready 09/10/2022 Encounter Details Date Type Department Care Team ([facility] st Contact Info) Description 09/10/[address] [facility] ADULT DENTAL 230 [place] [address] Elizabeth Condon DDS [address] [place], [place] [phone] shade/tryin or finish; case not ready Social [...] - 09/10/2022 2:17 PM EDT Nelli from [email or web address] called stating they need a shade and to find out if its a wax try in or to finish . documented in this encounter Plan of Treatment Upcoming Encounters Date Type Department Care Team (Late st Contact Info) Description 12/18/2024 10:45 AM EDT Office Visit [facility] MEDICINE 230 [place], [place] [phone] Name, MD Jose 230 [place] [address] 02/27/2025 1:00 PM EDT Office Visit [facility] ADULT DENTAL [address] [place] [address] Gwen Zamudio [address] [place] [address] documented as of this encounter Visit Diagnoses Not on filedocumented in this encounter Additional Health Concerns Assessment Noted Time PHQ-9 Depression Total Score: 5 08/24/19 23 2:37 PM EST documented as of this encounter Care Teams Continuous Wave Operator Relationship Specialty Start Date End Date Name, MD Jose 230 [place] [address] PCP - General Family Medicine 11/11/15 Nasir Buenrostro FNP 230 [place] [address] Nurse Practitioner Family Medicine 05/24/23 Gudelia Beach Clerical SupportFryer Operator 03/10/23 documented as of this encounter
== END 2024-09-18 11:14 | disposition home or self-care (01) ==
LOC: HO.HGS 10:55
PROVIDERS: PCP Internal Medicine Geriatric Medicine; Visit Provider Surgery
DX: N61.1 Abscess of the breast and nipple (principal)
CPT/HCPCS: 99024

== ENCOUNTER → 2024-09-18 10:54 | Outpatient (BNVA) | payer OTHER, SELFPAY | PROVIDERS: PCP Internal Medicine Geriatric Medicine; Visit Provider Surgery | DX: N61.1 Abscess of the breast and nipple (principal); Z79.2 Long term (current) use of antibiotics | CPT/HCPCS: 99212 ==

== ENCOUNTER 2024-09-25 11:04 | Outpatient (REF) | payer SELFPAY ==
--- NOTE | ~2024-09-25 | US_ITS ---
CLINICAL HISTORY: 6wk f u left ovarian cyst Ultrasound pelvis transabdominal and transvaginal. COMPARISON: US pelvis dated 08/14/24 at 14:01 EST Technique: Real time sonographic imaging, including color-flow imaging, was performed by the textile conservator. Multiple automobile rental representative static images were saved for review. FINDINGS: Retroverted and retroflexed uterus appears normal and measures 9.3 x 4.8 x 5.3 cm. No uterine fibroids identified. Nabothian cysts present. Endometrium: 8 mm, normal. Right ovary measures 4.3 x 2.8 x 2.8 cm. Normal color Doppler. No right adnexal mass identified. Dominant right ovarian cyst/follicle measuring up to 3.1 cm. Left ovary appears normal and measures 3.1 x 1.7 x 1.5 cm. Normal color Doppler. No left adnexal mass identified. No free fluid identified in the pelvic cul-de-sac. IMPRESSION: 1. No acute findings. No evidence of ovarian torsion. 2. Interval resolution of previously seen likely hemorrhagic cyst within the left ovary. 3. Dominant right ovarian cyst/follicle measuring up to 3.1 cm. This document has been electronically signed by: Sean Moreno MD on 09/25/2024 18:16:33
--- OUTSIDE RECORDS SUMMARY | 2024-09-25 13:30 | XMS_ITS | Encounter Summary ---
Author Organization [employer] Address [address] [facility] 7t [place] [address] Care Team Providers Care Flow Trader Name Role Phone Name, Jose SAVAGE Primary Care Provider [phone] Nasir Buenrostro Unavailable Unavailable Reason for Visit * Reason Onset Date Comments Call Back Request 08/05/2023 Encounter Details Date Type Department Care Team ([facility] Contact Info) Description 08/05/2023 Telephone [facility] MEDICINE 230 [place], [place] [phone] Name, MD Jose 230 [place] [address] Call Back Request Social History Tobacco Use [...] - 08/15/2023 10:23 AM EST TC to [facility] where referral was originally faxed. Referral [...] look into this? I referred patient to [facility] for postcoital bleeding, not to [facility]. Thanks! * Telephone Encounter - Aline Miller RN - 08/09/2023 11:37 AM EST T/c made to Yani at [facility]. Yani said that pt referral is incorrect and center is specifically for IVF treatment. Will reroute to provider for more info. * Telephone Encounter - Ingrid Lopez CNM - 08/05/2023 1:53 PM EST Referred to [facility] for postcoital bleeding. Please see my referral note. If unable to be seen at [facility], please coordinate with referrals to see where she can be seen. * Telephone Encounter - Ranjith Vasquez - 08/05/2023 11:37 AM EST Tc from Yani Brooke from [facility] requesting a call back for clarification on why the patient was referred to them and to notify the PCP that they do not accept Medicaid insurance please call Yani at [phone] documented in this encounter Plan of Treatment Upcoming Encounters Date Type Department Care Team (Late st Contact Info) Description 12/18/2024 10:45 AM EDT Office Visit [facility] MEDICINE [address] [place] [address] Name, MD Jose [address] [place] [address] 02/27/2025 1:00 PM EDT Office Visit [facility] ADULT DENTAL [address] [place] [address] Gwen Zamudio 230 [place] [address] documented as of this encounter Visit Diagnoses Not on filedocumented in this encounter Additional Health Concerns Assessment Noted Time PHQ-9 Depression Total Score: 9 06/06/20 23 2:22 PM EST documented as of this encounter Care Teams Flow Trader Relationship Specialty Start Date End Date Name, MD Jose [address] [place] [address] PCP - General Family Medicine 11/11/15 Nasir Buenrostro FNP [address] [place] [address] Nurse Practitioner Family Medicine 05/24/23 Gudelia Beach Stitcher Set Up Operator AutomaticVegetable Handler 03/10/23 documented as of this encounter
--- OUTSIDE RECORDS SUMMARY | 2024-09-25 13:30 | XMS_ITS | Encounter Summary ---
Author Organization [facility] Address [address] [place] [address] 7t [place] [address] Care Team Providers Care Prep Person Name Role Phone Name, Jose SAVAGE Primary Care Provider [phone] Nasir Buenrostro Unavailable Unavailable Encounter Details Date Type Department Care Team ([facility] Contact Info) Description 10/05/2022 Abstract [facility] MEDICINE [address] [place] [address] Name, MD Jose [address] [place] [address] [phone] Social History Tobacco Use Types Packs/Day Years [...] Upcoming Encounters Date Type Department Care Team ([facility] Contact Info) Description 12/18/2024 10:45 AM EDT Office Visit [facility] MEDICINE [address] [place] [address] Name, MD Jose [address] [place] [address] 02/27/2025 1:00 PM EDT Office Visit [facility] ADULT DENTAL 230 [place] [address] Gwen Zamudio [address] [place] [address] documented as of this encounter Procedures Procedure Name Priority Date/Time Associated Diagnosis Comments PAP SMEAR Routine 12/29/2017 12:00 AM EDT documented in this encounter Results * Pap Smear (12/29/2017 12:00 AM EDT) Swab us Historical Provider LAB CYTOLOGY ORDERABLES F inal Result [facility] [address] [facility], [facility], [place] [address] documented in this encounter Visit Diagnoses Not on filedocumented in this encounter Additional Health Concerns Assessment Noted Time PHQ-9 Depression Total Score: 5 08/24/19 23 2:37 PM EST documented as of this encounter Care Teams Prep Person Relationship Specialty Start Date End Date Name, [place] [address] PCP - General Family Medicine 11/11/15 Nasir Buenrostro FNP [address] [place] [address] Nurse Practitioner Family Medicine 05/24/23 Gudelia Beach Prosthetic AideInsurance Marketing Specialist 03/10/23 documented as of this encounter
--- OUTSIDE RECORDS SUMMARY | 2024-09-25 13:30 | XMS_ITS | Encounter Summary ---
Author Organization [email or web address] [facility] Address [address] [facility] 7t [place] [address] Care Team Providers Care Database Management Specialist Name Role Phone Name, Jose SAVAGE Primary Care Provider [phone] Nasir Buenrostro Unavailable Unavailable Encounter Details Date Type Department Care Team ([facility] Contact Info) Description 08/20/2022 Abstract [facility] ADULT DENTAL [address] [place], [place] [phone] Elizabeth Condon DDS [address] [place] [address] Social History Tobacco Use Types Packs/Day Years [...] Upcoming Encounters Date Type Department Care Team ([facility] Contact Info) Description 12/18/2024 10:45 AM EDT Office Visit [facility] MEDICINE [address] [place] [address] Name, MD Jose [address] [place] [address] 02/27/2025 1:00 PM EDT Office Visit [facility] ADULT DENTAL [address] [place], [place] [phone] Gwen Zamudio [address] [place], [place] [phone] documented as of this encounter Visit Diagnoses Not on filedocumented in this encounter Care Teams Database Management Specialist Relationship Specialty Start Date End Date Name, MD Jose [address] [place] [address] PCP - General Family Medicine 11/11/15 Nasir Buenrostro FNP [address] [place] [address] Nurse Practitioner Family Medicine 05/24/23 Gudelia Beach Per Assessment NurseAppeals Examiner 03/10/23 documented as of this encounter
--- OUTSIDE RECORDS SUMMARY | 2024-09-25 13:30 | XMS_ITS | Encounter Summary ---
Author Organization [email or web address] Address [address] [facility] 7t [place] [address] Care Team Providers Care Staff Radiographer Name Role Phone Name, Jose SAVAGE Primary Care Provider [phone] Nasir Buenrostro Unavailable Unavailable Reason for Visit * Reason Onset Date Comments Hospital Follow-up 03/22/2024 Encounter Details Date Type Department Care Team ([facility] st Contact Info) Description 03/22/2024 Telephone [facility] MEDICINE [address] [place], [place] [phone] Name, MD Jose [address] [place] [address] Hospital Follow-up Social History Tobacco Use Types [...] from pt requesting a HDF appt. Hospital: [facility] Date of admission: 03/13/24 Discharge date: 03/17/24 Diagnosed: Breast lump Contact pt at [phone] (kazakh) documented in this encounter Plan of Treatment Upcoming Encounters Date Type Department Care Team (Late st Contact Info) Description 12/18/2024 10:45 AM EDT Office Visit [facility] MED[facility]INE [address] [place] [address] Name, MD Jose [address] [place] [address] 02/27/2025 1:00 PM EDT Office Visit [facility] ADULT DENTAL [address] [place] [address] Gwen Zamudio [address] [place] [address] documented as of this encounter Visit Diagnoses Not on filedocumented in this encounter Additional Health Concerns Assessment Noted Time PHQ-9 Depression Total Score: 9 06/06/20 23 2:22 PM EST documented as of this encounter Care Teams Staff Radiographer Relationship Specialty Start Date End Date Name, MD Jose [address] [place] [address] PCP - General Family Medicine 11/11/15 Nasir Buenrostro FNP [address] [place] [address] Nurse Practitioner Family Medicine 05/24/23 Gudelia Beach Electronics InspectorColor Control Operator 03/10/23 documented as of this encounter
--- OUTSIDE RECORDS SUMMARY | 2024-09-25 13:30 | XMS_ITS | Encounter Summary ---
Author Organization [employer] [facility] Address [address] [place] [address] 7t [place] [address] Care Team Providers Care Roller Printing Supervisor Name Role Phone Name, Jose SAVAGE Primary Care Provider [phone] Nasir Buenrostro Unavailable Unavailable Reason for Visit * Reason Comments Med Refill Encounter Details Date Type Department Care Team (Late st Contact Info) Description 01/04/2023 Refill [facility] MEDICINE [address] [place] [phone] Nasir Buenrostro FNP Mood disorder (CMS/HCC) Social [...] Description 12/18/2024 10:45 AM EDT Office Visit [facility] MEDICINE [address] [place] [address] Name, MD Jose [address] [place] [address] 02/27/2025 1:00 PM EDT Office Visit [facility] ADULT DENTAL [address] [place] [address] Gwen Zamudio [address] [place], [place] [phone] documented as of this encounter Visit Diagnoses Diagnosis Mood disorder (CMS/HCC) Unspecified episodic mood disorder documented in this encounter Additional Health Concerns Assessment Noted Time PHQ-9 Depression Total Score: 8 12/28/19 23 2:59 PM EDT documented as of this encounter Care Teams Roller Printing Supervisor Relationship Specialty Start Date End Date Name, MD Jose [address] [place] [address] PCP - General Family Medicine 11/11/15 Nasir Buenrostro FNP [address] [place] [address] Nurse Practitioner Family Medicine 05/24/23 Gudelia Beach Laboratory CoordinatorTeacher Aide 03/10/23 documented as of this encounter
--- OUTSIDE RECORDS SUMMARY | 2024-09-25 13:30 | XMS_ITS | Encounter Summary ---
Author Organization [employer] Address [address] [facility] 7t [place] [address] Care Team Providers Care Inspection Supervisor Name Role Phone Name, Jose SAVAGE Primary Care Provider [phone] Nasir Buenrostro Unavailable Unavailable Reason for Visit * Reason Comments Med Refill Encounter Details Date Type Department Care Team ([facility] Contact Info) Description 01/18/2024 Refill [facility] MEDICINE [address] [place], [place] [phone] Name, MD Jose [address] [place] [address] Asthma, unspecified asthma severity, unspecified whether complicated, [...] Description 12/18/2024 10:45 AM EDT Office Visit [facility] MEDICINE [address] [place] [address] Name, MD Jose [address] [place] [address] 02/27/2025 1:00 PM EDT Office Visit [facility] ADULT DENTAL [address] [place] [address] Gwen Zamudio [address] [place] [address] documented as of this encounter Visit Diagnoses Diagnosis Asthma, unspecified asthma severity, unspecified whether complicated, unspecified whether persistent documented in this encounter Additional Health Concerns Assessment Noted Time PHQ-9 Depression Total Score: 9 06/06/20 23 2:22 PM EST documented as of this encounter Care Teams Inspection Supervisor Relationship Specialty Start Date End Date Jose Baez MD [address] [place] [address] PCP - General Family Medicine 11/11/15 Nasir Buenrostro FNP [address] [place] [address] Nurse Practitioner Family Medicine 05/24/23 Gudelia Beach Automobile DetailerPredator Control Trapper 9/21/23 documented as of this encounter
--- OUTSIDE RECORDS SUMMARY | 2024-09-25 13:30 | XMS_ITS | Encounter Summary ---
Author Organization [employer] [facility] Address [address] [facility] 7t [place] [address] Care Team Providers Care 8Th Grade Teacher Name Role Phone Name, Jose SAVAGE Primary Care Provider [phone] Nasir Buenrostro Unavailable Unavailable Reason for Visit * Reason Onset Date Comments shade/tryin or finish 09/10/2022 case not ready 09/10/2022 Encounter Details Date Type Department Care Team ([facility] st Contact Info) Description 09/10/2022 Telephone [facility] ADULT DENTAL [address] [place] [address] Elizabeth Condon DDS [address] [place], [place] [phone] shade/tryin or finish; case not ready Social [...] - 09/10/2022 2:17 PM EDT Nelli from [employer] called stating they need a shade and to find out if its a wax try in or to finish . documented in this encounter Plan of Treatment Upcoming Encounters Date Type Department Care Team (Late st Contact Info) Description 12/18/2024 10:45 AM EDT Office Visit [facility] MEDICINE [address] [place], [place] [phone] Name, MD Jose [address] [place] [address] 02/27/2025 1:00 PM EDT Office Visit [facility] ADULT DENTAL [address] [place] [address] Gwen Zmaudio [address] [place] [address] documented as of this encounter Visit Diagnoses Not on filedocumented in this encounter Additional Health Concerns Assessment Noted Time PHQ-9 Depression Total Score: 5 08/24/19 23 2:37 PM EST documented as of this encounter Care Teams 8Th Grade Teacher Relationship Specialty Start Date End Date Name, MD Jose [address] [place] [address] PCP - General Family Medicine 11/11/15 Nasir Buenrostro FNP [address] [place] [address] Nurse Practitioner Family Medicine 05/24/23 Gudelia Beach Costing ManagerAdmin Assistant 03/10/23 documented as of this encounter
--- OUTSIDE RECORDS SUMMARY | 2024-09-25 13:30 | XMS_ITS | Encounter Summary ---
Author Organization [employer] Address [address] 7t [place] [address] Care Team Providers Care Sex Offender Treatment Professional Name Role Phone Name, Jose SAVAGE Primary Care Provider [phone] Nasir Buenrostro Unavailable Unavailable Reason for Visit * Reason Comments Med Refill Encounter Details Date Type Department Care Team ([facility] Contact Info) Description 11/02/2023 Refill [facility] MEDICINE [address] [place] [address] Nasir Buenrostro FNP Mood disorder (CMS/HCC) Social [...] Description 12/18/2024 10:45 AM EDT Office Visit [facility] MEDICINE [address] [place] [address] Name, MD Jose [address] [place] [address] 02/27/2025 1:00 PM EDT Office Visit [facility] ADULT DENTAL [address] [place] [address] Lizz, Gwen [address] [place] [address] documented as of this encounter Visit Diagnoses Diagnosis Mood disorder (CMS/HCC) Unspecified episodic mood disorder documented in this encounter Additional Health Concerns Assessment Noted Time PHQ-9 Depression Total Score: 9 06/06/20 23 2:22 PM EST documented as of this encounter Care Teams Sex Offender Treatment Professional Relationship Specialty Start Date End Date Name, MD Jose [address] [place] [address] PCP - General Family Medicine 11/11/15 Nasir Buenrostro FNP [address] [place] [address] Nurse Practitioner Family Medicine 05/24/23 Gudelia Beach Ore PuncherLime Slaker 03/10/23 documented as of this encounter
--- OUTSIDE RECORDS SUMMARY | 2024-09-25 13:30 | XMS_ITS | Encounter Summary ---
Author Organization [employer] [facility] Address [address] [place] [address] 7t [place] [address] Care Team Providers Care Hardware Installer Name Role Phone Name, Jose SAVAGE Primary Care Provider [phone] Nasir Buenrostro Unavailable Unavailable Reason for Visit * Reason Comments Med Refill Encounter Details Date Type Department Care Team (Late st Contact Info) Description 03/14/2023 Refill [facility] MEDICINE [address] [place] [address] Nasir Buenrostro FNP Mood disorder (CMS/HCC) Social [...] Description 12/18/2024 10:45 AM EDT Office Visit [facility] MEDICINE [address] [place] [address] Name, MD Jose [address] [place] [phone] 02/27/2025 1:00 PM EDT Office Visit [facility] ADULT DENTAL [address] [place] [address] Gwen Zamudio [address] [place], [place] [phone] documented as of this encounter Visit Diagnoses Diagnosis Mood disorder (CMS/HCC) Unspecified episodic mood disorder documented in this encounter Additional Health Concerns Assessment Noted Time PHQ-9 Depression Total Score: 7 02/09/20 23 1:43 PM EDT documented as of this encounter Care Teams Hardware Installer Relationship Specialty Start Date End Date Name, MD Jose [address] [place] [address] PCP - General Family Medicine 11/11/15 Nasir Buenrostro FNP [address] [place] [address] Nurse Practitioner Family Medicine 05/24/23 Gudelia Beach House ShorerInspector Fabric 03/10/23 documented as of this encounter
--- OUTSIDE RECORDS SUMMARY | 2024-09-25 13:30 | XMS_ITS | Clinical Summary ---
Author Organization [employer] Address [address] [facility] 7t [place] [address] Care Team Providers Care Open Pit Quarry Supervisor Name Role Phone Name, Jose SAVAGE Primary Care Provider [phone] Nasir Buenrostro Unavailable Unavailable Allergies No known [...] as directed, since she does not read Sudanese (and has no one to help her [...] 10 mg. Rx's will be sent to [facility] for home delivery. F/U [...] feeling quite alone as family is in [place]. Has started with counseling. Today 06/06/2023 provider [...] Plan (02/23/2023 4:12 PM EDT): Pt repots [facility] for years. No evidence of infection or effusion. -PT referral done and Xray ordered 02/23/2023. Dog bite of arm, right, subsequent encounter 04/04/2023 Assessment & Plan (10/07/2022 1:39 PM EDT): Hospitalized at [facility] for 3 days for IV antibiotics, discharged on Augmentin and Bactrim for total of 21 days of abx therapy Counseled to finish abx as prescribed Letter given for work at [employer] for no heavy lifting x 14 days Edema of lower extremity 12/27/2016 Encounters Date Type Department Care Team Description 09/11/2024 Orders Only GENERIC EXTERNAL DATA DEPARTMENT Provider, Generic External Data 09/11/[address] [address] Mikki Contreras [place] appt change provider out 09/10/2024 Orders Only GENERIC EXTERNAL DATA DEPARTMENT Provider, Generic External Data 08/14/[address] [address] Shaista Sommers, RN Results 08/14/2024 Orders Only [address] [address] Mai Metzger CNM Left ovarian cyst (Primary Dx) 07/11/[address] [address] Rubina Naqvi, JOEL 07/10/2024 10:15 AM EST Procedure Visit [address] [place] [address] Mai Metzger CNM Screening examination for venereal disease (Primary Dx); Intermenstrual bleeding; Breast abscess 07/10/2024 Orders Only [facility] [address] [place] [address] Jose Baez MD 07/10/2024 Telephone [facility] MEDICINE [address] [place] [address] Mai Metzger CNM 07/10/2024 Travel 07/07/2024 Orders Only GENERIC EXTERNAL DATA DEPARTMENT Provider, Generic External Data 07/03/2024 1:30 PM EST Office Visit [facility] OPTOMETRY [address] [place] [address] Jus, Nasrin, OD Dry eyes, bilateral (Primary Dx); Early cataracts, bilateral; Subjective vision disturbance; Presbyopia of both eyes 07/03/2024 Travel 06/28/2024 Telephone [facility] [address] [place] [address] Mikki Contreras [place] feb recalls from Last [...] Description 12/18/2024 10:45 AM EDT Office Visit [facility] MEDICINE [address] [place] [address] Name, MD Jose [address] [place] [address] 02/27/2025 1:00 PM EDT Office Visit [facility] ADULT DENTAL [address] [place] [address] Lizz, Gwen [address] [place] [address] Health Maintenance Due Date Last Done Comments [...] 09/11/2024 12:02 PM EDT Comment:Breast Rt Narrative [facility] - 09/13/2024 9:11 AM EDT Gram stain results: 2+ polys 1+ epithelial cells 2+ red blood cells 2+ Gram-negative rods Coag negative Staphylococcus CBLD STANEG comment Unlikely pathogen; call Micro if full workup indicated. Quant Org ID 1+ Specimen Source: Breast Right us Generic External Data Provider LAB MICROBIOLOGY - GENERAL ORDERABLES Final Result [facility] [address] [place] [phone] * CT Chest w/ Contrast (09/10/2024 6:57 AM EDT) Anatomical Region Laterality Modality Body, Chest Computed Tomogra phy 09/10/2024 6:57 AM EDT Narrative 09/10/2024 6:59 AM EDT ? [facility] ?[address] ?[place] [address] ? CT Scan Report ? Signed with Addenda ? Patient: Gilda Harper,Mi Parish ?MR#: M ?? [id number] ? : 1980 ?Acct:[id number] ? Age/Sex: 44 / F ?ADM Date: 09/10/24 ? Loc: HO.ED ? Attending Dr: ? Ordering Physician: Marybel Allan MD ?? Date of Service: 09/10/24 ?? Procedure(s): CT chest w IV con ?? Accession Number(s): [id number] ? cc: Jose Baez MD; Marybel Allan MD ? Report Number: ?? [id number]: Total DLP = ??252.00 mGy-cm ?ADDENDUM ?? [...] Signed By: ? <Electronically signed by Gurvinder Alex MD in OV> ?09/10/24729 ?? Addendum Cosigned [...] DD/ 0657 ? TD/TT: 09/10/24 0657 ? Clockmaker Apprentice: ? Procedure Note Daphne, Image - 09/10/[address] [address] [address] Scan Report Signed with Addenda Patient: Mi Neville BMR#: M [id number] : 1980Acct:[id number] Age/Sex: 44 / FADM Date: 09/10/24 Loc: HO.ED Attending Dr: Ordering Physician: Marybel Allan MD Date of Service: 09/10/24 Procedure(s): CT chest w IV con Accession Number(s): [id number] cc: Name,Jose SAVAGE; Marybel Allan MD Report Number: [id number]: Total DLP = 252.00 mGy-cm ADDENDUM This [...] MD on 09/10/2024 06:57:37 Dictated By: Gurvinder Alxe MD Signed By: <Electronically signed by Gurvinder Alex MD in OV> 09/10/24657 DD/ 6 TD/TT: 09/10/24656 Clockmaker Apprentice: us [facility] External Provider IMG CT PROCEDURES Edited Result - Final * (ABNORMAL) CBC auto differential (09/10/2024 5:26 AM EDT) Only the most recent of2 resultswithin the time period is included. White Blood Count 13.8(H) 4.8 - 10.8 X10*3/uL [facility] Red Blood Count 3.93(L) 4.20 - 5.50 X10*6/uL [facility] Hemoglobin 12.1 12.0 - 16.0 g/dl [facility] Hematocrit 35.5(L) 37.0 - 47.0 % [facility] Mean Corpuscular Volume 90.3 80.0 - 98.0 fL [facility] Mean Corpuscular Hemoglobin 30.8 27.0 - 33.0 pg [facility] Mean Corpuscular HGB Conc 34.1 31.0 - 35.0 g/dl [facility] Red Cell Distribution Width 14.3 11.0 - 16.0 % [facility] Platelet Count 268 160 - 400 X10*3/uL [facility] Mean Platelet Volume 11.6 9.4 - 12.3 fL [facility] Neutrophils Percent Auto 68.0 45 - 73 % [facility] Imm Gran Pct Auto 0.4 0.0 - 0.4 % [facility] Lymphocytes Percent Auto 23.7 20 - 40 % [facility] Monocytes Percent Auto 6.2 2 - 11 % [facility] Eosinophils Percent Auto 1.3 0 - 4 % [facility] Basophils Percent Auto 0.4 0 - 2 % [facility] NRBC Pct Auto 0.0 0.0 - 0.2 /100WBC [facility] Neutrophils Absolute Auto 9.4(H) 2.0 - 8.3 x10*3/uL [facility] Imm Gran Abs Auto 0.06(H) 0.00 - 0.03 X10*3/uL [facility] Lymphocytes Absolute Auto 3.3 1.2 - 4.9 X10*3/uL [facility] Monocytes Absolute Auto 0.9 0.1 - 1.2 X10*3/uL [facility] Eosinophils Absolute Auto 0.2 0.0 - 0.4 X10*3/uL [facility] Basophils Absolute Auto 0.1 0.0 - 0.2 X10*3/uL [facility] NRBC Abs Auto 0.000 0.0 - 0.012 X10*3/uL [facility] 09/10/2024 5:26 AM EDT 09/10/2024 5:31 AM EDT us Generic External Data Provider LAB BLOOD ORDERAB LES Final Result [facility] [address] [place] [phone] * (ABNORMAL) Basic Metabolic Panel (09/10/2024 5:26 AM EDT) Only the most recent of2 resultswithin the time period is included. Sodium 139 135 - 145 mmol/L [facility] Potassium 3.9 3.3 - 5.1 mmol/L [facility] Comment:Slight Hemolysis.Int erpret result with caution. Chloride 114(H) 96 - 108 mmol/L [facility] Carbon Dioxide 19(L) 22 - 29 mmol/L [facility] Anion Gap 10(L) 12 - 20 [facility] Urea Nitrogen (BUN) 10 9 - 16 mg/dL [facility] Creatinine, Serum 0.63 0.5 - 1.4 mg/dL [facility] Creatinine Clr Calc Pharmacy 104.0 [facility] Comment:Provided height and weight: 154.94 cm,76 kg.eGFR (calculated from the MDRD study equation) and eCrCl(calculated from the Cockcroft-Gault equation) are based ondifferent parameters and may not yield comparable results.If eCrCl result is absurd, please check patient'sheight/weight. Estimated Glomerular Filt Rate >60 [facility] Comment:Chronic Kidney Disea se: Estimated GFR < 60 mL/min/1.75b7Ahclgb Kidney Disease: Estimated GFR < 15 mL/min/1.73m2 Glucose 96 60 - 115 mg/dL [facility] Calcium 8.5 8.4 - 10.2 mg/dL [facility] 09/10/2024 5:26 AM EDT 09/10/2024 5:31 AM EDT us Generic External Data Provider LAB BLOOD ORDERAB LES Final Result [facility] [address] [place] [phone] * US Pelvis Transvaginal (08/14/2024 2:00 PM EST) Anatomical Region Laterality Modality Pelvis Ultrasound 08/14/2024 2:00 PM EST Narrative 08/14/2024 2:52 PM EST ? [facility] ?[address] ?[place] [address] ? Ultrasound Report ? Signed ? Patient: Mi Neville ?MR#: M ?? [id number] ? : 1980 ?Acct:[id number] ? Age/Sex: 44 / F ?ADM Date: 08/14/24 ? Loc: HO.US ? Attending Dr: Mai Metzger CNM ? Ordering Physician: MAI METZGER CNM ?? Date of Service: 08/14/24 ?? Procedure(s): US pelvic and transvaginal ?? Accession Number(s): [id number] ? cc: Jose Baez MD; MAI METZGER [...] DD/ 1400 ? TD/TT: 08/14/24 1430 ? Clockmaker Apprentice: ? Procedure Note Kayla Serna - 08/14/[address] [address] Ultrasound Report Signed Patient: Mi Neville BMR#: M [id number] : 1980Acct:[id number] Age/Sex: 44 / FADM Date: 08/14/24 Loc: HO.US Attending Dr: Mai Metzger CNM Ordering Physician: MAI METZGER CNM Date of Service: 08/14/24 Procedure(s): US pelvic and transvaginal Accession Number(s): [id number] cc: Nestor,Jose SAVAGE; MAI METZGER CNM EXAMINATION: [...] 08/14/24 1449 DD/ 1400 TD/TT: 08/14/24 1430 Clockmaker Apprentice: Mai Metzger CNM IMG US PROCEDURES Final R esult * Syphilis Screen (07/10/2024 10:51 AM EST) Syphilis Screen Nonreactive Nonreactive [facility] Blood Venous blood specimen / Unknown 07/10/2024 10:51 AM EST 07/10/2024 11:27 AM EST Mai John [facility] LAB BLOOD ORDERABLES Zandra corona Result [facility] [address] [place] [phone] * Chlamydia/N. Gonorrhoeae RNA, TMA, Vagina [...] LABS - 07/10/2024 2:58 PM EST [facility]rine [facility] LAB MICROBIOLOGY - GENERA L ORDERABLES Final Result Performing Organization Address City/[facility]/ZIP Co de Phone Number [facility] [address] [place] [phone] * HIV-1/2 Antigen and Antibodies, Fourth Generation, with Reflexes (07/10/2024 10:51 AM EST) HIV AB/AG Nonreactive Nonreactive [facility] Comment:HIV-1 p24 Ag and/or HIV-1/HIV-2 Ab not detected.A test result that is nonreactive does not exclude thepossibility of exposure to or infection with HIV-1 and/orHIV-2. Nonreactive results in this assay for individualswith prior exposure to HIV-1 and/or HIV-2 may be due toantigen and antibody levels that are below the limit ofdetection of this assay.The [email or web address] HIV Ag/Ab Combo assay result andsupplemental assay results should be interpreted inconjunction with the patient's clinical presentation,history and other laboratory results. If the results areinconsistent with clinical evidence, additional testing issuggested to confirm the result. Blood Venous blood specimen / Unknown 07/10/2024 10:51 AM EST 07/10/2024 11:17 AM EST [facility] LAB BLOOD ORDERABLES Zandra l Result Performing Organization Address [facility]/ZIP Co de Phone Number [facility] [address] [place] [phone] * (ABNORMAL) Bacterial Vaginosis (07/10/2024 10:34 [...] Result [facility] [address] [place] [address] [phone] * BI US Breast Limited Right (07/07/2024 8:57 PM EST) Anatomical Region Laterality Modality Breast Right Ultrasound 07/07/2024 8:57 PM EST Narrative 07/07/2024 8:59 PM EST ? [facility] ?[address] ?[place] [address] ? Ultrasound Report ? Signed ? Patient: Gilda Harper,Mi B ?MR#: M ?? [id number] ? : 1980 ?Acct:[id number] ? Age/Sex: 44 / F ?ADM Date: 01/18/25 ? Loc: HO.ED ? Attending Dr: ? Ordering Physician: Cate,June DO ?? Date of Service: 07/07/24 ?? Procedure(s): US breast RT limited ?? Accession Number(s): [id number] ? cc: June Esposito DO; Name,Jose SAVAGE [...] ? DD/ 56 ? TD/TT: 07/07/242056 ? Clockmaker Apprentice: ? Procedure Note Donestela, Image - 07/07/2024 [place] [address] Ultrasound Report Signed Patient: Mi Neville BMR#: M [id number] : 1980Acct:[id number] Age/Sex: 44 / FADM Date: 07/07/24 Loc: .ED Attending Dr: Ordering Physician: June Esposito DO Date of Service: 07/07/24 Procedure(s): US breast RT limited Accession Number(s): [id number] cc: June Esposito DO; Name,Jsoe SAVAGE CLINICAL HISTORY: redness, swelling concern for [...] in OV> 07/07/242058 DD/ 56 TD/TT: 07/07/242056 Clockmaker Apprentice: us [facility] External Provider IMG US PROCEDURES [...] GENERAL ORDERABLES Final Result Performing Organization Address [facility]/ZIP Co de Phone Number [facility] [address] [place] [phone] * Blood Culture (Second) (07/07/2024 6:23 PM EST) Blood Venous blood specimen / Unknown 07/07/2024 6:23 PM EST 07/07/2024 6:28 PM EST Comment:Blood Narrative [facility] - 07/12/2024 8:28 PM EST Blood Culture (Second) No growth after 5 days. Specimen Source: Blood Generic External Data Provider LAB MICROBIOLOGY - GENERAL ORDERABLES Final Result Performing Organization Address [facility] Co de Phone Number [facility] [address] [place] [phone] * Magnesium (07/07/2024 6:23 PM EST) Magnesium 2.1 1.6 - 2.6 mg/dL [facility] 07/07/2024 6:23 PM EST 07/07/2024 6:28 PM EST Generic External Data Provider LAB BLOOD ORDERAB LES Final Result Performing Organization Address [facility] Co de Phone Number [facility] [address] [place] [phone] * Lactic Acid (07/07/2024 6:23 PM EST) Lactic Acid 1.0 0.5 - 2.0 mmol/L [facility] 07/07/2024 6:23 PM EST 07/07/2024 6:28 PM EST Generic External Data Provider LAB BLOOD ORDERAB LES Final Result Performing Organization Address [facility] de Phone Number [facility] [address] [place] [phone] * Hepatic Function Panel (07/07/2024 6:23 [...] 6:23 PM EST 07/07/2024 6:28 PM EST Rewarder External Data Provider LAB BLOOD ORDERAB LES Final Result Performing Organization Address [facility] de Phone Number [facility] [address] [place] [phone] * Hepatitis C Antibody with Reflex [...] ORDERABLES Final Resul t Performing Organization Address [facility] Co de Phone Number [facility] [address] [place] [phone] * Image-Guided Pap with Age-Based Screening??with CT/NG,??Trichomonas (06/09/2023 2:00 PM EST) Trichomonas (NAAT) NOT DETECTED NOT DETECTED [facility] Comment:The analytical perfo rmance characteristics of thisassay have been determined by [employer]. Themodifications have not been cleared or approved bythe FDA. This assay has been validated pursuant to theCLIA regulations and is used for clinical purposes.For additional information, please refer tohttp://education.Liiiike/faq/Trichomonastma(This link is being provided for information/educational purposes only.)THIS TEST WAS PERFORMED AT:[employer] [place] [phone] CALIX MD CTNG Ref Lab NOT DETECTED NOT DETECTED [facility] NG Ref Lab NOT DETECTED NOT DETECTED [facility] Cervix 06/09/2023 2:00 PM EST 06/10/2023 8:30 AM EST Mai HUNT LAB CYTOLOGY ORDERABLES F inal Result Performing Organization Address [facility] Co de Phone Number [facility] [address] [place] [phone] * HPV mRNA E6/E7 w/Reflex to HPV Genotypes 16, 18/45 (06/09/2023 2:00 PM EST) HPV nRNA E6/E7 SEE NOTE [facility] Comment:HPV mRNA E6/E7: Not Detected Reference range: Not DetectedMethodology: Field Artillery Fire Control Man-Mediated AmplificationThis assay detects E6/E7 viral messenger RNA (mRNA) from 14high-risk HPV types(16,18,31,33,35,39,45,51,52,56,58,59,66,68).Cervical sources are required for HPV testing.If a vaginal source from a patient who has had atotal hysterectomy with removal of cervix wassubmitted, please contact the testing laboratoryfor alternative testing options.For additional information, please refer tohttp://education.Liiiike/faq/RJU522s6(This link if provided for information/educational purposes only.)Site InformationMobile [facility] [employer]- [facility] [place] [phone] Laboratory Director: Aury Calix M.D. HPV mRNA E6/E7 [facility] HPV 16 RNA [facility] HPV 18/45 RNA [facility] 06/09/2023 2:00 PM EST 06/10/2023 8:30 AM EST us Mai Metzger CN LAB CYTOLOGY ORDERABLES F inal Result [facility] [address] [place] [address] [phone] * Lipid Panel, Standard (04/06/2023 10:44 AM EDT) Triglycerides 79 <150 mg/dL [facility] Comment:Desirable Triglyceri de: less than [...] 190 mg/dL HDL Cholesterol 42 >40 mg/dL [facility] Comment:Desirable HDL: great er than 40 mg/dL Note: This HDL assay may give artificially low results in patients with liver disease. Blood Venous blood specimen / Unknown 04/06/2023 10:44 AM EDT 04/06/2023 11:01 AM EDT us Jose Baez MD LAB BLOOD ORDERABLES Final Resul t [facility] [address] [place] [phone] from Last 3 Months or Most Recently Relevant to Health Maintenance Insurance HSN PARTIAL [facility] - HSN PARTIAL (MEDICAID) Care Teams Open Pit Quarry Supervisor Relationship Specialty Start Date End Date Name, MD Jose [address] [place] [address] PCP - General Family Medicine 11/11/15 Nasir Buenrostro FNP [address] [place] [address] Nurse Practitioner Family Medicine 05/24/23 [place] Cd Manufacturing SupervisorRefrigeration Engine Operator 03/10/23
--- OUTSIDE RECORDS SUMMARY | 2024-09-25 13:30 | XMS_ITS | Encounter Summary ---
Author Organization [facility] Address [address] [facility] 7t [place] [address] Care Team Providers Care Window Shade Ring Coverer Name Role Phone Name, Jose SAVAGE Primary Care Provider [phone] Nasir Buenrostro Unavailable Unavailable Encounter Details Date Type Department Care Team (Latest Contact Info) Description 11/04/2020 Abstract [facility] CONVERSIONS Dental, Provider, DDS Social [...] Description 12/18/2024 10:45 AM EDT Office Visit [facility] MEDICINE [address] [place] [phone] Jose Baez MD [address] [place] [address] 02/27/2025 1:00 PM EDT Office Visit [facility] ADULT DENTAL [address] [place] [address] Luciano Zamudioaris [address] [place] [address] documented as of this encounter Visit Diagnoses Not on filedocumented in this encounter Care Teams Window Shade Ring Coverer Relationship Specialty Start Date End Date Jose Baez MD [address] [place] [address] PCP - General Family Medicine 11/11/15 Nasir Buenrostro FNP [address] [place], [place] [address] [address] Nurse Practitioner Family Medicine 05/24/23 [place] Interim ControllerSawmill Or Timber Yard Worker 03/10/23 documented as of this encounter
== END 2024-09-25 11:05 | disposition home or self-care (01) ==
LOC: HO.US 11:04
PROVIDERS: PCP Internal Medicine Geriatric Medicine; Visit Provider Advanced Practice Midwife
DX: N83.202 Unspecified ovarian cyst, left side (principal)
CPT/HCPCS: 76830; 76856

== ENCOUNTER → 2024-09-25 11:06 | Outpatient (BNV) | payer OTHER, SELFPAY | PROVIDERS: PCP Internal Medicine Geriatric Medicine; Visit Provider Radiology Diagnostic Radiology | DX: N83.202 Unspecified ovarian cyst, left side (principal) | CPT/HCPCS: 76830; 76856 ==

== ENCOUNTER 2024-10-18 11:54 | Outpatient (REF) | payer MEDICAID, SELFPAY ==
--- NOTE | ~2024-10-18 | US_ITS ---
EXAMINATION: MM DIAGNOSTIC DIGITAL BREAST TOMOSYNTHESIS, BILATERAL Limited right breast ultrasound. CLINICAL INFORMATION: History of right breast abscess status post incision and drainage late August early September 2024. Follow-up ultrasound and diagnostic mammogram requested. COMPARISON: Mammography: Comparison is made with relevant prior exams. TECHNIQUE: Digital breast mammography with tomosynthesis is performed in both the craniocaudal and mediolateral oblique views along with computer-aided detection (CAD). FINDINGS: The breasts are heterogeneously dense, which may obscure small masses (ACR BI-RADS breast composition Category c). Left: There are no significant masses, abnormal calcifications, or other abnormalities. Right: Post procedural changes of incision and drainage are noted. No suspicious masses calcifications or other abnormal findings. Targeted color Doppler ultrasound scanning in the retroareolar region site of prior abscess infection and recent incision and drainage demonstrates postprocedural changes. There is minimal edema and skin thickening. No suspicious sonographic findings. Results are provided to the patient at time of visit by the technologist. US/US breast RT limited mamm only IMPRESSION: Left: Negative. Right: Status post incision and drainage one month ago with postprocedural changes and minimal edema/skin thickening. No fluid collection or drainable fluid collection. Minimal postprocedural changes. Recommend 6 month follow-up ultrasound for further evaluation of stability and until resolution to exclude underlying malignancy. ASSESSMENT: BI-RADS BI-RADS 3 - Probably benign finding(s) - 6 month follow-up suggested RECOMMENDATION: 6 Month F/U This patient's information was entered into a reminder system with a target due date for their next mammogram. Electronically signed by: Antonieta Aguayo DO 10/18/2024 01:12 PM EDT
== END 2024-10-18 11:55 | disposition home or self-care (01) ==
LOC: HO.MAMMO 11:54
PROVIDERS: PCP Internal Medicine Geriatric Medicine; Visit Provider Emergency Medicine
DX: N61.1 Abscess of the breast and nipple (principal)
CPT/HCPCS: 76642; 77062; 77066

== ENCOUNTER → 2024-10-18 12:00 | Outpatient (BNV) | payer MEDICAID, SELFPAY | PROVIDERS: PCP Internal Medicine Geriatric Medicine; Visit Provider Internal Medicine | DX: N61.1 Abscess of the breast and nipple (principal); N63.20 Unspecified lump in the left breast, unspecified quadrant | CPT/HCPCS: 76642; 77062; 77066 ==

== ENCOUNTER 2024-10-26 10:37 | Outpatient (AMB) | payer MEDICAID, SELFPAY ==
--- NOTE | 2024-10-26 10:42 | A.OFFVIS_ITS ---
Vital Signs 10/26/24 10:54 Height 5 ft 1 in Weight 167 lb BMI 31.6 BP 138/63 Pulse 68 Intake Visit Reasons: breast abscess/cellulitis follow up, leaking Intake Note: Patient is seen in office for wound check, breast abscess. Pt c/o: admits to discharge for the past few weeks, area is red and small opening Fulfillment Coordinator Required: No Rn Registry: Rn Registry Present Accompanied by: Self / Same As Patient Allergies No Known Allergies [No Known Allergies*] Allergy (Verified 10/26/24 10:53) HPI Comments Details: 44-year-old female patient status post incision and drainage of a right breast abscess on 09/11/2024. A large abscess was noted. She returned on 09/18/2024 to remove the packing. She initially did well but recently began to have increased redness and pain. She removed her nipple piercing but continued to have the pain. She notes some purulence discharge from the incision and drainage site. She denies any fever or chills. She underwent mammogram and ultrasound on 10/18/2024. This revealed post incision and drainage changes in the right breast as expected however no suspicious findings were noted. A six-month follow-up u ltrasound was recommended (BI-RADS 3). [facility] Medical History Eroded bladder suspension mesh Left breast mass Family History Mother No problems noted. Mother No problems noted. Father No problems noted. Social History Household Members: Other Household Members Other:: self Housing: Apartment Do you presently have visiting nurse or other home services: No Alcohol intake: current Alcohol intake frequency: holidays/special occasions only Patient Tobacco Use Status: Current everyday Tobacco user Tobacco use type: Cigarette Cigarettes Per Day: 3 Years Smoked: 10 Second Hand Smoke Exposure: No Substance Use Type: Marijuana Review of Systems Const All systems reviewed & are unremarkable except as noted in HPI and below Physical Exam Const General: no acute distress Nutritional Appearance: well nourished Orientation/consciousness: patient oriented x3 Chest Other: Right breast: Small punctate opening noted in the 3 o'clock position at the margin of the areola. Underlying phlegmon is palpable without any fluctuance. The skin is slightly erythematous. No evidence of abscess at this time. Skin Other: Abscess right breast as noted above otherwise normal Neuro General: patient oriented x3 Assessment & Plan Assessment & Plan (1) Abscess of breast, right: Code(s): N61.1 - Abscess of the breast and nipple Category: Medical Plan Patient is now status post incision and drainage approximately 2 months but developed increased redness and firmness at the same site of the right breast, 3 o'clock position. There was no evidence of an abscess at this time although she has had some pus draining from the incision. I recommended restarting the antibiotics. She will return in 2 weeks for follow-up examination. Medications: Refilled doxycycline hyclate 100 mg PO BID 20 tabs 0RF Coding Level of Care Code Est Pt Level 3 (84830) Diagnoses Abscess of breast, right N61.1
[2024-10-26 10:54] VITALS: BP 138/63; PULSE 68; BMI 31.6
--- OUTSIDE RECORDS SUMMARY | 2024-10-26 11:04 | XMS_ITS | Encounter Summary ---
Author Organization [employer] Address [address] [place] [address] [address] [place] [address] Care Team Providers Care Computational Chemist Name Role Phone Name, Jose SAVAGE Primary Care Provider [phone] Nasir Buenrostro Unavailable Unavailable Reason for Visit * Reason Comments Med Refill Encounter Details Date Type Department Care Team (Late st Contact Info) Description 03/14/2023 Refill [facility] MED[facility] [address] [place] [id number] Nasir Buenrostro FNP Mood disorder (CMS/HCC) Social [...] Description 12/18/2024 10:45 AM EDT Office Visit [facility] [address] [place] [address] NameJose MD [address] [place] [address] 02/27/2025 1:00 PM EDT Office Visit [facility] ADULT DENTAL [address] [place] [address] Gwen Zamudio [address] [place] [address] documented as of this encounter Visit Diagnoses Diagnosis Mood disorder (CMS/HCC) Unspecified episodic mood disorder documented in this encounter Additional Health Concerns Assessment Noted Time PHQ-9 Depression Total Score: 7 02/09/20 23 1:43 PM EDT documented as of this encounter Care Teams Computational Chemist Relationship Specialty Start Date End Date Name, MD Jose [address] [place] [address] PCP - General Family Medicine 11/11/15 Nasir Buenrostro FNP [address] [place] [address] Nurse Practitioner Family Medicine 05/24/23 [place] Chief Informatics OfficerStereotype Molder 03/10/23 documented as of this encounter
--- OUTSIDE RECORDS SUMMARY | 2024-10-26 11:04 | XMS_ITS | Encounter Summary ---
Author Organization [employer] Address [address] [facility] [address] [place] [address] Care Team Providers Care Utilization Review Nurse Name Role Phone Name, Jose SAVAGE Primary Care Provider [phone] Nasir Buenrostro Unavailable Unavailable Reason for Visit * Reason Comments Med Refill Encounter Details Date Type Department Care Team ([facility] st Contact Info) Description 01/18/2024 Refill [facility] [address] [place], [place] [phone] Name, MD Jose [address] [place] [address] Asthma, unspecified asthma severity, unspecified whether complicated, [...] Office Visit [facility] [address] [place] [phone] Name, MD Jose [address] [place] [phone] 02/27/2025 1:00 PM EDT Office Visit [facility] ADULT DENTAL [address] [place] [phone] Gwen Zamudio [address] [place] [address] documented as of this encounter Visit Diagnoses Diagnosis Asthma, unspecified asthma severity, unspecified whether complicated, unspecified whether persistent documented in this encounter Additional Health Concerns Assessment Noted Time PHQ-9 Depression Total Score: 9 06/06/20 23 2:22 PM EST documented as of this encounter Care Teams Utilization Review Nurse Relationship Specialty Start Date End Date Jose Baez MD [address] [place] [id number] PCP - General Family Medicine 11/11/15 Nasir Buenrostro FNP [address] [place] [id number] Nurse Practitioner Family Medicine 05/24/23 [place] Operating Room Surgical TechnicianTrailer Chief 03/10/23 documented as of this encounter
--- OUTSIDE RECORDS SUMMARY | 2024-10-26 11:04 | XMS_ITS | Encounter Summary ---
Author Organization [employer] Address [address] [facility] 7[address] [place] [address] Care Team Providers Care Separator Operator Name Role Phone Name, Jose SAVAGE Primary Care Provider Nasir Buenrostro Unavailable Unavailable Encounter Details Date Type Department Care Team ([facility] Contact Info) Description 10/05/2022 Abstract [facility] [address] [place] [address] Name, MD Jose [address] [place] [address] [phone] Social History Tobacco Use Types Packs/Day Years [...] Description 12/18/2024 10:45 AM EDT Office Visit [facility] [address] [place] [address] Name, MD Jose [address] [place] [address] [phone] 02/27/2025 1:00 PM EDT Office Visit [facility] ADULT DENTAL [address] [place], [place] [phone] Gwen Zamudio [address] [place] [address] documented as of this encounter Procedures Procedure Name Priority Date/Time Associated Diagnosis Comments PAP SMEAR Routine 12/29/2017 12:00 AM EDT documented in this encounter Results * Pap Smear (12/29/2017 12:00 AM EDT) Swab us Historical Provider LAB CYTOLOGY ORDERABLES F inal Result [facility] [address] [place] [address], [place] [address] documented in this encounter Visit Diagnoses Not on filedocumented in this encounter Additional Health Concerns Assessment Noted Time PHQ-9 Depression Total Score: 5 08/24/19 23 2:37 PM EST documented as of this encounter Care Teams Separator Operator Relationship Specialty Start Date End Date Name, MD Jose [address] [place] [phone] PCP - General Family Medicine 11/11/15 Nasir Buenrostro FNP [address] [place] [phone] Nurse Practitioner Family Medicine 05/24/23 [place] [employer] 03/10/23 documented as of this encounter
--- OUTSIDE RECORDS SUMMARY | 2024-10-26 11:04 | XMS_ITS | Clinical Summary ---
Author Organization [employer] Address [address] [facility] [address] [place] [address] Care Team Providers Care Paper Wrapping Machine Operator Name Role Phone Name, Jose SAVAGE Primary Care Provider [phone] Nasir Buenrostro Unavailable Unavailable Allergies No known [...] needed for wheezing. 75 mL 11 4 Active Fluticasone-Melchor meterol (Advair Diskus) 250-50 MCG/ACT [...] as directed, since she does not read Maltese (and has no one to help her [...] 10 mg. Rx's will be sent to [facility] for home delivery. F/U with [...] feeling quite alone as family is in [place]. Has started with counseling. Today 06/06/2023 provider [...] Plan (02/23/2023 4:12 PM EDT): Pt repots [facility] for years. No evidence of infection or effusion. -PT referral done and Xray ordered 02/23/2023. Dog bite of arm, right, subsequent encounter 04/04/2023 Assessment & Plan (10/07/2022 1:39 PM EDT): Hospitalized at [facility] for 3 days for IV antibiotics, discharged on Augmentin and Bactrim for total of 21 days of abx therapy Counseled to finish abx as prescribed Letter given for work at [employer] for no heavy lifting x 14 days Edema of lower extremity 12/27/2016 Encounters Date Type Department Care Team Description 10/18/2024 Orders Only [facility] External Provider, [facility] 09/26/2024 Telephone [facility] [address] [place] [phone] Prisca Yu, RN Results 09/11/2024 Orders Only GENERIC EXTERNAL DATA DEPARTMENT Provider, Generic External Data 09/11/[address] [address] Mikki Contreras [place] appt change provider out 09/10/2024 Orders Only GENERIC EXTERNAL DATA DEPARTMENT Provider, Generic External Data 08/14/[address] [address] Shaista Sommesr, JOEL Results 08/14/2024 Orders Only [address] [address] Mai Metzger CNM Left ovarian cyst (Primary Dx) from Last 3 Months Immunizations Name Administration [...] Description 12/18/2024 10:45 AM EDT Office Visit [facility] [address] [place] [phone] Name, MD Jose [address] [place] [address] 02/27/2025 1:00 PM EDT Office Visit [facility] [address] [place] [address] Gwen Zamudio [address] [place] [address] Health Maintenance Due Date Last Done Comments CT Colonography 1978 Colonoscopy 1978 Colorectal Cancer Screening 1978 Dental Prophylaxis 1978 FIT DNA/Cologuard 1978 FIT 1978 FOBT 1978 Sigmoidoscopy 1978 COVID-19 Vaccine ( season) 2024 01/25/2022, 02/09/2021, 11/22/2020 Influenza Vaccine (#1) 2024 , 05/08/2020, 03/21/2019, Additional history exists Depression Screening 06/06/2024 06/06/2023, 06/06/20 Dental Oral Exam 08/04/2024 02/01/2024 SDOH Screening 10/13/2024 10/14/2023 Alcohol/Substance Use Screening 01/31/2025 02/01/2024 Dental X-Ray: Bitewings 02/01/2025 02/01/2024 Family Planning (PISQ) 07/10/2025 07/10/2024 Tobacco Screening 07/20/2025 07/20/2024 Mammogram 10/18/2025 10/18/2024, 05/06/2024, 07/07/2024, Additional history exists Dental X-Ray: Full Mouth 02/01/2027 02/01/2024 Zoster [...] Comments BI US BREAST LIMITED RIGHT Routine 10/18/2024 12:30 PM EDT BI MAMMOGRAM DIAGNOSTIC TOMOSYNTHESIS BILATERAL Routine 10/18/2024 12:00 PM EDT US PELVIS TRANSVAGINAL Routine 6:16 PM EDT Left ovarian cyst GRAM STAIN Routine 09/11/2024 8:[address] CHEST W CONTRAST Routine 09/10/2024 6 :57 AM EDT BASIC METABOLIC PANEL Routine 09/10/2024 5:26 AM EDT CBC WITH AUTO DIFFERENTIAL Routine 09/10/2024 5:26 AM EDT US PELVIS TRANSVAGINAL Urgent 2:00 PM EST Intermenstrual bleeding HIV 1/2 ANTIGEN/ANTIBODY, FOURTH GENERATION W/RFL Routine 07/10/2024 10:51 AM EST Screening examination for venereal disease HEPATITIS C AB W/REFL TO HCV RNA, [...] Results * BI US Breast Limited Right (10/18/2024 12:30 PM EDT) Anatomical Region Laterality Modality Breast Right Ultrasound 10/18/2024 12:3 0 PM EDT Narrative 10/18/2024 1:15 PM EDT ? [facility] ? [address] ?[place] [address] ? Ultrasound Report ? Signed ? Patient: Mi Neville ?MR#: M ?? [id number] ? : 1980 ?Acct:[id number] ? Age/Sex: 44 / F ?ADM Date: 10/18/24 ? Loc: HO.MAMMO ? Attending Dr: Marybel Allan MD ? Ordering Physician: Marybel Allan MD ?? Date of Service: 10/18/24 ?? Procedure(s): US breast RT limited mamm only ?? Accession Number(s): [id number] ? cc: Jose Baez MD; Marybel Allan MD ? EXAMINATION: ?? MM DIAGNOSTIC DIGITAL BREAST TOMOSYNTHESIS, BILATERAL ?? Limited right breast ultrasound. ? CLINICAL INFORMATION: ? History of right breast abscess status post incision and drainage late ?? August early September 2024. Follow-up ultrasound and diagnostic mammogram ?? requested. ? COMPARISON: ?? Mammography: Comparison is made with relevant prior exams. ? TECHNIQUE: ?? Digital breast mammography with tomosynthesis is performed in both the ?? craniocaudal and mediolateral oblique views along with computer-aided ?? detection (CAD). ? FINDINGS: ?? The breasts are heterogeneously dense, which may obscure small masses ?? (ACR BI-RADS breast composition Category c). ?? Left: ?? There are no significant masses, abnormal calcifications, or other ?? abnormalities. ? Right: ?? Post procedural changes of incision and drainage are noted. ?? No suspicious masses calcifications or other abnormal findings. ? Targeted color Doppler ultrasound scanning in the retroareolar region ?? site of prior abscess infection and recent incision and drainage ?? demonstrates postprocedural changes. There is minimal edema and skin ?? thickening. ?? No suspicious sonographic findings. ? Results are provided to the patient at time of visit by the ?? technologist. ? US/US breast RT limited mamm only ?? IMPRESSION: ?? Left: Negative. ? Right: Status post incision and drainage one month ago with ?? postprocedural changes and minimal edema/skin thickening. No fluid ?? collection or drainable fluid collection. Minimal postprocedural ?? changes. Recommend 6 month follow-up ultrasound for further evaluation ?? of stability and until resolution to exclude underlying malignancy. ? ASSESSMENT: ? BI-RADS BI-RADS 3 - Probably benign finding(s) - 6 month follow-up ?? suggested ? RECOMMENDATION: ?? 6 Month F/U ? This patient's information was entered into a reminder system with a ?? target due date for their next mammogram. ? Electronically signed by: ??Antonieta Aguayo DO ??10/18/2024 01:12 PM EDT ?? RP ? Dictated By: ?Antonieta Aguayo DO ? Signed By: ?<Electronically signed by Antonieta Aguayo, DO in OV> ? 10/18/24 1312 ? DD/ 1230 ? TD/TT: 10/18/24 1257 ? Outpatient Coder: ? Procedure Note Daphne, Image - 10/18/2024 [place] [facility] [address] [place] [address] Ultrasound Report Signed Patient: Mi Neville BMR#: M [id number] : 1980Acct:[id number] Age/Sex: 44 / FADM Date: 10/18/24 Loc: HO.MAMMO Attending Dr: Marybel Allan MD Ordering Physician: Marybel Allan MD Date of Service: 10/18/24 Procedure(s): US breast RT limited mamm only Accession Number(s): [id number] cc: Name,Jose SAVAGE; Marybel Allan MD EXAMINATION: MM DIAGNOSTIC DIGITAL BREAST TOMOSYNTHESIS, BILATERAL Limited right breast ultrasound. CLINICAL INFORMATION: History of right breast abscess status post incision and drainage late August early September 2024. Follow-up ultrasound and diagnostic mammogram requested. COMPARISON: Mammography: Comparison is made with relevant prior exams. TECHNIQUE: Digital breast mammography with tomosynthesis is performed in both the craniocaudal and mediolateral oblique views along with computer-aided detection (CAD). FINDINGS: The breasts are heterogeneously dense, which may obscure small masses (ACR BI-RADS breast composition Category c). Left: There are no significant masses, abnormal calcifications, or other abnormalities. Right: Post procedural changes of incision and drainage are noted. No suspicious masses calcifications or other abnormal findings. Targeted color Doppler ultrasound scanning in the retroareolar region site of prior abscess infection and recent incision and drainage demonstrates postprocedural changes. There is minimal edema and skin thickening. No suspicious sonographic findings. Results are provided to the patient at time of visit by the technologist. US/US breast RT limited mamm only IMPRESSION: Left: Negative. Right: Status post incision and drainage one month ago with postprocedural changes and minimal edema/skin thickening. No fluid collection or drainable fluid collection. Minimal postprocedural changes. Recommend 6 month follow-up ultrasound for further evaluation of stability and until resolution to exclude underlying malignancy. ASSESSMENT: BI-RADS BI-RADS 3 - Probably benign finding(s) - 6 month follow-up suggested RECOMMENDATION: 6 Month F/U This patient's information was entered into a reminder system with a target due date for their next mammogram. Electronically signed by: Antonieta Aguayo DO 10/18/2024 01:12 PM EDT Dictated By: Antonieta Aguayo DO Signed By: <Electronically signed by Antonieta Aguayo DO in OV> 10/18/24 1312 DD/ 1230 TD/TT: 10/18/24 1257 Outpatient Coder: [facility] External Provider IMG US PROCEDURES Final Result * BI Mammogram Diagnostic Tomosynthesis Bilateral (10/18/2024 12:00 PM EDT) Anatomical Region Laterality Modality Breast Bilateral Mammography 10/18/2024 12:0 0 PM EDT Narrative 10/18/2024 1:15 PM EDT ? [facility] ? [address] ?[place] [address] ?[phone] ? Mammography Report ? Signed ? Patient: Mi Neville ?MR#: M ?? [id number] ? : 1980 ?Acct:[id number] ? Age/Sex: 44 / F ?ADM Date: 10/18/24 ? Loc: HO.MAMMO ? Attending Dr: Marybel Allan MD ? Ordering Physician: Marybel Allan MD ?Results: 3.6MPr ?? obably Benign Finding - Short 6 M F/U Suggested ? Date of Service: 10/18/24 ?Follow Up: 6 Month F/U ? Procedure(s): MM tomosynthesis diagnostic BI ?? Accession Number(s): [id number] ? cc: Jose Baez MD; Marybel Allan MD ? EXAMINATION: ?? MM DIAGNOSTIC DIGITAL BREAST TOMOSYNTHESIS, BILATERAL ?? Limited right breast ultrasound. ? CLINICAL INFORMATION: ? History of right breast abscess status post incision and drainage late ?? AugustSeptember 2024. Follow-up ultrasound and diagnostic mammogram ?? requested. ? COMPARISON: ?? Mammography: Comparison is made with relevant prior exams. ? TECHNIQUE: ?? Digital breast mammography with tomosynthesis is performed in both the ?? craniocaudal and mediolateral oblique views along with computer-aided ?? detection (CAD). ? FINDINGS: ?? The breasts are heterogeneously dense, which may obscure small masses ?? (ACR BI-RADS breast composition Category c). ?? Left: ?? There are no significant masses, abnormal calcifications, or other ?? abnormalities. ? Right: ?? Post procedural changes of incision and drainage are noted. ?? No suspicious masses calcifications or other abnormal findings. ? Targeted color Doppler ultrasound scanning in the retroareolar region ?? site of prior abscess infection and recent incision and drainage ?? demonstrates postprocedural changes. There is minimal edema and skin ?? thickening. ?? No suspicious sonographic findings. ? Results are provided to the patient at time of visit by the ?? technologist. ? MM/MM tomosynthesis diagnostic BI ?? IMPRESSION: ?? Left: Negative. ? Right: Status post incision and drainage one month ago with ?? postprocedural changes and minimal edema/skin thickening. No fluid ?? collection or drainable fluid collection. Minimal postprocedural ?? changes. Recommend 6 month follow-up ultrasound for further evaluation ?? of stability and until resolution to exclude underlying malignancy. ? ASSESSMENT: ? BI-RADS BI-RADS 3 - Probably benign finding(s) - 6 month follow-up ?? suggested ? RECOMMENDATION: ?? 6 Month F/U ? This patient's information was entered into a reminder system with a ?? target due date for their next mammogram. ? Electronically signed by: ??Antonieta Aguayo DO ??10/18/2024 01:12 PM EDT ?? RP ? Dictated By: ?Antonieta Aguayo DO ? Signed By: ?<Electronically signed by Antonieta Aguayo, DO in OV> ? 10/18/24 1312 ? DD/ 1200 ? TD/TT: 10/18/24 1224 ? Outpatient Coder: ? Procedure Note Donotuseinterpreter, Image - 10/18/2024 [place] [facility] [address] [place] [address] Mammography Report Signed Patient: Mi Neville BMR#: M [id number] : 1980Acct:[id number] Age/Sex: 44 / FADM Date: 10/18/24 Loc: HO.MAMMO Attending Dr: Marybel Allan MD Ordering Physician: Marybel Allan MDResults: 3.6MPr obably Benign Finding - Short 6 M F/U Suggested Date of Service: 10/18/24Follow Up: 6 Month F/U Procedure(s): MM tomosynthesis diagnostic BI Accession Number(s): [id number] cc: Jose Baez MD; Marybel Allan MD EXAMINATION: MM DIAGNOSTIC DIGITAL BREAST TOMOSYNTHESIS, BILATERAL Limited right breast ultrasound. CLINICAL INFORMATION: History of right breast abscess status post incision and drainage late August early September 2024. Follow-up ultrasound and diagnostic mammogram requested. COMPARISON: Mammography: Comparison is made with relevant prior exams. TECHNIQUE: Digital breast mammography with tomosynthesis is performed in both the craniocaudal and mediolateral oblique views along with computer-aided detection (CAD). FINDINGS: The breasts are heterogeneously dense, which may obscure small masses (ACR BI-RADS breast composition Category c). Left: There are no significant masses, abnormal calcifications, or other abnormalities. Right: Post procedural changes of incision and drainage are noted. No suspicious masses calcifications or other abnormal findings. Targeted color Doppler ultrasound scanning in the retroareolar region site of prior abscess infection and recent incision and drainage demonstrates postprocedural changes. There is minimal edema and skin thickening. No suspicious sonographic findings. Results are provided to the patient at time of visit by the technologist. MM/MM tomosynthesis diagnostic BI IMPRESSION: Left: Negative. Right: Status post incision and drainage one month ago with postprocedural changes and minimal edema/skin thickening. No fluid collection or drainable fluid collection. Minimal postprocedural changes. Recommend 6 month follow-up ultrasound for further evaluation of stability and until resolution to exclude underlying malignancy. ASSESSMENT: BI-RADS BI-RADS 3 - Probably benign finding(s) - 6 month follow-up suggested RECOMMENDATION: 6 Month F/U This patient's information was entered into a reminder system with a target due date for their next mammogram. Electronically signed by: Antonieta Aguayo DO 10/18/2024 01:12 PM EDT Dictated By: Antonieta Aguayo DO Signed By: <Electronically signed by Antonieta Aguayo DO in OV> 10/18/24 1312 DD/ 1200 TD/TT: 10/18/24 1224 Outpatient Coder: [facility] External Provider IMG BI PROCEDURES Final Result * US Pelvis Transvaginal (09/25/2024 6:16 PM EDT) Only the most recent of2 resultswithin the time period is included. Anatomical Region Laterality Modality Pelvis Ultrasound 09/25/2024 6:16 PM EDT Narrative 09/25/2024 6:18 PM EDT ? [facility] ?[address] ?[place] [address] ? Ultrasound Report ? Signed ? Patient: Mi Neville ?MR#: M ?? [id number] ? : 1980 ?Acct:[id number] ? Age/Sex: 44 / F ?ADM Date: 09/25/24 ? Loc: HO.US ? Attending Dr: Mai Metzger CNM ? Ordering Physician: MAI METZGER CNSamra ?? Date of Service: 09/25/24 ?? Procedure(s): US pelvic and transvaginal ?? Accession Number(s): [id number] ? cc: Name,oJse SAVAGE; MAI METZGER CNM ? CLINICAL HISTORY: 6wk f u left ovarian cyst ? Ultrasound pelvis transabdominal and transvaginal. ? COMPARISON: US pelvis dated 08/14/24 at 14:01 EST ? Technique: Real time sonographic imaging, including color-flow imaging, ?? was performed by the gauge machine operator. Multiple sales account representative static images ?? were saved for review. ? FINDINGS: ?? Retroverted and retroflexed uterus appears normal and measures 9.3 x 4.8 x ?? 5.3 cm. No uterine fibroids identified. Nabothian cysts present. ?? Endometrium: 8 mm, normal. ? Right ovary measures 4.3 x 2.8 x 2.8 cm. Normal color Doppler. No right ?? adnexal mass identified. Dominant right ovarian cyst/follicle measuring up ?? to 3.1 cm. ?? Left ovary appears normal and measures 3.1 x 1.7 x 1.5 cm. Normal color ?? Doppler. No left adnexal mass identified. ? No free fluid identified in the pelvic cul-de-sac. ? IMPRESSION: ?? 1. No acute findings. No evidence of ovarian torsion. ?? 2. Interval resolution of previously seen likely hemorrhagic cyst within ?? the left ovary. ?? 3. Dominant right ovarian cyst/follicle measuring up to 3.1 cm. ? This document has been electronically signed by: Sean Moreno MD on ?? 09/25/2024 18:16:33 ? Dictated By: ?Sean Moreno MD ? Signed By: ?<Electronically signed by Sean Moreno MD in OV> ?09/25/247 ? DD/ 15 ? TD/TT: 09/25/241815 ? Outpatient Coder: ? Procedure Note Daphne, Image - 09/25/2024 [place] [address] Ultrasound Report Signed Patient: Mi Neville BMR#: M [id number] : 1980Acct:[id number] Age/Sex: 44 / FADM Date: 09/25/24 Loc: HO.US Attending Dr: Mai Metzger CNM Ordering Physician: MAI METZGER CNM Date of Service: 09/25/24 Procedure(s): US pelvic and transvaginal Accession Number(s): [id number] cc: Jose Baez MD; MAI METZGER CNM CLINICAL HISTORY: 6wk f u left ovarian cyst Ultrasound pelvis transabdominal and transvaginal. COMPARISON: US pelvis dated 08/14/24 at 14:01 EST Technique: Real time sonographic imaging, including color-flow imaging, was performed by the gauge machine operator. Multiple sales account representative static images were saved for review. FINDINGS: Retroverted and retroflexed uterus appears normal and measures 9.3 x 4.8 x 5.3 cm. No uterine fibroids identified. Nabothian cysts present. Endometrium: 8 mm, normal. Right ovary measures 4.3 x 2.8 x 2.8 cm. Normal color Doppler. No right adnexal mass identified. Dominant right ovarian cyst/follicle measuring up to 3.1 cm. Left ovary appears normal and measures 3.1 x 1.7 x 1.5 cm. Normal color Doppler. No left adnexal mass identified. No free fluid identified in the pelvic cul-de-sac. IMPRESSION: 1. No acute findings. No evidence of ovarian torsion. 2. Interval resolution of previously seen likely hemorrhagic cyst within the left ovary. 3. Dominant right ovarian cyst/follicle measuring up to 3.1 cm. This document has been electronically signed by: Sean Moreno MD on 09/25/2024 18:16:33 Dictated By: Sean Moreno MD Signed By: <Electronically signed by Sean Moreno MD in OV> 09/25/241816 DD/ 15 TD/TT: 09/25/241815 Outpatient Coder: Mai Metzger CNM IMG US PROCEDURES Final R esult * Gram stain (09/11/2024 8:36 AM EDT) 09/11/2024 8:36 AM EDT 09/11/2024 12:02 PM EDT Comment:Breast Rt Narrative [facility] - 09/13/2024 9:11 AM EDT Gram stain results: 2+ polys 1+ epithelial cells 2+ red blood cells 2+ Gram-negative rods Coag negative Staphylococcus CBLD STANEG comment Unlikely pathogen; call Micro if full workup indicated. Quant Org ID 1+ Specimen Source: Breast Right us Generic External Data Provider LAB MICROBIOLOGY - GENERAL ORDERABLES Final Result [facility] [address] [place] [address] [phone] * CT Chest w/ Contrast (09/10/2024 6:57 AM EDT) Anatomical Region Laterality Modality Body, Chest Computed Tomogra phy 09/10/2024 6:57 AM EDT Narrative 09/10/2024 6:59 AM EDT ? [facility] ?[address] ?[place] [address] ? CT Scan Report ? Signed with Addenda ? Patient: Mi Neville ?MR#: M ?? [id number] ? : 1980 ?Acct:[id number] ? Age/Sex: 44 / F ?ADM Date: 09/10/24 ? Loc: HO.ED ? Attending Dr: ? Ordering Physician: Marybel Allan MD ?? Date of Service: 09/10/24 ?? Procedure(s): CT chest w IV con ?? Accession Number(s): [id number] ? cc: Jose Baez MD; Marybel Allan MD ? Report Number: ?? [id number]: Total DLP = ??252.00 mGy-cm ?ADDENDUM ?? [...] by Gurvinder Alex MD in OV> ?09/10/24 0730 ?? Addendum Cosigned By: ? DD/ ? [...] by Gurvinder Alex MD in OV> ?09/10/24 06 ? DD/ 6 ? TD/TT: 09/10/24 0657 ? Outpatient Coder: ? Procedure Note Donotuseinterpreter, Image - 09/10/[address] [address] [address] Scan Report Signed with Addenda Patient: Mi Neville BMR#: M [id number] : 1980Acct:[id number] Age/Sex: 44 / FADM Date: 09/10/24 Loc: HO.ED Attending Dr: Ordering Physician: Marybel Allan MD Date of Service: 09/10/24 Procedure(s): CT chest w IV con Accession Number(s): [id number] cc: Name,Jose SAVAGE; Marybel Allan MD Report Number: [id number]: Total DLP = 252.00 mGy-cm ADDENDUM This [...] signed by Gurvinder Alex MD in OV> 09/10/24 0658 DD/ 6 TD/TT: 09/10/24656 Outpatient Coder: us [facility] External Provider IMG CT PROCEDURES Edited Result - Final * (ABNORMAL) CBC auto differential (09/10/2024 5:26 AM EDT) White Blood Count 13.8(H) 4.8 - 10.8 X10*3/uL [facility] Red Blood Count 3.93(L) 4.20 - 5.50 X10*6/uL [facility] Hemoglobin 12.1 12.0 - 16.0 g/dl [facility] Hematocrit 35.5(L) 37.0 - 47.0 % [facility] Mean Corpuscular Volume 90.3 80.0 - 98.0 fL [facility] Mean Corpuscular Hemoglobin 30.8 27.0 - 33.0 pg [facility] Mean Corpuscular HGB Conc 34.1 31.0 - 35.0 g/dl [facility] Red Cell Distribution Width 14.3 11.0 - 16.0 % [facility] Platelet Count 268 160 - 400 X10*3/uL [facility] Mean Platelet Volume 11.6 9.4 - 12.3 fL [facility] Neutrophils Percent Auto 68.0 45 - 73 % [facility] Imm Gran Pct Auto 0.4 0.0 - 0.4 % [facility] Lymphocytes Percent Auto 23.7 20 - 40 % [facility] Monocytes Percent Auto 6.2 2 - 11 % [facility] Eosinophils Percent Auto 1.3 0 - 4 % [facility] Basophils Percent Auto 0.4 0 - 2 % [facility] NRBC Pct Auto 0.0 0.0 - 0.2 /100WBC [facility] Neutrophils Absolute Auto 9.4(H) 2.0 - 8.3 x10*3/uL [facility] Imm Gran Abs Auto 0.06(H) 0.00 - 0.03 X10*3/uL [facility] Lymphocytes Absolute Auto 3.3 1.2 - 4.9 X10*3/uL [facility] Monocytes Absolute Auto 0.9 0.1 - 1.2 X10*3/uL [facility] Eosinophils Absolute Auto 0.2 0.0 - 0.4 X10*3/uL [facility] Basophils Absolute Auto 0.1 0.0 - 0.2 X10*3/uL [facility] NRBC Abs Auto 0.000 0.0 - 0.012 X10*3/uL [facility] 09/10/2024 5:26 AM EDT 09/10/2024 5:31 AM EDT us Generic External Data Provider LAB BLOOD ORDERAB LES Final Result [facility] [address] [place] [phone] * (ABNORMAL) Basic Metabolic Panel (09/10/2024 5:26 AM EDT) Sodium 139 135 - 145 mmol/L [facility] Potassium 3.9 3.3 - 5.1 mmol/L [facility] Comment:Slight Hemolysis.Int erpret result with caution. Chloride 114(H) 96 - 108 mmol/L [facility] Carbon Dioxide 19(L) 22 - 29 mmol/L [facility] Anion Gap 10(L) 12 - 20 [facility] Urea Nitrogen (BUN) 10 9 - 16 mg/dL [facility] Creatinine, Serum 0.63 0.5 - 1.4 mg/dL [facility] Creatinine Clr Calc Pharmacy 104.0 [facility] Comment:Provided height and weight: 154.94 cm,76 kg.eGFR (calculated from the MDRD study equation) and eCrCl(calculated from the Cockcroft-Gault equation) are based ondifferent parameters and may not yield comparable results.If eCrCl result is absurd, please check patient'sheight/weight. Estimated Glomerular Filt Rate >60 [facility] Comment:Chronic Kidney Disea se: Estimated GFR < 60 mL/min/1.31t2Xidoxb Kidney Disease: Estimated GFR < 15 mL/min/1.73m2 Glucose 96 60 - 115 mg/dL [facility] Calcium 8.5 8.4 - 10.2 mg/dL [facility] 09/10/2024 5:26 AM EDT 09/10/2024 5:31 AM EDT us Generic External Data Provider LAB BLOOD ORDERAB LES Final Result [facility] [address] [place] [phone] * HIV-1/2 Antigen and Antibodies, Fourth Generation, with Reflexes (07/10/2024 10:51 AM EST) HIV AB/AG Nonreactive Nonreactive [facility] Comment:HIV-1 p24 Ag and/or HIV-1/HIV-2 Ab not detected.A test result that is nonreactive does not exclude thepossibility of exposure to or infection with HIV-1 and/orHIV-2. Nonreactive results in this assay for individualswith prior exposure to HIV-1 and/or HIV-2 may be due toantigen and antibody levels that are below the limit ofdetection of this assay.The [employer] HIV Ag/Ab Combo assay result andsupplemental assay results should be interpreted inconjunction with the patient's clinical presentation,history and other laboratory results. If the results areinconsistent with clinical evidence, additional testing issuggested to confirm the result. Blood Venous blood specimen / Unknown 07/10/2024 10:51 AM EST 07/10/2024 11:17 AM EST Mai HUNT LAB BLOOD ORDERABLES Zandra l Result Performing Organization Address City/[facility]/ZIP Co de Phone Number [facility] [address] [place] [phone] * Hepatitis C Antibody with Reflex to HCV, RNA, Quantitative, Real-Time PCR (02/01/2024 3:49 PM EDT) Hepatitis C Antibody Nonreactive Nonreactive [facility] Comment:Antibodies to HCV no t detected; does not exclude early acuteHCV infection. Blood Venous blood specimen / Unknown 02/01/2024 3:49 PM EDT 02/01/2024 4:09 PM EDT Jose Baez MD LAB BLOOD ORDERABLES Final Resul t Performing Organization Address [facility] Co de Phone Number [facility] [address] [place] [phone] * Image-Guided Pap with Age-Based Screening??with CT/NG,??Trichomonas (06/09/2023 2:00 PM EST) Trichomonas (NAAT) NOT DETECTED NOT DETECTED [facility] Comment:The analytical perfo rmance characteristics of thisassay have been determined by [employer]. Themodifications have not been cleared or approved bythe FDA. This assay has been validated pursuant to theIA regulations and is used for clinical purposes.For additional information, please refer tohttp://education.[employer]/faq/Trichomonastma(This link is being provided for information/educational purposes only.)THIS TEST WAS PERFORMED AT:[employer] [place] [phone] CALIX MD CTNG Ref Lab NOT DETECTED NOT DETECTED [facility] NG Ref Lab NOT DETECTED NOT DETECTED [facility] C[employer] 06/09/2023 2:00 PM EST 06/10/2023 8:30 AM EST Mai Metzger [facility] CYTOLOGY ORDERABLES F inal Result Performing Organization Address City/[facility]/ZIP Co de Phone Number [facility] [address] [place] [address] [phone] * HPV mRNA E6/E7 w/Reflex to HPV Genotypes 16, 18/45 (06/09/2023 2:00 PM EST) HPV nRNA E6/E7 SEE NOTE [facility] Comment:HPV mRNA E6/E7: Not Detected Reference range: Not DetectedMethodology: Clinical Allergist-Mediated AmplificationThis assay detects E6/E7 viral messenger RNA (mRNA) from 14high-risk HPV types(16,18,31,33,35,39,45,51,52,56,58,59,66,68).Cervical sources are required for HPV testing.If a vaginal source from a patient who has had atotal hysterectomy with removal of cervix wassubmitted, please contact the testing laboratoryfor alternative testing options.For additional information, please refer tohttp://education.MeeGenius/faq/XPX290p6(This link if provided for information/educational purposes only.)Site Information[employer]- [employer] [address] [phone] Laboratory Director: Aury Calix M.D. HPV mRNA E6/E7 [facility] HPV 16 RNA [facility] HPV 18/45 RNA [facility] 06/09/2023 2:00 PM EST 06/10/2023 8:30 AM EST Mai John [facility] CYTOLOGY ORDERABLES F inal Result Performing Organization Address City/[facility]/ZIP Co de Phone Number [facility] [address] [place] [phone] * Lipid Panel, Standard (04/06/2023 10:44 AM EDT) Triglycerides 79 <150 mg/dL [facility] Comment:Desirable Triglyceri de: less than 150 mg/dLBorderline High Triglyceride 150-199 mg/dLHigh Triglyceride: 200-499 mg/dLVery High Triglyceride: greater than or equal to 5OO mg/dL Cholesterol 154 <200 mg/dL [facility] Comment:Desirable Cholestero l: less than 200 mg/dLBorderline High Cholesterol: 200-239 mg/dLHigh Cholesterol: greater than 239 mg/dL LDL Cholesterol Calculated 97 <100 mg/dL [facility] Comment:Desirable LDL: less than 100 mg/dLNear Optimal/Above Optimal LDL: 110- 129 mg/dLBorderline High LDL: 130-159 mg/dLHigh LDL: 160-189 mg/dLVery High LDL: greater than or equal to 190 mg/dL HDL Cholesterol 42 >40 mg/dL [facility] Comment:Desirable HDL: great er than 40 mg/dL Note: This HDL assay may give artificially low results in patients with liver disease. Blood Venous blood specimen / Unknown 04/06/2023 10:44 AM EDT 04/06/2023 11:01 AM EDT us Jose Name LAB BLOOD ORDERABLES Final Resul t [facility] [address] [place] [phone] from Last 3 Months or Most Recently Relevant to Health Maintenance Insurance [facility] C3 HSN [facility]IAL [facility] - HSN PARTIAL (MEDICAID) Care Teams Paper Wrapping Machine Operator Relationship Specialty Start Date End Date Name, MD Jose [address] [place] [address] PCP - General Family Medicine 11/11/15 Nasir Buenrostro FNP [address] [place] [address] Nurse Practitioner Family Medicine 05/24/23 Gud[place] Step FinisherPeanut Shaker 03/10/23
--- OUTSIDE RECORDS SUMMARY | 2024-10-26 11:04 | XMS_ITS | Encounter Summary ---
Author Organization [employer] Address [address] [facility] 7t [place] [address] Care Team Providers Care Hand Inserter Operator Name Role Phone Name, Jose SAVAGE Primary Care Provider [phone] Nasir Buenrostro Unavailable Unavailable Reason for Visit * Reason Onset Date Comments Hospital Follow-up 03/22/2024 Encounter Details Date Type Department Care Team ([facility] Contact Info) Description 03/22/2024 Telephone [facility] [address] [place], [place] [phone] Name, MD Jose [address] [place] [address] Hospital Follow-up Social History Tobacco Use Types [...] from pt requesting a HDF appt. [place] [facility] Date of admission: 03/13/24 Discharge date: 03/17/24 Diagnosed: Breast lump Contact pt at [phone] (czech) documented in this encounter Plan of Treatment Upcoming Encounters Date Type Department Care Team (Late st Contact Info) Description 12/18/2024 10:45 AM EDT Office Visit [facility] [address] [place] [address] Name, MD Jose [address] [place] [address] 02/27/2025 1:00 PM EDT Office Visit [facility] ADULT DENTAL [address] [place] [address] Gwen Zamudio [address] [place] [address] documented as of this encounter Visit Diagnoses Not on filedocumented in this encounter Additional Health Concerns Assessment Noted Time PHQ-9 Depression Total Score: 9 06/06/20 23 2:22 PM EST documented as of this encounter Care Teams Hand Inserter Operator Relationship Specialty Start Date End Date Name, MD Jose [address] [place] [address] PCP - General Family Medicine 11/11/15 Nasir Buenrostro FNP [address] [place] [address] Nurse Practitioner Family Medicine 05/24/23 Gudelia Beach Supervisor Finishing DepartmentGo Go Dancer 03/10/23 documented as of this encounter
--- OUTSIDE RECORDS SUMMARY | 2024-10-26 11:04 | XMS_ITS | Encounter Summary ---
Author Organization [employer] Address [address] [facility] 7t [place] [address] Care Team Providers Care Radiology Aide Name Role Phone Name, Jose SAVAGE Primary Care Provider [phone] Nasir Buenrostro Unavailable Unavailable Encounter Details Date Type Department Care Team (Latest Contact Info) Description 11/04/2020 Abstract [facility] CONVERSIONS Dental, Provider, DDS Social History [...] Description 12/18/2024 10:45 AM EDT Office Visit [facility] MEDICINE [address] [place] [address] Jose Baez MD [address] [place] [address] 02/27/2025 1:00 PM EDT Office Visit [facility] ADULT DENTAL [address] [place] [address] Gwen Zamudio [address] [place] [address] documented as of this encounter Visit Diagnoses Not on filedocumented in this encounter Care Teams Radiology Aide Relationship Specialty Start Date End Date NameJose MD [address] [place] [address] PCP - General Family Medicine 11/11/15 Nasir Buenrostro FNP [address] [place] [address] Nurse Practitioner Family Medicine 05/24/23 Gudelia Beach Soybean GrowerSteam Tank Operator 03/10/23 documented as of this encounter
--- OUTSIDE RECORDS SUMMARY | 2024-10-26 11:04 | XMS_ITS | Encounter Summary ---
Author Organization [employer] Address [address] [facility] 7t [place] [address] Care Team Providers Care Oven Stripper Name Role Phone Name, Jose SAVAGE Primary Care Provider [phone] Nasir Buenrostro Unavailable Unavailable Encounter Details Date Type Department Care Team ([facility] Contact Info) Description 08/20/2022 Abstract [facility] [address] [place], [place] [phone] Elizabeth Condon DDS [address] [place], [place] [phone] Social History Tobacco Use Types Packs/Day Years [...] 10:45 AM EDT Office [facility] [address] [place], [place] [phone] Name, MD Jose [address] [place] [address] 02/27/2025 1:00 PM EDT Office Visit [facility] [address] [place], [place] [phone] Gwen Zamudio [address] [place], [place] [phone] documented as of this encounter Visit Diagnoses Not on filedocumented in this encounter Care Teams Oven Stripper Relationship Specialty Start Date End Date Name, MD Jose [address] [place] [address] PCP - General Family Medicine 11/11/15 Nasir Buenrostro FNP [address] [place] [address] Nurse Practitioner Family Medicine 05/24/23 Gudelia Beach Incident EngineerIt Help Desk Associate 03/10/23 documented as of this encounter
--- OUTSIDE RECORDS SUMMARY | 2024-10-26 11:04 | XMS_ITS | Encounter Summary ---
Author Organization [employer] Address [address] [facility] 7t [place] [address] Care Team Providers Care Turf And Grounds Supervisor Name Role Phone Name, Jose SAVAGE Primary Care Provider [phone] Nasir Buenrostro Unavailable Unavailable Reason for Visit * Reason Onset Date Comments Call Back Request 08/05/2023 Encounter Details Date Type Department Care Team ([facility] Contact Info) Description 08/05/2023 Telephone [facility] MEDICINE [address] [place], [place] [phone] Name, MD Jose [address] [place] [address] Call Back Request Social History Tobacco Use [...] - 08/15/2023 10:23 AM EST [facility] where referral [facility] originally faxed. Referral [...] look into this? I referred patient to [facility] for postcoital bleeding, not to [facility]. Thanks! * Telephone Encounter - Aline Miller RN - 08/09/2023 11:37 AM EST T/c made to Yani at [facility]. Yani said that pt referral is incorrect and center is specifically for IVF treatment. Will reroute to provider for more info. * Telephone Encounter - Ingrid Lopez CNM - 08/05/2023 1:53 PM EST Referred to [facility] for postcoital bleeding. Please see my referral note. If unable to be seen at [facility], please coordinate with referrals to see where she can be seen. * Telephone Encounter - Ranjith Vasquez - 08/05/2023 11:37 AM EST Tc from Yani Brooke from [facility] requesting a call back for clarification on why the patient was referred to them and to notify the PCP that they do not accept Medicaid insurance please call Yani at [phone] documented in this encounter Plan of Treatment Upcoming Encounters Date Type Department Care Team (Late st Contact Info) Description 12/18/2024 10:45 AM EDT Office Visit [facility] MEDICINE [address] [place] [address] Name, MD Jose [address] [place] [address] 02/27/2025 1:00 PM EDT Office Visit [facility] ADULT DENTAL [address] [place] [address] Gwen Zamudio [address] [place] [address] documented as of this encounter Visit Diagnoses Not on filedocumented in this encounter Additional Health Concerns Assessment Noted Time PHQ-9 Depression Total Score: 9 06/06/20 23 2:22 PM EST documented as of this encounter Care Teams Turf And Grounds Supervisor Relationship Specialty Start Date End Date Name, MD Jose [address] [place] [address] PCP - General Family Medicine 11/11/15 Nasir Buenrostro FNP [address] [place] [phone] Nurse Practitioner Family Medicine 05/24/23 Gudelia Beach Airplane Rental ClerkElectrical Maintenance Man 03/10/23 documented as of this encounter
--- OUTSIDE RECORDS SUMMARY | 2024-10-26 11:04 | XMS_ITS | Encounter Summary ---
Author Organization [employer] Address [address] [facility] 7t [place] [address] Care Team Providers Care Magento Web Developer Name Role Phone Name, Jose SAVAGE Primary Care Provider [phone] Nasir Buenrostro Unavailable Unavailable Reason for Visit * Reason Comments Med Refill Encounter Details Date Type Department Care Team ([facility] Contact Info) Description 11/02/2023 Refill [facility] [address] [place] [address] Nasir Buenrostro FNP Mood disorder (CMS/HCC) Social [...] Description 12/18/2024 10:45 AM EDT Office Visit [facility] [address] [place] [address] Name, MD Jose [address] [place] [address] 02/27/2025 1:00 PM EDT Office Visit [facility] ADULT DENTAL [address] [place] [address] Lizz, Gwen [address] [place] [address] documented as of this encounter Visit Diagnoses Diagnosis Mood disorder (CMS/HCC) Unspecified episodic mood disorder documented in this encounter Additional Health Concerns Assessment Noted Time PHQ-9 Depression Total Score: 9 06/06/20 23 2:22 PM EST documented as of this encounter Care Teams Magento Web Developer Relationship Specialty Start Date End Date Name, MD Jose [address] [place] [address] PCP - General Family Medicine 11/11/15 Nasir Buenrostro FNP [address] [place] [address] Nurse Practitioner Family Medicine 05/24/23 Gudelia Beach Feed In WorkerHospitality Manager 03/10/23 documented as of this encounter
--- OUTSIDE RECORDS SUMMARY | 2024-10-26 11:04 | XMS_ITS | Encounter Summary ---
Author Organization [employer] Address [address] [facility] 7t [place] [address] Care Team Providers Care Fabrication Operator Name Role Phone Name, Jose SAVAGE Primary Care Provider [phone] Nasir Buenrostro Unavailable Unavailable Reason for Visit * Reason Onset Date Comments shade/tryin or finish 09/10/2022 case not ready 09/10/2022 Encounter Details Date Type Department Care Team (Late st Contact Info) Description 09/10/2022 Telephone [facility] ADULT DENTAL [address] [place] [address] Elizabeth Condon DDS [address] [place] [address] shade/tryin or finish; case not ready Social [...] - 09/10/2022 2:17 PM EDT Nelli from [employer] called stating they need a shade and to find out if its a wax try in or to finish . documented in this encounter Plan of Treatment Upcoming Encounters Date Type Department Care Team (Late st Contact Info) Description 12/18/2024 10:45 AM EDT Office Visit [facility] [address] [place], [place] [phone] Name, MD Jose [address] [place] [address] 02/27/2025 1:00 PM EDT Office Visit [facility] ADULT DENTAL [address] [place], [place] [phone] Gwen Zamudio [address] [place], [place] [phone] documented as of this encounter Visit Diagnoses Not on filedocumented in this encounter Additional Health Concerns Assessment Noted Time PHQ-9 Depression Total Score: 5 08/24/19 23 2:37 PM EST documented as of this encounter Care Teams Fabrication Operator Relationship Specialty Start Date End Date Name, MD Jose [address] [place] [address] PCP - General Family Medicine 11/11/15 Nasir Buenrostro FNP [address] [place] [address] Nurse Practitioner Family Medicine 05/24/23 Gudelia Beach Hairspring Truing InspectorService Desk Technician 03/10/23 documented as of this encounter
--- OUTSIDE RECORDS SUMMARY | 2024-10-26 11:04 | XMS_ITS | Encounter Summary ---
Author Organization [employer] Address [address] [place] [address] 7t [place] [address] Care Team Providers Care Package Collector Name Role Phone Name, Jose SAVAGE Primary Care Provider [phone] Nasir Buenrostro Unavailable Unavailable Reason for Visit * Reason Comments Med Refill Encounter Details Date Type Department Care Team (Late st Contact Info) Description 01/04/2023 Refill [facility] MEDICINE [address] [place] [phone] Nasir Buenrostro FNP Mood disorder (CMS/HCC) Social [...] Description 12/18/2024 10:45 AM EDT Office Visit [facility] MEDICINE [address] [place], [place] [phone] NameJose MD [address] [place] [address] 02/27/2025 1:00 PM EDT Office Visit [facility] ADULT DENTAL [address] [place] [address] Gwen Zamudio [address] [place] [address] documented as of this encounter Visit Diagnoses Diagnosis Mood disorder (CMS/HCC) Unspecified episodic mood disorder documented in this encounter Additional Health Concerns Assessment Noted Time PHQ-9 Depression Total Score: 8 12/28/19 23 2:59 PM EDT documented as of this encounter Care Teams Package Collector Relationship Specialty Start Date End Date Name, MD Jose [address] [place] [address] PCP - General Family Medicine 11/11/15 Nasir Buenrostro FNP [address] [place] [address] Nurse Practitioner Family Medicine 05/24/23 Gudelia Beach BellhopPresentation Manager 03/10/23 documented as of this encounter
== END 2024-10-26 10:56 | disposition home or self-care (01) ==
LOC: HO.HGS 10:38
PROVIDERS: PCP Internal Medicine Geriatric Medicine; Visit Provider Surgery
DX: N61.1 Abscess of the breast and nipple (principal)
CPT/HCPCS: 99213

== ENCOUNTER → 2024-10-26 10:37 | Outpatient (BNVA) | payer MEDICAID, SELFPAY | PROVIDERS: PCP Internal Medicine Geriatric Medicine; Visit Provider Surgery | DX: N64.4 Mastodynia (principal); Z09 Encounter for follow-up examination after completed treatment for conditions other than malignant neoplasm | CPT/HCPCS: 99212 ==

== ENCOUNTER 2024-11-08 09:23 | Outpatient (AMB) | payer MEDICAID, SELFPAY ==
--- NOTE | 2024-11-08 09:29 | MHC.OFFVIS ---
Intake Visit Reasons: 2wk fuv breast abscess/cellulitis, leaking Intake Note: Pt states, I'm here to have my breast checked. It's doing better. I have one more day of antibiotics. no pain, little drainage still. Diabetes Physician Required: Yes Allergies No Known Allergies [No Known Allergies*] Allergy (Verified 11/08/24 09:34) Medication List - Last Reconciled 11/08/24 by Jorje Arriaga RN aripiprazole 15 mg PO DAILY budesonide-formoterol 160-4.5 mcg/actuation (Symbicort) 2 puffs inhalation BID cephalexin 500 mg PO BID clonazepam 1 mg PO BID PRN divalproex 500 mg PO BID doxepin 25 mg PO BEDTIME escitalopram oxalate 10 mg PO DAILY metoprolol succinate ER 25 mg PO DAILY montelukast 10 mg PO BEDTIME multivitamin 1 tab PO DAILY oxybutynin chloride ER 15 mg PO DAILY pantoprazole 40 mg PO DAILY@0630 polyethylene glycol 3350 (Miralax) 17 grams PO DAILY PRN sennosides (Natural Senna Laxative) 17.2 mg (2 x 8.6 mg) PO BEDTIME trazodone 100 mg PO BEDTIME HPI HPI 2wk fuv breast abscess/cellulitis, leaking: Details: Diabetes Physician used during evaluation. Patient reports she is doing well and much improved since her last visit. She is no longer having pain at the incision site. She states it is less firm and red since her last visit. She states that in the shower she is able to express a small amount of clear yellow fluid from the site. She denies any fever or chills. She is set to finish her antibiotics tomorrow [facility] Medical History Eroded bladder suspension mesh Left breast mass Family History Mother No problems noted. Mother No problems noted. Father No problems noted. Social History Household Members: Other Household Members Other:: self Housing: Apartment Do you presently have visiting nurse or other home services: No Alcohol intake: current Alcohol intake frequency: holidays/special occasions only Patient Tobacco Use Status: Current everyday Tobacco user Tobacco use type: Cigarette Cigarettes Per Day: 3 Years Smoked: 10 Second Hand Smoke Exposure: No Substance Use Type: Marijuana Review of Systems Const All systems reviewed & are unremarkable except as noted in HPI and below Denies chills and Denies fever(s) Skin/Breast Denies breast pain and Denies erythema Physical Exam Const General: comfortable and no acute distress Orientation/consciousness: patient oriented x3 Skin Other: Right breast: Previous I&D incision noted at the 3 oclock postion of the areola, small 0.5 cm wound, no area of surrounding erythema or induration, no warmth. No discharge noted or able to be expressed during exam. No evidence of fluid collection Neuro General: patient oriented x3 Assessment & Plan Assessment & Plan (1) Status post incision and drainage: Code(s): Z98.890 - Other specified postprocedural states Category: Surgical (2) Abscess of breast, right: Code(s): N61.1 - Abscess of the breast and nipple Category: Medical Plan 44-year-old female status post I&D of a right breast abscess presenting to the office for routine follow-up and wound check. Patient is doing well, we will complete course of antibiotics prescribed at last visit tomorrow. Her symptoms have resolved, is no longer having pain or swelling. She continues to have small amounts of serous discharge in the shower. On exam the area is much improved, the area appears to be closed no surrounding erythema or palpable fluid collection. No concern for lasting infection. Recommend the patient continue with antibiotics, completing her final dose tomorrow. Also recommended that the patient use a warm compress on the breast which may help facilitate fluid drainage. Patient can follow up as needed with any concerns in the future Coding Level of Care Code Est Pt Level 2 (98999) Diagnoses Status post incision and drainage Z98.890 Abscess of breast, right N61.1
--- OUTSIDE RECORDS SUMMARY | 2024-11-08 09:38 | XMS_ITS | Encounter Summary ---
Author Organization [employer] Address [address] [facility] 7t [place] [address] Care Team Providers Care Felt Cutter Name Role Phone Name, Jose SAVAGE Primary Care Provider [phone] Nasir Buenrostro Unavailable Unavailable Reason for Visit * Reason Onset Date Comments Call Back Request 08/05/2023 Encounter Details Date Type Department Care Team ([facility] Contact Info) Description 08/05/2023 Telephone [facility] [address] [place], [place] [phone] Name, MD Jose [address] [place] [address] Call Back Request Social History Tobacco Use [...] enough money to get more: Never True 10/ Transportation Answer Date Recorded In the past [...] - 08/15/2023 10:23 AM EST TC to [facility] where referral was originally faxed. Referral for [...] look into this? I referred patient to [facility] for postcoital bleeding, not to [facility]. Thanks! * Telephone Encounter - Aline Miller RN - 08/09/2023 11:37 AM EST T/c made to Yani at [facility]. Yani said that pt referral is incorrect and center is specifically for IVF treatment. Will reroute to provider for more info. * Telephone Encounter - Ingrid Lopez CNM - 08/05/2023 1:53 PM EST Referred to [facility] for postcoital bleeding. Please see my referral note. If unable to be seen at [facility], please coordinate with referrals to see where she can be seen. * Telephone Encounter - Ranjith Vasquez - 08/05/2023 11:37 AM EST Tc from Yani Brooke from [facility] requesting a call back for clarification on why the patient was referred to them and to notify the PCP that they do not accept Medicaid insurance please call Yani at [phone] documented in this encounter Plan of Treatment Upcoming Encounters Date Type Department Care Team (Late st Contact Info) Description 12/18/2024 10:45 AM EDT Office Visit [facility] [address] [place] [address] Name, MD Jose [address] [place] [address] 02/27/2025 1:00 PM EDT Office Visit [facility] ADULT DENTAL [address] [place] [address] Gwen Zamudio [address] [place] [address] documented as of this encounter Visit Diagnoses Not on filedocumented in this encounter Additional Health Concerns Assessment Noted Time PHQ-9 Depression Total Score: 9 06/06/20 23 2:22 PM EST documented as of this encounter Care Teams Felt Cutter Relationship Specialty Start Date End Date Name, MD Jose [address] [place] [address] PCP - General Family Medicine 11/11/15 Nasir Buenrostro FNP [address] [place] [address] [place] [address] Nurse Practitioner Family Medicine 05/24/23 Gudelia Beach Hvac Project ManagerChief Marketing Officer 03/10/23 documented as of this encounter
--- OUTSIDE RECORDS SUMMARY | 2024-11-08 09:38 | XMS_ITS | Encounter Summary ---
Author Organization [employer] Address [address] [place] [address] 7t [place] [address] Care Team Providers Care Sinker Winder Name Role Phone Name, Jose SAVAGE Primary Care Provider [phone] Nasir Buenrostro Unavailable Unavailable Reason for Visit * Reason Comments Med Refill Encounter Details Date Type Department Care Team (Late Contact Info) Description 01/04/2023 Refill [facility] [address] [place] [address] Nasir Buenrostro FNP Mood disorder (CMS/HCC) Social [...] Team ([facility] Contact Info) Description 12/18/2024 10:45 AM EDT Office Visit [facility] [address] [place] [address] NameJose MD [address] [place] [address] 02/27/2025 1:00 PM EDT Office Visit [facility] ADULT DENTAL [address] [place] [address] Gwen Zamudio [address] [place] [address] documented as of this encounter Visit Diagnoses Diagnosis Mood disorder (CMS/HCC) Unspecified episodic mood disorder documented in this encounter Additional Health Concerns Assessment Noted Time PHQ-9 Depression Total Score: 8 12/28/19 23 2:59 PM EDT documented as of this encounter Care Teams Sinker Winder Relationship Specialty Start Date End Date Name, MD Jose [address] [place] [address] PCP - General Family Medicine 11/11/15 Nasir Buenrostro FNP [address] [place] [address] Nurse Practitioner Family Medicine 05/24/23 Gudelia Beach Computer Repair EngineerElectronics Supervisor 03/10/23 documented as of this encounter
--- OUTSIDE RECORDS SUMMARY | 2024-11-08 09:38 | XMS_ITS | Encounter Summary ---
Author Organization [employer] Address [address] [facility] 7t [place] [address] Care Team Providers Care Driver/Sales Workers Name Role Phone Name, Jose SAVAGE Primary Care Provider [phone] Nasir Buenrostro Unavailable Unavailable Reason for Visit * Reason Comments Med Refill Encounter Details Date Type Department Care Team ([facility] Contact Info) Description 01/18/2024 Refill [facility] [address] [place], [place] [phone] Name, MD Jose [address] [place] [address] Asthma, unspecified asthma severity, unspecified whether complicated, [...] AM EDT Office Visit [facility] [address] [place] [address] Name, MD Jose [address] [place] [address] 02/27/2025 1:00 PM EDT Office Visit [facility] ADULT DENTAL [address] [place] [address] Gwen Zamudio [address] [place] [address] documented as of this encounter Visit Diagnoses Diagnosis Asthma, unspecified asthma severity, unspecified whether complicated, unspecified whether persistent documented in this encounter Additional Health Concerns Assessment Noted Time PHQ-9 Depression Total Score: 9 06/06/20 23 2:22 PM EST documented as of this encounter Care Teams Driver/Sales Workers Relationship Specialty Start Date End Date Nestor, MD Jose [address] [place] [address] PCP - General Family Medicine 11/11/15 Nasir Buenrostro FNP [address] [place] [address] Nurse Practitioner Family Medicine 05/24/23 Gudelia Beach Sales And In Home Delivery SpecialistHealthcare Account Manager 03/10/23 documented as of this encounter
--- OUTSIDE RECORDS SUMMARY | 2024-11-08 09:38 | XMS_ITS | Encounter Summary ---
Author Organization [employer] Address [address] [place] [address] 7 [place] [address] Care Team Providers Care Dehairer Name Role Phone Name, Jose SAVAGE Primary Care Provider [phone] Nasir Buenrostro Unavailable Unavailable Reason for Visit * Reason Comments Med Refill Encounter Details Date Type Department Care Team (Late Contact Info) Description 03/14/2023 Refill [facility] [address] [place] [address] Nasir Buenrostro FNP Mood disorder (CMS/HCC) Social [...] Upcoming Encounters Date Type Department Care Team ([facility] Contact Info) Description 12/18/2024 10:45 AM EDT Office Visit [facility] [address] [place] [address] NameJose MD [address] [place] [address] 02/27/2025 1:00 PM EDT Office Visit [facility] ADULT DENTAL [address] [place] [address] Gwen Zamudio [address] [place] [address] documented as of this encounter Visit Diagnoses Diagnosis Mood disorder (CMS/HCC) Unspecified episodic mood disorder documented in this encounter Additional Health Concerns Assessment Noted Time PHQ-9 Depression Total Score: 7 02/09/20 23 1:43 PM EDT documented as of this encounter Care Teams Dehairer Relationship Specialty Start Date End Date Name, MD Jose [address] [place] [address] PCP - General Family Medicine 11/11/15 Nasir Buenrostro FNP [address] [place] [address] Nurse Practitioner Family Medicine 05/24/23 Gudelia Beach Salesperson CorsetsSupervisor Prep 03/10/23 documented as of this encounter
--- OUTSIDE RECORDS SUMMARY | 2024-11-08 09:38 | XMS_ITS | Encounter Summary ---
Author Organization [employer] Address [address] [place] [address] 7t [place] [address] Care Team Providers Care Electricians Top Helper Name Role Phone Name, Jose SAVAGE Primary Care Provider [phone] Nasir Buenrostro Unavailable Unavailable Reason for Visit * Reason Onset Date Comments shade/tryin or finish 09/10/2022 case not ready 09/10/2022 Encounter Details Date Type Department Care Team (Late st Contact Info) Description 09/10/2022 Telephone [facility] ADULT DENTAL [address] [place] [address] Elizabeth Condon DDS [address] [place], [place] [phone] shade/tryin or finish; case not ready Social [...] - 09/10/2022 2:17 PM EDT Nelli from [employer] called stating they need a shade and to find out if its a wax try in or to finish . documented in this encounter Plan of Treatment Upcoming Encounters Date Type Department Care Team (Late st Contact Info) Description 12/18/2024 10:45 AM EDT Office Visit [facility] [address] [place], [place] [phone] Name, MD Jose [address] [place] [address] 02/27/2025 1:00 PM EDT Office Visit [facility] ADULT DENTAL [address] [place], [place] [phone] Gwen Zamudio [address] [place], [place] [phone] documented as of this encounter Visit Diagnoses Not on filedocumented in this encounter Additional Health Concerns Assessment Noted Time PHQ-9 Depression Total Score: 5 08/24/19 23 2:37 PM EST documented as of this encounter Care Teams Electricians Top Helper Relationship Specialty Start Date End Date Name, MD Jose [address] [place] [address] PCP - General Family Medicine 11/11/15 Nasir Buenrostro FNP [address] [place] [address] Nurse Practitioner Family Medicine 05/24/23 Gudelia Beach Business Management ManagerAnalytics Associate 03/10/23 documented as of this encounter
--- OUTSIDE RECORDS SUMMARY | 2024-11-08 09:38 | XMS_ITS | Encounter Summary ---
Author Organization [employer] Address [address] [facility] 7t [place] [address] Care Team Providers Care Photolithographer Name Role Phone Name, Jose SAVAGE Primary Care Provider [phone] Nasir Buenrostro Unavailable Unavailable Encounter Details Date Type Department Care Team ([facility] st Contact Info) Description 08/20/2022 Abstract [facility] [address] [place] [address] Elizabeth Condon DDS [address] [place] [address] Social History Tobacco Use Types Packs/Day Years [...] PM EST documented as of this encounter Functional Status * Over the past 2 weeks, how often have you been bothered by any of the following problems? Question Answer Date of Assessment Author Patient Health Questionnaire -2 Score 2 08/23/2022 2:37 PM EST Zoe Gonzalez MA * If you checked off any problems on this questionnaire so far, Question Answer Date of Assessment Author How difficult have these problems made it for you to do your work, take care of things at home, or get along with other people? Somewhat difficult 08/23/2022 2:37 PM Zoe Fischer MA * Over the last 2 weeks, how often have you been bothered by any of the following problems? Question Answer Date of Assessment Author Feeling nervous, anxious, or on edge 1 08/23/2022 2:38 PM Zoe Fischer MA Not being able to stop or control worrying 1 08/23/2022 2:38 PM Zoe Fischer MA Worrying too much about different things 0 08/23/2022 2:38 PM Zoe Fischer MA Trouble relaxing 1 08/23/2022 2:38 PM Katerina Reis MA Being so restless that it is hard to sit still 1 08/23/2022 2:38 PM Zoe Fischer MA Becoming easily annoyed or irritable 1 08/23/2022 2:38 PM Zoe Fischer MA Feeling afraid as if somethi ng awful might happen 1 08/23/2022 2:38 PM Zoe Fischer MA NAM-7 Total Score 6 08/23/2022 2:38 PM Katerina Fischer MA * Over the past 2 weeks, how often have you been bothered by any of the following problems? Question Answer Date of Assessment Author Little interest or pleasure in doing things Several days 08/23/2022 2:37 PM Zoe Fischer MA Feeling down, depressed, or hopeless Several days 08/23/2022 2:37 PM Zoe Fischer MA Trouble falling or staying asleep, or sleeping too much Several days 08/23/2022 2:37 PM Katerina Fischer MA Feeling tired or having little energy Several days 08/23/2022 2:37 PM EST Zoe Gonzalez MA Poor appetite or overeating Several days 08/23/2022 2: 37 PM Katerina Fischer MA Feeling bad about yourself - or that you are a failure or have let yourself or your family down Not at all 08/23/2022 2:37 PM Zoe Fischer MA Trouble concentrating on things, such as reading the newspaper or watching television Not at all 08/23/2022 2:37 PM Zoe Fischer MA Moving or speaking so slowly that other people could have noticed? Or the opposite - being so fidgety or restless that you have been moving around a lot more than usual. Not at all 08/23/2022 2:37 PM Zoe Fischer MA Thoughts that you would be better off or hurting yourself in some way Not at all 08/23/2022 2:37 PM Garcia Fischer MA Patient Health Questionnaire-9 Score 5 08/23/2022 2:37 PM Mary Fischer MA documented as of this encounter Plan of Treatment Upcoming Encounters Date Type Department Care Team (Late st Contact Info) Description 12/18/2024 10:45 AM EDT Office Visit [facility] [address] [place] [address] Name, MD Jose [address] [place] [address] 02/27/2025 1:00 PM EDT Office Visit [facility] ADULT D[facility] [address] [place] [address] Gwen Zamudio [address] [place] [address] documented as of this encounter Visit Diagnoses Not on filedocumented in this encounter Care Teams Photolithographer Relationship Specialty Start Date End Date Jose Baez MD [address] [place] [address] PCP - General Family Medicine 11/11/15 Nasir Buenrostro FNP [address] [place] [address] Nurse Practitioner Family Medicine 05/24/23 Gudelia Beach Heavy Duty CustodianBusiness Account Leader 03/10/23 documented as of this encounter
--- OUTSIDE RECORDS SUMMARY | 2024-11-08 09:38 | XMS_ITS | Encounter Summary ---
Author Organization [employer] Address [address] [place] [address] 7t [place] [address] Care Team Providers Care Sole Leveler Name Role Phone Name, Jose SAVAGE Primary Care Provider [phone] Nasir Buenrostro Unavailable Unavailable Encounter Details Date Type Department Care Team (Latest Contact Info) Description 11/04/2020 Abstract [facility] CONVERSIONS Dental, Provider, DDS Social History [...] 10:45 AM EDT Office Visit [facility] MED[facility] [address] [place] [address] Jose Baez MD [address] [place] [address] 02/27/2025 1:00 PM EDT Office Visit [facility] ADULT DENTAL [address] [place] [address] Gwen Zamudio [address] [place] [address] documented as of this encounter Visit Diagnoses Not on filedocumented in this encounter Care Teams Sole Leveler Relationship Specialty Start Date End Date Jose Baez MD [address] [place] [address] PCP - General Family Medicine 11/11/15 Nasir Buenrostro FNP [address] [place] [address] [place] [address] Nurse Practitioner Family Medicine 05/24/23 Gudelia Beach Global Regulatory Affairs ManagerNutrition Associate 03/10/23 documented as of this encounter
--- OUTSIDE RECORDS SUMMARY | 2024-11-08 09:38 | XMS_ITS | Encounter Summary ---
Author Organization [employer] Address [address] [facility] 7 [place] [address] Care Team Providers Care Supervisor Accounting Clerks Name Role Phone Name, Jose SAVAGE Primary Care Provider [phone] Nasir Buenrostro Unavailable Unavailable Reason for Visit * Reason Onset Date Comments Hospital Follow-up 03/22/2024 Encounter Details Date Type Department Care Team ([facility] st Contact Info) Description 03/22/2024 Telephone [facility] [address] [place], [place] [phone] Name, MD Jose [address] [place] [address] Hospital Follow-up Social History Tobacco Use Types [...] pt requesting a HDF appt. Hospital: [facility] Date of admission: 03/13/24 Discharge date: 03/17/24 Diagnosed: Breast lump Contact pt at [phone] (frisian) documented in this encounter Plan of Treatment Upcoming Encounters Date Type Department Care Team (Late st Contact Info) Description 12/18/2024 10:45 AM EDT Office Visit [facility] [address] [place] [address] Name, MD Jose [address] [place] [address] 02/27/2025 1:00 PM EDT Office Visit [facility] ADULT DENTAL [address] [place] [address] Gwen Zamudio [address] [place] [address] documented as of this encounter Visit Diagnoses Not on filedocumented in this encounter Additional Health Concerns Assessment Noted Time PHQ-9 Depression Total Score: 9 06/06/20 23 2:22 PM EST documented as of this encounter Care Teams Supervisor Accounting Clerks Relationship Specialty Start Date End Date Name, MD Jose [address] [place] [address] PCP - General Family Medicine 11/11/15 Nasir Buenrostro FNP [address] [place] [address] Nurse Practitioner Family Medicine 05/24/23 Gudelia Beach Machine Cloth TrimmerDisability Services Coordinator 03/10/23 documented as of this encounter
--- OUTSIDE RECORDS SUMMARY | 2024-11-08 09:38 | XMS_ITS | Clinical Summary ---
Author Organization [employer] Address [address] [place] [address] 7t [place] [address] Care Team Providers Care Rn Patient Services Name Role Phone Name, Jose SAVAGE Primary Care Provider [phone] Nasir Buenrostro Unavailable Unavailable Allergies No known [...] as directed, since she does not read Stat[employer] (and has no one to help her [...] Rx's will be sent to [facility] for home delivery. F/U with me [...] quite alone as family is in [place]. Has started with counseling. Today 06/06/2023 provider [...] 1:39 PM EDT): Hospitalized at [facility] for 3 days for IV antibiotics, discharged on Augmentin and Bactrim for total of 21 days of abx therapy Counseled to finish abx as prescribed Letter given for work at [employer] for no heavy lifting x 14 days Edema of lower extremity 12/27/2016 Encounters Date Type Department Care Team Description 11/01/2024 Population Health Risk Score [facility] ([facility]) Department [address] [place] [phone] Provider, Population Health Generic 10/18/2024 Orders Only [facility] External Provider, [facility] 09/26/2024 Telephone [facility] [address] [place] [address] Prisca Yu, JOEL Results 09/11/2024 Orders Only GENERIC EXTERNAL DATA DEPARTMENT Provider, Generic External Data 09/11/2024 Telephone [facility] [address] [place] [address] Mikki Contreras [place] appt change provider out 09/10/2024 Orders Only GENERIC EXTERNAL DATA DEPARTMENT Provider, Generic External Data 08/14/2024 Telephone [facility] [address] [place] [address] Shaista Sommers RN Results 08/14/2024 Orders Only [facility] [address] [place] [address] Mai Metzger, JEREMI Left ovarian cyst (Primary Dx) from Last 3 Months Immunizations Immunization Administration Dates Next Due HepB-CpG 06/06/2023,05/03/2023 Influenza [...] 10:45 AM EDT Office Visit [facility] [address] [place] [address] Name, MD Jose [address] [place] [address] 02/27/2025 1:00 PM EDT Office Visit [facility] [address] [place] [address] Gwen Zamudio [address] [place] [address] Health Maintenance Due Date Last Done Comments CT Colonography 1978 Colonoscopy 1978 Colorectal Cancer Screening 1978 Dental Prophylaxis 1978 FIT DNA/Cologuard 1978 FIT 1978 FOBT 1978 Sigmoidoscopy 1978 Disability Screening 1978 COVID-19 Vaccine ( season) 2024 01/25/2022, 02/09/2021, 11/22/2020 Influenza Vaccine (#1) 2024 , 05/08/2020, 03/21/2019, Additional history exists Depression Screening 06/06/2024 06/06/2023, 06/06/20 23 Dental Oral Exam 08/04/2024 02/01/2024 SDOH Screening 10/13/2024 10/14/2023 Alcohol/Substance Use Screening 01/31/2025 02/01/2024 Dental X-Ray: Bitewings 02/01/2025 02/01/2024 Family Planning (PISQ) 07/10/2025 07/10/2024 Tobacco Screening 07/20/2025 07/20/2024 Mammogram 10/18/2025 10/18/2024, 05/0 06/2024, 07/07/2024, Additional history exists Dental X-Ray: Full [...] patient's age to complete this topic Meningococcal B Vaccine Aged Out No l onger eligible based on patient's age to complete [...] EDT Narrative 10/18/2024 1:15 PM EDT ? [facility] [place] ? [address] ?[place] [address] ? Ultrasound Report ? Signed ? Patient: Gilda Harper,Mi B ?MR#: M ?? [id number] ? : 1980 ?Acct:[id number] ? Age/Sex: 44 / F ?ADM Date: 05/01/25 ? Loc: HO.MAMMO ? Attending Dr: Marybel Allan MD ? Ordering Physician: Marybel Allan MD ?? Date of Service: 10/18/24 ?? Procedure(s): US breast RT limited mamm only ?? Accession Number(s): [id number] ? cc: Name,Jose SAVAGE; Marybel Allan MD ? EXAMINATION: ?? MM [...] by Antonieta Aguayo, DO in OV> ? // 1312 ? DD/DT: 05//25 1230 ? TD/TT: 05//25 1257 ? Equip Tech: ? Procedure Note Donotuseinterpreter, Image - 10/18/2024 [facility] [address] [place], [place] [address] Ultrasound Report Signed Patient: Mi Neville BMR#: M [id number] : 1980Acct:[id number] Age/Sex: 44 / FADM Date: 10/18/24 Loc: HO.MAMMO Attending Dr: Marybel Allan MD Ordering Physician: Marybel Allan MD Date of Service: 10/18/24 Procedure(s): US breast RT limited mamm only Accession Number(s): [id number] cc: Nestor,Jose SAVAGE; Marybel Allan MD EXAMINATION: MM DIAGNOSTIC [...] 10/18/24 1312 DD/ 1230 TD/TT: 10/18/24 1257 Equip Tech: [facility] External Provider IMG US PROCEDURES Final Result * BI Mammogram Diagnostic Tomosynthesis Bilateral (10/18/2024 12:00 PM EDT) Anatomical Region Laterality Modality Breast Bilateral Mammography 10/18/2024 12:0 0 PM EDT Narrative 10/18/2024 1:15 PM EDT ? [facility] [place] ? [address] ?[place] [address] ?[phone] ? Mammography Report ? Signed ? Patient: Mi Neville B ?MR#: M ?? [id number] ? : 1980 ?Acct:[id number] ? Age/Sex: 44 / F ?ADM Date: 05//25 ? Loc: HO.MAMMO ? Attending Dr: Marybel Allan MD ? Ordering Physician: Marybel Allan MD ?Results: 3.6MPr ?? obably Benign Finding - Short 6 M F/U Suggested ? Date of Service: 10/18/24 ?Follow Up: 6 Month F/U ? Procedure(s): MM tomosynthesis diagnostic BI ?? Accession Number(s): [id number] ? cc: Nestor,Jose SAVAGE; Marybel Allan MD ? EXAMINATION: ?? MM [...] ??Antonieta Aguayo DO ??10/18/2024 01:12 PM EDT ? Dictated By: ?Antonieta Aguayo DO ? Signed By: ?<Electronically signed by Antonieta Aguayo, DO in OV> ? 10/18/24 1312 ? DD/ 1200 ? TD/TT: 10/18/24 1224 ? Equip Tech: ? Procedure Note Donotuseinterpreter, Image - 10/18/2024 [facility] [address] [place] [address] Mammography Report Signed Patient: Mi Neville BMR#: M [id number] : 1980Acct:[id number] Age/Sex: 44 / FADM Date: 10/18/24 Loc: HO.MAMMO Attending Dr: Marybel Allan MD Ordering Physician: Marybel Allan MDResults: 3.6MPr obably Benign Finding - Short 6 M F/U Suggested Date of Service: 10/18/24Follow Up: 6 Month F/U Procedure(s): MM tomosynthesis diagnostic BI Accession Number(s): [id number] cc: Jose Baez MD; Marybel Allan MD [...] their next mammogram. Electronically signed by: Antonieta Augayo DO 10/18/2024 01:12 PM EDT RP Dictated By: Antonieta Aguayo DO Signed By: <Electronically signed by Antonieta Aguayo DO in OV> 10/18/24 1312 DD/ 1200 TD/TT: 10/18/24 1224 Equip Tech: [facility] External Provider IMG BI PROCEDURES Final Result * US Pelvis Transvaginal (09/25/2024 6:16 PM EDT) Only the most recent of2 resultswithin the time period is included. Anatomical Region Laterality Modality Pelvis Ultrasound 09/25/2024 6:16 PM EDT Narrative 09/25/2024 6:18 PM EDT ? [facility] ?[address] ?[place] [address] ? Ultrasound Report ? Signed ? Patient: Gilda Harper,Mi Parish ?MR#: M ?? [id number] ? : 1980 ?Acct:[id number] ? Age/Sex: 44 / F ?ADM Date: 04/08/25 ? Loc: HO.US ? Attending Dr: Mai Metzegr CNM ? Ordering Physician: MAI METZGER CNM ?? Date of Service: 09/25/24 ?? Procedure(s): US pelvic and transvaginal ?? Accession Number(s): [id number] ? cc: Name,Jose SAVAGE; MAI METZGER CNM ? CLINICAL HISTORY: 6wk f u left ovarian cyst ? Ultrasound pelvis transabdominal and transvaginal. ? COMPARISON: US pelvis dated 08/14/24 at 14:01 EST ? Technique: Real time sonographic imaging, including color-flow imaging, ?? was performed by the citrus peeler. Multiple technical account representative static images ?? were saved [...] signed by Sean Moreno MD in OV> ?09/25/241816 ? DD/ 15 ? TD/TT: 09/25/241815 ? Equip Tech: ? Procedure Note Daphne, Image - 09/25/[address] [address] Ultrasound Report Signed Patient: Mi Neville BMR#: M [id number] : 1980Acct:[id number] Age/Sex: 44 / FADM Date: 09/25/24 Loc: HO.US Attending Dr: Mai Metzger M Ordering Physician: MAI METZGER CNM Date of Service: 09/25/24 Procedure(s): US pelvic and transvaginal Accession Number(s): [id number] cc: Name,Jose SAVAGE; MAI METZGER CNM CLINICAL HISTORY: 6wk f u left ovarian cyst Ultrasound pelvis transabdominal and transvaginal. COMPARISON: US pelvis dated 08/14/24 at 14:01 EST Technique: Real time sonographic imaging, including color-flow imaging, was performed by the citrus peeler. Multiple technical account representative static images were saved for [...] MD in OV> 09/25/241816 DD/ 15 TD/TT: 09/25/24 181 Equip Tech: Mai Metzger CNM IMG US PROCEDURES Final R esult * Gram stain (09/11/2024 8:36 AM EDT) 09/11/2024 8:36 AM EDT 09/11/2024 12:02 PM EDT Comment:Breast Rt Narrative [facility] - 09/13/2024 9:11 AM EDT Gram stain results: 2+ polys 1+ epithelial cells 2+ red blood cells 2+ Gram-negative rods Coag negative Staphylococcus CBLD STANEG comment Unlikely pathogen; call Micro if full workup indicated. Quant Org ID 1+ Specimen Source: Breast Right us Generic External Data Provider LAB MICROBIOLOGY - GENERAL ORDERABLES Final Result [facility] [address] [place] [address] [phone] * CT Chest w/ Contrast (09/10/2024 6:57 AM EDT) Anatomical Region Laterality Modality Body, Chest Computed Tomogra phy 09/10/2024 6:57 AM EDT Narrative 09/10/2024 6:59 AM EDT ? [facility] ?[address] ?[place] [address] ? CT Scan Report ? Signed with Addenda ? Patient: Mi Neville ?MR#: M ?? [id number] ? : 1980 ?Acct:[id number] ? Age/Sex: 44 / F ?ADM Date: 09/10/24 ? Loc: HO.ED ? Attending Dr: ? Ordering Physician: Marybel Allan MD ?? Date of Service: 09/10/24 ?? Procedure(s): CT chest w IV con ?? Accession Number(s): [id number] ? cc: Jose Baez MD; Marybel Allan MD ? Report Number: ?? [id number]: Total DLP = ??252.00 mGy-cm ?ADDENDUM ?? [...] MD in OV> ?09/10/24 0658 ? DD/ 6 ? TD/TT: 09/10/24656 ? Equip Tech: ? Procedure Note Daphne, Kayla - 09/10/[address] [place] [address] [address] Scan Report Signed with John Patient: Mi Neville BMR#: M [id number] : 1980Acct:[id number] Age/Sex: 44 / FADM Date: 09/10/24 Loc: HO.ED Attending Dr: Ordering Physician: Marybel Allan MD Date of Service: 09/10/24 Procedure(s): CT chest w IV con Accession Number(s): [id number] cc: Jose Baez MD; Marybel Allan MD Report Number: [id number]: Total DLP = 252.00 mGy-cm ADDENDUM This [...] OV> 09/10/24 0658 DD/ 6 TD/TT: 09/10/24656 Equip Tech: [facility] External Provider IMG CT PROCEDURES Edited Result - Final * (ABNORMAL) CBC auto differential (09/10/2024 5:26 AM EDT) White Blood Count 13.8(H) 4.8 - 10.8 X10*3/uL [facility] Red Blood Count 3.93(L) 4.20 - 5.50 X10*6/uL [facility] Hemoglobin 12.1 12.0 - 16.0 g/dl [facility] Hematocrit 35.5(L) 37.0 - 47.0 % [facility] Mean Corpuscular Volume 90.3 80.0 - 98.0 fL [facility] Mean Corpuscular Hemoglobin 30.8 27.0 - 33.0 pg [facility] Mean Corpuscular HGB Conc 34.1 31.0 - 35.0 g/dl [facility] Red Cell Distribution Width 14.3 11.0 - 16.0 % [facility] Platelet Count 268 160 - 400 X10*3/uL [facility] Mean Platelet Volume 11.6 9.4 - 12.3 fL [facility] Neutrophils Percent Auto 68.0 45 - 73 % [facility] Imm Gran Pct Auto 0.4 0.0 - 0.4 % [facility] Lymphocytes Percent Auto 23.7 20 - 40 % [facility] Monocytes Percent Auto 6.2 2 - 11 % [facility] Eosinophils Percent Auto 1.3 0 - 4 % [facility] Basophils Percent Auto 0.4 0 - 2 % [facility] NRBC Pct Auto 0.0 0.0 - 0.2 /100WBC [facility] Neutrophils Absolute Auto 9.4(H) 2.0 - 8.3 x10*3/uL [facility] Imm Gran Abs Auto 0.06(H) 0.00 - 0.03 X10*3/uL [facility] Lymphocytes Absolute Auto 3.3 1.2 - 4.9 X10*3/uL [facility] Monocytes Absolute Auto 0.9 0.1 - 1.2 X10*3/uL [facility] Eosinophils Absolute Auto 0.2 0.0 - 0.4 X10*3/uL [facility] Basophils Absolute Auto 0.1 0.0 - 0.2 X10*3/uL [facility] NRBC Abs Auto 0.000 0.0 - 0.012 X10*3/uL [facility] 09/10/2024 5:26 AM EDT 09/10/2024 5:31 AM EDT us Generic External Data Provider LAB BLOOD ORDERAB LES Final Result [facility] [address] [place] [phone] * (ABNORMAL) Basic Metabolic Panel (09/10/2024 5:26 AM EDT) Sodium 139 135 - 145 mmol/L [facility] Potassium 3.9 3.3 - 5.1 mmol/L [facility] Comment:Slight Hemolysis.Int erpret result with caution. Chloride 114(H) 96 - 108 mmol/L [facility] Carbon Dioxide 19(L) 22 - 29 mmol/L [facility] Anion Gap 10(L) 12 - 20 [facility] Urea Nitrogen (BUN) 10 9 - 16 mg/dL [facility] Creatinine, Serum 0.63 0.5 - 1.4 mg/dL [facility] Creatinine Clr Calc Pharmacy 104.0 [facility] Comment:Provided height and weight: 154.94 cm,76 kg.eGFR (calculated from the MDRD study equation) and eCrCl(calculated from the Cockcroft-Gault equation) are based ondifferent parameters and may not yield comparable results.If eCrCl result is absurd, please check patient'sheight/weight. Estimated Glomerular Filt Rate >60 [facility] Comment:Chronic Kidney Disea se: Estimated GFR < 60 mL/min/1.25m4Sifwkp Kidney Disease: Estimated GFR < 15 mL/min/1.73m2 Glucose 96 60 - 115 mg/dL [facility] Calcium 8.5 8.4 - 10.2 mg/dL [facility] 09/10/2024 5:26 AM EDT 09/10/2024 5:31 AM EDT us Generic External Data Provider LAB BLOOD ORDERAB LES Final Result [facility] [address] [place] [phone] * HIV-1/2 Antigen and Antibodies, Fourth Generation, with Reflexes (07/10/2024 10:51 AM EST) HIV AB/AG Nonreactive Nonreactive [facility] Comment:HIV-1 p24 Ag and/or HIV-1/HIV-2 Ab not detected.A test result that is nonreactive does not exclude thepossibility of exposure to or infection with HIV-1 and/orHIV-2. Nonreactive results in this assay for individualswith prior exposure to HIV-1 and/or HIV-2 may be due toantigen and antibody levels that are below the limit ofdetection of this assay.[employer] HIV Ag/Ab Combo assay result andsupplemental assay results should be interpreted inconjunction with the patient's clinical presentation,history and other laboratory results. If the results areinconsistent with clinical evidence, additional testing issuggested to confirm the result. Blood Venous blood specimen / Unknown 07/10/2024 10:51 AM EST 07/10/2024 11:17 AM EST Mai Robynrosa maria [facility] LAB BLOOD ORDERABLES Zandra l Result Performing Organization Address [facility] Co de Phone Number [facility] [address] [place] [phone] * Hepatitis C Antibody with Reflex to HCV, RNA, Quantitative, Real-Time PCR (02/01/2024 3:49 PM EDT) Pathologist [facility] Hepatitis C Antibody Nonreactive Nonreactive [facility] Comment:Antibodies to HCV no t detected; does not exclude early acuteHCV infection. Blood Venous blood specimen / Unknown 02/01/2024 3:49 PM EDT 02/01/2024 4:09 PM EDT Jose Baez MD LAB BLOOD ORDERABLES Final Resul t Performing Organization Address [facility] de Phone Number [facility] [address] [place] [phone] * Image-Guided Pap with Age-Based Screening??with CT/NG,??Trichomonas (06/09/2023 2:00 PM EST) Pathologist [facility] Trichomonas (NAAT) NOT DETECTED NOT DETECTED [facility] Comment:The analytical perfo rmance characteristics of thisassay have been determined by [employer] ([employer]). Themodifications have not been cleared or approved bythe FDA. This assay has been validated pursuant to theCLIA regulations and is used for clinical purposes.For additional information, please refer tohttp://education.[place]/faq/Trichomonastma(This link is being provided for information/educational purposes only.)THIS TEST WAS PERFORMED AT:[facility] [place] [phone] CALIX MD CTNG Ref Lab NOT DETECTED NOT DETECTED [facility] NG Ref Lab NOT DETECTED NOT DETECTED [facility] Cervix 06/09/2023 2:00 PM EST 06/10/2023 8:30 AM EST [facility] LAB CYTOLOGY ORDERABLES F inal Result Performing Organization Address [facility] Co de Phone Number [facility] [address] [place] [phone] * HPV mRNA E6/E7 w/Reflex to HPV Genotypes 16, 18/45 (06/09/2023 2:00 PM EST) HPV nRNA E6/E7 SEE NOTE [facility] Comment:HPV mRNA E6/E7: Not Detected Reference range: Not DetectedMethodology: Cloth Painter-Mediated AmplificationThis assay detects E6/E7 viral messenger RNA (mRNA) from 14high-risk HPV types(16,18,31,33,35,39,45,51,52,56,58,59,66,68).Cervical sources are required for HPV testing.If a vaginal source from a patient who has had atotal hysterectomy with removal of cervix wassubmitted, please contact the testing laboratoryfor alternative testing options.For additional information, please refer tohttp://education.Authorea/faq/QQY839r3(This link if provided for information/educational purposes only.)Site InformationAr[employer]- [employer] ([employer]) [address] [address] Laboratory Director: Aury Calix M.D. HPV mRNA E6/E7 [facility] HPV 16 RNA [facility] HPV 18/45 RNA [facility] 06/09/2023 2:00 PM EST 06/10/2023 8:30 AM EST [facility] LAB CYTOLOGY ORDERABLES F inal Result Performing Organization Address [facility]/State/ZIP Co de Phone Number [facility] [address] [place] [phone] * Lipid Panel, Standard (04/06/2023 10:44 AM EDT) Triglycerides 79 <150 mg/dL [facility] Comment:Desirable Triglyceri de: less than 150 mg/dLBorderline High Triglyceride 150-199 mg/dLHigh Triglyceride: 200-499 mg/dLVery High Triglyceride: greater than or equal to 5OO mg/dL Cholesterol 154 <200 mg/dL [facility] Comment:Desirable Cholestero l: less than 200 mg/dLBorderline High Cholesterol: 200-239 mg/dLHigh Cholesterol: greater than 239 mg/dL LDL Cholesterol Calculated 97 <100 mg/dL [facility] Comment:Desirable LDL: less than 100 mg/dLNear Optimal/Above Optimal LDL: 110- 129 mg/dLBorderline High LDL: 130-159 mg/dLHigh LDL: 160-189 mg/dLVery High LDL: greater than or equal to 190 mg/dL HDL Cholesterol 42 >40 mg/dL [facility] Comment:Desirable HDL: great er than 40 mg/dL Note: This HDL assay may give artificially low results in patients with liver disease. Blood Venous blood specimen / Unknown 04/06/2023 10:44 AM EDT 04/06/2023 11:01 AM EDT us Jose Name LAB BLOOD ORDERABLES Final Resul t [facility] [address] [place] [phone] from Last 3 Months or Most Recently Relevant to Health Maintenance Insurance [facility] C3 HSN PARTIAL [facility] - HSN PARTIAL (MEDICAID) Care Teams Rn Patient Services Relationship Specialty Start Date End Date Name, MD Jose [address] [place] [address] PCP - General Family Medicine 11/11/15 Nasir Buenrostro FNP [address] [place] [phone] Nurse Practitioner Family Medicine 05/24/23 [place] Water Supply EngineerRodding Machine Tender 03/10/23
--- OUTSIDE RECORDS SUMMARY | 2024-11-08 09:38 | XMS_ITS | Encounter Summary ---
Author Organization [employer] Address [address] [facility] [address]t [place] [address] Care Team Providers Care Twisting Machine Operator Name Role Phone Name, Jose SAVAGE Primary Care Provider [phone] Nasir Buenrostro Unavailable Unavailable Reason for Visit * Reason Comments Med Refill Encounter Details Date Type Department Care Team ([facility] Contact Info) Description 11/02/2023 Refill [facility] [address] [place] [address] Nasir Buenrostro FNP Mood disorder (CMS/HCC) Social [...] Description 12/18/2024 10:45 AM EDT Office Visit [facility] [address] [place] [address] Name, MD Jose [address] [place] [phone] 02/27/2025 1:00 PM EDT Office Visit [facility] [address] [place] [address] Lizz, Gwen [address] [place] [address] documented as of this encounter Visit Diagnoses Diagnosis Mood disorder (CMS/HCC) Unspecified episodic mood disorder documented in this encounter Additional Health Concerns Assessment Noted Time PHQ-9 Depression Total Score: 9 06/06/20 23 2:22 PM EST documented as of this encounter Care Teams Twisting Machine Operator Relationship Specialty Start Date End Date Name, MD Jose [address] [place] [phone] PCP - General Family Medicine 11/11/15 Nasir Buenrostro FNP [address] [place] [phone] Nurse Practitioner Family Medicine 05/24/23 [place] Dietetics ProfessorMetal Burrer 03/10/23 documented as of this encounter
--- OUTSIDE RECORDS SUMMARY | 2024-11-08 09:38 | XMS_ITS | Encounter Summary ---
Author Organization [employer] Address [address] [facility] 7t [place] [address] Care Team Providers Care Technical Services Rep Name Role Phone Name, Jose SAVAGE Primary Care Provider [phone] Nasir Buenrostro Unavailable Unavailable Encounter Details Date Type Department Care Team ([facility] st Contact Info) Description 10/05/2022 Abstract [facility] [address] [place], [place] [phone] Name, MD Jose [address] [place], [place] [phone] Social History Tobacco Use Types Packs/Day Years [...] PM EDT documented as of this encounter Functional Status * Over the past 2 weeks, how often have you been bothered by any of the following problems? Question Answer Date of Assessment Author Little interest or pleasure in doing things Several days 10/07/2022 1:12 PM EDT Nicho Hamilton MA Feeling down, depressed, or hopeless Several days 10/07/2022 1:12 PM EDT Ronen Hamilton MA Patient Health Questionnaire-2 Score 2 10/07/2022 1:12 PM EDT Sophia Hamilton MA * If you checked off any problems on this questionnaire so far, Question Answer Date of Assessment Author How difficult have these problems made it for you to do your work, take care of things at home, or get along with other people? Not difficult at all 10/07/2022 1:12 PM EDT Barb Hamilton MA documented as of this encounter Plan of Treatment Upcoming Encounters Date Type Department Care Team (Late st Contact Info) Description 12/18/2024 10:45 AM EDT Office Visit [facility] [address] [place] [address] Name, MD Jose [address] [place] [address] 02/27/2025 1:00 PM EDT Office Visit [facility] [address] [place] [address] Lizz, Gwen [address] [place] [address] documented as of this encounter Procedures Procedure Name Priority Date/Time Associated Diagnosis Comments PAP SMEAR Routine 12/29/2017 12:00 AM EDT documented in this encounter Results * Pap Smear (12/29/2017 12:00 AM EDT) Swab us Historical Provider LAB CYTOLOGY ORDERABLES F inal Result [facility] [address], [place] [address] documented in this encounter Visit Diagnoses Not on filedocumented in this encounter Additional Health Concerns Assessment Noted Time PHQ-9 Depression Total Score: 5 08/24/19 23 2:37 PM EST documented as of this encounter Care Teams Technical Services Rep Relationship Specialty Start Date End Date Name, MD Jose [address] [place] [phone] PCP - General Family Medicine 11/11/15 Nasir Buenrostro FNP [address] [place] [address] Nurse Practitioner Family Medicine 05/24/23 [place] Data Warehousing ManagerQuality Improvement Consultant 03/10/23 documented as of this encounter
== END 2024-11-08 09:57 | disposition home or self-care (01) ==
LOC: HO.HGS 09:23
PROVIDERS: PCP Internal Medicine Geriatric Medicine
DX: Z98.890 Other specified postprocedural states (principal); N61.1 Abscess of the breast and nipple
CPT/HCPCS: 99212

== ENCOUNTER → 2024-11-08 09:23 | Outpatient (BNVA) | payer MEDICAID, SELFPAY | PROVIDERS: PCP Internal Medicine Geriatric Medicine | DX: N61.1 Abscess of the breast and nipple (principal); Z98.890 Other specified postprocedural states | CPT/HCPCS: 99212 ==

== ENCOUNTER 2024-12-24 15:39 | Emergency (ER) | payer MEDICAID, SELFPAY ==
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
[2024-12-24 16:10] VITALS: BP 148/79; PULSE 77; RESP 16; TEMP 36.7; O2SAT 100; BMI 29.6
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
--- NOTE | 2024-12-24 16:26 | ECG_ITS ---
Test Reason : CP Blood Pressure : */* mmHG Vent. Rate : 81 BPM Atrial Rate : 81 BPM P-R Int : 106 ms QRS Dur : 88 ms QT Int : 390 ms P-R-T Axes : -17 55 32 degrees QTcB Int : 453 ms Sinus rhythm with short NE Otherwise normal ECG No previous ECGs available Referred By: Karlene Davila Electronically Signed By: Orlando Strong
[2024-12-24 16:59] LABS: MANUAL DIFF FLAG NO
[2024-12-24 17:01] LABS: Hematocrit 39.5 % (37.0-47.0); Hemoglobin 13.2 g/dl (12.0-16.0); Imm Gran Abs Auto 0.03 X10*3/uL (0.00-0.03); Imm Gran Pct Auto 0.4 % (0.0-0.4); Lymphocytes Absolute Auto 2.9 X10*3/uL (1.2-4.9); Mean Corpuscular HGB Conc 33.4 g/dl (31.0-35.0); Mean Corpuscular Hemoglobin 31.1 pg (27.0-33.0); Mean Corpuscular Volume 92.9 fL (80.0-98.0); NRBC Abs Auto 0.000 X10*3/uL (0.0-0.012); NRBC Pct Auto 0.0 /100WBC (0.0-0.2); Platelet Count 314 X10*3/uL (160-400); Red Blood Count 4.25 X10*6/uL (4.20-5.50); White Blood Count 8.0 X10*3/uL (4.8-10.8)
[2024-12-24 17:14] LABS: Alanine Aminotransferase 12 U/L (0-31); Albumin Level 3.8 g/dL (3.5-5.0); Alkaline Phosphatase 61 U/L (39-117); Anion Gap 10 (12-20); Aspartate Amino Transferase 22 U/L (5-31); Blood Urea Nitrogen 7 mg/dL (9-16); Calcium 8.5 mg/dL (8.4-10.2); Carbon Dioxide 23 mmol/L (22-29); Chloride 109 mmol/L (96-108); Creatinine Clr Calc Pharmacy 84.4; Estimated Glomerular Filt Rate > 60; Magnesium 2.1 mg/dL (1.6-2.6); Potassium 3.7 mmol/L (3.3-5.1); Sodium 138 mmol/L (135-145); Total Protein 6.8 g/dL (6.5-8.0)
[2024-12-24 17:20] LABS: B Type Natriuretic Peptide 85 pg/mL (<100)
[2024-12-24 17:24] LABS: Troponin-I High Sensitivity < 2.7 ng/L (<3.5-17.0)
[2024-12-24 22:00] VITALS: BP 132/78; PULSE 87; RESP 17; TEMP 36.6; O2SAT 98
[2024-12-24 23:13] VITALS: BP 132/78; PULSE 77; RESP 17; TEMP 36.6; O2SAT 100
[2024-12-24 23:14] VITALS: BP 132/78; PULSE 77; RESP 17; TEMP 36.6; O2SAT 100
== END 2024-12-24 23:15 | disposition home or self-care (01) ==
PROVIDERS: Nurse Practitioner Family; Emergency Provider Emergency Medicine; PCP Internal Medicine Geriatric Medicine
DX: S19.9XXA Unspecified injury of neck, initial encounter (principal); S39.92XA Unspecified injury of lower back, initial encounter; R07.89 Other chest pain; R11.0 Nausea; R51.9 Headache, unspecified; M54.2 Cervicalgia; M25.562 Pain in left knee; M25.561 Pain in right knee; V43.52XA Car driver injured in collision with other type car in traffic accident, initial encounter; Y93.9 Activity, unspecified; Y92.410 Unspecified street and highway as the place of occurrence of the external cause; Y99.8 Other external cause status; Z79.899 Other long term (current) drug therapy; F17.210 Nicotine dependence, cigarettes, uncomplicated
CPT/HCPCS: 36415; 70450; 72125; 72131; 80053; 83735; 83880; 84484; 85025; 93005; 96372; 99284; 99285; J1885

== ENCOUNTER → 2024-12-24 16:19 | Outpatient (BNV) | payer MEDICAID, SELFPAY | PROVIDERS: PCP Internal Medicine Geriatric Medicine; Visit Provider Radiology Diagnostic Radiology | DX: M54.2 Cervicalgia (principal); M54.50 Low back pain, unspecified; S09.90XA Unspecified injury of head, initial encounter; R51.9 Headache, unspecified; V89.2XXA Person injured in unspecified motor-vehicle accident, traffic, initial encounter | CPT/HCPCS: 70450; 72125; 72131 ==

== ENCOUNTER → 2024-12-24 16:26 | Outpatient (BNV) | payer MEDICAID, SELFPAY | PROVIDERS: Emergency Provider Emergency Medicine; PCP Internal Medicine Geriatric Medicine; Visit Provider Internal Medicine Cardiovascular Disease | DX: R07.9 Chest pain, unspecified (principal) | CPT/HCPCS: 93010 ==